=== PATIENT | male | born 1955 | race Caucasian/White ===

== ENCOUNTER 2020-01-17 11:53 | Outpatient (REF) | payer OTHER, SELFPAY ==
[2020-01-17 14:09] LABS: MANUAL DIFF FLAG NO
[2020-01-17 14:21] LABS: Basophils Percent Auto 0.9 % (0-2); Eosinophils Absolute Auto 0.1 X10*3/uL (0.0-0.4); Eosinophils Percent Auto 3.8 % (0-4); Hemoglobin 8.9 g/dl (14.0-18.0); Imm Gran Abs Auto 0.01 X10*3/uL (0.00-0.03); Imm Gran Pct Auto 0.3 % (0.0-0.4); Lymphocytes Absolute Auto 0.9 X10*3/uL (1.2-4.9); Lymphocytes Percent Auto 26.8 % (20-40); Mean Corpuscular HGB Conc 31.8 g/dl (31.0-36.0); Mean Corpuscular Volume 94.3 fL (80-98); Mean Platelet Volume 9.4 fL (9.4-12.4); Monocytes Absolute Auto 0.4 X10*3/uL (0.1-1.2); Monocytes Percent Auto 11.1 % (2-11); Neutrophils Percent Auto 57.1 % (45-73); Platelet Count 231 X10*3/uL (160-400); Red Blood Count 2.97 X10*6/uL (4.60-5.80); Red Cell Distribution Width 16.4 % (11.0-16.0); White Blood Count 3.4 X10*3/uL (4.8-10.8)
[2020-01-17 14:42] LABS: Anion Gap 14 (12-20); Blood Urea Nitrogen 33 mg/dL (9-16); Carbon Dioxide 25 mmol/L (22-29); Chloride 105 mmol/L (96-108); Estimated Glomerular Filt Rate 18; Potassium 4.9 mmol/l (3.3-5.1); Sodium 139 mmol/L (135-145)
== END 2020-01-17 11:54 | disposition home or self-care (01) ==
LOC: HO.10HDL 11:53
PROVIDERS: Visit Provider Internal Medicine Hypertension Specialist
DX: N18.9 Chronic kidney disease, unspecified (principal); D63.1 Anemia in chronic kidney disease
CPT/HCPCS: 36415; 80051; 82310; 82565; 84520; 85025

== ENCOUNTER 2020-01-18 15:10 | Outpatient (REF) | payer OTHER, SELFPAY ==
[2020-01-18 16:31] LABS: Iron 114 mcg/dL (45-160); Percent Iron Saturation 37 % (15-50); Total Iron Binding Capacity 312 mcg/dL (228-428); Unsaturated Iron Binding 198 ug/dL
[2020-01-18 16:51] LABS: Ferritin 13 ng/mL (20-250)
== END 2020-01-18 15:11 | disposition home or self-care (01) ==
LOC: HO.LAB 15:10
PROVIDERS: PCP Internal Medicine; Visit Provider Internal Medicine Nephrology
DX: I13.10 Hypertensive heart and chronic kidney disease without heart failure, with stage 1 through stage 4 chronic kidney disease, or unspecified chronic kidney disease (principal); I12.9 Hypertensive chronic kidney disease with stage 1 through stage 4 chronic kidney disease, or unspecified chronic kidney disease; N18.4 Chronic kidney disease, stage 4 (severe); D63.1 Anemia in chronic kidney disease; E66.01 Morbid (severe) obesity due to excess calories
CPT/HCPCS: 82728; 83540

== ENCOUNTER 2020-03-09 14:27 | Outpatient (REF) | payer OTHER, SELFPAY ==
[2020-03-09 15:00] LABS: MANUAL DIFF FLAG NO
[2020-03-09 15:10] LABS: Basophils Percent Auto 0.7 % (0-2); Eosinophils Absolute Auto 0.1 X10*3/uL (0.0-0.4); Eosinophils Percent Auto 1.2 % (0-4); Hematocrit 28.4 % (42-52); Hemoglobin 9.2 g/dl (14.0-18.0); Imm Gran Abs Auto 0.01 X10*3/uL (0.00-0.03); Imm Gran Pct Auto 0.2 % (0.0-0.4); Lymphocytes Absolute Auto 0.8 X10*3/uL (1.2-4.9); Lymphocytes Percent Auto 20.6 % (20-40); Mean Corpuscular HGB Conc 32.4 g/dl (31.0-36.0); Mean Corpuscular Hemoglobin 29.6 pg (27.0-33.0); Mean Corpuscular Volume 91.3 fL (80-98); Mean Platelet Volume 9.2 fL (9.4-12.4); Monocytes Absolute Auto 0.4 X10*3/uL (0.1-1.2); Monocytes Percent Auto 9.2 % (2-11); Neutrophils Absolute Auto 2.7 X10*3/uL (2.0-8.3); Neutrophils Percent Auto 68.1 % (45-73); Platelet Count 220 X10*3/uL (160-400); Red Blood Count 3.11 X10*6/uL (4.60-5.80); Red Cell Distribution Width 16.1 % (11.0-16.0)
[2020-03-09 15:26] LABS: Anion Gap 13 (12-20); Blood Urea Nitrogen 35 mg/dL (9-16); Calcium 7.9 mg/dL (8.4-10.2); Carbon Dioxide 25 mmol/L (22-29); Chloride 104 mmol/L (96-108); Estimated Glomerular Filt Rate 16; Iron 107 mcg/dL (45-160); Percent Iron Saturation 35 % (15-50); Potassium 4.6 mmol/l (3.3-5.1); Sodium 137 mmol/L (135-145); Total Iron Binding Capacity 309 mcg/dL (228-428); Unsaturated Iron Binding 202 ug/dL
[2020-03-09 15:48] LABS: Ferritin 12 ng/mL (20-250)
== END 2020-03-09 14:28 | disposition home or self-care (01) ==
LOC: HO.LAB 14:27
PROVIDERS: Absent Provider Internal Medicine Nephrology; PCP Internal Medicine; Visit Provider Internal Medicine Hypertension Specialist
DX: I13.10 Hypertensive heart and chronic kidney disease without heart failure, with stage 1 through stage 4 chronic kidney disease, or unspecified chronic kidney disease (principal); N18.4 Chronic kidney disease, stage 4 (severe); D63.1 Anemia in chronic kidney disease; E66.01 Morbid (severe) obesity due to excess calories
CPT/HCPCS: 36415; 80051; 82310; 82565; 82728; 83540; 84520; 85025

== ENCOUNTER 2020-04-11 12:41 | Outpatient (REF) | payer OTHER, SELFPAY ==
[2020-04-11 13:23] LABS: MANUAL DIFF FLAG NO
[2020-04-11 13:29] LABS: Basophils Percent Auto 1.1 % (0-2); Eosinophils Absolute Auto 0.1 X10*3/uL (0.0-0.4); Eosinophils Percent Auto 2.3 % (0-4); Hematocrit 26.1 % (42-52); Hemoglobin 8.7 g/dl (14.0-18.0); Imm Gran Abs Auto 0.01 X10*3/uL (0.00-0.03); Imm Gran Pct Auto 0.3 % (0.0-0.4); Lymphocytes Percent Auto 27.5 % (20-40); Mean Corpuscular HGB Conc 33.3 g/dl (31.0-36.0); Mean Corpuscular Hemoglobin 30.1 pg (27.0-33.0); Mean Corpuscular Volume 90.3 fL (80-98); Mean Platelet Volume 9.2 fL (9.4-12.4); Monocytes Absolute Auto 0.4 X10*3/uL (0.1-1.2); Monocytes Percent Auto 10.3 % (2-11); Neutrophils Percent Auto 58.5 % (45-73); Platelet Count 208 X10*3/uL (160-400); Red Blood Count 2.89 X10*6/uL (4.60-5.80); Red Cell Distribution Width 15.9 % (11.0-16.0); White Blood Count 3.5 X10*3/uL (4.8-10.8)
[2020-04-11 13:52] LABS: Anion Gap 11 (12-20); Blood Urea Nitrogen 30 mg/dL (9-16); Calcium 7.8 mg/dL (8.4-10.2); Carbon Dioxide 21 mmol/L (22-29); Chloride 102 mmol/L (96-108); Estimated Glomerular Filt Rate 19; Potassium 4.4 mmol/L (3.3-5.1); Sodium 130 mmol/L (135-145)
== END 2020-04-11 12:42 | disposition home or self-care (01) ==
LOC: HO.LAB 12:41
PROVIDERS: PCP Internal Medicine; Visit Provider Internal Medicine Hypertension Specialist
DX: N18.4 Chronic kidney disease, stage 4 (severe) (principal); D63.1 Anemia in chronic kidney disease
CPT/HCPCS: 36415; 80051; 82310; 82565; 84520; 85025

== ENCOUNTER 2020-05-14 14:11 | Outpatient (REF) | payer OTHER, SELFPAY ==
[2020-05-14 15:15] LABS: MANUAL DIFF FLAG NO
[2020-05-14 15:20] LABS: Basophils Absolute Auto 0.1 X10*3/uL (0.0-0.2); Basophils Percent Auto 0.9 % (0-2); Eosinophils Absolute Auto 0.1 X10*3/uL (0.0-0.4); Eosinophils Percent Auto 1.7 % (0-4); Hematocrit 32.3 % (42-52); Hemoglobin 10.2 g/dl (14.0-18.0); Imm Gran Abs Auto 0.02 X10*3/uL (0.00-0.03); Imm Gran Pct Auto 0.3 % (0.0-0.4); Lymphocytes Absolute Auto 1.1 X10*3/uL (1.2-4.9); Lymphocytes Percent Auto 18.5 % (20-40); Mean Corpuscular HGB Conc 31.6 g/dl (31.0-36.0); Mean Corpuscular Hemoglobin 29.6 pg (27.0-33.0); Mean Corpuscular Volume 93.6 fL (80-98); Mean Platelet Volume 9.1 fL (9.4-12.4); Monocytes Absolute Auto 0.7 X10*3/uL (0.1-1.2); Monocytes Percent Auto 11.7 % (2-11); Neutrophils Absolute Auto 3.9 X10*3/uL (2.0-8.3); Neutrophils Percent Auto 66.9 % (45-73); Platelet Count 320 X10*3/uL (160-400); Red Blood Count 3.45 X10*6/uL (4.60-5.80); Red Cell Distribution Width 16.5 % (11.0-16.0); White Blood Count 5.9 X10*3/uL (4.8-10.8)
[2020-05-14 15:37] LABS: Glucose Urine UA NEG (NEG); Leukocyte Esterase Urine NEG (NEG); Nitrite Urine NEG (NEG); Urine Blood NEG (NEG); Urine Ketones NEG (NEG); Urine Protein TRACE MG/DL (NEG-TRACE)
[2020-05-14 15:40] LABS: Appearance Urine CLEAR; Color Urine YELLOW
[2020-05-14 15:48] LABS: Alanine Aminotransferase 24 U/L (0-40); Alkaline Phosphatase 63 U/L (39-117); Anion Gap 18 (12-20); Aspartate Amino Transferase 31 U/L (5-37); Bilirubin Total 0.5 mg/dL (0.0-1.0); Blood Urea Nitrogen 43 mg/dL (9-16); C Reactive Protein 0.49 mg/dL (< or = 0.50); Calcium 8.7 mg/dL (8.4-10.2); Carbon Dioxide 23 mmol/L (22-29); Chloride 103 mmol/L (96-108); Estimated Glomerular Filt Rate 19; Glucose Random 95 mg/dL (60-115); Potassium 5.3 mmol/L (3.3-5.1); Sodium 139 mmol/L (135-145); Total Protein 6.5 g/dL (6.5-8.0); Uric Acid 6.9 mg/dL (3.4-7.0)
== END 2020-05-14 14:12 | disposition home or self-care (01) ==
LOC: HO.LAB 14:11
PROVIDERS: PCP Internal Medicine; Visit Provider Internal Medicine
DX: I12.9 Hypertensive chronic kidney disease with stage 1 through stage 4 chronic kidney disease, or unspecified chronic kidney disease (principal); N18.9 Chronic kidney disease, unspecified; R10.9 Unspecified abdominal pain; Z87.39 Personal history of other diseases of the musculoskeletal system and connective tissue
CPT/HCPCS: 36415; 80053; 81003; 84550; 85025; 86140; 87086

== ENCOUNTER 2020-05-31 10:20 | Outpatient (REF) | payer OTHER, SELFPAY ==
[2020-05-31 11:51] LABS: Hematocrit 25.8 % (42-52); Hemoglobin 8.2 g/dl (14.0-18.0); Mean Corpuscular HGB Conc 31.8 g/dl (31.0-36.0); Mean Corpuscular Hemoglobin 30.7 pg (27.0-33.0); Mean Corpuscular Volume 96.6 fL (80-98); Mean Platelet Volume 9.4 fL (9.4-12.4); Platelet Count 220 X10*3/uL (160-400); Red Blood Count 2.67 X10*6/uL (4.60-5.80); Red Cell Distribution Width 16.5 % (11.0-16.0); White Blood Count 3.4 X10*3/uL (4.8-10.8)
[2020-05-31 11:53] LABS: Anion Gap 12 (12-20); Blood Urea Nitrogen 47 mg/dL (9-16); Calcium 7.9 mg/dL (8.4-10.2); Carbon Dioxide 22 mmol/L (22-29); Chloride 111 mmol/L (96-108); Estimated Glomerular Filt Rate 15; Iron 137 mcg/dL (45-160); Percent Iron Saturation 46 % (15-50); Potassium 4.4 mmol/L (3.3-5.1); Sodium 141 mmol/L (135-145); Total Iron Binding Capacity 295 mcg/dL (228-428); Unsaturated Iron Binding 158 ug/dL
[2020-05-31 12:16] LABS: Ferritin 13 ng/mL (20-250)
== END 2020-05-31 10:21 | disposition home or self-care (01) ==
LOC: HO.LAB 10:20
PROVIDERS: PCP Internal Medicine; Visit Provider Internal Medicine Hypertension Specialist
DX: N18.9 Chronic kidney disease, unspecified (principal); D63.1 Anemia in chronic kidney disease
CPT/HCPCS: 36415; 80051; 82310; 82565; 82728; 83540; 84520; 85027

== ENCOUNTER 2020-06-28 15:24 | Outpatient (REF) | payer OTHER, SELFPAY ==
[2020-06-28 15:55] LABS: Basophils Percent Auto 0.9 % (0-2); Eosinophils Percent Auto 0.6 % (0-4); Hematocrit 28.9 % (42-52); Hemoglobin 9.1 g/dl (14.0-18.0); Imm Gran Abs Auto 0.01 X10*3/uL (0.00-0.03); Imm Gran Pct Auto 0.3 % (0.0-0.4); Lymphocytes Absolute Auto 0.6 X10*3/uL (1.2-4.9); Lymphocytes Percent Auto 16.6 % (20-40); MANUAL DIFF FLAG SCAN; Mean Corpuscular HGB Conc 31.5 g/dl (31.0-36.0); Mean Corpuscular Hemoglobin 29.4 pg (27.0-33.0); Mean Corpuscular Volume 93.5 fL (80-98); Mean Platelet Volume 8.7 fL (9.4-12.4); Monocytes Absolute Auto 0.3 X10*3/uL (0.1-1.2); Monocytes Percent Auto 9.8 % (2-11); Neutrophils Absolute Auto 2.4 X10*3/uL (2.0-8.3); Neutrophils Percent Auto 71.8 % (45-73); Platelet Count 206 X10*3/uL (160-400); Red Blood Count 3.09 X10*6/uL (4.60-5.80); Red Cell Distribution Width 15.6 % (11.0-16.0); SCAN SMEAR FLAG 1; White Blood Count 3.4 X10*3/uL (4.8-10.8)
[2020-06-28 16:35] LABS: SLIDE REVIEW VERIFIED
== END 2020-06-28 15:25 | disposition home or self-care (01) ==
LOC: HO.LAB 15:24
PROVIDERS: PCP Internal Medicine; Visit Provider Internal Medicine Hypertension Specialist
DX: N18.4 Chronic kidney disease, stage 4 (severe) (principal)
CPT/HCPCS: 36415; 85025

== ENCOUNTER 2020-07-13 13:58 | Outpatient (REF) | payer OTHER, SELFPAY ==
[2020-07-13 14:36] LABS: Basophils Percent Auto 0.7 % (0-2); Eosinophils Absolute Auto 0.1 X10*3/uL (0.0-0.4); Eosinophils Percent Auto 2.1 % (0-4); Hematocrit 27.4 % (42-52); Hemoglobin 8.8 g/dl (14.0-18.0); Imm Gran Abs Auto 0.02 X10*3/uL (0.00-0.03); Imm Gran Pct Auto 0.5 % (0.0-0.4); Lymphocytes Absolute Auto 0.7 X10*3/uL (1.2-4.9); Lymphocytes Percent Auto 15.6 % (20-40); MANUAL DIFF FLAG SCAN; Mean Corpuscular HGB Conc 32.1 g/dl (31.0-36.0); Mean Corpuscular Hemoglobin 29.5 pg (27.0-33.0); Mean Corpuscular Volume 91.9 fL (80-98); Mean Platelet Volume 8.9 fL (9.4-12.4); Monocytes Absolute Auto 0.6 X10*3/uL (0.1-1.2); Monocytes Percent Auto 13.2 % (2-11); Neutrophils Absolute Auto 2.9 X10*3/uL (2.0-8.3); Neutrophils Percent Auto 67.9 % (45-73); Platelet Count 195 X10*3/uL (160-400); Red Blood Count 2.98 X10*6/uL (4.60-5.80); Red Cell Distribution Width 16.2 % (11.0-16.0); SCAN SMEAR FLAG 1; White Blood Count 4.2 X10*3/uL (4.8-10.8)
[2020-07-13 14:55] LABS: Anion Gap 13 (12-20); Blood Urea Nitrogen 39 mg/dL (9-16); Calcium 7.7 mg/dL (8.4-10.2); Carbon Dioxide 23 mmol/L (22-29); Chloride 103 mmol/L (96-108); Estimated Glomerular Filt Rate 16; Potassium 4.5 mmol/L (3.3-5.1); Sodium 134 mmol/L (135-145)
[2020-07-13 15:02] LABS: SLIDE REVIEW VERIFIED
== END 2020-07-13 13:59 | disposition home or self-care (01) ==
LOC: HO.LAB 13:58
PROVIDERS: PCP Internal Medicine; Visit Provider Internal Medicine Hypertension Specialist
DX: N18.4 Chronic kidney disease, stage 4 (severe) (principal)
CPT/HCPCS: 36415; 80051; 82310; 82565; 84520; 85025

== ENCOUNTER 2020-09-05 15:30 | Outpatient (REF) | payer OTHER, SELFPAY ==
[2020-09-05 16:14] LABS: MANUAL DIFF FLAG NO
[2020-09-05 16:19] LABS: Basophils Percent Auto 0.7 % (0-2); Eosinophils Absolute Auto 0.1 X10*3/uL (0.0-0.4); Eosinophils Percent Auto 3.3 % (0-4); Hematocrit 27.9 % (42-52); Hemoglobin 8.7 g/dl (14.0-18.0); Imm Gran Abs Auto 0.01 X10*3/uL (0.00-0.03); Imm Gran Pct Auto 0.3 % (0.0-0.4); Lymphocytes Absolute Auto 0.8 X10*3/uL (1.2-4.9); Lymphocytes Percent Auto 26.6 % (20-40); Mean Corpuscular HGB Conc 31.2 g/dl (31.0-36.0); Mean Corpuscular Hemoglobin 29.2 pg (27.0-33.0); Mean Corpuscular Volume 93.6 fL (80-98); Mean Platelet Volume 9.3 fL (9.4-12.4); Monocytes Absolute Auto 0.4 X10*3/uL (0.1-1.2); Monocytes Percent Auto 11.6 % (2-11); Neutrophils Absolute Auto 1.7 X10*3/uL (2.0-8.3); Neutrophils Percent Auto 57.5 % (45-73); Platelet Count 199 X10*3/uL (160-400); Red Blood Count 2.98 X10*6/uL (4.60-5.80); Red Cell Distribution Width 17.5 % (11.0-16.0)
[2020-09-05 16:39] LABS: Anion Gap 15 (12-20); Blood Urea Nitrogen 52 mg/dL (9-16); Calcium 8.5 mg/dL (8.4-10.2); Carbon Dioxide 22 mmol/L (22-29); Chloride 111 mmol/L (96-108); Estimated Glomerular Filt Rate 12; Glucose Random 100 mg/dL (60-115); Potassium 5.2 mmol/L (3.3-5.1); Sodium 143 mmol/L (135-145)
[2020-09-06 14:56] LABS: Calcium (PTHI) 8.6 mg/dL (8.6-10.3); PTHI 50 pg/mL (14-64)
== END 2020-09-05 15:31 | disposition home or self-care (01) ==
LOC: HO.LAB 15:30
PROVIDERS: PCP Internal Medicine; Visit Provider Internal Medicine Hypertension Specialist
DX: N18.4 Chronic kidney disease, stage 4 (severe) (principal)
CPT/HCPCS: 36415; 80048; 83970; 85025

== ENCOUNTER 2020-12-13 10:32 | Outpatient (REF) | payer OTHER, SELFPAY ==
[2020-12-13 14:18] LABS: Alanine Aminotransferase 15 U/L (0-40); Albumin Level 3.6 g/dL (3.5-5.0); Alkaline Phosphatase 54 U/L (39-117); Anion Gap 16 (12-20); Aspartate Amino Transferase 21 U/L (5-37); Bilirubin Total 0.4 mg/dL (0.0-1.0); Blood Urea Nitrogen 52 mg/dL (9-16); Calcium 8.4 mg/dL (8.4-10.2); Carbon Dioxide 20 mmol/L (22-29); Chloride 110 mmol/L (96-108); Estimated Glomerular Filt Rate 15; Glucose Fasting 103 mg/dL (60-99); Phosphorus 5.1 mg/dL (2.7-4.5); Potassium 4.6 mmol/L (3.3-5.1); Sodium 141 mmol/L (135-145); Total Protein 5.9 g/dL (6.5-8.0)
[2020-12-15 06:17] LABS: Calcium (PTHI) 8.3 mg/dL (8.6-10.3); PTHI 68 pg/mL (14-64)
== END 2020-12-13 10:33 | disposition home or self-care (01) ==
LOC: HO.10HDL 10:32
PROVIDERS: Visit Provider Internal Medicine Hypertension Specialist
DX: N18.5 Chronic kidney disease, stage 5 (principal); I12.0 Hypertensive chronic kidney disease with stage 5 chronic kidney disease or end stage renal disease
CPT/HCPCS: 36415; 80053; 83970; 84100

== ENCOUNTER 2021-01-15 15:09 | Outpatient (REF) | payer OTHER, SELFPAY ==
[2021-01-15 15:23] LABS: MANUAL DIFF FLAG NO
[2021-01-15 15:37] LABS: Basophils Percent Auto 0.4 % (0-2); Eosinophils Absolute Auto 0.1 X10*3/uL (0.0-0.4); Eosinophils Percent Auto 1.5 % (0-4); Hematocrit 32.8 % (42.0-52.0); Hemoglobin 10.2 g/dl (14.0-18.0); Imm Gran Abs Auto 0.02 X10*3/uL (0.00-0.03); Imm Gran Pct Auto 0.3 % (0.0-0.4); Lymphocytes Absolute Auto 1.1 X10*3/uL (1.2-4.9); Lymphocytes Percent Auto 14.4 % (20-40); Mean Corpuscular HGB Conc 31.1 g/dl (31.0-36.0); Mean Corpuscular Hemoglobin 27.4 pg (27.0-33.0); Mean Corpuscular Volume 88.2 fL (80.0-98.0); Mean Platelet Volume 9.1 fL (9.4-12.4); Monocytes Absolute Auto 0.8 X10*3/uL (0.1-1.2); Monocytes Percent Auto 10.4 % (2-11); Neutrophils Absolute Auto 5.4 x10*3/uL (2.0-8.3); Platelet Count 233 X10*3/uL (160-400); Red Blood Count 3.72 X10*6/uL (4.60-5.80); Red Cell Distribution Width 18.6 % (11.0-16.0); White Blood Count 7.4 X10*3/uL (4.8-10.8)
[2021-01-15 16:01] LABS: Alanine Aminotransferase 15 U/L (0-40); Albumin Level 3.9 g/dL (3.5-5.0); Alkaline Phosphatase 59 U/L (39-117); Anion Gap 13 (12-20); Aspartate Amino Transferase 19 U/L (5-37); Bilirubin Total 0.2 mg/dL (0.0-1.0); Blood Urea Nitrogen 58 mg/dL (9-16); Calcium 8.7 mg/dL (8.4-10.2); Carbon Dioxide 24 mmol/L (22-29); Chloride 107 mmol/L (96-108); Cholesterol 140 mg/dL; Estimated Glomerular Filt Rate 13; Glucose Random 114 mg/dL (60-115); HDL Cholesterol 50 mg/dL; Iron 22 mcg/dL (45-160); LDL Cholesterol Calculated 82 mg/dl; Percent Iron Saturation 6 % (15-50); Potassium 5.4 mmol/L (3.3-5.1); Sodium 139 mmol/L (135-145); Total Iron Binding Capacity 344 mcg/dL (228-428); Total Protein 6.4 g/dL (6.5-8.0); Triglycerides 40 mg/dL; Unsaturated Iron Binding 322 ug/dL
[2021-01-15 16:17] LABS: Prostate Specific Antigen 0.27 ng/mL (<0.05-4.0); Thyroid Stimulating Hormone 2.06 uIU/mL (0.32-4.0); Vitamin D 25-OH Total 40.9 ng/mL (>30)
[2021-01-15 16:25] LABS: Vitamin B12 529 pg/mL (200-900)
== END 2021-01-15 15:10 | disposition home or self-care (01) ==
LOC: HO.LAB 15:09
PROVIDERS: PCP Internal Medicine; Visit Provider Internal Medicine
DX: I12.9 Hypertensive chronic kidney disease with stage 1 through stage 4 chronic kidney disease, or unspecified chronic kidney disease (principal); N18.9 Chronic kidney disease, unspecified; E78.00 Pure hypercholesterolemia, unspecified; R53.83 Other fatigue; Z12.5 Encounter for screening for malignant neoplasm of prostate
CPT/HCPCS: 36415; 80053; 80061; 82306; 82607; 83540; 84153; 84443; 85025

== ENCOUNTER 2021-02-15 13:39 | Outpatient (REF) | payer OTHER, SELFPAY ==
[2021-02-15 14:00] LABS: MANUAL DIFF FLAG NO
[2021-02-15 14:09] LABS: Basophils Percent Auto 0.8 % (0-2); Eosinophils Absolute Auto 0.1 X10*3/uL (0.0-0.4); Eosinophils Percent Auto 3.1 % (0-4); Hemoglobin 9.4 g/dl (14.0-18.0); Imm Gran Abs Auto 0.01 X10*3/uL (0.00-0.03); Imm Gran Pct Auto 0.3 % (0.0-0.4); Lymphocytes Absolute Auto 0.8 X10*3/uL (1.2-4.9); Lymphocytes Percent Auto 21.7 % (20-40); Mean Corpuscular HGB Conc 31.3 g/dl (31.0-36.0); Mean Corpuscular Hemoglobin 27.9 pg (27.0-33.0); Mean Platelet Volume 8.9 fL (9.4-12.4); Monocytes Absolute Auto 0.4 X10*3/uL (0.1-1.2); Monocytes Percent Auto 11.4 % (2-11); Neutrophils Absolute Auto 2.4 x10*3/uL (2.0-8.3); Neutrophils Percent Auto 62.7 % (45-73); Platelet Count 206 X10*3/uL (160-400); Red Blood Count 3.37 X10*6/uL (4.60-5.80); Red Cell Distribution Width 18.6 % (11.0-16.0); White Blood Count 3.9 X10*3/uL (4.8-10.8)
[2021-02-15 14:45] LABS: Anion Gap 13 (12-20); Blood Urea Nitrogen 51 mg/dL (9-16); Calcium 8.4 mg/dL (8.4-10.2); Carbon Dioxide 23 mmol/L (22-29); Chloride 110 mmol/L (96-108); Estimated Glomerular Filt Rate 15; Glucose Random 120 mg/dL (60-115); Iron 143 mcg/dL (45-160); Percent Iron Saturation 45 % (15-50); Potassium 5.1 mmol/L (3.3-5.1); Sodium 141 mmol/L (135-145); Total Iron Binding Capacity 319 mcg/dL (228-428); Unsaturated Iron Binding 176 ug/dL
[2021-02-15 15:03] LABS: Ferritin 20 ng/mL (20-250)
== END 2021-02-15 13:40 | disposition home or self-care (01) ==
LOC: HO.LAB 13:39
PROVIDERS: PCP Internal Medicine; Visit Provider Internal Medicine Hypertension Specialist
DX: I12.9 Hypertensive chronic kidney disease with stage 1 through stage 4 chronic kidney disease, or unspecified chronic kidney disease (principal); N18.4 Chronic kidney disease, stage 4 (severe); D63.1 Anemia in chronic kidney disease
CPT/HCPCS: 36415; 80048; 82728; 83540; 85025

== ENCOUNTER 2021-04-04 13:20 | Outpatient (REF) | payer OTHER, SELFPAY ==
[2021-04-04 13:55] LABS: Hematocrit 30.7 % (42.0-52.0); Hemoglobin 9.4 g/dl (14.0-18.0); Mean Corpuscular HGB Conc 30.6 g/dl (31.0-36.0); Mean Corpuscular Hemoglobin 28.2 pg (27.0-33.0); Mean Corpuscular Volume 92.2 fL (80.0-98.0); Mean Platelet Volume 9.2 fL (9.4-12.4); Platelet Count 175 X10*3/uL (160-400); Red Blood Count 3.33 X10*6/uL (4.60-5.80); Red Cell Distribution Width 17.9 % (11.0-16.0); White Blood Count 3.2 X10*3/uL (4.8-10.8)
[2021-04-04 14:11] LABS: Alanine Aminotransferase 10 U/L (0-40); Albumin Level 3.8 g/dL (3.5-5.0); Alkaline Phosphatase 59 U/L (39-117); Aspartate Amino Transferase 22 U/L (5-37); Bilirubin Direct < 0.2 mg/dL (0.0-0.5); Bilirubin Total 0.2 mg/dL (0.0-1.0); Total Protein 6.4 g/dL (6.5-8.0)
== END 2021-04-04 13:21 | disposition home or self-care (01) ==
LOC: HO.LAB 13:20
PROVIDERS: PCP Internal Medicine; Visit Provider Internal Medicine Hypertension Specialist
DX: N18.4 Chronic kidney disease, stage 4 (severe) (principal); E11.22 Type 2 diabetes mellitus with diabetic chronic kidney disease
CPT/HCPCS: 36415; 80076; 85027

== ENCOUNTER 2021-05-29 10:37 | Outpatient (REF) | payer OTHER, SELFPAY ==
[2021-05-29 13:26] LABS: Hemoglobin 9.1 g/dl (14.0-18.0); Mean Corpuscular HGB Conc 31.4 g/dl (31.0-36.0); Mean Corpuscular Hemoglobin 30.7 pg (27.0-33.0); Mean Platelet Volume 9.7 fL (9.4-12.4); Platelet Count 204 X10*3/uL (160-400); Red Blood Count 2.96 X10*6/uL (4.60-5.80); Red Cell Distribution Width 15.8 % (11.0-16.0); White Blood Count 4.8 X10*3/uL (4.8-10.8)
[2021-05-29 13:39] LABS: Anion Gap 15 (12-20); Blood Urea Nitrogen 59 mg/dL (9-16); Calcium 8.7 mg/dL (8.4-10.2); Carbon Dioxide 22 mmol/L (22-29); Chloride 110 mmol/L (96-108); Estimated Glomerular Filt Rate 14; Glucose Random 133 mg/dL (60-115); Iron 119 mcg/dL (45-160); Percent Iron Saturation 42 % (15-50); Potassium 4.7 mmol/L (3.3-5.1); Sodium 142 mmol/L (135-145); Total Iron Binding Capacity 285 mcg/dL (228-428); Unsaturated Iron Binding 166 ug/dL
[2021-05-29 13:55] LABS: Ferritin 31 ng/mL (20-250)
[2021-05-30 12:06] LABS: Calcium (PTHI) 8.6 mg/dL (8.6-10.3); PTHI 70 pg/mL (16-77)
== END 2021-05-29 10:38 | disposition home or self-care (01) ==
LOC: HO.10HDL 10:37
PROVIDERS: Visit Provider Internal Medicine Hypertension Specialist
DX: I12.9 Hypertensive chronic kidney disease with stage 1 through stage 4 chronic kidney disease, or unspecified chronic kidney disease (principal); N18.4 Chronic kidney disease, stage 4 (severe); D63.1 Anemia in chronic kidney disease
CPT/HCPCS: 36415; 80048; 82728; 83540; 83970; 85027

== ENCOUNTER 2021-11-22 14:41 | Outpatient (REF) | payer OTHER, MEDICARE, SELFPAY ==
[2021-11-22 15:45] LABS: Influenza A PCR NEGATIVE (Negative); Influenza B PCR NEGATIVE (Negative); Resp Syncy Virus RNA Qual PCR NEGATIVE (Negative); SARS COV2 PCR INHOUSE NEGATIVE (Negative)
== END 2021-11-22 14:42 | disposition home or self-care (01) ==
LOC: HO.LNP 14:41
PROVIDERS: Visit Provider Internal Medicine
DX: Z20.822 Contact with and (suspected) exposure to COVID-19 (principal)
CPT/HCPCS: 0241U

== ENCOUNTER 2021-12-14 07:59 | Emergency (ER) | payer OTHER, MEDICARE, SELFPAY ==
--- NOTE | ~2021-12-14 | XR_ITS ---
EXAMINATION: XR CHEST CLINICAL INFORMATION: Cough COMPARISON: Prior chest June 2018 TECHNIQUE: Frontal view of the chest was obtained. FINDINGS: Minimal linear opacities at the left base compatible discoid atelectasis or scarring compared to prior. Lungs otherwise clear. Cardiomediastinal silhouette normal. Bones and soft tissues unremarkable. XR/XR chest 1V IMPRESSION: Minimal scarring and/or discoid atelectasis at left base.
--- NOTE | ~2021-12-14 | CT_ITS ---
CT SOFT TISSUE NECK WITHOUT CONTRAST CLINICAL INFORMATION: Rule out soft tissue mass. COMPARISON: None available. TECHNIQUE: Helical imaging was performed in the axial plane with generation of coronal and sagittal reformatted images. This CT examination was performed using dose optimization techniques as appropriate, variously including the following: *Automated exposure control *Adjustment of mA and/or kV according to patient size (this includes techniques or standardized protocols for targeted exams where dose is matched to indication/reason for exam; i.e. extremities or head) *Use of iterative reconstruction technique FINDINGS: This is a limited noncontrast CT of the neck. No definite soft tissue mass lesions are identified though assessment is limited given the lack of intravenous contrast and lack of a palpable marker. There is no cervical lymphadenopathy. Nondiagnostic assessment for superficial mucosal space lesions due to the lack of intravenous contrast. Unenhanced orbital soft tissues, parotid glands, submandibular glands, and thyroid gland are unremarkable. No retropharyngeal fluid collections. Atherosclerotic calcification involving the carotid bifurcations bilaterally. A partially calcified excrescence associated with the left MCA bifurcation is compatible with a known aneurysm in this location, not diagnostically assessed due to the lack of contrast. There is multilevel cervical spondylosis. At C5-C6, a central disc protrusion results in possible moderate to severe central canal stenosis and mass effect on the cervical spinal cord that can be correlated for clinical signs of cervical myelopathy. Rightward convex scoliotic curvature of the thoracic spine. Mild mucosal thickening within the maxillary sinuses and ethmoid air cells bilaterally. The mastoid air cells are clear. The airway is widely patent. CT/CT soft tissue neck wo IV con IMPRESSION: - This is a limited noncontrast CT of the neck. No definite soft tissue mass lesions are identified though assessment is limited given the lack of intravenous contrast and lack of a palpable marker. There is no cervical lymphadenopathy. - A partially calcified excrescence associated with the left MCA bifurcation is compatible with a known aneurysm in this location, not diagnostically assessed due to the lack of contrast. - There is multilevel cervical spondylosis. At C5-C6, a central disc protrusion results in possible moderate to severe central canal stenosis and mass effect on the cervical spinal cord that can be correlated for clinical signs of cervical myelopathy.
[2021-12-14 08:01] VITALS: BP 137/87; PULSE 102; RESP 16; TEMP 36.2; O2SAT 98; BMI 26.9
[2021-12-14 08:29] LABS: COVID-19 Test Negative (Negative); IDNOW Serial# 16C4AD1C
[2021-12-14 08:37] LABS: Strep A Nucleic Acid Negative (Negative)
--- OUTSIDE RECORDS SUMMARY | 2021-12-14 08:54 | XMS_ITS | Continuity of Care Document ---
:1955 Author Organization [facility] Address [address] [place] [id number]- Care Team Providers Name Role Phone Jose Alfredo Ross MD Primary [id number] Date(s): 07/18/21 - 07/22/[address] [address] Discharge Disposition: A-D/C Home Attending Physician: Philipp Munoz MD Admitting Physician: Philipp Munoz MD Referring Physician: Not on Staff, Referring MD Allergies, Adverse Reactions, Alerts No Known Allergies Immunizations Given and Recorded Vaccine Date Status Refusal Reason SARS-CoV-2 (COVID-19) mRNA BNT-162b2 vac 08/10/20 Given SARS-CoV-2 (COVID-19) mRNA BNT-162b2 vac 07/20/20 Given Medications acetaminophen 325 mg oral tablet 975 mg, By Mouth, Every 6 hours, PRN, for 7 days, # 100 tablet, Refills 0, Tot. Refills 0, Acute 07/29/21 12:48:00 EDT, Pain , Mild, 07/22/21 12:48:00 EDT, Route to Pharmacy Electronically, [facility], Partial fill upon patient request i... Start Date: 07/22/21 Stop Date: 07/29/21 Status: OrderedALPRAZolam 0.5 mg oral tablet 0.5 mg, 1, tablet, By Mouth, 2 times a day, PRN, for 3 days, # 12 tablet, Refills 0, Tot. Refills 0,Acute 07/25/21 12:48:00 EDT, Anxiety, 07/22/21 12:48:00 EDT, Route to Pharmacy Electronically, [facility], Partial fill upon patient req... Start Date: 07/22/21 Stop Date: 07/25/21 Status: OrderedamLODIPine 5 mg oral tablet 5 mg, Tablet, By Mouth, 07/22/21 9:00:00 EDT Start Date: 07/22/21 Stop Date: 07/22/21 Status: CompletedamLODIPine 5 mg oral tablet 5 mg, 1, tablet, By Mouth, Daily, # 30 tablet, Refills 0, Maintenance, 11/03/19 10:39:00 EDT Start Date: 11/03/19 Status: Orderedatorvastatin 20 mg oral tablet 1 tablet = 20 mg, By Mouth, Daily, # 30 tablet, 0 Refills, Maintenance, 11/03/19 10:42:00 EDT, Tablet Start Date: 11/03/19 Status: OrderedBactrim 400 mg-80 mg oral tablet 1 tablet, By Mouth, Daily, # 30 tablet, 5 Refills, Acute 07/22/22 10:28:00 EDT, 07/22/21 10:27:00 EDT, Tablet, [facility], Partial fill upon patient request if the prescription is for a schedule II opioid drug., 1 tablet By Mouth Elsa... Start Date: 07/22/21 Stop Date: 07/22/22 Status: OrderedcloNIDine 0.1 mg oral tablet 0.1 mg, 1, tablet, By Mouth, Daily at bedtime, # 30 tablet, Refills 0, Maintenance, 11/03/19 10:43:00 EDT Start Date: 11/03/19 Status: Orderedclotrimazole 10 mg oral lozenge 10 mg, 1, lozenge, By Mouth, 3 times a day, # 90 lozenge, Refills 2, Tot. Refills 2, Acute 07/22/22 10:29:00 EDT, 07/22/21 10:27:00 EDT, Route to Pharmacy Electronically, [facility], Partial fill upon patient request if the prescripti... Start Date: 07/22/21 Stop Date: 07/22/22 Status: OrderedCPAP Machine See Instructions, # 1 each, Maintenance, AutoCPAP 7-12 cm H20, use Daily when sleeping, 07/01/21 11:14:00 EDT, Supply Start Date: 07/01/21 Status: Ordereddocusate sodium 100 mg oral capsule 100 mg, 1, capsule, By Mouth, 3 times a day, PRN, # 90 capsule, Refills 0, Tot. Refills 0, Maintenance, as needed for constipation, 07/22/21 10:27:00 EDT, Route to Pharmacy Electronically, [facility], Partial fill upon patient request... Start Date: 07/22/21 Status: Orderedentecavir 0.5 mg oral tablet 1 tablet = 0.5 mg, By Mouth, Daily, # 30 tablet, 11 Refills, Maintenance, 07/22/21 10:29:00 EDT, Tablet, [facility], Partial fill upon patient request if the prescription is for a schedule II opioid drug., 152, cm, 07/19/21 21:24:00 E... Start Date: 07/22/21 Status: OrderedEnvarsus XR 1 mg oral tablet, extended release 8 tablet = 8 mg, By Mouth, Daily in AM, # 240 tablet, 11 Refills, Maintenance, 07/22/21 10:27:00 EDT, [facility], Partial fill upon patient request if the prescription is for a schedule II opioid drug., 152, cm, 07/19/21 21:24:00 EDT,... Start Date: 07/22/21 Status: Orderedfinasteride 5 mg oral tablet 1 tablet = 5 mg, By Mouth, Daily, # 30 tablet, 0 Refills, Maintenance, 11/03/19 10:39:00 EDT, Tablet Start Date: 11/03/19 Status: OrderedKeppra 500 mg oral tablet 3 tablet = 1,500 mg, By Mouth, Daily at bedtime, 0 Refills, Maintenance, 11/03/19 10:40:00 EDT Start Date: 11/03/19 Status: Orderedmelatonin 3 mg oral tablet 1 tablet = 3 mg, By Mouth, Daily at bedtime, # 60 tablet, 0 Refills, Maintenance, 12/17/20 10:42:00 EDT, Tablet Start Date: 12/17/20 Status: Orderedmycophenolic acid 180 mg oral delayed release tablet 3 tablet = 540 mg, By Mouth, 2 times a day, # 180 tablet, 11 Refills, Maintenance, 07/22/21 10:27:00EDT, [facility], Partial fill upon patient request if the prescription is for a schedule II opioid drug., 152, cm, 07/19/21 21:24:00... Start Date: 07/22/21 Status: OrderedOXcarbazepine 600 mg oral tablet 1 tablet = 600 mg, By Mouth, Daily at bedtime, # 60 tablet, 0 Refills, Maintenance, 12/17/20 10:43:00 EDT, Tablet, Partial fill upon patient request if the prescription is for a schedule II opioid drug. Start Date: 12/17/20 Status: OrderedoxyCODONE 5 mg oral tablet 5 mg, 1, tablet, By Mouth, Every 4 hours, PRN, for 3 days, # 12 tablet, Refills 0, Tot. Refills 0, Acute 07/25/21 12:48:00 EDT, Pain , Moderate, 07/22/21 12:48:00 EDT, Route to Pharmacy Electronically,[facility], Partial fill upon patie... Start Date: 07/22/21 Stop Date: 07/25/21 Status: OrderedSenna 8.6 mg oral tablet 8.6 mg, 1, tablet, By Mouth, Daily, PRN, # 30 tablet, Refills 0, Tot. Refills 0, Acute, as needed for constipation, 07/22/22 10:29:00 EDT, 07/22/21 10:27:00 EDT, Route to Pharmacy Electronically, [facility], Partial fill upon patient... Start Date: 07/22/21 Stop Date: 07/22/22 Status: OrderedtraZODone 300 mg oral tablet 2 tablet = 600 mg, By Mouth, Daily at bedtime, 0 Refills, Maintenance, 12/17/20 10:40:00 EDT, Tablet, Partial fill upon patient request if the prescription is for a schedule II opioid drug. Start Date: 12/17/20 Status: OrderedValcyte 450 mg oral tablet 450 mg, 1, tablet, By Mouth, Daily, # 30 tablet, Refills 11, Tot. Refills 11, Acute 07/22/22 10:28:00 EDT, 07/22/21 10:27:00 EDT, Route to Pharmacy Electronically, [facility], Partial fill upon patient request if the prescription is f... Start Date: 07/22/21 Stop Date: 07/22/22 Status: Ordered Problem List Condition Effective Dates Status Health Status Informant Obese class I(Confirmed) Active Obstructive sleep apnea(Confirmed) Active Results Orders for Microbiology Reports Name Date Sterile Body Fluid Culture W/ Gram Smear (STERILE FLUI D CULT.) 07/18/21 Urine Culture (URINE CULTURE) 07/18/21 Microbiology Reports TEST:Sterile Fluid Culture STATUS:Auth (Verified) BODY SITE: SOURCE:FLUID COLLECTED DATE/TIME:07/18/21 9:50 PMSterile Fluid Culture SPECIMEN DESCRIPTION : FLUID KIDNEY PRESERVATION FLUID SPECIAL REQUESTS : NONE GRAM STAIN : 2+ TISSUE CELLS NO ORGANISMS SEEN CULTURE : NO GROWTH 2 DAYS REPORT STATUS : FINAL 07/21/2021TEST:Urine Culture STATUS:Auth (Verified) BODY SITE: SOURCE:URINE COLLECTED DATE/TIME:07/18/21 8:49 PMUrine Culture SPECIMEN DESCRIPTION : URINE SPECIAL REQUESTS : NONE CULTURE : NO GROWTH REPORT STATUS : FINAL 07/20/2021adiology Reports Exam Date Time Procedure Performing Provider Status 07/18/21 6:18 PM Chest Portable Cecilia Gordon; Auth (Verifie d) Notes:(Chest Portable) Reason For Exam: Other:RESULT: Chest Portable Examination: Portable chest performed on 07/18/2021. History: Preop. Findings: A frontal view of the chest is compared to a prior study dated 11/25/2018. The cardiac and mediastinal silhouettes are within normal limits. The lungs are clear. The osseous and soft tissue structures are unremarkable. IMPRESSION: There is no acute cardiopulmonary disease. WSN: [id number] Ordering Physician: Jonathan Pool Dictated By: Richa Hair MD Dictated Date/Time: 07/18/21 6:33 pm Reviewed By: Richa Hair MD Signed By: Richa Hair MD Signed Date/Time: 07/18/21 6:33 pm Transcribed By: SHAZIA Transcribed Date/Time: 07/18/21 6:32 pm Vital Signs Most recent to oldest 1 2 3 [Reference Range]: Height 152 cm 152 cm 152 cm (07/19/21 9:10 PM) (07/18/21 8:04 PM) (07/18/21 7:4 0 PM) Weight 73.2 kg 73.5 kg 75.6 kg (07/22/21 6:00 AM) (07/21/21 5:50 AM) (07/20/21 6:0 2 PM) Oxygen Saturation [94-100 %] 97 % 95 % 96 % (07/22/21 3:00 PM) (07/22/21 11:00 AM) (07/22/21 6: 00 AM) Pulse Rate [55-90 bpm] 68 bpm 71 bpm 73 bpm (07/22/21 3:00 PM) (07/22/21 11:00 AM) (07/22/21 6: 00 AM) Body Mass Index [18.5-24.99] 31.68 31.68 *>HHI* *>HHI* (07/18/21 8:04 PM) (07/18/21 7:40 PM) Blood Pressure [90-138/55-84 166/92 mm Hg 170/91 mm Hg 168 /84 mm Hg mm Hg] *H* *H* *H* (07/22/21 3:00 PM) (07/22/21 11:00 AM) (07/22/21 8: 06 AM) Respiratory Rate [16-30 16 br/min 14 br/min 14 br/mi n br/min] (07/22/21 3:00 PM) *L* *L* (07/22/21 11:00 AM) (07/21/21 10:0 0 PM) Temperature [96.8-100.4 DegF] 98.1 DegF 97.9 DegF 98 .2 DegF (07/22/21 3:00 PM) (07/22/21 11:00 AM) (07/22/21 6: 00 AM) Liters per Minute 2 L/min 2 L/min 2 L/min (07/20/21 4:00 AM) (07/20/21 3:30 AM) (07/20/21 3:0 0 AM) Mode of Delivery (Oxygen) Room air Room air Room a ir (07/22/21 3:00 PM) (07/22/21 11:00 AM) (07/22/21 6: 00 AM) Blood pressure sites Arm, right Arm, left Arm, left (5/23/22 3:00 PM) (07/22/21 11:00 AM) (07/22/21 6: 00 AM) Temperature Route Oral Oral Oral (07/22/21 3:00 PM) (07/22/21 11:00 AM) (07/22/21 6: 00 AM) Dry Weight 73.2 kg (07/18/21 7:40 PM) Weight Obtained Via Standing scale Standing scale Standing sca le (07/22/21 6:00 AM) (07/21/21 5:50 AM) (07/19/21 10: 54 AM) Social History Social History Type Response Sex Male
--- OUTSIDE RECORDS SUMMARY | 2021-12-14 08:54 | XMS_ITS | Continuity of Care Document ---
:1955 Author Organization [facility] Address [address] [facility] [address] [place] [address]- Care Team Providers Name Role Phone Jose Alfredo Ross MD Primary Care Physician [place] [facility] [place] - 06/16/20 [facility] [address] [facility] [address] [place], [place] [address] Attending Physician: Martín Arias Admitting Physician: Martín Arias Referring Physician: Martín Arias Medications ALPRAZolam 0.25 mg oral tablet 0.25 mg, 1, tablet, By Mouth, 5 times a day, PRN, Refills 0, Maintenance, as needed for anxiety, 11/03/19 10:40:00 EDT Start Date: 11/03/19 Status: OrderedamLODIPine 5 mg oral tablet 5 mg, 1, tablet, By Mouth, Daily, # 30 tablet, Refills 0, Maintenance, 11/03/19 10:39:00 EDT Start Date: 11/03/19 Status: Orderedatorvastatin 20 mg oral tablet 1 tablet = 20 mg, By Mouth, Daily, # 30 tablet, 0 Refills, Maintenance, 11/03/19 10:42:00 EDT, Tablet Start Date: 11/03/19 Status: Orderedbumetanide 0.5 mg oral tablet 0.5 mg, 1, tablet, By Mouth, Daily, # 30 tablet, Refills 0, Maintenance, 11/03/19 10:39:00 EDT Start Date: 11/03/19 Status: Orderedcalcitriol 0.25 mcg oral capsule 1 capsule = 0.25 mcg, By Mouth, Every other day, 0 Refills, Maintenance, 11/03/19 10:41:00 EDT Start Date: 11/03/19 Status: OrderedcloNIDine 0.1 mg oral tablet 0.1 mg, 1, tablet, By Mouth, Daily at bedtime, # 30 tablet, Refills 0, Maintenance, 11/03/19 10:43:00 EDT Start Date: 11/03/19 Status: Orderedenalapril 20 mg oral tablet 1 tablet = 20 mg, By Mouth, Daily, # 30 tablet, 0 Refills, Maintenance, 11/03/19 10:41:00 EDT, Tablet Start Date: 11/03/19 Status: Orderedfinasteride 5 mg oral tablet 1 tablet = 5 mg, By Mouth, Daily, # 30 tablet, 0 Refills, Maintenance, 11/03/19 10:39:00 EDT, Tablet Start Date: 11/03/19 Status: OrderedhydrALAZINE 100 mg oral tablet 1 tablet = 100 mg, By Mouth, 3 times a day, 0 Refills, Maintenance, 11/03/19 10:44:00 EDT Start Date: 11/03/19 Status: OrderedKeppra 500 mg oral tablet 3 tablet = 1,500 mg, By Mouth, 2 times a day, 0 Refills, Maintenance, 11/03/19 10:40:00 EDT Start Date: 11/03/19 Status: OrderedtraZODone 100 mg oral tablet 450 mg, 4.5, tablet, By Mouth, Daily at bedtime, PRN, Refills 0, Maintenance, Sleep, 11/03/19 10:42:00 EDT Start Date: 11/03/19 Status: Ordered Social History Social History Type Response Sex Male
--- OUTSIDE RECORDS SUMMARY | 2021-12-14 08:54 | XMS_ITS | Continuity of Care Document ---
:1955 Author Organization [facility] Address [address] [place] [id number]- Care Team Providers Name Role Phone Jose Alfredo Ross MD Primary Care Physician [place] [facility] [place](s): 11/11/21 - 12/11/[address] [address]- Attending Physician: Martín Arias Admitting Physician: Martín Arias Referring Physician: AdmtrMartín Allergies, Adverse Reactions, Alerts No Known Allergies Immunizations Given and Recorded Vaccine Date Status Refusal Reason SARS-CoV-2 (COVID-19) mRNA BNT-162b2 vac 08/10/20 Given SARS-CoV-2 (COVID-19) mRNA BNT-162b2 vac 07/20/20 Given Medications amLODIPine 10 mg oral tablet 10 mg, 1, tablet, By Mouth, Daily, # 90 tablet, Refills 0, Maintenance, 10/16/21 11:01:00 EDT, Partial fill upon patient request if the prescription is for a schedule II opioid drug. Start Date: 10/16/21 Status: Orderedatorvastatin 20 mg oral tablet 1 tablet = 20 mg, By Mouth, Daily, # 30 tablet, 0 Refills, Maintenance, 11/03/19 10:42:00 EDT, Tablet Start Date: 11/03/19 Status: OrderedBactrim 400 mg-80 mg oral tablet 1 tablet, By Mouth, Daily, # 30 tablet, 5 Refills, Acute 07/22/22 10:28:00 EDT, 07/22/21 10:27:00 EDT, Tablet, [facility], Partial fill upon patient request if the prescription is for a schedule II opioid drug., 1 tablet By Mouth Elsa... Start Date: 07/22/21 Stop Date: 07/22/22 Status: OrderedCPAP Machine See Instructions, # 1 each, Maintenance, AutoCPAP 7-12 cm H20, use Daily when sleeping, 11/11/21 16:19:00 EDT, Supply Start Date: 11/11/21 Status: Ordereddocusate sodium 100 mg oral capsule 100 mg, 1, capsule, By Mouth, 3 times a day, PRN, # 90 capsule, Refills 0, Tot. Refills 0, Maintenance, as needed for constipation, 07/22/21 10:27:00 EDT, Route to Pharmacy Electronically, [facility], Partial fill upon patient request... Start Date: 07/22/21 Status: Orderedentecavir 0.5 mg oral tablet 1 tablet = 0.5 mg, By Mouth, Daily, # 30 tablet, 1 Refills, Maintenance, 08/19/21 15:58:00 EDT, Tablet, [facility], Partial fill upon patient request if the prescription is for a schedule II opioid drug., 152, cm, 08/19/21 8:26:00 EDT... Start Date: 08/19/21 Status: OrderedEnvarsus XR 0.75 mg oral tablet, extended release 1 tablet = 0.75 mg, By Mouth, Daily in AM, 10/07/21-total daily dose 2.5mg, # 30 tablet, 2 Refills, Maintenance, 08/12/21 16:53:00 EDT, [facility], Deliver to pt in clinic 08/16/21, 152,cm, 08/12/21 15:05:00 EDT, Height, 73.2, kg, 06/30... Start Date: 08/12/21 Stop Date: 11/10/21 Status: OrderedEnvarsus XR 1 mg oral tablet, extended release 2 tablet = 2 mg, By Mouth, Daily in AM, 10/07/21-total daily dose 2.5mg, # 240 tablet, 11 Refills, Maintenance, 07/22/21 10:27:00 EDT, [facility], Partial fill upon patient request if the prescription is for a schedule II opioid drug.,... Start Date: 07/22/21 Status: Orderedfinasteride 5 mg oral tablet 1 tablet = 5 mg, By Mouth, Daily, # 30 tablet, 0 Refills, Maintenance, 11/03/19 10:39:00 EDT, Tablet Start Date: 11/03/19 Status: OrderedKeppra 500 mg oral tablet 3 tablet = 1,500 mg, By Mouth, Daily at bedtime, 0 Refills, Maintenance, 11/03/19 10:40:00 EDT Start Date: 11/03/19 Status: OrderedMagic Mouthwash- Maalox 120 ml, benedryl 60 ml, lidocaine viscous 2% 60 ml Magic Mouthwash- Maalox 120 ml, benedryl 60 ml, lidocaine viscous 2% 60 ml, See Instructions, # 240 mL, Refills 3, Tot. Refills 3, Maintenance, 5-10 ml Swish and Spit TID and PRN, 10/17/21 16:29:00 EDT, Deliver EMILY, Supply, 150, cm, 10/17/21 10:34:00... Start Date: 10/17/21 Status: Orderedmelatonin 3 mg oral tablet 1 tablet = 3 mg, By Mouth, Daily at bedtime, # 60 tablet, 0 Refills, Maintenance, 12/17/20 10:42:00 EDT, Tablet Start Date: 12/17/20 Status: Orderedmycophenolic acid 180 mg oral delayed release tablet 3 tablet = 540 mg, By Mouth, 2 times a day, # 180 tablet, 11 Refills, Maintenance, 07/22/21 10:27:00EDT, [facility], Partial fill upon patient request [...] II opioid drug. Start Date: 12/17/20 Status: OrderedSenna 8.6 mg oral tablet 8.6 mg, 1, tablet, By Mouth, Daily, PRN, # 30 tablet, Refills 0, Tot. Refills 0, Acute, as needed for constipation, 07/22/22 10:29:00 EDT, 07/22/21 10:27:00 EDT, Route to Pharmacy Electronically, [facility], Partial fill upon patient... Start [...] 07/22/21 10:27:00 EDT, Route to Pharmacy Electronically, [facility], Partial fill upon patient request if the prescription is f... Start Date: 07/22/21 Stop Date: 07/22/22 Status: Ordered Problem List Condition Confirmation Course Effective Dates Status Health I nformant Status Diverticulitis Confirmed Active -donor kidney Confirmed 07/18/21 Active transplant recipient1 Hypertension Confirmed Active Obstructive sleep Confirmed Active apnea Seizures Confirmed Active 1Thymo induction Patient Care team information PersonnelName: Jose Alfredo Ross MD Address: Address: [address] [place] [address] Jose Alfredo Cody Collado, [place] [address]
--- OUTSIDE RECORDS SUMMARY | 2021-12-14 08:54 | XMS_ITS | Continuity of Care Document ---
:1955 Author Organization [facility] Address [address] [facility] [address] [place] [address]- Care Team Providers Name Role Phone Jose Alfredo Ross MD [id number] Date(s): 10/09/21 - 11/13/21 [facility] [address] [place] [address]- Attending Physician: Pasha Villalobos MD Admitting Physician: Pasha Villalobos MD Allergies, Adverse Reactions, Alerts No Known [...] 07/22/22 10:28:00 EDT, 07/22/21 10:27:00 EDT, Tablet, [facility], Partial fill upon patient request [...] 10:27:00 EDT, Route to Pharmacy Electronically, [facility], Partial fill upon patient request... Start Date: 07/22/21 Status: Orderedentecavir 0.5 mg oral tablet 1 tablet = 0.5 mg, By Mouth, Daily, # 30 tablet, 1 Refills, Maintenance, 08/19/21 15:58:00 EDT, Tablet, [facility], Partial fill upon patient request if the prescription is for a schedule II opioid drug., 152, cm, 08/19/21 8:26:00 EDT... Start Date: 08/19/21 Status: OrderedEnvarsus XR 0.75 mg oral tablet, extended release 1 tablet = 0.75 mg, By Mouth, Daily in AM, 10/07/21-total daily dose 2.5mg, # 30 tablet, 2 Refills, Maintenance, 08/12/21 16:53:00 EDT, [facility], Deliver to pt in clinic 08/16/21, 152,cm, 08/12/21 15:05:00 EDT, Height, 73.2, kg, 06/30... Start Date: 08/12/21 Stop Date: 11/10/21 Status: OrderedEnvarsus XR 1 mg oral tablet, extended release 2 tablet = 2 mg, By Mouth, Daily in AM, 10/07/21-total daily dose 2.5mg, # 240 tablet, 11 Refills, Maintenance, 07/22/21 10:27:00 EDT, [facility], Partial fill upon patient request if [...] 180 tablet, 11 Refills, Maintenance, 07/22/21 10:27:00EDT, [facility], Partial fill upon patient request [...] 07/22/21 10:27:00 EDT, Route to Pharmacy Electronically, [facility], Partial fill upon patient... Start [...] 07/22/21 10:27:00 EDT, Route to Pharmacy Electronically, [facility], Partial fill upon patient request if the prescription is f... Start Date: 07/22/21 Stop Date: 07/22/22 Status: Ordered Problem List Condition Effective Dates Status Health Status Informant Diverticulitis(Confirmed) Active -donor kidney transplant 07/18/21 Active recipient(Confirmed)1 Hypertension(Confirmed) Active Obstructive sleep apnea(Confirmed) Active Seizures(Confirmed) Active 1Thymo induction Care Team PersonnelName: Jose Alfredo Ross MD Address: [address] [place] [address] Jose Alfredo Collado, [place] [address]-
--- OUTSIDE RECORDS SUMMARY | 2021-12-14 08:54 | XMS_ITS | Continuity of Care Document ---
:1955 Author Organization [facility] Address [address] [place] [id number]- Care Team Providers Name Role Phone Jose Alfredo Ross MD Primary Care Physician [place] [facility] [place] - 04/14/[address] [address] Attending Physician: Martín Arias Admitting Physician: AdmMartín mari Referring Physician: Admtr ArKali Immunizations Given and Recorded Vaccine Date Status Refusal Reason SARS-CoV-2 (COVID-19) mRNA BNT-162b2 vac 08/10/20 Given SARS-CoV-2 (COVID-19) mRNA BNT-162b2 vac 07/20/20 Given Medications ALPRAZolam 0.25 mg oral tablet 0.25 [...] capsule = 0.25 mcg, By Mouth, Every Thursday, Thursday and Thursday, 0 Refills, Maintenance, 11/02/2009:41:00 EDT Start Date: 11/03/19 Status: OrderedcloNIDine 0.1 mg oral tablet 0.1 mg, 1, tablet, By Mouth, Daily at bedtime, # 30 tablet, Refills 0, Maintenance, 11/03/19 10:43:00 EDT Start Date: 11/03/19 Status: Orderedenalapril 10 mg oral tablet 10 mg, 1, tablet, By Mouth, Daily, # 30 tablet, Refills 0, Maintenance, 12/17/20 10:39:00 EDT, Partial fill upon patient request if the prescription is for a schedule II opioid drug. Start Date: 12/17/20 Status: Orderedfinasteride 5 mg oral tablet 1 tablet = 5 mg, By Mouth, Daily, # 30 tablet, 0 Refills, Maintenance, 11/03/19 10:39:00 EDT, Tablet Start Date: 11/03/19 Status: OrderedhydrALAZINE 50 mg oral tablet 1 tablet = 50 mg, By Mouth, 3 times a day, # 90 tablet, 0 Refills, Maintenance, 12/17/20 10:40:00 EDT, Tablet, Partial fill upon patient request if the prescription is for a schedule II opioid drug. Start Date: 12/17/20 Status: OrderedKeppra 500 mg oral tablet 3 tablet = 1,500 mg, By Mouth, Daily at bedtime, 0 Refills, Maintenance, 11/03/19 10:40:00 EDT Start Date: 11/03/19 Status: Orderedmelatonin 3 mg oral tablet 1 tablet = 3 mg, By Mouth, Daily at bedtime, # 60 tablet, 0 Refills, Maintenance, 12/17/20 10:42:00 EDT, Tablet Start Date: 12/17/20 Status: OrderedOXcarbazepine 600 mg oral tablet 1 tablet = 600 mg, By Mouth, Daily at bedtime, # 60 tablet, 0 Refills, Maintenance, 12/17/20 10:43:00 EDT, Tablet, Partial fill upon patient request if the prescription is for a schedule II opioid drug. Start Date: 12/17/20 Status: OrderedtraZODone 300 mg oral tablet 2 tablet = 600 mg, By Mouth, Daily at bedtime, 0 Refills, Maintenance, 12/17/20 10:40:00 EDT, Tablet, Partial fill upon patient request if the prescription is for a schedule II opioid drug. Start Date: 12/17/20 Status: Ordered Problem List Condition Effective Dates Status Health Status Informant Obstructive sleep apnea(Confirmed) Active Social History Social History Type Response Sex Male
--- OUTSIDE RECORDS SUMMARY | 2021-12-14 08:54 | XMS_ITS | Continuity of Care Document ---
:1955 Author Organization [facility] Address [address] [place] [id number]- Care Team Providers Name Role Phone Jose Alfredo Ross MD Primary Care Physician [place] [facility] [place] Date(s): 07/01/21 - 07/08/[address] [address]- Attending Physician: Nazario Cardoza MD Admitting Physician: Nazario Cardoza MD Referring Physician: Jose Alfredo Ross MD Immunizations Given and Recorded Vaccine Date Status [...] 11/03/19 10:43:00 EDT Start Date: 11/03/19 Status: OrderedCPAP Machine See Instructions, # 1 each, Maintenance, AutoCPAP 7-12 cm H20, use Daily when sleeping, 07/01/21 11:14:00 EDT, Supply Start Date: 07/01/21 Status: Orderedenalapril 10 mg oral tablet 10 [...]
--- OUTSIDE RECORDS SUMMARY | 2021-12-14 08:54 | XMS_ITS | Continuity of Care Document ---
:1955 Author Organization [facility] Address [address] [facility] [address] [place] [address]- Care Team Providers Name Role Phone Jose Alfredo Ross MD Primary Care Physician Encounter [facility] [id number] Date(s): 10/21/21 - 11/20/21 [facility] [address] [facility] [address] [place] [address]- Attending Physician: Martín Arias Admitting Physician: Martín Arias Referring Physician: Martín Arias Allergies, Adverse Reactions, Alerts No Known Allergies [...] 07/22/22 10:28:00 EDT, 07/22/21 10:27:00 EDT, Tablet, [facility], Partial fill upon patient [...] 07/22/21 10:27:00 EDT, Route to Pharmacy Electronically, [facility], Partial fill upon patient request... Start Date: 07/22/21 Status: Orderedentecavir 0.5 mg oral tablet 1 tablet = 0.5 mg, By Mouth, Daily, # 30 tablet, 1 Refills, Maintenance, 08/19/21 15:58:00 EDT, Tablet, [facility], Partial fill upon patient request if the prescription is for a schedule II opioid drug., 152, cm, 08/19/21 8:26:00 EDT... Start Date: 08/19/21 Status: OrderedEnvarsus XR 0.75 mg oral tablet, extended release 1 tablet = 0.75 mg, By Mouth, Daily in AM, 10/07/21-total daily dose 2.5mg, # 30 tablet, 2 Refills, Maintenance, 08/12/21 16:53:00 EDT, [facility], Deliver to pt in clinic 08/16/21, 152,cm, 08/12/21 15:05:00 EDT, Height, 73.2, kg, 06/30... Start Date: 08/12/21 Stop Date: 11/10/21 Status: OrderedEnvarsus XR 1 mg oral tablet, extended release 2 tablet = 2 mg, By Mouth, Daily in AM, 10/07/21-total daily dose 2.5mg, # 240 tablet, 11 Refills, Maintenance, 07/22/21 10:27:00 EDT, [facility], Partial fill upon patient request if [...] 180 tablet, 11 Refills, Maintenance, 07/22/21 10:27:00EDT, [facility], Partial fill upon patient [...] 07/22/21 10:27:00 EDT, Route to Pharmacy Electronically, [facility], Partial fill upon patient... [...] 07/22/21 10:27:00 EDT, Route to Pharmacy Electronically, [facility], Partial fill upon patient request if the prescription is f... 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
--- OUTSIDE RECORDS SUMMARY | 2021-12-14 08:54 | XMS_ITS | Continuity of Care Document ---
:1955 Author Organization [facility] Address [address] [place] [address]- Care Team Providers Name Role Phone Jose Alfredo Ross MD Primary Care Phys[id number] Date(s): 10/16/21 - 11/20/21 [facility] [address] [place] [address]- Attending Physician: Pasha Villalobos MD Admitting Physician: [...] 07/22/22 10:28:00 EDT, 07/22/21 10:27:00 EDT, Tablet, [facility], Partial fill upon patient request [...] 07/22/21 10:27:00 EDT, Route to Pharmacy Electronically, [facility], Partial fill upon patient request... Start Date: 07/22/21 Status: Orderedentecavir 0.5 mg oral tablet 1 tablet = 0.5 mg, By Mouth, Daily, # 30 tablet, 1 Refills, Maintenance, 08/19/21 15:58:00 EDT, Tablet, [facility], Partial fill upon patient request if the prescription is for a schedule II opioid drug., 152, cm, 08/19/21 8:26:00 EDT... Start Date: 08/19/21 Status: OrderedEnvarsus XR 0.75 mg oral tablet, extended release 1 tablet = 0.75 mg, By Mouth, Daily in AM, 10/07/21-total daily dose 2.5mg, # 30 tablet, 2 Refills, Maintenance, 08/12/21 16:53:00 EDT, [facility], Deliver to pt in clinic 08/16/21, 152,cm, 08/12/21 15:05:00 EDT, Height, 73.2, kg, 06/30... Start Date: 08/12/21 Stop Date: 11/10/21 Status: OrderedEnvarsus XR 1 mg oral tablet, extended release 2 tablet = 2 mg, By Mouth, Daily in AM, 10/07/21-total daily dose 2.5mg, # 240 tablet, 11 Refills, Maintenance, 07/22/21 10:27:00 EDT, [facility], Partial fill upon patient request if [...] 180 tablet, 11 Refills, Maintenance, 07/22/21 10:27:00EDT, [facility], Partial fill upon patient request [...] 07/22/21 10:27:00 EDT, Route to Pharmacy Electronically, [facility], Partial fill upon patient... Start [...] 07/22/21 10:27:00 EDT, Route to Pharmacy Electronically, [facility], Partial fill upon patient request if the prescription is f... Start Date: 07/22/21 Stop Date: 07/22/22 Status: Ordered Problem List Condition Effective Dates Status Health Status Informant Diverticulitis(Confirmed) Active -donor kidney transplant 07/18/21 Active recipient(Confirmed)1 Hypertension(Confirmed) Active Obstructive sleep apnea(Confirmed) Active Seizures(Confirmed) Active 1Thymo induction Care Team PersonnelName: Jose Alfredo Ross MD Address: [address] [place] [address] Jose Alfredo [place], [place] [address]-
--- OUTSIDE RECORDS SUMMARY | 2021-12-14 08:54 | XMS_ITS | Continuity of Care Document ---
:1955 Author Organization [facility] Address [address] [place] [address]- Care Team Providers Name Role Phone Jose Alfredo Ross MD Primary Care Physician Encounter [facility] Date(s): 10/13/21 - 10/16/[address] [address] Encounter Diagnosis Dizziness (Discharge Diagnosis) - 10/14/21 Sinus bradycardia, chronic (Discharge Diagnosis) - 10/14/21 Discharge Disposition: A-D/C Home Attending Physician: Nahum Mcclelland MD Admitting Physician: Atif Toscano MD Referring Physician: Not on Staff, Referring [...] II opioid drug. Start Date: 10/16/21 Status: OrderedamLODIPine 5 mg oral tablet 5 mg, Tablet, By Mouth, 10/16/21 9:00:00 EDT Start Date: 10/16/21 Stop Date: 10/16/21 Status: Completedatorvastatin 20 mg oral tablet 1 tablet = 20 mg, By Mouth, Daily, # 30 tablet, 0 Refills, Maintenance, 11/03/19 10:42:00 EDT, Tablet Start Date: 11/03/19 Status: OrderedBactrim 400 mg-80 mg oral tablet 1 tablet, By Mouth, Daily, # 30 tablet, 5 Refills, Acute 07/22/22 10:28:00 EDT, 07/22/21 10:27:00 EDT, Tablet, [facility], Partial fill upon patient request if the prescription is for a schedule II opioid drug., 1 tablet By Mouth Elsa... Start Date: 07/22/21 Stop Date: 07/22/22 Status: Orderedclotrimazole 10 mg oral lozenge 10 mg, 1, lozenge, By Mouth, 3 times a day, # 90 lozenge, Refills 2, Tot. Refills 2, Acute 07/22/22 10:29:00 EDT, 07/22/21 10:27:00 EDT, Route to Pharmacy Electronically, [facility], Partial fill upon patient request [...] 10:27:00 EDT, Route to Pharmacy Electronically, [facility], Partial fill upon patient request... Start Date: 07/22/21 Status: Orderedentecavir 0.5 mg oral tablet 1 tablet = 0.5 mg, By Mouth, Daily, # 30 tablet, 1 Refills, Maintenance, 08/19/21 15:58:00 EDT, Tablet, [facility], Partial fill upon patient request if the prescription is for a schedule II opioid drug., 152, cm, 08/19/21 8:26:00 EDT... Start Date: 08/19/21 Status: OrderedEnvarsus XR 0.75 mg oral tablet, extended release 1 tablet = 0.75 mg, By Mouth, Daily in AM, 10/07/21-total daily dose 2.5mg, # 30 tablet, 2 Refills, Maintenance, 08/12/21 16:53:00 EDT, [facility], Deliver to pt in clinic 08/16/21, 152,cm, 08/12/21 15:05:00 EDT, Height, 73.2, kg, 06/30... Start Date: 08/12/21 Stop Date: 11/10/21 Status: OrderedEnvarsus XR 1 mg oral tablet, extended release 2 tablet = 2 mg, By Mouth, Daily in AM, 10/07/21-total daily dose 2.5mg, # 240 tablet, 11 Refills, Maintenance, 07/22/21 10:27:00 EDT, [facility], Partial fill upon patient request [...] 11/03/19 10:40:00 EDT Start Date: 11/03/19 Status: Orderedmagnesium oxide 400 mg oral tablet 1 tablet = 400 mg, By Mouth, Daily, # 30 tablet, 1 Refills, Acute 10/25/21 13:17:00 EDT, 09/12/21 13:14:00 EDT, Tablet, [facility], Partial fill upon patient request if the prescription is for a schedule II opioid drug., 152, cm, 08/30... Start Date: 09/12/21 Stop Date: 10/25/21 Status: Orderedmelatonin 3 mg oral tablet 1 tablet = 3 mg, By Mouth, Daily at bedtime, # 60 tablet, 0 Refills, Maintenance, 12/17/20 10:42:00 EDT, Tablet Start Date: 12/17/20 Status: Orderedmycophenolic acid 180 mg oral delayed release tablet 3 tablet = 540 mg, By Mouth, 2 times a day, # 180 tablet, 11 Refills, Maintenance, 07/22/21 10:27:00EDT, [facility], Partial fill upon patient [...] 07/22/21 10:27:00 EDT, Route to Pharmacy Electronically, [facility], Partial fill upon patient... [...] 07/22/21 10:27:00 EDT, Route to Pharmacy Electronically, [facility], Partial fill upon patient request if the prescription is f... Start Date: 07/22/21 Stop Date: 07/22/22 Status: Ordered Problem List Condition Effective Dates Status Health Status Informant Diverticulitis(Confirmed) Active -donor kidney transplant 07/18/21 Active recipient(Confirmed)1 Hypertension(Confirmed) Active Obstructive sleep apnea(Confirmed) Active Seizures(Confirmed) Active 1Thymo induction Diagnosis Diagnosis Type Effective Dates Health Status Clinical In formant Service Dizziness Discharge 10/14/21 Diagnosis Sinus Discharge 10/14/21 bradycardia, Diagnosis chronic Results Orders for Microbiology Reports Name Date Blood Culture #2 10/14/21 Microbiology Reports TEST:Blood Culture, Second Order STATUS:Unauthenticated BODY SITE: SOURCE:Blood COLLECTED DATE/TIME:10/14/21 12:42 AMBlood Culture, Second Order SPECIMEN DESCRIPTION : BLOOD NO SITE SPECIAL REQUESTS : NONE CULTURE : NO GROWTH AFTER 48 HOURS REPORT STATUS : PRELIMINARY REPORT Radiology Reports Exam Date Time Procedure Performing Provider Status 10/14/21 1:19 AM Chest 2 Views Frontal and Lat Domonique Bah; Au th (Verified) Notes:(Chest 2 Views Frontal and Lat) Reason For Exam: Shortness of Breath, Fever;Other:RESULT: Chest 2 Views Frontal and Lat Chest 2 Views Frontal and Lat Hx of Present Illness: patient arrives after acute onset dizziness and disorganized movements. Patient's symptoms resolved at the time of ems arrival. Patient fell but did not lose consciousness or head strike.; Reason: Other:; Shortness of Breath, Fever; Clinical Question(s): Pneumonia COMPARISON: 07/18/2021 FINDINGS: LINES AND TUBES: None. LUNGS AND PLEURA: Clear lungs. Normal pulmonary vascularity. No pleural effusion. No pneumothorax. HEART, MEDIASTINUM AND RAMAN: Heart is normal in size. Normal upper mediastinal and hilar contour. BONES AND SOFT TISSUES: No acute abnormality. IMPRESSION: No acute abnormality. WSN: [id number] Ordering Physician: Dagoberto Jiménez Dictated By: Lurdes Painter MD Dictated Date/Time: 10/14/21 8:02 am Reviewed By: Lurdes Painter MD Signed By: Lurdes Painter MD Signed Date/Time: 10/14/21 8:02 am Transcribed By: SHAZIA Transcribed Date/Time: 10/14/21 8:02 am Vital Signs Most recent to oldest 1 2 3 [Reference Range]: Height 150 cm (10/14/21 8:11 AM) Weight 65.2 kg 65 kg (10/14/21 8:11 AM) (10/14/21 12:36 AM) Oxygen Saturation [94-100 %] 100 % 95 % 97 % (10/16/21 3:00 PM) (10/16/21 10:00 AM) (10/16/21 6: 00 AM) Pulse Rate [55-90 bpm] 69 bpm 88 bpm 52 bpm (10/16/21 3:00 PM) (10/16/21 10:00 AM) *L* (10/16/21 6:00 AM ) Body Mass Index [18.5-24.99] 28.98 *H* (10/14/21 8:11 AM) Blood Pressure [90-138/55-84 140/85 mm Hg 133/88 mm Hg 154 /96 mm Hg mm Hg] *H* (10/16/21 10:00 AM) *H* (10/16/21 3:00 PM) (10/16/21 8:24 AM) Respiratory Rate [16-30 12 br/min 22 br/min 14 br/mi n br/min] *L* (10/16/21 10:00 AM) *L* (10/16/21 3:00 PM) (10/16/21 6:00 AM) Temperature [96.8-100.4 DegF] 97.7 DegF 97.9 DegF 97 .8 DegF (10/16/21 3:00 PM) (10/16/21 10:00 AM) (10/16/21 6: 00 AM) Mode of Delivery (Oxygen) Room air Room air Room a ir (10/16/21 3:00 PM) (10/16/21 10:00 AM) (10/16/21 6: 00 AM) Blood pressure sites Arm, left Arm, right Arm, left (10/16/21 3:00 PM) (10/16/21 10:00 AM) (10/16/21 6: 00 AM) Temperature Route Oral Oral Oral (10/16/21 3:00 PM) (10/16/21 10:00 AM) (10/16/21 6: 00 AM) Dry Weight 65.2 kg (10/14/21 8:11 AM) Weight Obtained Via Bed scale (10/14/21 8:11 AM) Dry Weight Obtained Via Bed scale (10/14/21 8:11 AM)
--- OUTSIDE RECORDS SUMMARY | 2021-12-14 08:54 | XMS_ITS | Continuity of Care Document ---
:1955 Author Organization [facility] Address [address] [place] [address]- Care Team Providers Name Role Phone Jose Alfredo Ross MD Primary Care Physician Encounter [facility] Date(s): 11/03/19 - 12/03/19 [facility] [address] [place] [address]- [facility] Attending Physician: Martín Arias Admitting Physician: Martín [...]
--- OUTSIDE RECORDS SUMMARY | 2021-12-14 08:54 | XMS_ITS | Continuity of Care Document ---
:1955 Author Organization [facility] Address Unavailable , Care Team Providers Name Role Phone Jose Alfredo Ross MD Primary Care Phys[id number] Date(s): 07/22/21 - 08/22/21 [facility] Attending Physician: Joo Alford MD Admitting Physician: Joo Alford MD Allergies, Adverse Reactions, Alerts No Known Allergies Immunizations Given and Recorded Vaccine Date Status Refusal Reason SARS-CoV-2 (COVID-19) mRNA BNT-162b2 vac 08/10/20 Given SARS-CoV-2 (COVID-19) mRNA BNT-162b2 vac 07/20/20 Given Medications atorvastatin 20 mg oral tablet 1 tablet = 20 mg, By Mouth, Daily, # 30 tablet, 0 Refills, Maintenance, 11/03/19 10:42:00 EDT, Tablet Start Date: 11/03/19 Status: OrderedBactrim 400 mg-80 mg oral tablet 1 tablet, By Mouth, Daily, for 30 days, # 30 tablet, 1 Refills, Acute 09/20/22 10:28:00 EDT, 07/22/22 10:28:00 EDT, Tablet, [facility], Partial fill upon patient request if the prescription is for a schedule II opioid drug., 1 tablet... Start Date: 07/22/22 Stop Date: 09/20/22 Status: OrderedBactrim 400 mg-80 mg oral tablet 1 tablet, By Mouth, Daily, # 30 tablet, 5 Refills, Acute 07/22/22 10:28:00 EDT, 07/22/21 10:27:00 EDT, Tablet, [facility], Partial fill upon patient request if the prescription is for a schedule II opioid drug., 1 tablet By Mouth Elsa... Start Date: 07/22/21 Stop Date: 07/22/22 Status: OrderedcloNIDine 0.1 mg oral tablet 0.1 mg, 1, tablet, By Mouth, 2 times a day, # 60 tablet, Refills 0, Tot. Refills 0, Maintenance, 07/25/21 12:03:00 EDT, [id number] Partial fill upon patient request if the prescription is for a schedule II op... Start Date: 07/25/21 Stop Date: 08/24/21 Status: Orderedclotrimazole 10 mg oral lozenge 10 mg, 1, lozenge, By Mouth, 3 times a day, # 90 lozenge, Refills 2, Tot. Refills 2, Acute 07/22/22 10:29:00 EDT, 07/22/21 10:27:00 EDT, Route to Pharmacy Electronically, [facility], Partial fill upon patient request [...] 07/22/21 10:27:00 EDT, Route to Pharmacy Electronically, [facility], Partial fill upon patient request... Start Date: 07/22/21 Status: Orderedentecavir 0.5 mg oral tablet 1 tablet = 0.5 mg, By Mouth, Daily, # 30 tablet, 1 Refills, Maintenance, 08/19/21 15:58:00 EDT, Tablet, [facility], Partial fill upon patient request if the prescription is for a schedule II opioid drug., 152, cm, 08/19/21 8:26:00 EDT... Start Date: 08/19/21 Status: OrderedEnvarsus XR 0.75 mg oral tablet, extended release 1 tablet = 0.75 mg, By Mouth, Daily in AM, to use with envarsus 1mg tabletes 08/19/21-total daily dose 1.75mg, # 30 tablet, 2 Refills, Maintenance, 08/12/21 16:53:00 EDT, [facility], Deliver to pt in clinic 08/16/21, 152konstantin, 08/12/21... Start Date: 08/12/21 Stop Date: 11/10/21 Status: OrderedEnvarsus XR 1 mg oral tablet, extended release 1 tablet = 1 mg, By Mouth, Daily in AM, 08/19/21-total daily dose 1.75mg, # 240 tablet, 11 Refills, Maintenance, 07/22/21 10:27:00 EDT, [facility], Partial fill upon patient request if the prescription is for a schedule II opioid drug.... Start Date: 07/22/21 Status: Orderedfinasteride 5 mg [...] tablet = 400 mg, By Mouth, Daily, for 30 days, # 30 tablet, 0 Refills, Acute 09/18/21 15:43:00 EDT, 08/19/21 15:43:00 EDT, Tablet, [facility], Partial fill upon patient request if the prescription is for a schedule II opioid drug.,... Start Date: 08/19/21 Stop Date: 09/18/21 Status: Orderedmelatonin 3 mg oral tablet 1 tablet = 3 mg, By Mouth, Daily at bedtime, # 60 tablet, 0 Refills, Maintenance, 12/17/20 10:42:00 EDT, Tablet Start Date: 12/17/20 Status: Orderedmycophenolic acid 180 mg oral delayed release tablet 3 tablet = 540 mg, By Mouth, 2 times a day, # 180 tablet, 11 Refills, Maintenance, 07/22/21 10:27:00EDT, [facility], Partial fill upon [...] 07/22/21 10:27:00 EDT, Route to Pharmacy Electronically, [facility], Partial fill upon [...] 07/22/21 10:27:00 EDT, Route to Pharmacy Electronically, [facility], Partial fill upon patient request if the prescription is f... 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
--- OUTSIDE RECORDS SUMMARY | 2021-12-14 08:54 | XMS_ITS | Continuity of Care Document ---
:1955 Author Organization [facility] Address [address] [place] [address]- Care Team Providers Name Role Phone Jose Alfredo Ross MD Primary Care Physician Encounter [facility] Date(s): 11/11/21 - 11/18/[address] [address] Attending Physician: Nazario Cardoza MD Admitting Physician: Nazario Cardoza MD Referring Physician: Jose Alfredo Ross MD Allergies, Adverse Reactions, Alerts No Known [...] 07/22/22 10:28:00 EDT, 07/22/21 10:27:00 EDT, Tablet, [facility], Partial fill upon patient [...] 07/22/21 10:27:00 EDT, Route to Pharmacy Electronically, [facility], Partial fill upon patient request... Start Date: 07/22/21 Status: Orderedentecavir 0.5 mg oral tablet 1 tablet = 0.5 mg, By Mouth, Daily, # 30 tablet, 1 Refills, Maintenance, 08/19/21 15:58:00 EDT, Tablet, [facility], Partial fill upon patient request if the prescription is for a schedule II opioid drug., 152, cm, 08/19/21 8:26:00 EDT... Start Date: 08/19/21 Status: OrderedEnvarsus XR 0.75 mg oral tablet, extended release 1 tablet = 0.75 mg, By Mouth, Daily in AM, 10/07/21-total daily dose 2.5mg, # 30 tablet, 2 Refills, Maintenance, 08/12/21 16:53:00 EDT, [facility], Deliver to pt in clinic 08/16/21, 152,cm, 08/12/21 15:05:00 EDT, Height, 73.2, kg, 06/30... Start Date: 08/12/21 Stop Date: 11/10/21 Status: OrderedEnvarsus XR 1 mg oral tablet, extended release 2 tablet = 2 mg, By Mouth, Daily in AM, 10/07/21-total daily dose 2.5mg, # 240 tablet, 11 Refills, Maintenance, 07/22/21 10:27:00 EDT, [facility], Partial fill upon patient request [...] 180 tablet, 11 Refills, Maintenance, 07/22/21 10:27:00EDT, [facility], Partial fill upon patient [...] 07/22/21 10:27:00 EDT, Route to Pharmacy Electronically, [facility], Partial fill upon patient... [...] 07/22/21 10:27:00 EDT, Route to Pharmacy Electronically, [facility], Partial fill upon patient request if the prescription is f... Start Date: 07/22/21 Stop Date: 07/22/22 Status: Ordered Problem List Condition Effective Dates Status Health Status Informant Diverticulitis(Confirmed) Active -donor kidney transplant 07/18/21 Active recipient(Confirmed)1 Hypertension(Confirmed) Active Obstructive sleep apnea(Confirmed) Active Seizures(Confirmed) Active 1Thymo induction Care Team PersonnelName: Jose Alfredo Ross MD Address: [address] [place] [address] Jose Alfredo Ross MD [place], [place] [address]
--- OUTSIDE RECORDS SUMMARY | 2021-12-14 08:54 | XMS_ITS | Continuity of Care Document ---
:1955 Author Organization [facility] Address Unavailable , Care Team Providers Name Role Phone Jose Alfredo Ross MD Primary Care Physician [id number] Date(s): 07/31/21 - 09/04/21 [facility] Attending Physician: Pasha Villalobos MD Admitting Physician: [...] 09/20/22 10:28:00 EDT, 07/22/22 10:28:00 EDT, Tablet, [facility], Partial fill upon patient request if the prescription is for a schedule II opioid drug., 1 tablet... Start Date: 07/22/22 Stop Date: 09/20/22 Status: OrderedBactrim 400 mg-80 mg oral tablet 1 tablet, By Mouth, Daily, # 30 tablet, 5 Refills, Acute 07/22/22 10:28:00 EDT, 07/22/21 10:27:00 EDT, Tablet, [facility], Partial fill upon patient [...] 10:27:00 EDT, Route to Pharmacy Electronically, [facility], Partial fill upon patient request [...] 10:27:00 EDT, Route to Pharmacy Electronically, [facility], Partial fill upon patient request... Start Date: 07/22/21 Status: Orderedentecavir 0.5 mg oral tablet 1 tablet = 0.5 mg, By Mouth, Daily, # 30 tablet, 1 Refills, Maintenance, 08/19/21 15:58:00 EDT, Tablet, [facility], Partial fill upon patient request if the prescription is for a schedule II opioid drug., 152, cm, 08/19/21 8:26:00 EDT... Start Date: 08/19/21 Status: OrderedEnvarsus XR 0.75 mg oral tablet, extended release 1 tablet = 0.75 mg, By Mouth, Daily in AM, 08/26/21-total daily dose 2mg, # 30 tablet, 2 Refills, Maintenance, 08/12/21 16:53:00 EDT, [facility], Deliver to pt in clinic 08/16/21, 152, cm, 08/12/21 15:05:00 EDT, Height, 73.2, kg, ... Start Date: 08/12/21 Stop Date: 11/10/21 Status: OrderedEnvarsus XR 1 mg oral tablet, extended release 2 tablet = 2 mg, By Mouth, Daily in AM, 08/26/21-total daily dose 2mg, # 240 tablet, 11 Refills, Maintenance, 07/22/21 10:27:00 EDT, [facility], Partial fill upon patient request if theprescription is for a schedule II opioid drug., 1... Start Date: 07/22/21 Status: Orderedfinasteride 5 mg [...] 09/18/21 15:43:00 EDT, 08/19/21 15:43:00 EDT, Tablet, [facility], Partial fill upon patient [...] 180 tablet, 11 Refills, Maintenance, 07/22/21 10:27:00EDT, [facility], Partial fill upon patient [...] 10:27:00 EDT, Route to Pharmacy Electronically, [facility], Partial fill upon patient... [...] 10:27:00 EDT, Route to Pharmacy Electronically, [facility], Partial fill upon patient request if the prescription is f... 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
--- OUTSIDE RECORDS SUMMARY | 2021-12-14 08:54 | XMS_ITS | Continuity of Care Document ---
:1955 Author Organization [facility] Address [address] [place] [address]- Care Team Providers Name Role Phone Jose Alfredo Ross MD Primary Care Physician Encounter [facility] Date(s): 03/10/19 - 03/20/19 [facility] [address] [place] [address]- [facility] Attending Physician: Martín Arias Admitting Physician: Martín Arias Referring Physician: Martín Arias Social History Social History Type Response Sex Male
--- OUTSIDE RECORDS SUMMARY | 2021-12-14 08:55 | XMS_ITS | Continuity of Care Document ---
:1955 Author Organization [facility] Address [address] [place] [address]- Care Team Providers Name Role Phone Jose Alfredo Ross MD Primary Care Physician Encounter [facility] Date(s): 07/26/21 - 08/25/[address] [address]- Attending Physician: Martín Arias Admitting Physician: AdmMartín mari Referring Physician: AdmtrMartín Allergies, Adverse Reactions, Alerts [...] 09/20/22 10:28:00 EDT, 07/22/22 10:28:00 EDT, Tablet, [facility], Partial fill upon patient request if the prescription is for a schedule II opioid drug., 1 tablet... Start Date: 07/22/22 Stop Date: 09/20/22 Status: OrderedBactrim 400 mg-80 mg oral tablet 1 tablet, By Mouth, Daily, # 30 tablet, 5 Refills, Acute 07/22/22 10:28:00 EDT, 07/22/21 10:27:00 EDT, Tablet, [facility], Partial fill upon patient request if the prescription is for a schedule II opioid drug., 1 tablet By Mouth Elsa... Start Date: 07/22/21 Stop Date: 07/22/22 Status: OrderedcloNIDine 0.1 mg oral tablet 0.1 mg, 1, tablet, By Mouth, 2 times a day, # 60 tablet, Refills 0, Tot. Refills 0, Maintenance, 07/25/21 12:03:00 EDT, [id number] Partial fill upon patient request if the prescription is for a schedule II op... Start Date: 07/25/21 Stop Date: 08/24/21 Status: Orderedclotrimazole 10 mg oral lozenge 10 mg, 1, lozenge, By Mouth, 3 times a day, # 90 lozenge, Refills 2, Tot. Refills 2, Acute 07/22/22 10:29:00 EDT, 07/22/21 10:27:00 EDT, Route to Pharmacy Electronically, [facility], Partial fill upon patient [...] 10:27:00 EDT, Route to Pharmacy Electronically, [facility], Partial fill upon patient request... Start Date: 07/22/21 Status: Orderedentecavir 0.5 mg oral tablet 1 tablet = 0.5 mg, By Mouth, Daily, # 30 tablet, 1 Refills, Maintenance, 08/19/21 15:58:00 EDT, Tablet, [facility], Partial fill upon patient [...] tablet, 2 Refills, Maintenance, 08/12/21 16:53:00 EDT, [facility], Deliver to pt in clinic 08/16/21, 152, cm, 08/12/21... Start Date: 08/12/21 Stop Date: 11/10/21 Status: OrderedEnvarsus XR 1 mg oral tablet, extended release 1 tablet = 1 mg, By Mouth, Daily in AM, 08/19/21-total daily dose 1.75mg, # 240 tablet, 11 Refills, Maintenance, 07/22/21 10:27:00 EDT, [facility], Partial fill upon patient [...] 09/18/21 15:43:00 EDT, 08/19/21 15:43:00 EDT, Tablet, [facility], Partial fill upon patient [...] 180 tablet, 11 Refills, Maintenance, 07/22/21 10:27:00EDT, [facility], Partial fill upon patient [...] 07/22/21 10:27:00 EDT, Route to Pharmacy Electronically, [facility], Partial fill upon patient... [...] 07/22/21 10:27:00 EDT, Route to Pharmacy Electronically, [facility], Partial fill upon patient request if the prescription is f... 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
--- OUTSIDE RECORDS SUMMARY | 2021-12-14 08:55 | XMS_ITS ---
:1955 Author Organization [facility] Address [address] [place] [address] Care Team Providers Name Role Phone Gt Mccullough Unavailable Unavailable PROBLEMS Type Condition ICD9-CM Code UEA78-NC Code Onset Condition SNO MED Code Dates Status Problem Encounter for Z01.811 Active 182874 009 preprocedural respiratory examination Problem Encounter for Z12.11 Active 821325 004 screening for malignant neoplasm of colon ALLERGIES No Known Allergies ENCOUNTERS Encounter Location Date Diagnosis [address] Aug, Encounte r for screening for [facility] [address] [place], [place] malignant neoplasm of colon [address] Z12.11 and Encou nter for preprocedural re spiratory examination Z01. [address] Sep, [facility] [address] [place] [address] [facility] Outpatient [address] May, [place], [place] [id number] [address] Apr, Blood in stool 578.1 and [facility] [address] [place] Divert[place]sis [place] [address] (without mention of hemorrhage) 562. [address] Apr, [facility] [address] [place] [address] [facility] ER [address] Oct, [place] [id number] IMMUNIZATIONS Vaccine Route Administration Date Status Influenza Unknown Nov 30, 2020 Administered SOCIAL HISTORY Never Assessed REASON FOR REFERRAL FUNCTIONAL STATUS PLAN OF CARE Activity Details Follow Up prn Reason: Future Appointment Provider Name:Gt Mccullough , 2022-01-06 08:30:00 AM, [address] [place] [address], [place], [place], [id number], Future/Pending Procedure COLONOSCOPY [id number] Future/Pending Procedure COLONOSCOPY [id number] VITAL SIGNS Weight 145 lbs 2021-09-04 Weight 177 lbs 2011-04-15 Height 60.50 in 2021-09-04 Height 60.50 in 2011-04-15 BMI 27.85 kg/m2 2021-09-04 BMI 34.00 kg/m2 2011-04-15 Temperature 96.9 degrees Fahrenheit 2021-09-04 Blood pressure systolic 000 mm Hg 2021-09-04 Blood pressure diastolic 00 mm Hg 2021-09-04 MEDICATIONS Medication Instructions Dosage Frequency Start End Duration Statu s Date Date valGANciclovir HCl 30 Activ e 450 MG traZODone HCl 300 90 Active MG Envarsus XR 1 MG 30 Active Docusate Sodium 30 Active 100 MG Sulfamethoxazole-T 30 Activ e rimethoprim 400-80 MG Magnesium 300 MG Orally Once a 1 capsule 24h 30 day( s) Active day with a meal Enalapril Maleate 90 Active 10 MG Atorvastatin 90 Active Calcium 20 MG Clotrimazole 10 MG 30 Activ e levETIRAcetam 500 90 Active MG PROCEDURES Procedure Date Ordered Result Body Site BP SCR NOT PRFRM REC REASON NOS September 04, 2021 TOBACCO NON-USER September 04, 2021 DOC MEDS VERIFIED W/PT OR RE September 04, 2021 COLORECTAL CA SCREEN DOC REV September 04, 2021 RESULTS No Results REASON FOR VISIT screening, Patient presents today for a colon screening, colonoscopy report, rectal bleed Insurance Providers [facility] Health Member Patient Patient Patient Patient Patient Subscriber Subscriber Subscriber Group Insurance Plan Plan Plan Plan ID Relationship Address Phone Name Date of ID Name Date of No Type Insurance Insurance Insurance Coverage to Subscriber Address Phone Name Dates [facility] [phone] [facility] PEGGY [id number] [place] [id number] [facility] [place] [address] MEDICARE [phone] MEDICARE self PEGGY [id number] [place] [address] [place] [address] [place] [phone] [place] self PEGGY [id number] [address] [id number] [place] [address] [employer] [phone] [employer] self PE[place] [id number] [place] [address]
--- OUTSIDE RECORDS SUMMARY | 2021-12-14 08:55 | XMS_ITS | Continuity of Care Document ---
:1955 Author Organization [facility] Address [address] [place] [address]- Care Team Providers Name Role Phone Jose Alfredo Ross MD Primary Care Physician Encounter [facility] Date(s): 05/09/21 - 08/25/[address] [id number] Attending Physician: Shelby Mejias MD Admitting Physician: Shelby Mejias MD Referring Physician: Jose Alfredo Ross MD [...] 09/20/22 10:28:00 EDT, 07/22/22 10:28:00 EDT, Tablet, [facility], Partial fill upon patient request [...] 07/25/21 12:03:00 EDT, [id number] Partial fill upon patient request if the [...] tablet, 2 Refills, Maintenance, 08/12/21 16:53:00 EDT, [facility], Deliver to pt in clinic 08/16/21, 152, cm, 08/12/21... Start Date: 08/12/21 Stop Date: 11/10/21 Status: OrderedEnvarsus XR 1 mg oral tablet, extended release 1 tablet = 1 mg, By Mouth, Daily in AM, 08/19/21-total daily dose 1.75mg, # 240 tablet, 11 Refills, Maintenance, 07/22/21 10:27:00 EDT, [facility], Partial fill upon patient request [...] 09/18/21 15:43:00 EDT, 08/19/21 15:43:00 EDT, Tablet, [facility], Partial fill upon patient request [...] 180 tablet, 11 Refills, Maintenance, 07/22/21 10:27:00EDT, [facility], Partial fill upon patient request [...] 07/22/21 10:27:00 EDT, Route to Pharmacy Electronically, [facility], Partial fill upon patient... Start [...] 07/22/21 10:27:00 EDT, Route to Pharmacy Electronically, [facility], Partial fill upon patient request if the prescription is f... 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
--- NOTE | 2021-12-14 08:57 | ED.URI ---
HPI - URI/Sore Throat General Chief Complaint: Upper Respiratory Symptoms Stated Complaint: mouth infection cough throat Time Seen by Provider: 12/14/21 08:32 Source: patient Mode of arrival: ambulatory Limitations: no limitations History of Present Illness HPI Narrative: 66-year-old male came in for evaluation for possible mouth and throat infection. Patient been having symptoms for 2 months been evaluated several times no infection was found but patient's symptoms persist, patient is able to swallow soft and solid food with no swallowing issue, no fever, no chills, no difficulty breathing. No sick contacts, no recent travel. Related Data Allergies Allergy/AdvReac Type Severity Reaction Status Date / Time bee pollen [BEE STINGS] Allergy Intermediate LOCALIZED Unverified 11/17/19 14:40 SWELLING acetaminophen [From TYLENOL] Allergy Unknown KIDNEY Unverified 11/17/19 14:40 DISEASE ibuprofen [From ADVIL] Allergy Unknown KIDNEY Unverified 11/17/19 14:40 DISEASE Review of Systems Review of Systems: All other systems are reviewed and are negative Constitutional: Reports as per HPI and Reports no additional constitutional complaints Eyes: Reports as per HPI and Reports no additional eye complaints Reports system reviewed and no additional complaints, except as documented Cardiovascular: Reports as per HPI and Reports no additional cardiovascular complaints Respiratory: Reports as per HPI and Reports no additional respiratory complaints Gastrointestinal: Reports as per HPI and Reports no additional gastrointestinal complaints Genitourinary: Reports no additional female genitourinary complaints Musculoskeletal: Reports no additional musculoskeletal complaints Skin/Breast: Reports system reviewed and no additional complaints, except as docu Psychiatric: Reports no additional psychiatric complaints Endocrine: Reports no additional endocrine complaints Hematologic/Lymphatic: Reports no additional hematologic/lymphatic complaints Allergic/Immunologic: Reports no additional allergic/immunologic complaints Reports system reviewed and no additional complaints, except as documented and Reports Abnormal speech present [facility] Social History Social History Advance Directives: Yes Advance Directives Information Provided: Yes Advance Directives on File: No Physical Exam Vital Signs: Vital Signs: Last Vital Signs Temp 97.1 F 12/14/21 08:01 Pulse 102 H 12/14/21 08:01 Resp 16 12/14/21 08:01 BP 137/87 12/14/21 08:01 Pulse Ox 98 12/14/21 08:01 O2 Del Method 12/14/21 08:01 BMI result Body Mass Index 26.9 Vital signs have been reviewed as appeared to be correct. Blood pressure normal. Heart rate normal. Respiration rate normal. Temperature normal. Oxygen saturation normal. Appearance: Alert. Oriented X3. No acute distress. Head: Normal external exam. Normocephalic. Atraumatic. No Marcelino signs noted. No raccoon eyes noted Eyes: PERRLA. EOMI. Conjunctiva and sclera normal. Eyelids normal. ENT: TM's Normal. Pharynx normal. Uvula midline. Moist mucous membranes. No trismus noted. No drooling noted. No muffled voice noted. No throat swelling, no stridor. Neck: Normal inspection. Neck supple. FROM. No adenopathy. Thyroid Normal. No meningeal signs. No neck mass noted. CVS: Normal heart rate and rhythm. Heart sound normal. No murmurs noted. Pulses normal throughout. Respiratory: No respiratory distress. Painless inspiration. Breath sounds normal. No wheezes/rales/rhonchi noted. Chest nontender. No accessory muscle usage noted or decreased air movement noted. Abdomen: Soft and nontender. Bowel sounds normal in all 4 quadrants. No distention noted. No organomegaly noted. No visible injury noted. Back: No CVA tenderness. Full range of motion noted. Skin: Skin warm and dry. Normal skin color. Normal skin turgor. No rashes/lesions/lacerations noted. Extremities: No lower extremity edema. Extremities exhibit normal range of motion. Extremities nontender. Neuro: Oriented X 3. Cranial nerve exam: II-XII are grossly intact No motor deficit. No sensory deficit. Reflexes normal. Course Course Course Narrative: 66-year-old male came in for evaluation of sore throat former many months, declined any swallowing or speech patient, no sick contact, no recent travel. Patient tested negative for COVID and strep throat, CT of the neck is nonrevealing chest x-ray is not revealing patient was instructed to follow-up with an ENT as an outpatient for further evaluation. MDM - URI/Sore Throat Lab Data Attestation: I reviewed the patient's lab results. Labs: Lab Results 12/14/21 12/14/21 Range/Units 08:07 08:07 COVID-19 ([place]) Negative (Negative) COVID-19 Clin Com See Note S. pyogenes GrpA ALECIA Negative (Negative) Imaging Data Chest x-ray: Attestation: I personally reviewed and interpreted this imaging study as follows: Radiologist's impression: No acute pathology. CT neck soft tissue: Attestation: I personally reviewed and interpreted this imaging study as follows: Radiologist's impression: ?This is a limited noncontrast CT of the neck. No definite soft tissue mass lesions are identified though assessment is limited given the lack of intravenous contrast and lack of a palpable marker. There is no cervical lymphadenopathy. ? - A partially calcified excrescence associated with the left MCA bifurcation is compatible with a known aneurysm in this location, not diagnostically assessed due to the lack of contrast. ? - There is multilevel cervical spondylosis. At C5-C6, a central disc protrusion results in possible moderate to severe central canal stenosis and mass effect on the cervical spinal cord that can be correlated for clinical signs of cervical myelopathy. Discharge Plan Discharge Clinical Impression: Sore throat Patient Disposition: Home, Self-Care Instructions: Pharyngitis (ED) Referrals: Jose Alfredo Ross MD [Primary Care Provider] - Barron Bauer [Physician] -
== END 2021-12-14 11:03 | disposition home or self-care (01) ==
PROVIDERS: Emergency Provider Emergency Medicine; PCP Internal Medicine
DX: J02.9 Acute pharyngitis, unspecified (principal); Z20.822 Contact with and (suspected) exposure to COVID-19
CPT/HCPCS: 70490; 71045; 87635; 87651; 99282; 99283; 99284

== ENCOUNTER 2021-12-27 09:21 | Outpatient (REF) | payer OTHER, MEDICARE, SELFPAY ==
--- NOTE | ~2021-12-27 | FL_ITS ---
EXAMINATION: FL BARIUM SWALLOW CLINICAL INFORMATION: Dysphagia COMPARISON: Neck CT 12/14/2021 TECHNIQUE: Barium swallow examination is performed using fluoroscopic evaluation in addition to multiple fluoroscopic spot views. The patient is imaged both upright and prone and using both thick and thin sulfate along with effervescent granules. Fluoroscopy time: 2.3 minutes minutes DAP: 4.306 Gycm2 Images: 25 FINDINGS: The patient initiated swallowing normally. There is significant residue in the vallecula after each swallow. There is ineffective primary peristalsis with to-and-fro tertiary contractions. No fixed esophageal mucosal abnormalities to suggest stricture or mass. No hiatal hernia. No gastroesophageal reflux seen spontaneously or elicited with Valsalva maneuver. Visualized stomach is normal. FL/FL barium swallow IMPRESSION: There is significant residue in the vallecula after each swallow. Consider a formal swallowing evaluation by speech and language pathology. Esophageal dysmotility manifested by ineffective primary peristalsis with to-and-fro tertiary contractions.
== END 2021-12-27 09:22 | disposition home or self-care (01) ==
LOC: HO.XRAY 09:21
PROVIDERS: PCP Internal Medicine; Visit Provider Otolaryngology
DX: R13.10 Dysphagia, unspecified (principal)
CPT/HCPCS: 74220

== ENCOUNTER 2022-02-26 09:18 | Day surgery (SDC) | payer OTHER, MEDICARE, SELFPAY ==
--- NOTE | 2022-01-03 12:46 | P.CONAN_ITS ---
HPI - Anesthesia Eval Consult details Narrative: 66yo M for Colonoscopy s/p renal transplant 06/2021 FOR[facility]LY [facility] Past Medical History Medical History (Updated 01/03/22 @ 12:15 by Amisha Arriaga RN) Concussion Diverticulitis Gout HTN (hypertension) Normal colonoscopy Sleep apnea with use of continuous positive airway pressure (CPAP) Surgical History Surgical History (Updated 01/03/22 @ 12:15 by Amisha Arriaga RN) H/O knee surgery Hx of resection of large bowel Kidney transplant status Meds Allergies Allergy/AdvReac Type Severity Reaction Status Date / Time bee pollen [BEE STINGS] Allergy Intermediate LOCALIZED Unverified 11/17/19 14:40 SWELLING acetaminophen [From TYLENOL] Allergy Unknown KIDNEY Unverified 11/17/19 14:40 DISEASE ibuprofen [From ADVIL] Allergy Unknown KIDNEY Unverified 11/17/19 14:40 DISEASE Home Medications Medication Instructions Recorded Confirmed Last Taken Type amlodipine 5 mg tablet 2 tab PO DAILY 01/03/22 01/03/22 Unknown History atorvastatin 20 mg tablet 1 tab PO DAILY 01/03/22 01/03/22 Unknown History clotrimazole 10 mg tiffanie 1 mable PO QID PRN THRUSH 01/03/22 01/03/22 Unknown History docusate sodium 100 mg capsule mg PO 01/03/22 Unknown History enalapril maleate 10 mg tablet 1 tab PO BID 01/03/22 01/03/22 Unknown History finasteride 5 mg tablet 1 tab PO DAILY 01/03/22 01/03/22 Unknown History levetiracetam 500 mg tablet 3 tab PO BEDTIME 01/03/22 01/03/22 Unknown History lisinopril 5 mg tablet 1 tab PO DAILY 01/03/22 01/03/22 Unknown History magnesium oxide 400 mg (241.3 mg 400 mg PO BID 01/03/22 01/03/22 Unknown History magnesium) tablet mycophenolate sodium 180 mg 3 tab PO BID 01/03/22 01/03/22 Unknown History tablet,delayed release nystatin 100,000 unit/mL oral 10 ml PO QID 01/03/22 01/03/22 Unknown History suspension oxcarbazepine 600 mg tablet 1 tab PO BEDTIME 01/03/22 01/03/22 Unknown History sulfamethoxazole 400 1 tab PO DAILY 01/03/22 01/03/22 Unknown History mg-trimethoprim 80 mg tablet tacrolimus 1 mg tablet,extended 8 tab PO QAM 01/03/22 01/03/22 Unknown History release 24 hr ([facility] XR) trazodone 300 mg tablet tab PO 01/03/22 Unknown History valganciclovir 450 mg tablet 1 tab PO DAILY 01/03/22 01/03/22 Unknown History Exam Exam Date and Time: January 03, 2022 1246 Assessment and Plan Assessment Anesthesia Assessment: Chart Reviewed
[2022-02-26 09:26] VITALS: BMI 27.5
[2022-02-26 09:39] VITALS: BP 112/78; PULSE 94; RESP 16; TEMP 36.7; O2SAT 98
[2022-02-26 09:42] LABS: Hematocrit 39.7 % (42.0-52.0); Hemoglobin 13.4 g/dl (14.0-18.0); Mean Corpuscular HGB Conc 33.8 g/dl (31.0-36.0); Mean Corpuscular Hemoglobin 31.8 pg (27.0-33.0); Mean Corpuscular Volume 94.3 fL (80.0-98.0); Mean Platelet Volume 8.7 fL (9.4-12.4); Platelet Count 181 X10*3/uL (160-400); Red Blood Count 4.21 X10*6/uL (4.60-5.80); Red Cell Distribution Width 13.6 % (11.0-16.0)
[2022-02-26] MEDS: 0.9 % Sodium Chloride 1,000 ML 50 ML IVCONT (09:57)
--- NOTE | 2022-02-26 11:02 | PC.NURSE ---
hoarse voice upon arrival.
--- NOTE | 2022-02-26 11:02 | HO.ANESPROP2 ---
HPI - Anesthesia Eval Consult details Narrative: lloss of voice pain with swollowing f/u colonoscopy PMFSH Past Medical History Medical History (Updated 01/03/22 @ 12:15 by Amisha Arriaga RN) Concussion Diverticulitis Gout HTN (hypertension) Normal colonoscopy Sleep apnea with use of continuous positive airway pressure (CPAP) Family History Family history of problems with anesthesia: No Surgical History Surgical History (Updated 01/03/22 @ 12:15 by Amisha Arriaga RN) H/O knee surgery Hx of resection of large bowel Kidney transplant status History of Problems with Anesthesia: No Social History Social History Patient Tobacco Use Status: Never used Tobacco Use of substances other than those prescribed or required for medical reasons: No Are you DNR?: No Advance Directives: No Advance Directives Information Provided: Yes Recently lost weight without trying: Yes How much weight loss: 2-13 pounds Nutrition Risks: No Nutritional Risk Meds Allergies Allergy/AdvReac Type Severity Reaction Status Date / Time bee pollen [BEE STINGS] Allergy Intermediate LOCALIZED Verified 02/26/22 11:03 SWELLING ibuprofen [From ADVIL] Allergy Unknown KIDNEY Verified 02/26/22 11:03 DISEASE Active Medications: Current Medications Lactated Ringer's (Lr) 1,000 mls @ 100 mls/hr IVCONT .Q10H ANNY Last Admin: 02/26/22 10:01 Dose: Not Given Sodium Biphosphate/Sodium Phosphate (Sodium Phosphate,[place]-Dibasic 133 Ml Enema) 133 ml MI ONCE PRN PRN Reason: Poor Colonoscopy Prep Results Home Medications Medication Instructions Recorded Confirmed Last Taken Type amlodipine 5 mg tablet 2 tab PO DAILY 01/03/22 01/03/22 Unknown History atorvastatin 20 mg tablet 1 tab PO DAILY 01/03/22 01/03/22 Unknown History clotrimazole 10 mg tiffanie 1 mable PO QID PRN THRUSH 01/03/22 01/03/22 Unknown History docusate sodium 100 mg capsule mg PO 01/03/22 Unknown History enalapril maleate 10 mg tablet 1 tab PO BID 01/03/22 01/03/22 Unknown History finasteride 5 mg tablet 1 tab PO DAILY 01/03/22 01/03/22 Unknown History levetiracetam 500 mg tablet 3 tab PO BEDTIME 01/03/22 01/03/22 Unknown History lisinopril 5 mg tablet 1 tab PO DAILY 01/03/22 01/03/22 Unknown History magnesium oxide 400 mg (241.3 mg 400 mg PO BID 01/03/22 01/03/22 Unknown History magnesium) tablet mycophenolate sodium 180 mg 3 tab PO BID 01/03/22 01/03/22 Unknown History tablet,delayed release nystatin 100,000 unit/mL oral 10 ml PO QID 01/03/22 01/03/22 Unknown History suspension oxcarbazepine 600 mg tablet 1 tab PO BEDTIME 01/03/22 01/03/22 Unknown History sulfamethoxazole 400 1 tab PO DAILY 01/03/22 01/03/22 Unknown History mg-trimethoprim 80 mg tablet tacrolimus 1 mg tablet,extended 8 tab PO QAM 01/03/22 01/03/22 Unknown History release 24 hr (Envarsus XR) trazodone 300 mg tablet tab PO 01/03/22 Unknown History valganciclovir 450 mg tablet 1 tab PO DAILY 01/03/22 01/03/22 Unknown History Exam Exam Date and Time: February 26, 2022 1102 Height,Weight and Vital Signs: Height 4 ft 11 in Weight 61.859 kg Last Vital Signs Temp 98.0 F 02/26/22 09:39 Pulse 94 02/26/22 09:39 Resp 16 02/26/22 09:39 BP 112/78 02/26/22 09:39 Pulse Ox 98 02/26/22 09:39 O2 Del Method 02/26/22 09:39 Pertinent Lab Results Pertinent Lab Results: Laboratory Tests 02/26/22 02/26/22 09:33 09:33 WBC 7.0 RBC 4.21 L D Hgb 13.4 L D Hct 39.7 L D MCV 94.3 MCH 31.8 MCHC 33.8 RDW 13.6 Plt Count 181 MPV 8.7 L Absolute Nucleated RBC 0.000 Nucleated RBC % (auto) 0.0 PT 12.0 INR 1.0 Airway Mallampati Class: II TM Dist: >3cm Neck ROM: Full Heart: RR Lungs: CTA Assessment and Plan Assessment Anesthesia Assessment: Anesthesia Plan Discussed and Chart Reviewed Final Anesthetic Review Family History of Problems with Anesthesia: No History of Problems with Anesthesia: No NPO: Yes ASA Class: III Final Preanesthetic Review: No Changes in Pt Med Stat, Meds/Allgs Chart Reviewed and Consent Obtained/Reviewed Patient Risk: Intermediate Procedure Risk: Low Anesthetic Plan Anesthetic Plan: MAC: Disposition: Standard PACU
[2022-02-26 12:00] VITALS: BP 107/72; PULSE 73; RESP 14; TEMP 36.1; O2SAT 96
--- NOTE | 2022-02-26 12:11 | P.BOP_ITS ---
Brief Operative Note Date of Service: 02/26/22 Pre-op diagnosis: Hoarseness,Odynophagia, Screening Post-op diagnosis: other (Hiatal hernia, Polyps) Procedure: EGD with biopsies, Colonoscopy to the cecum with bx/removal of polyps Surgeon: Gt Mccullough Anesthesia: MAC Was an Systems Lead used for this Procedure?: No Estimated blood loss (mL): 2.0 Pathology: other (A. EG Junction at 35cm B. Esophagus at 20cm C. Cecal polyp D. Ascending colon polyp) Condition: stable Disposition: PACU
[2022-02-26 12:15] VITALS: BP 129/84; PULSE 73; RESP 14; TEMP 36.2; O2SAT 97
[2022-02-26 12:30] VITALS: BP 116/74; PULSE 79; RESP 16; TEMP 36.2; O2SAT 97
--- NOTE | 2022-02-26 13:20 | OP_ITS ---
SURGEON: Gt Mccullough MD INDICATIONS: The patient presents for evaluation of hoarseness, mild odynophagia, and colorectal cancer screening. Full consent has been obtained from him for this, including risks of bleeding and perforation. PREOPERATIVE DIAGNOSIS: POSTOPERATIVE DIAGNOSIS: PROCEDURE PERFORMED: Esophagogastroduodenoscopy with biopsies, and colonoscopy to the cecum with biopsy and removal of polyps. ESTIMATED BLOOD LOSS: COMPLICATIONS: ANESTHESIA: Monitored anesthesia care. ASSISTANTS: SPECIMENS: PREOPERATIVE DIAGNOSES: Hoarseness, odynophagia, and colorectal cancer screening. POSTOPERATIVE DIAGNOSES: Hoarseness, odynophagia, and colorectal cancer screening, hiatal hernia, colon polyps, diverticulosis, and internal hemorrhoids. Question of vocal cord polyp. DESCRIPTION OF PROCEDURE: The patient was placed in the left lateral decubitus position. The Olympus video gastroscope was passed in the posterior oropharynx and upper esophagus under direct vision. The scope was passed slowly to the distal esophagus. The gastroesophageal junction appeared at 35 cm. There was some slight edema consistent with perhaps some minimal reflux, but no evidence of any esophagitis, Velarde esophagus, nor other mucosal abnormalities. The scope entered into the stomach. There was a small hiatal hernia. The scope was advanced to the pylorus, and the duodenum was cannulated to the descending portion. The duodenum including the bulb appeared normal without mass or ulceration. The scope was withdrawn back in the stomach. The gastric antrum and body appeared normal with good peristalsis. The scope was retroflexed visualizing the proximal stomach carefully, which appeared normal, without any sign of mass or ulceration. Scope was straightened and withdrawn back to the esophagus. Biopsies were obtained at the EG junction at 35 cm. Proximal to this the esophageal mucosa was carefully inspected and there did not appear to be any mucosal abnormalities such as erosions, ulceration, nor any other suspicious lesions that would account for his symptoms of the hoarseness and odynophagia. I did obtain some biopsies between 20 and 25 cm. I did attempt to obtain an inspection of the vocal cords as the scope was withdrawn, and these appeared normal although I did question if there might be a vocal cord polyp. However, I could not be certain of this. The scope was then withdrawn from the patient. He was turned around for the colonoscopy. The digital rectal exam revealed no abnormalities. The Olympus video pediatric colonoscope was entered into the rectum and advanced easily to the cecum. Once in the cecum, I did identify normal-appearing cecal pouch with appendiceal orifice, other than an approximately 4 mm polyp in the cecum, which was biopsied and removed completely with cold biopsy forceps. The remainder of the cecum appeared normal. The ileocecal valve appeared normal. There was transillumination of light deep in the right lower quadrant. The scope was then slowly withdrawn assessing all mucosal surfaces carefully. Preparation was excellent. There was a 3 or 4 mm polyp in the ascending colon that was biopsied and completely removed with the cold biopsy forceps. I did not visualize any other polyps, colitis, nor angiodysplasia. There were occasional diverticula noted in the ascending and descending colon. There was no evidence of any colitis nor angiodysplasia. His anastomosis was seen at approximately 15 to 20 cm and appeared normal. In the rectum, scope was retroflexed visualizing internal hemorrhoids, but no other pathology. The rectal mucosa appeared normal. The scope was straightened and withdrawn from the patient. He tolerated the procedure well and was returned to the recovery area in stable condition. IMPRESSION: 1. Colon polyps. 2. Diverticulosis. 3. Internal hemorrhoids. 4. Hiatal hernia. 5. Question of vocal cord polyp. PLAN: The results of the biopsies will be checked. If the colon polyps are tubular adenomas, I would recommend a followup colonoscopy in 5 years. If they are only hyperplastic, I would recommend a followup coloscopy in 10 years. In regard to the upper GI complaints of the hoarseness and the odynophagia, I did advise him to follow up with his Ear, Nose, and Throat physician, Dr. Bauer, in regard to whether or not he needs reinspection of the vocal cords. This has all been discussed with his . MD ROSS Kerns/MARCY / [id number] LETTY
== END 2022-02-26 13:13 | disposition home or self-care (01) ==
PROVIDERS: Anesthesiology; PCP Internal Medicine; Visit Provider Internal Medicine
PROC: (CPT 45380; principal; 2022-02-26 10:40)
DX: Z12.11 Encounter for screening for malignant neoplasm of colon (principal); D12.0 Benign neoplasm of cecum; D12.2 Benign neoplasm of ascending colon; R49.0 Dysphonia; K57.30 Diverticulosis of large intestine without perforation or abscess without bleeding; K64.8 Other hemorrhoids; K21.9 Gastro-esophageal reflux disease without esophagitis; R13.10 Dysphagia, unspecified; K44.9 Diaphragmatic hernia without obstruction or gangrene; I10 Essential (primary) hypertension; Z94.0 Kidney transplant status; M10.9 Gout, unspecified; G47.33 Obstructive sleep apnea (adult) (pediatric); Z99.89 Dependence on other enabling machines and devices; Z79.899 Other long term (current) drug therapy; Z90.49 Acquired absence of other specified parts of digestive tract
CPT/HCPCS: 45380; 43239; 36415; 85027; 85610; 88305; J2250

== ENCOUNTER 2022-04-25 11:06 | Outpatient (REF) | payer OTHER, MEDICARE, SELFPAY ==
[2022-04-25 13:45] LABS: Hematocrit 38.3 % (42.0-52.0); Hemoglobin 12.7 g/dl (14.0-18.0); Mean Corpuscular HGB Conc 33.2 g/dl (31.0-36.0); Mean Corpuscular Hemoglobin 31.9 pg (27.0-33.0); Mean Corpuscular Volume 96.2 fL (80.0-98.0); Mean Platelet Volume 9.9 fL (9.4-12.4); Platelet Count 178 X10*3/uL (160-400); Red Blood Count 3.98 X10*6/uL (4.60-5.80); Red Cell Distribution Width 12.1 % (11.0-16.0); White Blood Count 3.4 X10*3/uL (4.8-10.8)
[2022-04-25 13:53] LABS: Prothrombin Time 11.2 SEC (10.0-13.1)
[2022-04-25 13:59] LABS: Anion Gap 12 (12-20); Blood Urea Nitrogen 14 mg/dL (9-16); Carbon Dioxide 28 mmol/L (22-29); Chloride 104 mmol/L (96-108); Estimated Glomerular Filt Rate > 60; Potassium 3.9 mmol/L (3.3-5.1); Sodium 140 mmol/L (135-145)
[2022-04-25 14:40] LABS: Band Neutrophils Percent 6 % (3-5); Eosinophils Percent Manual 1 % (0-4); Lymphocytes Absolute Manual 0.2 X10*3/uL (1.2-4.9); Lymphocytes Percent Manual 7 % (20-40); Monocytes Absolute Manual 0.3 X10*3/uL (0.1-1.2); Monocytes Percent Manual 9 % (2-11); Myelocytes Percent 1 %; Neutrophils Absolute Manual 2.8 X10*3/uL (2.0-8.3); Neutrophils Percent Manual 76 % (45-73)
[2022-04-25 14:41] LABS: RBC Morphology NOTED
[2022-04-25 14:44] LABS: Acanthocytes 1+ (0-2) /OIF; Ovalocytes 1+ (5-14) /OIF
[2022-04-25 14:45] LABS: Burr Cells 3+ (>5) /OIF; Schistocytes 1+ (0-2) /OIF
[2022-04-25 14:46] LABS: Platelet Estimate NORMAL (NORMAL); Platelet Morphology Comment NORMAL; Tear Drop Cells 1+ (0-2) /OIF
== END 2022-04-25 11:07 | disposition home or self-care (01) ==
LOC: HO.10HDL 11:06
PROVIDERS: Visit Provider Internal Medicine
DX: K92.1 Melena (principal)
CPT/HCPCS: 36415; 80051; 82565; 84520; 85007; 85027; 85610

== ENCOUNTER 2023-02-11 12:52 | Outpatient (RCR) | payer MEDICARE, SELFPAY ==
--- NOTE | 2023-02-18 14:34 | MHC.SP.ADU ---
Referring provider: Kristine Moyer MD Reason for Referral: Hoarseness Type of Treatment: 63402 Behavioral and Qualitative Analysis of Voice and Resonance Date of Plan of Treatment: 02/11/23 Onset of Symptoms/Illness: 06/09/22 Date Treatment Started: 02/11/23 Medical Diagnosis: Chronic Dysphonia/Hoarseness, s/p Kidney transplant (07/21) followed by odynophagia, mouth and pharyngeal sores. Primary Speech Language Diagnosis: R49.0 Dysphonia Secondary Speech Language Diagnosis: History Pankaj Flores is a [age] year old man who was referred for speech/voice therapy due to chronic hoarseness/dysphonia. Pankaj reports that he had a kidney transplant in June of 2021, after which he developed sores in his mouth and throat, difficulty swallowing, and loss of voice. While the sores eventually subsided, he has continued to have hoarseness, and clears and coughs often due to a feeling that there is something in his throat. He stated that he sometimes vigorously coughs when he feels this discomfort, eventually bringing up some mucous secretions from his throat. Pankaj seen Dr. Ashton at [facility] in April of this year, then was referred to a Speech Therapist associated with that practice, Rosa Linares, who performed Video Stroboscopy, with results concluding a moderate to severe dysphonia marked by raspy hoarseness and decreased expiratory muscles, with extrinsic laryngeal muscle tension. Ms. Linares in her report did appear to refer Pankaj at that time for Speech Therapy, but Pankaj reported that she gave him some educational materials and recommended he obtain a spirometer for respiratory exercises, but he otherwise did not receive therapy. Pankaj recently returned for a follow up appointment with the ENT practice, noted that his throat issues were unchanged, and was referred again for speech therapy (by Kristine Moyer MD). 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 He is very grateful for receiving a Kidney Transplant and to the Doctors who provided him with care his health has greatly improved as a result. Pankaj is , has two adult children and lives in [place]. He reports no particular unusual demands or use of his voice, other than talking, and reports no significant vocal health issues (e.g. no acid reflux, smoking, exposure to second hand smoke, allergies, normal hydration, etc.). Medical History: Other: ADHD, Anxiety/Depression, Bipolar Disorder, history of concussion, Diabetes, Hearing Loss, Hypertension, Migraines Medication List: Please see medical chart Recent Hospitalizations: No Respiratory Needs: Room Air Patient Orientation: Alert & Oriented x 4 Social History: Employment Status: Retired Highest level of education obtained: Completed Associate Deg. Current Living Situation: Lives in a private home in [place] with spouse. Past Speech Language Therapy: Video Stroboscopy, Rosa Linares MA/[facility] BLASTING CONTRACT MAN 06/09/22. Other Therapies Seen in Current Calendar Year: None Other: Reported Speech, Language, Cognition difficulties: Voice Comments: Pankaj presents with a mild dysphonia characterized by vocal hoarseness and irritable larynx syndrome/vocal fold hyperfunction (chronic throat clearing and coughing). Quality of Life: Excellent Patient Stated Goal of Speech-Language Therapy: Therapeutic intervention to improve vocal quality and cessation of chronic cough. Assessment Informal Voice Assessment: Voice Loudness: Normal Voice Nasal Resonance: Normal Voice Oral Resonance: Normal Voice Phonatory-based Quality: Hoarse Voice Pitch: Normal Voice Other Observations: Throat Clearing Clinical Impression: Impaired Clinicial Observations: Pankaj was administered the Consensus Auditory Perceptual Evaluation of Voice (CAPE-V). On this evaluation, Pankaj demonstrated adequate respiratory support for speech, normal pitch and loudness variation, and normal ability to sequence speech sounds (diodochokinetic rate). When producing normal speech, mild vocal hoarseness was noted. When producing sustained phonation, moderately harsh/breathy vocal quality was noted. Pankaj was noted to occasionally clear his throat after producing sustained phonation or vocal tasks, citing discomfort in his throat. He was encouraged to sip water periodically throughout this evaluation to help alleviate discomfort. Impressions and Recommendations Summary: Pankaj Flores presented today with a history of chronic hoarseness and chronic cough from vocal irritation. On evaluation, he presents with a mild dysphonia characterized by a hoarse vocal quality, and behaviors consistent with irritable larynx syndrome. Pankaj perceives throat irritation prompting a cough, which, in lieu of providing relief, causes more irritation and increased vocal fold tension, perpetuating a habitual coughing or throat clearing behavior. As a part of this assessment, Pankaj was provided with educational materials for vocal health that included: instruction with written reinforcement of relaxation techniques of circular breathing, and the recommendation of using a substitute behavior of sipping water or swallowing hard instead of coughing to relieve irritation. It is recommended that Pankaj return for a brief period of voice therapy to improve vocal quality, vocal hygiene and cessation of coughing behaviors. Impact on Daily Function/Activity Limitations: Daily Activities: Mild Interpersonal Interactions: Mild Education: Employment: Community: Mild Prognosis for Improvement: Good Comment: Recommendation for Speech Therapy: Outpatient Speech Therapy Frequency/Duration: One forty five minute session weekly for a period of 2-4 weeks Date Range for Service Requested: One month Time to Reassess: PRN Adjunct Professor Of Voice Goals: Pankaj will improve vocal quality and decrease chronic behaviors given instruction in strategies to promote these outcomes. Short Term Goals: Goal # : Pankaj will use relaxation strategies, including circular breathing, constructive rest, visualization techniques to reduce muscle tension demonstrating 80% independence on instructed techniques. Goal Status: Goal# : Pankaj will produce sustained vocalization using vocal flow/breath support with minimal perturbation of phonation demonstrating 80% accuracy. Goal Status: Goal # : Pankaj will produce connected speech using relaxed phonation and efficient breath support with 80% accuracy Goal Status: Goal # : Pankaj will use a substitute behavior to relieve vocal/throat irritation or discomfort as observed in context of therapy and through self monitoring with 80% accuracy. 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
== END 2023-02-24 14:43 | disposition still patient (30) ==
LOC: HO.SH 12:52
PROVIDERS: Visit Provider Otolaryngology
DX: R49.0 Dysphonia (principal)
CPT/HCPCS: 92524

== ENCOUNTER 2023-04-07 13:00 | Outpatient (RCR) | payer MEDICARE, SELFPAY | END 2023-04-08 14:03 | disposition home or self-care (01) | LOC: HO.SH 13:00 | PROVIDERS: Visit Provider Otolaryngology | DX: R49.8 Other voice and resonance disorders (principal) | CPT/HCPCS: 92507 ==

== ENCOUNTER 2023-05-13 15:43 | Outpatient (REF) | payer MEDICARE, SELFPAY ==
--- NOTE | ~2023-05-13 | XR_ITS ---
EXAMINATION: XR CHEST CLINICAL INFORMATION: Cough and congestion COMPARISON: 12/14/2021 TECHNIQUE: 2 views of the chest were obtained. FINDINGS: Heart, mediastinum and vascularity within normal limits. Minor left base atelectasis. Calcification left apex may be vascular. XR/XR chest 2V IMPRESSION: Minor left base atelectasis.
--- NOTE | ~2023-05-13 | XR_ITS ---
EXAMINATION: XR SINUSES CLINICAL INFORMATION: Cough and congestion COMPARISON: None available. TECHNIQUE: 3 views of the sinuses were obtained. FINDINGS: Bilateral maxillary air-fluid levels. Remaining sinuses and mastoids are clear. Bony structures are intact. XR/XR sinus min 3V IMPRESSION: Bilateral maxillary sinusitis.
== END 2023-05-13 15:44 | disposition home or self-care (01) ==
LOC: HO.XRAY 15:43
PROVIDERS: PCP Internal Medicine; Visit Provider Internal Medicine
DX: R05.9 Cough, unspecified (principal); J32.9 Chronic sinusitis, unspecified
CPT/HCPCS: 70220; 71046

== ENCOUNTER 2023-06-29 14:53 | Outpatient (REF) | payer MEDICARE, SELFPAY ==
[2023-06-29 16:03] LABS: Estimated Average Glucose 151 mg/dL; Hemoglobin A1c % 6.9 % (<6.0)
[2023-06-29 17:03] LABS: Anion Gap 17 (12-20); Blood Urea Nitrogen 21 mg/dL (9-16); Calcium 9.7 mg/dL (8.4-10.2); Carbon Dioxide 24 mmol/L (22-29); Chloride 103 mmol/L (96-108); Estimated Glomerular Filt Rate > 60; Glucose Random 201 mg/dL (60-115); Potassium 4.3 mmol/L (3.3-5.1); Sodium 140 mmol/L (135-145)
[2023-06-29 18:50] LABS: Creatinine Urine 135.83 mg/dL
== END 2023-06-29 14:54 | disposition home or self-care (01) ==
LOC: HO.LAB 14:53
PROVIDERS: PCP Internal Medicine; Visit Provider Internal Medicine
DX: E11.9 Type 2 diabetes mellitus without complications (principal)
CPT/HCPCS: 36415; 80048; 82043; 82570; 83036

== ENCOUNTER 2024-02-12 14:57 | Outpatient (AMB) | payer MEDICARE, SELFPAY ==
--- OUTSIDE RECORDS SUMMARY | 2024-02-12 15:00 | XMS_ITS ---
Author Name [facility] Organization Unknown Problems Problem Status Onset Date Problem Type Date of Resoluti on Source Complication of transplanted kidney, unspecified complication [facility]
--- OUTSIDE RECORDS SUMMARY | 2024-02-12 15:00 | XMS_ITS | Patient Health Record ---
Author Organization [facility] Address [address] [place] [id number] Care Team Providers Care Nonprofit Manager Name Role Phone Jose Alfredo Ross MD Primary Care Provider Gt Chavez Unavailable [phone] ALLERGIES No Known Allergies REASON FOR REFERRAL No Information MEDICATIONS Medication SIG (Take, Route, Frequency, Duration) Notes Start Date End Date Status Sulfamethoxazole-Trimet hoprim 400-80 MG Oral for 30 Active Clotrimazole 10 MG Mouth/Throat for 30 Active valGANciclovir HCl 450 MG Oral for 30 For CMV Active traZODone HCl 300 MG Oral for 90 Active levETIRAcetam 500 MG Oral for 90 Keppra-for sleep Active Magnesium 300 MG 1 capsule with a meal Orally Once a day for 30 day(s) Active Enalapril Maleate 10 MG Oral for 90 Active Docusate Sodium 100 MG Oral for 30 Active Envarsus XR 1 MG Oral for 30 Tacrolimus Active Atorvastatin Calcium 20 MG Oral for 90 Active IMMUNIZATIONS Vaccine Route Administration Date Status Comme nts Influenza Unknown 11/30/2020 Administered SOCIAL HISTORY Sex Assigned At : Social History Observation Description Sex Assigned At Unknown Alcohol Screen Question Answer Notes Did you have a drink containing alcohol in the p ast year? No Points 0 Interpretation Negative PROBLEMS Problem Type ICD Code Onset Dates Problem Status W/U Status Risk SNOMED Code Notes Problem Encounter for screening for malignant neoplasm of colon (Z12.11) Active confirmed Screening for malignant neoplasm of colon (477063486) Problem Encounter for preprocedural respiratory examination (Z01.811) Active confirmed Identification of preoperative respiratory status (232891891) Problem Dysphagia (R13.10) Active confirmed Dysphagia (86840354) Problem Diverticulosis of colon (K57.30) Active confirmed Diverticulosi s of colon (926993084) Problem Black stool (K92.1) Active confirmed [id number] PLAN OF TREATMENT Pending Test Test Name Order Date ELECTROLYTES 04/23/2022 BUN 04/23/2022 CBC w DIFF 04/23/2022 Future Test Test Name Order Date COLONOSCOPY 04/15/2011 COLONOSCOPY 09/04/2021 Insurance Providers Payer Name Payer Address Payer Phone Subscriber Number Group Number Insured Name Patient Relationship to Insured Coverage Start Date Coverage End Date [facility] [address] [place] [phone] [id number] RODOLFOPEGGY Del Real Self - patient is the insured MEDICARE OF [place] [address] [facility] [place] [address] [id number] RODOLFOPEGGY Del Real Self - patient is the insured MEDICAL (GENERAL) HISTORY Medical History History ICD Code HTN Gout Sleep apnea-uses a CPAP machine Denies MA,DM,CVA,Lung disease 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
--- NOTE | 2024-02-12 15:06 | HO.NEPHOV_ITS ---
Vital Signs 02/12/24 15:11 Height 4 ft 11 in Weight 161 lb BMI 32.5 BP 142/82 H Blood Pressure Location Lt brachial Position Sitting Pulse 76 Pulse Source Pulse Oximeter Pulse Oximetry (%) 97 Oxygen Delivery Method Room Air Intake Visit Reasons: [facility] Barrel Repairer Required: No Accompanied by: Self / Same As Patient Allergies bee pollen [BEE STINGS] Allergy (Intermediate, Verified 02/12/24 15:11) LOCALIZED SWELLING ibuprofen [From ADVIL] Allergy (Unknown, Verified 02/12/24 15:11) KIDNEY DISEASE HPI Comments Details: I had the privilege of seeing Pankaj for transfer of his transplant renal care to me from a different renal provider group. 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 Induction was done using Methylprednisone and Thymoglobulin. He never had any rejection. His allograft biopsy 11/07/21 was negative for AMR and ACR. His Cf-DNA was 0.05 on 01/27/2023. His DSA has been negative on 01/27/23. His baseline serum creatinine has been around 0.9 to 1.1. He developed DM post transplant and has been on metformin. There was a concern for complex cystic lesion on the allograft but had MRI in August 2023 which did not show any concern. Radiologist had recommended GI consult as well as MRCP in summer ( pancreas). He is not on any ACEI. He is maintained on tacrolimus as well myfortic. He maintains good hydration and avoids NSAID's. His last HbA1c was 7. His urine output is good. He never had any CMV or BK virus infection. H feels well. He is compliant with medications. [facility] Medical History (Updated 01/03/22 @ 12:15 by Amisha Arriaga RN) Diverticulitis Normal colonoscopy Concussion Sleep apnea with use of continuous positive airway pressure (CPAP) Gout HTN (hypertension) Surgical History Kidney transplant status H/O knee surgery Hx of resection of large bowel Social History Patient Tobacco Use Status: Never used Tobacco Review of Systems Const All systems reviewed & are unremarkable except as noted in HPI and below Physical Exam Vital Signs: Last Vital Signs Pulse 76 02/12/24 15:11 BP 142/82 H 02/12/24 15:11 Pulse Ox 97 02/12/24 15:11 Oxygen Delivery Method Room Air 02/12/24 15:11 BMI result Body Mass Index 32.5 Const General: comfortable and no acute distress Orientation/consciousness: patient oriented x3 HEENT Head: Yes normocephalic Mouth: Normal oral and palatal mucosa present Eyes EOM: EOMs intact bilaterally Neck Neck: Yes supple Resp Auscultation: clear to auscultation bilaterally Cardio Jugular venous distension: no JVD Rate: regular rate GI Palpation (GI): Soft to palpation Auscultation: normal bowel sounds General: Yes no CVA tenderness Back/Spine/Pelvis Back: no CVA tenderness Skin General skin exam: no rashes or lesions noted Neuro General: patient oriented x3 and moves all extremities Extrem General: Yes no pedal edema Results Reviewed Nephrology Results: Hgb 15.4 g/dl (14.0-18.0) 02/13/24 WBC 4.1 X10*3/uL (4.8-10.8) L 02/13/24 Plt Count 210 X10*3/uL (160-400) 02/13/24 Sodium 144 mmol/L (135-145) 02/13/24 Potassium 4.4 mmol/L (3.3-5.1) 02/13/24 Chloride 106 mmol/L (96-108) 02/13/24 Carbon Dioxide 26 mmol/L (22-29) 02/13/24 BUN 17 mg/dL (9-16) H 02/13/24 Creatinine 1.34 mg/dL (0.5-1.4) 02/13/24 Calcium 9.6 mg/dL (8.4-10.2) 02/13/24 Phosphorus 2.4 mg/dL (2.7-4.5) L 02/13/24 PTH Intact 127.1 pg/mL (8.7-77.1) H 02/13/24 Urine Creatinine 286.02 mg/dL 02/13/24 Protein/Creatinin Ratio 0.06 (<0.2) 02/13/24 Assessment & Plan Assessment & Plan (1) Renal transplant recipient: Code(s): Z94.0 - Kidney transplant status Category: Surgical Plan He had donor renal transplant on 07/18/2021. Induction was done using Methylprednisone and Thymoglobulin. He never had any rejection. His allograft biopsy 11/07/21 was negative for AMR and ACR. His Cf-DNA was 0.05 on 01/27/2023. His DSA has been negative on 01/27/23. His baseline serum creatinine has been around 0.9 to 1.1. He developed DM post transplant and has been on metformin. There was a concern for complex cystic lesion on the allograft but had MRI in August 2023 which did not show any concern. He is maintained on tacrolimus as well myfortic. He maintains good hydration and avoids NSAID's. His last HbA1c was 7. His urine output is good. He never had any CMV or BK virus infection. He needs to maintain good blood sugar control. I did not make any medication changes today. All these have been discussed in detail. F/U given Orders: Orders Electrolytes 02/13/24 Z94.0 - Kidney transplant status Phosphorus 02/13/24 Z94.0 - Kidney transplant status Alanine Aminotransferase 02/13/24 Z94.0 - Kidney transplant status Aspartate Amino Transferase 02/13/24 Z94.0 - Kidney transplant status Protein Creatinine Ratio, Ur 02/13/24 Z94.0 - Kidney transplant status Creatinine 2 Months Z94.0 - Kidney transplant status Tacrolimus Prograf 2 Months Z94.0 - Kidney transplant status Complete Blood Count Auto Diff 2 Months Z94.0 - Kidney transplant status Complete Blood Count Auto Diff 02/13/24 Z94.0 - Kidney transplant status Creatinine 02/13/24 Z94.0 - Kidney transplant status Blood Urea Nitrogen 02/13/24 Z94.0 - Kidney transplant status Calcium 02/13/24 Z94.0 - Kidney transplant status Magnesium 02/13/24 Z94.0 - Kidney transplant status Parathyroid Hormone Intact 02/13/24 Z94.0 - Kidney transplant status Vitamin D 25-OH Total 02/13/24 Z94.0 - Kidney transplant status Tacrolimus Prograf 02/13/24 Z94.0 - Kidney transplant status Other Ref Test - Misc 02/13/24 Z94.0 - Kidney transplant status Hemoglobin A1c 02/13/24 Z94.0 - Kidney transplant status Blood Urea Nitrogen 2 Months Z94.0 - Kidney transplant status Electrolytes 2 Months Z94.0 - Kidney transplant status Calcium 2 Months Z94.0 - Kidney transplant status Phosphorus 2 Months Z94.0 - Kidney transplant status Magnesium 2 Months Z94.0 - Kidney transplant status Coding Level of Care Code New Pt Level 4 (82180) Diagnoses Renal transplant recipient Z94.0
[2024-02-12 15:11] VITALS: BP 142/82; PULSE 76; O2SAT 97; BMI 32.5
== END 2024-02-12 15:43 | disposition home or self-care (01) ==
PROVIDERS: PCP Internal Medicine; Visit Provider Internal Medicine Nephrology
DX: Z94.0 Kidney transplant status (principal)
CPT/HCPCS: 99204

== ENCOUNTER → 2024-02-12 14:57 | Outpatient (BNVA) | payer MEDICARE, SELFPAY | PROVIDERS: PCP Internal Medicine; Visit Provider Internal Medicine Nephrology | DX: I10 Essential (primary) hypertension (principal); E11.9 Type 2 diabetes mellitus without complications; Z79.84 Long term (current) use of oral hypoglycemic drugs; Z94.0 Kidney transplant status | CPT/HCPCS: 99202 ==

== ENCOUNTER 2024-02-13 10:14 | Outpatient (REF) | payer MEDICARE, SELFPAY ==
--- OUTSIDE RECORDS SUMMARY | 2024-02-13 10:17 | XMS_ITS | Patient Health Record ---
Author Organization [facility] Address [address] [place] [address] Care Team Providers Care Salesforce Business Analyst Name Role Phone Jose Alfredo Ross MD Primary Care Provider Gt Chavez Unavailable [phone] ALLERGIES No Known Allergies REASON FOR REFERRAL [...] confirmed Screening for malignant neoplasm of colon (954411750) Problem Encounter for preprocedural respiratory examination (Z01.811) Active confirmed Identification of preoperative respiratory status (125017988) Problem Dysphagia (R13.10) Active confirmed Dysphagia (19252918) Problem Diverticulosis of colon (K57.30) Active confirmed Diverticulosi s of colon (016758204) Problem Black stool (K92.1) Active confirmed [id number] PLAN OF TREATMENT Pending Test Test Name Order Date ELECTROLYTES 04/23/2022 BUN 04/23/2022 CBC w DIFF 04/23/2022 Future Test Test Name Order Date COLONOSCOPY 04/15/2011 COLONOSCOPY 09/04/2021 Insurance Providers Payer Name Payer Address Payer Phone Subscriber Number Group Number Insured Name Patient Relationship to Insured Coverage Start Date Coverage End Date [facility] [address] [place] [phone] [id number] RODOLFOPEGGY Del Real Self - patient is the insured MEDICARE OF [place] [address] [facility] [address] [id number] RODOLFOPEGGY Del Real Self - patient is the insured MEDICAL (GENERAL) HISTORY Medical History History ICD Code HTN Gout Sleep apnea-uses a CPAP machine Denies DE,DM,CVA,Lung disease 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
[2024-02-13 10:42] LABS: MANUAL DIFF FLAG NO
[2024-02-13 11:40] LABS: Basophils Percent Auto 0.5 % (0-2); Eosinophils Absolute Auto 0.1 X10*3/uL (0.0-0.4); Eosinophils Percent Auto 2.2 % (0-4); Hematocrit 44.2 % (42.0-52.0); Hemoglobin 15.4 g/dl (14.0-18.0); Imm Gran Abs Auto 0.01 X10*3/uL (0.00-0.03); Imm Gran Pct Auto 0.2 % (0.0-0.4); Lymphocytes Absolute Auto 0.7 X10*3/uL (1.2-4.9); Lymphocytes Percent Auto 17.1 % (20-40); Mean Corpuscular HGB Conc 34.8 g/dl (31.0-36.0); Mean Corpuscular Hemoglobin 31.8 pg (27.0-33.0); Mean Corpuscular Volume 91.3 fL (80.0-98.0); Mean Platelet Volume 9.2 fL (9.4-12.4); Monocytes Absolute Auto 0.5 X10*3/uL (0.1-1.2); Monocytes Percent Auto 11.5 % (2-11); Neutrophils Absolute Auto 2.8 x10*3/uL (2.0-8.3); Neutrophils Percent Auto 68.5 % (45-73); Platelet Count 210 X10*3/uL (160-400); Red Blood Count 4.84 X10*6/uL (4.60-5.80); Red Cell Distribution Width 13.2 % (11.0-16.0); White Blood Count 4.1 X10*3/uL (4.8-10.8)
[2024-02-13 11:47] LABS: Estimated Average Glucose 154 mg/dL; Hemoglobin A1C 207.5727 umol/L; Total Hemoglobin (HGBA1C) 3919.8012 umol/L
[2024-02-13 12:24] LABS: Anion Gap 16 (12-20); Aspartate Amino Transferase 34 U/L (5-37); Blood Urea Nitrogen 17 mg/dL (9-16); Calcium 9.6 mg/dL (8.4-10.2); Carbon Dioxide 26 mmol/L (22-29); Chloride 106 mmol/L (96-108); Estimated Glomerular Filt Rate 53; Magnesium 1.7 mg/dL (1.6-2.6); Phosphorus 2.4 mg/dL (2.7-4.5); Potassium 4.4 mmol/L (3.3-5.1); Sodium 144 mmol/L (135-145)
[2024-02-13 12:32] LABS: Parathyroid Hormone Intact 127.1 pg/mL (8.7-77.1)
[2024-02-13 12:52] LABS: Alanine Aminotransferase 36 U/L (0-40); Vitamin D 25-OH Total 76.2 ng/mL (>30)
[2024-02-13 14:38] LABS: Creatinine Urine 286.02 mg/dL; Protein/Creatinine Ratio, Ur 0.06 (<0.2); Total Protein Urine Random 17 mg/dL (<12)
[2024-02-14 11:08] LABS: Tacrolimus Prograf 8.7 mcg/L
[2024-02-18 08:58] LABS: BK Virus DNA QL Urine Not Detected
== END 2024-02-13 10:15 | disposition home or self-care (01) ==
LOC: HO.LAB 10:14
PROVIDERS: PCP Internal Medicine; Visit Provider Internal Medicine Nephrology
DX: Z94.0 Kidney transplant status (principal); Z13.1 Encounter for screening for diabetes mellitus
CPT/HCPCS: 36415; 80051; 80197; 82306; 82310; 82565; 82570; 83036; 83735; 83970; 84100; 84156; 84450; 84460; 84520; 85025; 87798

== ENCOUNTER 2024-04-02 10:57 | Outpatient (REF) | payer MEDICARE, SELFPAY ==
[2024-04-02 11:06] LABS: MANUAL DIFF FLAG NO
[2024-04-02 11:32] LABS: Basophils Percent Auto 0.5 % (0-2); Eosinophils Percent Auto 0.6 % (0-4); Hematocrit 44.6 % (42.0-52.0); Hemoglobin 15.7 g/dl (14.0-18.0); Imm Gran Abs Auto 0.02 X10*3/uL (0.00-0.03); Imm Gran Pct Auto 0.3 % (0.0-0.4); Lymphocytes Absolute Auto 0.8 X10*3/uL (1.2-4.9); Mean Corpuscular HGB Conc 35.2 g/dl (31.0-36.0); Mean Corpuscular Hemoglobin 31.4 pg (27.0-33.0); Mean Corpuscular Volume 89.2 fL (80.0-98.0); Mean Platelet Volume 8.6 fL (9.4-12.4); Monocytes Absolute Auto 0.7 X10*3/uL (0.1-1.2); Monocytes Percent Auto 10.9 % (2-11); Neutrophils Absolute Auto 4.7 x10*3/uL (2.0-8.3); Neutrophils Percent Auto 74.7 % (45-73); Platelet Count 261 X10*3/uL (160-400); White Blood Count 6.3 X10*3/uL (4.8-10.8)
[2024-04-02 12:32] LABS: Anion Gap 18 (12-20); Blood Urea Nitrogen 18 mg/dL (9-16); Calcium 9.5 mg/dL (8.4-10.2); Carbon Dioxide 24 mmol/L (22-29); Chloride 104 mmol/L (96-108); Estimated Glomerular Filt Rate 57; Magnesium 1.5 mg/dL (1.6-2.6); Phosphorus 2.5 mg/dL (2.7-4.5); Potassium 3.6 mmol/L (3.3-5.1); Sodium 142 mmol/L (135-145)
[2024-04-03 08:24] LABS: Tacrolimus Prograf 13.3 mcg/L
== END 2024-04-02 10:58 | disposition home or self-care (01) ==
LOC: HO.LAB 10:57
PROVIDERS: PCP Internal Medicine; Visit Provider Internal Medicine Nephrology
DX: Z94.0 Kidney transplant status (principal)
CPT/HCPCS: 36415; 80051; 80197; 82310; 82565; 83735; 84100; 84520; 85025

== ENCOUNTER 2024-04-08 12:00 | Outpatient (AMB) | payer MEDICARE, SELFPAY ==
--- NOTE | 2024-04-08 12:16 | HO.NEPHOV ---
Vital Signs 04/08/24 12:17 Height 4 ft 11 in Weight 152 lb 2 oz BMI 30.7 BP 80/60 L Blood Pressure Location Rt brachial Position Sitting Pulse 89 Pulse Source Pulse Oximeter Pulse Oximetry (%) 98 Oxygen Delivery Method Room Air Intake Visit Reasons: Renal transplant recipient Damaged Freight Inspector Required: No Accompanied by: Self / Same As Patient Allergies bee pollen [BEE STINGS] Allergy (Intermediate, Verified 04/08/24 12:17) LOCALIZED SWELLING ibuprofen [From ADVIL] Allergy (Unknown, Verified 04/08/24 12:17) KIDNEY DISEASE HPI Comments Details: Pankaj was seen for F/U of his transplant renal care. He had ESRD from hypertension and was never on HD. He was on Amlodipine which he stopped 4 days ago. 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 Induction was done using Methylprednisone and Thymoglobulin. He never had any rejection. His allograft biopsy 11/07/21 was negative for AMR and ACR. His Cf-DNA was 0.05 on 01/27/2023. His DSA has been negative on 01/27/23. His baseline serum creatinine has been around 0.9 to 1.1. He developed DM post transplant and has been on metformin. There was a concern for complex cystic lesion on the allograft but had MRI in August 2023 which did not show any concern. Radiologist had recommended GI consult as well as MRCP in summer ( pancreas). He is not on any ACEI. He is maintained on tacrolimus as well myfortic. He maintains good hydration and avoids NSAID's. His last HbA1c was 7. His urine output is good. He never had any CMV or BK virus infection. He has been having intermittent dizziness and URI. He is compliant with medications. [facility] Medical History (Updated 04/08/24 @ 12:36 by Gus Jimenez MD) Diverticulitis Normal colonoscopy Concussion Sleep apnea with use of continuous positive airway pressure (CPAP) Gout HTN (hypertension) Surgical History Kidney transplant status H/O knee surgery Hx of resection of large bowel Social History Patient Tobacco Use Status: Never used Tobacco Physical Exam Vital Signs: Last Vital Signs Pulse 89 04/08/24 12:17 BP 80/60 L 04/08/24 12:17 Pulse Ox 98 04/08/24 12:17 Oxygen Delivery Method Room Air 04/08/24 12:17 BMI result Body Mass Index 30.7 Const General: comfortable and no acute distress Orientation/consciousness: patient oriented x3 HEENT Head: Yes normocephalic Mouth: Normal oral and palatal mucosa present Eyes EOM: EOMs intact bilaterally Neck Neck: Yes supple Resp Auscultation: clear to auscultation bilaterally Cardio Jugular venous distension: no JVD Rate: regular rate GI Palpation (GI): Soft to palpation Auscultation: normal bowel sounds General: Yes no CVA tenderness Back/Spine/Pelvis Back: no CVA tenderness Skin General skin exam: no rashes or lesions noted Neuro General: patient oriented x3 and moves all extremities Extrem General: Yes no pedal edema Results Reviewed Nephrology Results: Hgb 15.7 g/dl (14.0-18.0) 04/02/24 WBC 6.3 X10*3/uL (4.8-10.8) 04/02/24 Plt Count 261 X10*3/uL (160-400) 04/02/24 Sodium 142 mmol/L (135-145) 04/02/24 Potassium 3.6 mmol/L (3.3-5.1) 04/02/24 Chloride 104 mmol/L (96-108) 04/02/24 Carbon Dioxide 24 mmol/L (22-29) 04/02/24 BUN 18 mg/dL (9-16) H 04/02/24 Creatinine 1.26 mg/dL (0.5-1.4) 04/02/24 Calcium 9.5 mg/dL (8.4-10.2) 04/02/24 Phosphorus 2.5 mg/dL (2.7-4.5) L 04/02/24 PTH Intact 127.1 pg/mL (8.7-77.1) H 02/13/24 Urine Creatinine 286.02 mg/dL 02/13/24 Protein/Creatinin Ratio 0.06 (<0.2) 02/13/24 Assessment & Plan Assessment & Plan (1) Renal transplant recipient: Code(s): Z94.0 - Kidney transplant status Category: Surgical (2) Sinusitis: Code(s): J32.9 - Chronic sinusitis, unspecified Category: Medical Qualifiers: Sinusitis location: frontal Chronicity: acute Recurrence: non-recurrent Qualified Code(s): J01.10 - Acute frontal sinusitis, unspecified Plan He had donor renal transplant on 07/18/2021. Induction was done using Methylprednisone and Thymoglobulin. He never had any rejection. His allograft biopsy 11/07/21 was negative for AMR and ACR. His Cf-DNA was 0.05 on 01/27/2023. His DSA has been negative on 01/27/23. His baseline serum creatinine has been around 0.9 to 1.1. He developed DM post transplant and has been on metformin. There was a concern for complex cystic lesion on the allograft but had MRI in August 2023 which did not show any concern. He is maintained on tacrolimus as well myfortic. He maintains good hydration and avoids NSAID's. His last HbA1c was 7. His urine output is good. He never had any CMV or BK virus infection. He needs to maintain good blood sugar control. I started him on Augmentin but did not make any other medication changes today. All these have been discussed in detail. F/U given Orders: Orders Complete Blood Count Auto Diff 2 Months Z94.0 - Kidney transplant status Creatinine 2 Months Z94.0 - Kidney transplant status Blood Urea Nitrogen 2 Months Z94.0 - Kidney transplant status Electrolytes 2 Months Z94.0 - Kidney transplant status Calcium 2 Months Z94.0 - Kidney transplant status Phosphorus 2 Months Z94.0 - Kidney transplant status Magnesium 2 Months Z94.0 - Kidney transplant status Tacrolimus Prograf 2 Months Z94.0 - Kidney transplant status Medications: New amoxicillin-pot clavulanate 500-125 mg (Augmentin) 1 tab PO BID 14 tabs 0RF Coding Level of Care Code Est Pt Level 4 (05109) Diagnoses Renal transplant recipient Z94.0 Acute non-recurrent frontal sinusitis J01.10 Sinusitis location: frontal Chronicity: acute Recurrence: non-recurrent
[2024-04-08 12:17] VITALS: BP 80/60; PULSE 89; O2SAT 98; BMI 30.7
--- OUTSIDE RECORDS SUMMARY | 2024-04-08 13:04 | XMS_ITS | Clinical Summary ---
Author Organization [facility] Address [address] [place] [address] Phone Care Team Providers Care Guitar Technician Name Role Phone Jose Alfredo Ross MD Primary Care Provider [phone] Allergies No known active allergies Medications atorvastatin (LIPITOR) 20 MG tablet Active aspirin 81 MG chewable tablet Chew 81 mg 1 (one) time each day Active OXcarbazepine (TRILEPTAL) 600 MG tablet Take 1 tablet (600 mg total) by mouth 1 (one) time each day in the evening 90 tablet 3 3 Active magnesium oxide (MAG-OX) 400 MG tabletIndications: Other lobsterman current drug therapy TAKE 1 TABLET BY MOUTH EVERY DAY IN THE MORNING AND EVENING 180 tablet 3 3 Active glucose blood test stripIndications:T ype 2 diabetes mellitus with hyperglycemia (HCC) 1 each by Other route in the morning and 1 each in the evening. Please test 2 times a day. 180 each 3 4 07/22/19 25 Active metFORMIN XR (GLUCOPHAGE-XR) 500 MG 24 hr tablet Take 2 tablets (1,000 mg total) by mouth in the morning and 2 tablets (1,000 mg total) in the evening. 360 tablet 3 4 08/26/19 25 Active LORazepam (Ativan) 0.5 MG tabletIndications: Mood disorder, not otherwise specified (HCC) Take 1 tablet (0.5 mg total) by mouth in the morning and 1 tablet (0.5 mg total) in the evening. 60 tablet 5 4 Active traZODone (DESYREL) 300 MG tablet Take 1 tablet (300 mg total) by mouth every night 30 tablet 11 4 09/10/20 25 Active mycophenolate (Myfortic) 180 MG EC tablet Take 2 tablets (360 mg total) by mouth in the morning and 2 tablets (360 mg total) in the evening. 360 tablet 3 4 11/17/19 25 Active Tacrolimus ER 1 MG tablet sustained-release 24 hourIndications:Murphy dney replaced by transplant Take 2 mg by mouth 1 (one) time each day 150 tablet 3 4 03/25/19 25 Active Problems Problem Noted Date Diagnosed Date Type 2 diabetes mellitus wit h diabetic chronic kidney disease 08/19/2023 Bipolar affective disorder, most recent episode mixed <Unspecified mood severity> 09/17/2022 History of renal transplant 07/16/2022 Hoarseness 04/02/2022 Encounter for preprocedural respiratory examinat ion 01/30/2022 Hypertensive disorder 01/30/2022 Obese class I 01/30/2022 Screening for malignant neoplasm of colon 2021 Long-term drug therapy 12/04/2021 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 Kidney replaced by transplant 10/21/2021 Dizziness 10/14/2021 Persistent sinus bradycardia 10/14/2021 Obstructive sleep apnea syndrome 06/06/2021 Hypertensive heart disease without congestive he art failure 04/11/2020 Hypertensive renal disease 04/11/2020 Resolved Problems Problem Noted Date Diagnosed Date Resolved Date Diverticulitis 01/30/2022 06/10/2022 Seizure 01/30/2022 02/06/2022 Stage 5 chronic kidney disease 04/12/2020 04/12/2020 Chronic kidney disease, stage 4 (severe) 04/12/2020 10/21/2021 Anemia of chronic renal failure 04/11/2020 10/21/2021 Chronic kidney disease stage 3 04/11/2020 04/12/2020 Morbid obesity 04/11/2020 10/21/2021 Immunizations Name Administration Dates Next Due Pfizer SARS-COV-2 08/10/2020,07/20/2020 Pneumococcal Conjugate 13-Valent 09/04/2016 Family History Medical History Relation Comments Dementia Father Diabetes Father Heart disease Father Hypertension Father Cancer Mother Heart disease Mother Hypertension Mother Relation Status Comments Father Mother Unknown Social History Tobacco Use Types Packs/Day Years Used Date Smoking Tobacco: Never Smokeless Tobacco: Never Tobacco Cessation:Counseling Given: Not Answered Alcohol Use Standard Drinks/Week Comments Yes 0 (1 standard drink = 0.6 oz pure alcohol) Alcoholic Drinks/day: Occasional social drink Sex and Gender Information Value Date Recorded Sex Assigned at Not on file Legal Sex Male 5:08 PM EST Gender Identity Not on file Sexual Orientation Not on file Last Filed Vital Signs Vital Sign Reading Time Taken Comments Blood Pressure 134/66 11/16/2023 11:16 AM EDT Pulse 77 11/16/2023 11:16 AM EDT Temperature - - Respiratory Rate 16 11/19/2022 11:11 AM EDT Oxygen Saturation 98% 11/16/2023 11:16 AM EDT Inhaled Oxygen Concentration - - Weight 74.2 kg (163 lb 9.6 oz) 11/16/2023 11:16 AM EDT Height 149.9 cm (4' 11 ) 09/17/2022 10:52 AM EDT Body Mass Index 33.04 09/17/2022 10:52 AM EDT Plan of Treatment Health Maintenance Due Date Last Done Comments Pneumococcal Vaccine: 65+ Years (2 of 2 - PPSV23 or PCV20) 10/30/2016 09/04/2016 Colonoscopy (Post-Transplant Patient) 07/31/2021 Diabetes: Ophthalmology Exam 01/28/2023 Diabetes: Pedal Pulse Checked 01/28/2023 Diabetes: Sensory Foot Exam 01/28/2023 Diabetes: Visual Foot Exam 01/28/2023 Diabetes: Hemoglobin A1C 2023 024, 01/27/2023 Influenza Vaccine (#1) 2023 Hepatitis B Vaccine Aged Out No longe r eligible based on patient's age to complete this topic Procedures Procedure Name Priority Date/Time Associated Diagnosis Comments HEMOGLOBIN A1C Routine 03/25/2023 12:02 PM EST Type 2 diabetes mellitus with hyperglycemia (HCC) from Last 3 Months or Most Recently Relevant to Health Maintenance Results * (ABNORMAL) Hemoglobin A1c (03/25/2023 12:02 PM EST) Hemoglobin A1C 7.0(H) (4.0-5.6) % [facility] Comment: MONITORING: In known diabetic patients, hemoglobin A1c targets should be discussed with health care provider. DIAGNOSTIC USE: ??The [place] Diabetes Association (ADA) and the World Health Organization (WHO) recommend the use of HbA1c to diagnose diabetes using a threshold of 6.5%. Patients who have an HbA1c between 5.7% and 6.4% are considered at increased risk for developing diabetes in the future. CAUTION: Falsely low HbA1c results may be observed in patients with hemolytic anemia, homozygous forms of abnormal hemoglobin (e.g. SS, CC, SC), , recent blood loss or hemoglobin F greater than 7%. Fructosamine may be used as an alternate test in these cases. REFERENCE: ADA: Standards of Medical Care in Diabetes 2020, The Journal of Clinical and Applied Research and Education Volume 43, Supplement 1 Testing performed or reported by [facility] [employer], a Service of [facility], [address] [place] [address] Adrien Logan MD, Account Manager [facility]# [id number] Blood (Blood, Venous) 03/25/2023 12:02 PM EST 03/25/2023 12:04 PM EST Emeka Lundberg MD LAB BLOOD ORDERABLES Final Result [facility] from Last 3 Months or Most Recently Relevant to Health Maintenance Insurance MEDICARE [facility] MEDICARE [facility] MEDICARE Care Teams Guitar Technician Relationship Specialty Start Date End Date Jose Alfredo Ross MD [address] [place], [place] PCP - General Internal Medicine 08/19/23
--- OUTSIDE RECORDS SUMMARY | 2024-04-08 13:04 | XMS_ITS | Encounter Summary ---
Author Organization [facility] Address [address] [place] [address] Phone Care Team Providers Care Sheriff Officer Name Role Phone Jose Alfredo Ross MD Primary Care Provider [phone] Reason for Visit * Reason Comments Med Refill Encounter Details Date Type Department Care Team (Late st Contact Info) Description 12/15/2022 Refill [facility] [address] [place] [id number] Gus Jimenez MD Social History Tobacco Use Types Packs/Day Years Used Date Smoking Tobacco: Never Smokeless Tobacco: Never Alcohol Use Standard Drinks/Week Comments Yes 0 (1 standard drink = 0.6 oz pure alcohol) Alcoholic Drinks/day: Occasional social drink Sex and Gender Information Value Date Recorded Sex Assigned at Not on file Legal Sex Male 5:08 PM EST Gender Identity Not on file Sexual Orientation Not on file documented as of this encounter Plan of Treatment Not on file documented as of this encounter Visit Diagnoses Not on filedocumented in this encounter Care Teams Sheriff Officer Relationship Specialty Start Date End Date Jose Alfredo Ross MD [address] [place] [address] [address] [place] PCP - General Internal Medicine 08/19/23 documented as of this encounter
--- OUTSIDE RECORDS SUMMARY | 2024-04-08 13:04 | XMS_ITS | Encounter Summary ---
Author Organization [facility], Address [address] [address] Phone Care Team Providers Care Bearing Machine Operator Name Role Phone Jose Alfredo Ross MD Primary Care Provider [phone] Reason for Visit * Reason Comments Med Refill Encounter Details Date Type Department Care Team (Late st Contact Info) Description 09/12/2021 Refill [facility] [place] [address] [place] [address] Pasha Villalobos MD [address] [place] [address] [place] [address] Social History Tobacco Use Types Packs/Day Years [...] on file Sexual Orientation Not on file COVID-19 Exposure Response Date Recorded In the last 10 days, have yo u been in contact with someone who was confirmed or suspected to have Coronavirus/COVID-19? Unable to assess 09/06/2021 3:29 PM EDT documented as of this encounter Plan of Treatment Not on file documented as of this encounter Visit Diagnoses Not on filedocumented in this encounter Care Teams Bearing Machine Operator Relationship Specialty Start Date End Date Jose Alfredo Ross MD [address] [place] [address] [place] PCP - General Internal Medicine 08/19/23 documented as of this encounter
--- OUTSIDE RECORDS SUMMARY | 2024-04-08 13:04 | XMS_ITS | Encounter Summary ---
Author Organization [facility] Address [address] [place] [address] Phone Care Team Providers Care Customer Service Agent Name Role Phone Jose Alfredo Ross MD Primary Care Provider [phone] Encounter Details Date Type Department Care Team (Late st Contact Info) Description 11/17/2023 Office Communication [facility] [address] [address] Alex Ross MD [address] [address] Social History Tobacco Use Types Packs/Day Years [...] on file documented as of this encounter Miscellaneous Notes * Telephone Encounter - Alex Ross MD - 11/19/2023 10:49 AM EDT Pls call PT and tell him tacro level was excellent as was all his labs --thx * Telephone Encounter - Alex Ross MD - 11/19/2023 10:47 AM EDT Disregard ques of tacrro as I fpound it under results section * Telephone Encounter - Alex Ross MD - 11/19/2023 10:44 AM EDT Need help re Tacro level ordered 11/16/23 and epic says needs to be collected--thx documented in this encounter Plan of Treatment Not on file documented as of this encounter Visit Diagnoses Not on filedocumented in this encounter Care Teams Customer Service Agent Relationship Specialty Start Date End Date Jose Alfredo Ross MD [address] [place] PCP - General Internal Medicine 08/19/23 documented as of this encounter
--- OUTSIDE RECORDS SUMMARY | 2024-04-08 13:04 | XMS_ITS | Clinical Summary ---
Author Organization [facility] Address [address] [place] [address] Care Team Providers Care Upper Caser Name Role Phone Jose Alfredo Ross MD Primary Care Provider [phone] Social History Tobacco Use Types Packs/Day Years Used Date Smoking Tobacco: Never Assessed Sex and Gender Information Value Date Recorded Sex Assigned at Not on file Gender Identity Not on file Sexual Orientation Not on file Plan of Treatment Health Maintenance Due Date Last Done Comments Hepatitis C Virus Screening 1955 DTaP/Tdap/Td Vaccines (1 - Tdap) 06/25/1975 Colonoscopy 2001 Pneumococcal Vaccines 50+ (1 of 1 - PCV) 2006 Zoster (Shingles) Vaccine (1 of 2) 2006 Influenza Vaccine 10/01/2023 COVID-19 Vaccine (3 - 2023-2 5 season) 2023 08/10/2020, 07/20/2020 RSV Vaccine 60 years and older and Patients (1 - 1-dose 75+ series) 06/25/2031 Hepatitis B Vaccines Aged Out No long er eligible based on patient's age to complete this topic Care Teams Upper Caser Relationship Specialty Start Date End Date Jose Alfredo Ross MD [address] [place] [address] [place] [address] PCP - General 02/12/22
--- OUTSIDE RECORDS SUMMARY | 2024-04-08 13:04 | XMS_ITS | Encounter Summary ---
Author Organization [facility] Address [address] [facility] [address] [address] [place] [address] Phone Care Team Providers Care Restoration Ecologist Name Role Phone Jose Alfredo Ross MD Primary Care Provider [phone] Encounter Details Date Type Department Care Team (Late st Contact Info) Description 10/23/2021 Documentation Only [facility] [address] [place] [phone] Danii Samuel MD Social History Tobacco Use Types Packs/Day [...] suspected to have Coronavirus/COVID-19? Unable to assess 10/17/2021 10:34 AM EDT documented as of this encounter Plan of Treatment Not on file documented as of this encounter Visit Diagnoses Not on filedocumented in this encounter Care Teams Restoration Ecologist Relationship Specialty Start Date End Date Jose Alfredo Ross MD [address] [facility] PCP - General Internal Medicine 08/19/23 documented as of this encounter
--- OUTSIDE RECORDS SUMMARY | 2024-04-08 13:04 | XMS_ITS | Patient Health Record ---
Author Organization [facility] Address [address] [place] [address] Care Team Providers Care Sort Line Name Role Phone Jose Alfredo Ross MD Primary Care Provider Gt Chavez Unavailable [phone] ALLERGIES No Known Allergies REASON FOR REFERRAL [...] confirmed Screening for malignant neoplasm of colon (152926885) Problem Encounter for preprocedural respiratory examination (Z01.811) Active confirmed Identification of preoperative respiratory status (722109685) Problem Dysphagia (R13.10) Active confirmed Dysphagia (15608675) Problem Diverticulosis of colon (K57.30) Active confirmed Diverticulosi s of colon (529971926) Problem Black stool (K92.1) Active confirmed 992440174 PLAN OF TREATMENT Pending Test Test Name Order Date ELECTROLYTES 04/23/2022 BUN 04/23/2022 CBC w DIFF 04/23/2022 Future Test Test Name Order Date COLONOSCOPY 04/15/2011 COLONOSCOPY 09/04/2021 Insurance Providers Payer Name Payer Address Payer Phone Subscriber Number Group Number Insured Name Patient Relationship to Insured Coverage Start Date Coverage End Date [facility] [address] [place] [phone] [id number] RODOLFOPEGGY Del Real Self - patient is the insured MEDICARE OF [place] [address] [facility] [address] [id number] RODOLFOPEGGY Del Real Self - patient is the insured MEDICAL (GENERAL) HISTORY Medical History History ICD Code HTN Gout Sleep apnea-uses a CPAP machine Denies [place],DM,CVA,Lung disease 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
--- OUTSIDE RECORDS SUMMARY | 2024-04-08 13:04 | XMS_ITS | Encounter Summary ---
Author Organization [facility] Address [address] [facility] [address] [address] [place] [address] Phone Care Team Providers Care Grocery Clerk Stocking Name Role Phone Jose Alfredo Ross MD Primary Care Provider [phone] Encounter Details Date Type Department Care Team (Late st Contact Info) Description 02/03/2022 Office Communication [facility] [address] [place] [phone] Rosa Augustine Social History Tobacco Use Types Packs/Day Years [...] encounter Miscellaneous Notes * Telephone Encounter - Kristine Romeo - 02/04/2022 8:26 AM EST Ask lan if he can be scheduled with Dr. Samuel on . She may have to be double booked * Telephone Encounter - Rosa Augustine - 02/03/2022 5:[address] Jalloh says for pt to come back in three days- for [place] follow-up. Where should I put him? documented in this encounter Plan of Treatment Not on file documented as of this encounter Visit Diagnoses Not on filedocumented in this encounter Care Teams Grocery Clerk Stocking Relationship Specialty Start Date End Date Jose Alfredo Ross MD [address] [place] PCP - General Internal Medicine 08/19/23 documented as of this encounter
--- OUTSIDE RECORDS SUMMARY | 2024-04-08 13:04 | XMS_ITS | Encounter Summary ---
Author Organization [facility] Address [address] [facility] 200 [place] [address] Phone Care Team Providers Care Fire Systems Inspector Name Role Phone Jose Alfredo Ross MD Primary Care Provider [phone] Encounter Details Date Type Department Care Team (Late st Contact Info) Description 08/19/2023 Office Communication [facility] [address] [facility] 200 [place] [phone] Alex Ross MD [address] [facility] [address] [place] [address] Social History Tobacco Use Types Packs/Day [...] Telephone Encounter - Alex Ross MD - 08/19/2023 11:30 AM EDT Pls schedule MRI of pelvis to evaluate the xplant kidney for an atypical cyst documented in this encounter Plan of Treatment Not on file documented as of this encounter Visit Diagnoses Not on filedocumented in this encounter Care Teams Fire Systems Inspector Relationship Specialty Start Date End Date Jose Alfredo Ross MD [address] [place] PCP - General Internal Medicine 6/19/24 documented as of this encounter
== END 2024-04-08 12:41 | disposition home or self-care (01) ==
PROVIDERS: PCP Internal Medicine; Visit Provider Internal Medicine Nephrology
DX: Z94.0 Kidney transplant status (principal); J01.10 Acute frontal sinusitis, unspecified
CPT/HCPCS: 99214

== ENCOUNTER → 2024-04-08 12:00 | Outpatient (BNVA) | payer MEDICARE, SELFPAY | PROVIDERS: PCP Internal Medicine; Visit Provider Internal Medicine Nephrology | DX: I10 Essential (primary) hypertension (principal); J01.10 Acute frontal sinusitis, unspecified; Z94.0 Kidney transplant status | CPT/HCPCS: 99212 ==

== ENCOUNTER 2024-04-20 15:10 | Outpatient (REF) | payer MEDICARE, SELFPAY ==
--- OUTSIDE RECORDS SUMMARY | 2024-04-20 15:15 | XMS_ITS | Clinical Summary ---
Author Organization [facility] Address [address] [place] [address] Care Team Providers Care Studio Grip Name Role Phone Jose Alfredo Ross MD Primary Care Provider [phone] Social History Tobacco Use Types Packs/Day Years [...] age to complete this topic Care Teams Studio Grip Relationship Specialty Start Date End Date Jose Alfredo Ross MD [address] [place] [address] [place] [address] PCP - General 02/12/22
--- OUTSIDE RECORDS SUMMARY | 2024-04-20 15:15 | XMS_ITS | Encounter Summary ---
Author Organization [facility] Address 100 [facility] 200 [place] [address] Phone Care Team Providers Care Plater Helper Name Role Phone Jose Alfredo Ross MD Primary Care Provider Encounter Details Date Type Department Care Team (Late st Contact Info) Description 08/19/2023 Office Communication [facility] [address] [facility] 200 [place] [phone] Alex Ross MD 3550 [facility] [address] [place] [address] Social History Tobacco Use Types [...] on filedocumented in this encounter Care Teams Plater Helper Relationship Specialty Start Date End Date Jose Alfredo Ross MD [address] [place] PCP - General Internal Medicine 6/19/24 documented as of this encounter
--- OUTSIDE RECORDS SUMMARY | 2024-04-20 15:15 | XMS_ITS | Encounter Summary ---
Author Organization [facility] Address [address] [facility] [address] [place] [address] Phone Care Team Providers Care Sales Outfitter Name Role Phone Jose Alfredo Ross MD Primary Care Provider [phone] Encounter Details Date Type Department Care Team (Late st Contact Info) Description 10/23/2021 Documentation Only [facility] [address] [place] [phone] Danii Samuel MD Social History Tobacco Use [...] on filedocumented in this encounter Care Teams Sales Outfitter Relationship Specialty Start Date End Date Jose Alfredo Ross MD [address] [facility] PCP - General Internal Medicine 08/19/23 documented as of this encounter
--- OUTSIDE RECORDS SUMMARY | 2024-04-20 15:15 | XMS_ITS | Encounter Summary ---
Author Organization [facility] Address [address] [place] [address] Phone Care Team Providers Care Dining Services Manager Name Role Phone Jose Alfredo Ross MD Primary Care Provider [phone] Encounter Details Date Type Department Care Team (Late st Contact Info) Description 11/17/2023 Office Communication [facility] [address] [address] Alex Ross MD [address] [address] Social History Tobacco Use Types [...] on filedocumented in this encounter Care Teams Dining Services Manager Relationship Specialty Start Date End Date Jose Alfredo Ross MD [address] [place] PCP - General Internal Medicine 08/19/23 documented as of this encounter
--- OUTSIDE RECORDS SUMMARY | 2024-04-20 15:15 | XMS_ITS | Clinical Summary ---
Author Organization [facility] Address [address] [address] Phone Care Team Providers Care Cmm Operator Name Role Phone Jose Alfredo Ross MD Primary Care Provider [phone] Allergies No known active allergies Medications atorvastatin (LIPITOR) 20 MG tablet Active aspirin 81 MG chewable tablet Chew 81 mg 1 (one) time each day Active OXcarbazepine (TRILEPTAL) 600 MG tablet Take 1 tablet (600 mg total) by mouth 1 (one) time each day in the evening 90 tablet 3 3 Active magnesium oxide (MAG-OX) 400 MG tabletIndications: Other ferry terminal agent current drug therapy TAKE 1 TABLET BY [...] PM EST) Hemoglobin A1C 7.0(H) (4.0-5.6) % [facility] Comment: MONITORING: In known diabetic patients, hemoglobin A1c targets should be discussed with health care provider. DIAGNOSTIC USE: ??The [place] Diabetes Association (ADA) and the World Health [...] Supplement 1 Testing performed or reported by [facility] [employer], a Service of [facility], [address] [place] [address] Adrien Logan MD, District Court Reporter [facility]# [id number] Blood (Blood, Venous) 03/25/2023 12:02 PM EST 03/25/2023 12:04 PM EST Emeka Lundberg MD LAB BLOOD ORDERABLES Final Result [facility] from Last 3 Months or Most Recently Relevant to Health Maintenance Insurance MEDICARE [facility] MEDICARE [facility] MEDICARE Care Teams Cmm Operator Relationship Specialty Start Date End Date Jose Alfredo Ross MD [address] [place], [place] PCP - General Internal Medicine 08/19/23
--- OUTSIDE RECORDS SUMMARY | 2024-04-20 15:15 | XMS_ITS | Encounter Summary ---
Author Organization [facility] Address [address] [facility] [address] [place] [address] Phone Care Team Providers Care Account Financial Manager Name Role Phone Jose Alfredo Ross MD Primary Care Provider [phone] Reason for Visit * Reason Comments Med Refill Encounter Details Date Type Department Care Team (Late st Contact Info) Description 12/15/2022 Refill [facility] [address] [place] [phone] Gus Jimenez MD Social History Tobacco Use [...] on filedocumented in this encounter Care Teams Account Financial Manager Relationship Specialty Start Date End Date Jose Alfredo Ross MD [address] [place] [address] DR[address] [place] PCP - General Internal Medicine 08/19/23 documented as of this encounter
--- OUTSIDE RECORDS SUMMARY | 2024-04-20 15:15 | XMS_ITS | Encounter Summary ---
Author Organization [facility], Address [address] [address] Phone Care Team Providers Care Fireworks Maker Name Role Phone Jose Alfredo Ross MD Primary Care Provider [phone] Reason for Visit * Reason Comments Med Refill Encounter Details Date Type Department Care Team (Late st Contact Info) Description 09/12/2021 Refill [facility] [address] [place] [address] Pasha Villalobos MD [address] [place] [address] Social History Tobacco Use Types [...] on filedocumented in this encounter Care Teams Fireworks Maker Relationship Specialty Start Date End Date Jose Alfredo Ross MD [address] [place] PCP - General Internal Medicine 08/19/23 documented as of this encounter
--- OUTSIDE RECORDS SUMMARY | 2024-04-20 15:15 | XMS_ITS | Encounter Summary ---
Author Organization [facility] Address [address] [facility] [address] [place] [address] Phone Care Team Providers Care Atmospheric Drier Tender Name Role Phone Jose Alfredo Ross MD Primary Care Provider [phone] Encounter Details Date Type Department Care Team (Late st Contact Info) Description 02/03/2022 Office Communication [facility] [address] [place] [phone] Rosa Augustine Social History Tobacco Use Types [...] on filedocumented in this encounter Care Teams Atmospheric Drier Tender Relationship Specialty Start Date End Date Jose Alfredo Ross MD [address] [place] PCP - General Internal Medicine 08/19/23 documented as of this encounter
--- OUTSIDE RECORDS SUMMARY | 2024-04-20 15:15 | XMS_ITS | Patient Health Record ---
Author Organization [facility] Address [address] [place] [address] Care Team Providers Care Manager Transportation Planning Name Role Phone Jose Alfredo Ross MD Primary Care Provider Gt Chavez Unavailable [phone] ALLERGIES No Known Allergies REASON FOR REFERRAL [...] confirmed Screening for malignant neoplasm of colon (644150358) Problem Encounter for preprocedural respiratory examination (Z01.811) Active confirmed Identification of preoperative respiratory status (218379188) Problem Dysphagia (R13.10) Active confirmed Dysphagia (25575509) Problem Diverticulosis of colon (K57.30) Active confirmed Diverticulosi s of colon (077420635) Problem Black stool (K92.1) Active confirmed 612271522 PLAN OF TREATMENT Pending Test Test Name Order Date ELECTROLYTES 04/23/2022 BUN 04/23/2022 CBC w DIFF 04/23/2022 Future Test Test Name Order Date COLONOSCOPY 04/15/2011 COLONOSCOPY 09/04/2021 Insurance Providers Payer Name Payer Address Payer Phone Subscriber Number Group Number Insured Name Patient Relationship to Insured Coverage Start Date Coverage End Date [facility] [address] [place] [phone] [id number] RODOLFOPEGGY Del Real Self - patient is the insured MEDICARE OF [place] [address] [facility] [place] [address] [id number] RODOLFOPEGGY Del Real Self - patient is the insured MEDICAL (GENERAL) HISTORY Medical History History ICD Code HTN Gout Sleep apnea-uses a CPAP machine Denies [place],DM,CVA,Lung disease 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
[2024-04-20 15:22] LABS: MANUAL DIFF FLAG NO
[2024-04-20 15:38] LABS: Basophils Percent Auto 0.4 % (0-2); Eosinophils Percent Auto 0.9 % (0-4); Hematocrit 44.9 % (42.0-52.0); Hemoglobin 15.8 g/dl (14.0-18.0); Imm Gran Abs Auto 0.01 X10*3/uL (0.00-0.03); Imm Gran Pct Auto 0.2 % (0.0-0.4); Lymphocytes Absolute Auto 0.7 X10*3/uL (1.2-4.9); Lymphocytes Percent Auto 15.9 % (20-40); Mean Corpuscular HGB Conc 35.2 g/dl (31.0-36.0); Mean Corpuscular Hemoglobin 31.9 pg (27.0-33.0); Mean Corpuscular Volume 90.5 fL (80.0-98.0); Monocytes Absolute Auto 0.5 X10*3/uL (0.1-1.2); Monocytes Percent Auto 11.2 % (2-11); Neutrophils Absolute Auto 3.2 x10*3/uL (2.0-8.3); Neutrophils Percent Auto 71.4 % (45-73); Platelet Count 201 X10*3/uL (160-400); Red Blood Count 4.96 X10*6/uL (4.60-5.80); Red Cell Distribution Width 13.1 % (11.0-16.0); White Blood Count 4.5 X10*3/uL (4.8-10.8)
[2024-04-20 16:05] LABS: Alanine Aminotransferase 29 U/L (0-40); Alkaline Phosphatase 79 U/L (39-117); Anion Gap 14 (12-20); Aspartate Amino Transferase 36 U/L (5-37); Bilirubin Total 0.5 mg/dL (0.0-1.0); Blood Urea Nitrogen 20 mg/dL (9-16); Carbon Dioxide 25 mmol/L (22-29); Chloride 110 mmol/L (96-108); Estimated Glomerular Filt Rate 56; Glucose Random 178 mg/dL (60-115); Potassium 4.7 mmol/L (3.3-5.1); Sodium 144 mmol/L (135-145); Total Protein 6.8 g/dL (6.5-8.0)
== END 2024-04-20 15:11 | disposition home or self-care (01) ==
LOC: HO.LAB 15:10
PROVIDERS: PCP Internal Medicine; Visit Provider Internal Medicine
DX: R63.4 Abnormal weight loss (principal); R42 Dizziness and giddiness
CPT/HCPCS: 36415; 80053; 85025

== ENCOUNTER 2024-06-08 15:09 | Outpatient (REF) | payer MEDICARE, SELFPAY ==
--- OUTSIDE RECORDS SUMMARY | 2024-06-08 17:14 | XMS_ITS | Encounter Summary ---
Author Organization [facility] Address [address] [facility] [address] [place] [address] Phone Care Team Providers Care Auto Body Mechanic Apprentice Name Role Phone Jose Alfredo Ross MD Primary Care Provider [phone] Reason for Visit * Reason Comments Med Refill Encounter Details Date Type Department Care Team (Late st Contact Info) Description 12/15/2022 Refill [facility] [address] [place] [phone] Gus Jimenez MD Social History Tobacco Use [...] on filedocumented in this encounter Care Teams Auto Body Mechanic Apprentice Relationship Specialty Start Date End Date Jose Alfredo Ross MD [address] [place] [address] [address] [place] PCP - General Internal Medicine 08/19/23 documented as of this encounter
--- OUTSIDE RECORDS SUMMARY | 2024-06-08 17:14 | XMS_ITS | Encounter Summary ---
Author Organization [facility] Address 100 [facility] 200 [place] [address] Phone Care Team Providers Care Fence Repairman Name Role Phone Jose Alfredo Ross MD Primary Care Provider [phone] Encounter Details Date Type Department Care Team (Late st Contact Info) Description 08/19/2023 Office Communication [facility] [address] [facility] [address] [place] [phone] Alex Ross MD 3550 [facility] [address] [place] [address] Social History Tobacco Use Types [...] on filedocumented in this encounter Care Teams Fence Repairman Relationship Specialty Start Date End Date Jose Alfredo Ross MD [address] [place] PCP - General Internal Medicine 6/19/24 documented as of this encounter
--- OUTSIDE RECORDS SUMMARY | 2024-06-08 17:15 | XMS_ITS | Clinical Summary ---
Author Organization [facility] Address [address] [place] [address] Care Team Providers Care Patient Care Provider Name Role Phone Jose Alfredo Ross MD Primary Care Provider [phone] Social History Tobacco Use Types Packs/Day Years [...] age to complete this topic Care Teams Patient Care Provider Relationship Specialty Start Date End Date Jose Alfredo Ross MD [address] [place] [address] [place] [address] PCP - General 02/12/22
--- OUTSIDE RECORDS SUMMARY | 2024-06-08 17:15 | XMS_ITS | Encounter Summary ---
Author Organization [facility] Address [address] [facility] [address] [address] [place] [address] Phone Care Team Providers Care Process Expert Name Role Phone Jose Alfredo Ross MD Primary Care Provider [phone] Encounter Details Date Type Department Care Team (Late st Contact Info) Description 10/23/2021 Documentation Only [facility] [address] [place] [phone] Danii Samuel MD Social History Tobacco Use [...] on filedocumented in this encounter Care Teams Process Expert Relationship Specialty Start Date End Date Jose Alfredo Ross MD [address] [facility] PCP - General Internal Medicine 08/19/23 documented as of this encounter
--- OUTSIDE RECORDS SUMMARY | 2024-06-08 17:15 | XMS_ITS | Encounter Summary ---
Author Organization [facility], Address [address] [address] Phone Care Team Providers Care Movie Extra Name Role Phone Jose Alfredo Ross MD Primary Care Provider [phone] Reason for Visit * Reason Comments Med Refill Encounter Details Date Type Department Care Team (Late st Contact Info) Description 09/12/2021 Refill [facility] [address] [place] [address] Pasha Villalobos MD [address] [place] [address] Social History Tobacco Use Types [...] on filedocumented in this encounter Care Teams Movie Extra Relationship Specialty Start Date End Date Jose Alfredo Ross MD [address] [place] PCP - General Internal Medicine 08/19/23 documented as of this encounter
--- OUTSIDE RECORDS SUMMARY | 2024-06-08 17:15 | XMS_ITS | Clinical Summary ---
Author Organization [facility] Address [address] [place] [address] Phone Care Team Providers Care Senior Director Marketing Name Role Phone Jose Alfredo Ross MD Primary Care Provider Allergies No known active allergies Medications atorvastatin (LIPITOR) 20 MG tablet Active aspirin 81 MG chewable tablet Chew 81 mg 1 (one) time each day Active OXcarbazepine (TRILEPTAL) 600 MG tablet Take 1 tablet (600 mg total) by mouth 1 (one) time each day in the evening 90 tablet 3 3 Active magnesium oxide (MAG-OX) 400 MG tabletIndications: Other assisted current drug therapy TAKE 1 TABLET BY [...] 360 tablet 3 4 11/17/19 25 Active Active Problems Problem Noted Date Diagnosed Date [...] Hemoglobin A1C 2023 024, 01/27/2023 Influenza Vaccine (Season Ended) 2024 Hepatitis B Vaccine Aged Out No longe [...] PM EST) Hemoglobin A1C 7.0(H) (4.0-5.6) % [facility] Comment: MONITORING: In known diabetic patients, hemoglobin A1c targets should be discussed with health care provider. DIAGNOSTIC USE: ??The [place] Diabetes Association (ADA) and the World Health [...] Supplement 1 Testing performed or reported by [facility], a Service of [facility], [address] [place] [address] Adrien Logan MD, Bill Collector [facility]# [id number] Blood (Blood, Venous) 03/25/2023 12:02 PM EST 03/25/2023 12:04 PM EST Emeka Lundberg MD LAB BLOOD ORDERABLES Final Result [facility] from Last 3 Months or Most Recently Relevant to Health Maintenance Insurance MEDICARE [facility] MEDICARE [facility] MEDICARE Care Teams Senior Director Marketing Relationship Specialty Start Date End Date Jose Alfredo Ross MD [address] [place] [address] DR[address] [place] PCP - General Internal Medicine 08/19/23
--- OUTSIDE RECORDS SUMMARY | 2024-06-08 17:15 | XMS_ITS | Encounter Summary ---
Author Organization [facility] Address [address] [facility] [address] [place] [address] Phone Care Team Providers Care Guest Service Manager Name Role Phone Jose Alfredo Ross MD Primary Care Provider [phone] Encounter Details Date Type Department Care Team (Late st Contact Info) Description 02/03/2022 Office Communication [facility] [address] [place] [phone] Rosa Augustine Social History Tobacco Use Types [...] on filedocumented in this encounter Care Teams Guest Service Manager Relationship Specialty Start Date End Date Jose Alfredo Ross MD [address] [place] PCP - General Internal Medicine 08/19/23 documented as of this encounter
== END 2024-06-08 15:10 | disposition home or self-care (01) ==
LOC: HO.LAB 15:09
PROVIDERS: PCP Internal Medicine; Visit Provider Internal Medicine Nephrology
DX: Z13.89 Encounter for screening for other disorder (principal)

== ENCOUNTER 2024-06-09 09:48 | Outpatient (REF) | payer MEDICARE, SELFPAY ==
[2024-06-09 10:07] LABS: MANUAL DIFF FLAG NO
[2024-06-09 10:16] LABS: Basophils Percent Auto 0.9 % (0-2); Eosinophils Absolute Auto 0.1 X10*3/uL (0.0-0.4); Eosinophils Percent Auto 1.3 % (0-4); Hematocrit 41.6 % (42.0-52.0); Hemoglobin 14.3 g/dl (14.0-18.0); Imm Gran Abs Auto 0.02 X10*3/uL (0.00-0.03); Imm Gran Pct Auto 0.4 % (0.0-0.4); Lymphocytes Absolute Auto 0.7 X10*3/uL (1.2-4.9); Lymphocytes Percent Auto 14.4 % (20-40); Mean Corpuscular HGB Conc 34.4 g/dl (31.0-36.0); Mean Corpuscular Hemoglobin 31.2 pg (27.0-33.0); Mean Corpuscular Volume 90.6 fL (80.0-98.0); Monocytes Absolute Auto 0.5 X10*3/uL (0.1-1.2); Monocytes Percent Auto 9.9 % (2-11); Neutrophils Absolute Auto 3.4 x10*3/uL (2.0-8.3); Neutrophils Percent Auto 73.1 % (45-73); Platelet Count 207 X10*3/uL (160-400); Red Blood Count 4.59 X10*6/uL (4.60-5.80); Red Cell Distribution Width 13.2 % (11.0-16.0); White Blood Count 4.6 X10*3/uL (4.8-10.8)
[2024-06-09 10:35] LABS: Anion Gap 14 (12-20); Blood Urea Nitrogen 22 mg/dL (9-16); Carbon Dioxide 22 mmol/L (22-29); Chloride 108 mmol/L (96-108); Estimated Glomerular Filt Rate > 60; Phosphorus 3.6 mg/dL (2.7-4.5); Potassium 3.5 mmol/L (3.3-5.1); Sodium 140 mmol/L (135-145)
[2024-06-09 10:38] LABS: Magnesium 1.3 mg/dL (1.6-2.6)
--- OUTSIDE RECORDS SUMMARY | 2024-06-09 11:12 | XMS_ITS | Encounter Summary ---
Author Organization [facility] Address [address] [facility] [address] [place] [address] Phone Care Team Providers Care Customs And Border Protection Officer Name Role Phone Jose Alfredo Ross MD Primary Care Provider [phone] Reason for Visit * Reason Comments Med Refill Encounter Details Date Type Department Care Team (Late st Contact Info) Description 12/15/2022 Refill [facility] [address] [place] [phone] Gus Jimenez MD Social History Tobacco Use [...] on filedocumented in this encounter Care Teams Customs And Border Protection Officer Relationship Specialty Start Date End Date Jose Alfredo Ross MD [address] [place] [address] DR[address] [place] PCP - General Internal Medicine 08/19/23 documented as of this encounter
--- OUTSIDE RECORDS SUMMARY | 2024-06-09 11:12 | XMS_ITS | Patient Health Record ---
Author Organization [facility] Address [address] [place] [address] Care Team Providers Care Escrow Representative Name Role Phone Jose Alfredo Ross MD Primary Care Provider Gt Chavez Unavailable [phone] Allergies No Known Allergies Reason For Referral No Information Medications Medication SIG (Take, Route, Frequency, Duration) Notes [...] Calcium 20 MG Oral for 90 Active Immunizations Vaccine Route Administration Date Status Comme nts Influenza Unknown 11/30/2020 Administered Social History Alcohol Screen Question Answer Notes Did you have a drink containing alcohol in the p ast year? No Points 0 Interpretation Negative Section Notes: No smoking, denies sig. alco hol No smoking, denies sig. alco hol Problems Problem Type SNOMED Code ICD Code Onset Dates Problem Status W/U Status Risk Notes Problem Screening for malignant neoplasm of colon (822323341) Encounter for screening for malignant neoplasm of colon (Z12.11) Active confirmed Problem Identification of preoperative respiratory status (276511896) Encounter for preprocedural respiratory examination (Z01.811) Active confirmed Problem Dysphagia (42206398) Dysphagia (R13.10) Active confirmed Problem Diverticulosis of colon (362268661) Diverticulosis of colon (K57.30) Active confirmed Problem 229274219 Black stool (K92.1) Active confirmed Plan Of Treatment Pending Test Test Name Order Date ELECTROLYTES 04/23/2022 BUN 04/23/2022 CBC w DIFF 04/23/2022 Future Test Test Name Order Date COLONOSCOPY 04/15/2011 COLONOSCOPY 09/04/2021 Insurance Providers Payer Name Payer Address Payer Phone Subscriber Number Group Number Insured Name Patient Relationship to Insured Coverage Start Date Coverage End Date [facility] [address] [place] [address] [phone] [id number] PEGGY REYNOLDS Self - patient is the insured MEDICARE OF [place] [address] [facility] [place] [address] [id number] RODOLFOPEGGY Del Real Self - patient is the insured Medical (General) History Medical History History ICD Code HTN Gout Sleep apnea-uses a CPAP machine Denies [place],DM,CVA,Lung disease 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
--- OUTSIDE RECORDS SUMMARY | 2024-06-09 11:12 | XMS_ITS | Clinical Summary ---
Author Organization [facility] Address [address] [place] [address] Care Team Providers Care Mail Processing Equipment Mechanic Name Role Phone Jose Alfredo Ross MD Primary Care Provider [phone] Social History Tobacco Use Types Packs/Day Years [...] age to complete this topic Care Teams Mail Processing Equipment Mechanic Relationship Specialty Start Date End Date Jose Alfredo Ross MD [address] [place] [address] [place] [address] PCP - General 02/12/22
--- OUTSIDE RECORDS SUMMARY | 2024-06-09 11:12 | XMS_ITS | Encounter Summary ---
Author Organization [facility] Address [address] [facility] [address] [place] [address] Phone Care Team Providers Care Environmental Protection Forester Name Role Phone Jose Alfredo Ross MD Primary Care Provider [phone] Encounter Details Date Type Department Care Team (Late st Contact Info) Description 10/23/2021 Documentation Only [facility] [address] [place] [phone] Danii Samuel MD Social History Tobacco Use [...] on filedocumented in this encounter Care Teams Environmental Protection Forester Relationship Specialty Start Date End Date Jose Alfredo Ross MD [address] [facility] P[facility] - General Internal Medicine 08/19/23 documented as of this encounter
--- OUTSIDE RECORDS SUMMARY | 2024-06-09 11:12 | XMS_ITS | Clinical Summary ---
Author Organization [facility] Address [address] [place] [address] Phone Care Team Providers Care Manager Part Name Role Phone Jose Alfredo Ross MD Primary Care Provider [phone] Allergies No known active allergies Medications atorvastatin (LIPITOR) 20 MG tablet Active aspirin 81 MG chewable tablet Chew 81 mg 1 (one) time each day Active OXcarbazepine (TRILEPTAL) 600 MG tablet Take 1 tablet (600 mg total) by mouth 1 (one) time each day in the evening 90 tablet 3 3 Active magnesium oxide (MAG-OX) 400 MG tabletIndications: Other mcc current drug therapy TAKE 1 TABLET BY [...] 04/11/2020 04/12/2020 Morbid obesity 04/11/2020 10/21/2021 Immunizations Immunization Administration Dates Next Due Pfizer SARS-COV-2 08/10/2020,07/20/2020 [...] Due Date Last Done Comments Pneumococcal Vaccine: 50+ Years (2 of 2 - PPSV23 or [...] PM EST) Hemoglobin A1C 7.0(H) (4.0-5.6) % [facility] Comment: MONITORING: In known diabetic patients, hemoglobin A1c targets should be discussed with health care provider. DIAGNOSTIC USE: ??The [place] Diabetes Association (ADA) and the World Health [...] Supplement 1 Testing performed or reported by [facility], a Service of [facility], [address] [place] [address] Adrien Logan MD, Supervising Producer [facility]# [id number] Blood (Blood, Venous) 03/25/2023 12:02 PM EST 03/25/2023 12:04 PM EST Emeka Lundberg MD LAB BLOOD ORDERABLES Final Result [facility] from Last 3 Months or Most Recently Relevant to Health [place] [address] [facility] Medicare [employer] Medicare Care Teams Manager Part Relationship Specialty Start Date End Date Jose Alfredo Ross MD [address] [place] [address] DR[address] [place] PCP - General Internal Medicine 08/19/23
--- OUTSIDE RECORDS SUMMARY | 2024-06-09 11:12 | XMS_ITS | Encounter Summary ---
Author Organization [facility] Address [address] [facility] [address] [place] [address] Phone Care Team Providers Care Paper Pattern Folder Name Role Phone Jose Alfredo Ross MD Primary Care Provider [phone] Encounter Details Date Type Department Care Team (Late st Contact Info) Description 08/19/2023 Office Communication [facility] [address] [facility] [address] [place] [phone] Alex Ross MD [address] [facility] [address] [place] [address] Social History Tobacco Use Types [...] on filedocumented in this encounter Care Teams Paper Pattern Folder Relationship Specialty Start Date End Date Jose Alfredo Ross MD [address] [place] PCP - General Internal Medicine 6/19/24 documented as of this encounter
--- OUTSIDE RECORDS SUMMARY | 2024-06-09 11:12 | XMS_ITS | Encounter Summary ---
Author Organization [facility], Address [address] [address] Phone Care Team Providers Care Office Associate Name Role Phone Jose Alfredo Ross MD Primary Care Provider [phone] Reason for Visit * Reason Comments Med Refill Encounter Details Date Type Department Care Team (Late st Contact Info) Description 09/12/2021 Refill [facility] [address] [place] [address] Pasha Villalobos MD [address] [place] [address] Social History Tobacco Use Types [...] on filedocumented in this encounter Care Teams Office Associate Relationship Specialty Start Date End Date Jose Alfredo Ross MD [address] [place] PCP - General Internal Medicine 08/19/23 documented as of this encounter
--- OUTSIDE RECORDS SUMMARY | 2024-06-09 11:12 | XMS_ITS | Encounter Summary ---
Author Organization [facility] Address [address] [facility] [address] [place] [address] Phone Care Team Providers Care Truck Unloader Name Role Phone Jose Alfredo Ross MD Primary Care Provider [phone] Encounter Details Date Type Department Care Team (Late st Contact Info) Description 02/03/2022 Office Communication [facility] [address] [place] [phone] Rosa Augustine Social History Tobacco Use Types [...] on filedocumented in this encounter Care Teams Truck Unloader Relationship Specialty Start Date End Date Jose Alfredo Ross MD [address] [place] PCP - General Internal Medicine 08/19/23 documented as of this encounter
[2024-06-10 11:04] LABS: Tacrolimus Prograf 9.7 mcg/L
== END 2024-06-09 09:49 | disposition home or self-care (01) ==
LOC: HO.LAB 09:48
PROVIDERS: PCP Internal Medicine; Visit Provider Internal Medicine Nephrology
DX: Z94.0 Kidney transplant status (principal)
CPT/HCPCS: 36415; 80051; 80197; 82310; 82565; 83735; 84100; 84520; 85025

== ENCOUNTER 2024-06-10 10:30 | Outpatient (AMB) | payer MEDICARE, SELFPAY ==
[2024-06-10 10:36] VITALS: BP 115/76; PULSE 73; O2SAT 96; BMI 30.7
--- NOTE | 2024-06-10 10:36 | HO.NEPHOV ---
Vital Signs 06/10/24 10:36 Height 4 ft 11 in Weight 152 lb 4 oz BMI 30.7 BP 115/76 Blood Pressure Location Lt brachial Position Sitting Pulse 73 Pulse Source Pulse Oximeter Pulse Oximetry (%) 96 Oxygen Delivery Method Room Air Intake Visit Reasons: Renal transplant recipient-Conf Superintendent Transmission Required: No Accompanied by: Self / Same As Patient Allergies bee pollen [BEE STINGS] Allergy (Intermediate, Verified 06/10/24 10:39) LOCALIZED SWELLING ibuprofen [From ADVIL] Allergy (Unknown, Verified 06/10/24 10:39) KIDNEY DISEASE Medication List - Last Reconciled 06/10/24 by Gus Jimenez MD atorvastatin 1 tab PO DAILY blood sugar diagnostic (Recurrent Energy Ultra Test strips) 2x daily As directed cholecalciferol (vitamin D3) 25 mcg PO DAILY finasteride 5 mg PO DAILY lancets (streamOnceuch Delica Plus Lancet) twice As directed lorazepam mg PO magnesium oxide 400 mg PO BID metformin 1,000 mg PO BID multivitamin 1 tab PO DAILY mycophenolate sodium 360 mg PO BID tacrolimus XR (Envarsus XR) 2 mg (2 x 1 mg) PO QAM trazodone tabs PO Do you need a note to return to daycare/school/sports/work: No HPI Comments Details: Pankaj was seen for F/U of his transplant renal care. He had ESRD from hypertension and was never on HD. He was on Amlodipine which he stopped 4 days ago. 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 Induction was done using Methylprednisone and Thymoglobulin. He never had any rejection. His allograft biopsy 11/07/21 was negative for AMR and ACR. His Cf-DNA was 0.05 on 01/27/2023. His DSA has been negative on 01/27/23. His baseline serum creatinine has been around 0.9 to 1.1. He developed DM post transplant and has been on metformin. There was a concern for complex cystic lesion on the allograft but had MRI in August 2023 which did not show any concern. Radiologist had recommended GI consult as well as MRCP in summer ( pancreas). He is not on any ACEI. He is maintained on tacrolimus as well myfortic. He maintains good hydration and avoids NSAID's. His last HbA1c was 7. His urine output is good. He never had any CMV or BK virus infection. He has been having intermittent dizziness and URI. He is compliant with medications. He has been having dizzy spells. He has seen ocular care aide and wants to see Neurologist. He denies orthostatic drop in BP during any of these events. He denies syncope PFSH Medical History Diverticulitis Normal colonoscopy Concussion Sleep apnea with use of continuous positive airway pressure (CPAP) Gout HTN (hypertension) Surgical History Kidney transplant status H/O knee surgery Hx of resection of large bowel Social History Patient Tobacco Use Status: Never used Tobacco Review of Systems Const All systems reviewed & are unremarkable except as noted in HPI and below Physical Exam Vital Signs: Last Vital Signs Pulse 73 06/10/24 10:36 BP 115/76 06/10/24 10:36 Pulse Ox 96 06/10/24 10:36 Oxygen Delivery Method Room Air 06/10/24 10:36 BMI result Body Mass Index 30.7 Const General: comfortable and no acute distress Orientation/consciousness: patient oriented x3 HEENT Head: Yes normocephalic Mouth: Normal oral and palatal mucosa present Eyes EOM: EOMs intact bilaterally Neck Neck: Yes supple Resp Auscultation: clear to auscultation bilaterally Cardio Jugular venous distension: no JVD Rate: regular rate GI Palpation (GI): Soft to palpation Auscultation: normal bowel sounds General: Yes no CVA tenderness Back/Spine/Pelvis Back: no CVA tenderness Skin General skin exam: no rashes or lesions noted Neuro General: patient oriented x3 and moves all extremities Extrem General: Yes no pedal edema Results Reviewed Nephrology Results: Hgb 14.3 g/dl (14.0-18.0) 06/09/24 WBC 4.6 X10*3/uL (4.8-10.8) L 06/09/24 Plt Count 207 X10*3/uL (160-400) 06/09/24 Sodium 140 mmol/L (135-145) 06/09/24 Potassium 3.5 mmol/L (3.3-5.1) 06/09/24 Chloride 108 mmol/L (96-108) 06/09/24 Carbon Dioxide 22 mmol/L (22-29) 06/09/24 BUN 22 mg/dL (9-16) H 06/09/24 Creatinine 1.09 mg/dL (0.5-1.4) 06/09/24 Calcium 9.0 mg/dL (8.4-10.2) 06/09/24 Phosphorus 3.6 mg/dL (2.7-4.5) 06/09/24 PTH Intact 127.1 pg/mL (8.7-77.1) H 02/13/24 Urine Creatinine 286.02 mg/dL 02/13/24 Protein/Creatinin Ratio 0.06 (<0.2) 02/13/24 Assessment & Plan Assessment & Plan (1) Renal transplant recipient: Code(s): Z94.0 - Kidney transplant status Category: Surgical (2) Dizziness: Code(s): R42 - Dizziness and giddiness Category: Medical (3) Hypomagnesemia: Code(s): E83.42 - Hypomagnesemia Category: Medical Plan He had donor renal transplant on 07/18/2021. Induction was done using Methylprednisone and Thymoglobulin. He never had any rejection. His allograft biopsy 11/07/21 was negative for AMR and ACR. His Cf-DNA was 0.05 on 01/27/2023. His DSA has been negative on 01/27/23. His baseline serum creatinine has been around 0.9 to 1.1. He developed DM post transplant and has been on metformin. There was a concern for complex cystic lesion on the allograft but had MRI in August 2023 which did not show any concern. He is maintained on tacrolimus as well myfortic. He maintains good hydration and avoids NSAID's. His last HbA1c was 7. His urine output is good. He never had any CMV or BK virus infection. He needs to maintain good blood sugar control. I referred him to Neurology. All these have been discussed in detail. F/U given Orders: Orders Tacrolimus Prograf 3 Months Z94.0 - Kidney transplant status Magnesium 3 Months Z94.0 - Kidney transplant status Phosphorus 3 Months Z94.0 - Kidney transplant status Electrolytes 3 Months Z94.0 - Kidney transplant status Blood Urea Nitrogen 3 Months Z94.0 - Kidney transplant status Creatinine 3 Months Z94.0 - Kidney transplant status Alanine Aminotransferase 3 Months Z94.0 - Kidney transplant status Aspartate Amino Transferase 3 Months Z94.0 - Kidney transplant status Complete Blood Count Auto Diff 3 Months Z94.0 - Kidney transplant status Calcium 3 Months Z94.0 - Kidney transplant status Referrals Neurology Referral R42 - Dizziness and giddiness, Z94.0 - Kidney transplant status Medications: Changed From magnesium oxide 1,600 mg daily 400 mg PO BID To magnesium oxide 1,600 mg daily 800 mg (2 x 400 mg (241.3 mg magnesium)) PO BID 90 days 360 tabs 4RF Coding Level of Care Code Est Pt Level 4 (01295) Diagnoses Renal transplant recipient Z94.0 Dizziness R42 Hypomagnesemia E83.42
--- OUTSIDE RECORDS SUMMARY | 2024-06-10 11:21 | XMS_ITS | Encounter Summary ---
Author Organization [facility], Address [address] [address] Phone Care Team Providers Care Cardiac Monitor Technician Name Role Phone Jose Alfredo Ross MD Primary Care Provider [phone] Reason for Visit * Reason Comments Med Refill Encounter Details Date Type Department Care Team (Late st Contact Info) Description 09/12/2021 Refill [facility] [address] [place] [address] Pasha Villalobos MD [address] [place] [address] [place] [address] Social History Tobacco Use Types [...] on filedocumented in this encounter Care Teams Cardiac Monitor Technician Relationship Specialty Start Date End Date Jose Alfredo Ross MD [address] [place] PCP - General Internal Medicine 08/19/23 documented as of this encounter
--- OUTSIDE RECORDS SUMMARY | 2024-06-10 11:21 | XMS_ITS | Encounter Summary ---
Author Organization [facility] Address [address] [facility] [address] [address] [place] [address] Phone Care Team Providers Care Principal Software Engineer Name Role Phone Jose Alfredo Ross MD Primary Care Provider [phone] Encounter Details Date Type Department Care Team (Late st Contact Info) Description 10/23/2021 Documentation Only [facility] [address] [place] [phone] Danii Samuel MD Social History Tobacco Use [...] on filedocumented in this encounter Care Teams Principal Software Engineer Relationship Specialty Start Date End Date Jose Alfredo Ross MD [address] [facility] PCP - General Internal Medicine 08/19/23 documented as of this encounter
--- OUTSIDE RECORDS SUMMARY | 2024-06-10 11:21 | XMS_ITS | Encounter Summary ---
Author Organization [facility] Address [address] [facility] [address] [place] [address] Phone Care Team Providers Care Slubber Tender Name Role Phone Jose Alfredo Ross MD Primary Care Provider [phone] Encounter Details Date Type Department Care Team (Late st Contact Info) Description 08/19/2023 Office Communication [facility] [address] [facility] [address] [place] [phone] Alex Ross MD [address] [facility] [address] [place] [address] Social History Tobacco Use Types [...] on filedocumented in this encounter Care Teams Slubber Tender Relationship Specialty Start Date End Date Jose Alfredo Ross MD [address] [place] PCP - General Internal Medicine 6/19/24 documented as of this encounter
--- OUTSIDE RECORDS SUMMARY | 2024-06-10 11:21 | XMS_ITS | Patient Health Record ---
Author Organization [facility] Address [address] [place] [address] Care Team Providers Care Shell Molding Roller Blast Operator Name Role Phone Jose Alfredo Ross MD Primary Care Provider Gt Chavez Unavailable [phone] Allergies No Known Allergies Reason For Referral [...] Problem Screening for malignant neoplasm of colon (109413782) Encounter for screening for malignant neoplasm of colon (Z12.11) Active confirmed Problem Identification of preoperative respiratory status (185412358) Encounter for preprocedural respiratory examination (Z01.811) Active confirmed Problem Dysphagia (38892186) Dysphagia (R13.10) Active confirmed Problem Diverticulosis of colon (255655198) Diverticulosis of colon (K57.30) Active confirmed Problem 560899181 Black stool (K92.1) Active confirmed Plan Of Treatment Pending Test Test Name Order Date ELECTROLYTES 04/23/2022 BUN 04/23/2022 CBC w DIFF 04/23/2022 Future Test Test Name Order Date COLONOSCOPY 04/15/2011 COLONOSCOPY 09/04/2021 Insurance Providers Payer Name Payer Address Payer Phone Subscriber Number Group Number Insured Name Patient Relationship to Insured Coverage Start Date Coverage End Date [facility] [address] [place] [address] [id number] PEGGY REYNOLDS Self - patient is the insured MEDICARE OF [place] [address] [place] [address] [phone] [id number] RODOLFOPEGGY Del Real Self - patient is the insured Medical (General) History Medical History History ICD Code HTN Gout Sleep apnea-uses a CPAP machine Denies [place],DM,CVA,Lung disease 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
--- OUTSIDE RECORDS SUMMARY | 2024-06-10 11:21 | XMS_ITS | Clinical Summary ---
Author Organization [facility] Address [address] [place] [address] Phone Care Team Providers Care Bowling Ball Marker Name Role Phone Jose Alfredo Ross MD Primary Care Provider [phone] Allergies No known active allergies Medications atorvastatin (LIPITOR) 20 MG tablet Active aspirin 81 MG chewable tablet Chew 81 mg 1 (one) time each day Active OXcarbazepine (TRILEPTAL) 600 MG tablet Take 1 tablet (600 mg total) by mouth 1 (one) time each day in the evening 90 tablet 3 3 Active magnesium oxide (MAG-OX) 400 MG tabletIndications: [facility] [place] [facility] drug therapy TAKE 1 TABLET BY [...] PM EST) Hemoglobin A1C 7.0(H) (4.0-5.6) % [facility] Comment: MONITORING: In known diabetic patients, hemoglobin A1c targets should be discussed with health care provider. DIAGNOSTIC USE: ??The [place] Diabetes Association (ADA) and the World Health [...] Supplement 1 Testing performed or reported by [facility], a Service of [facility], [address] [place] [address] Adrien Logan MD, Pipe Jeeper [facility]# [id number] Blood (Blood, Venous) 03/25/2023 12:02 PM EST 03/25/2023 12:04 PM EST Emeka Lundberg MD LAB BLOOD ORDERABLES Final Result [facility] from Last 3 Months or Most Recently Relevant to Health Maintenance Insurance Medicare [facility] Medicare [facility] Medicare Care Teams Bowling Ball Marker Relationship Specialty Start Date End Date Jose Alfredo Ross MD [address] [place] [address] DR[address] [place] PCP - General Internal Medicine 08/19/23
--- OUTSIDE RECORDS SUMMARY | 2024-06-10 11:21 | XMS_ITS | Encounter Summary ---
Author Organization [facility] Address [address] [facility] [address] [address] [place] [address] Phone Care Team Providers Care Industrial Engineering Name Role Phone Jose Alfredo Ross MD Primary Care Provider [phone] Encounter Details Date Type Department Care Team (Late st Contact Info) Description 02/03/2022 Office Communication [facility] [address] [place] [phone] Rosa Augustine Social History Tobacco Use Types [...] on filedocumented in this encounter Care Teams Industrial Engineering Relationship Specialty Start Date End Date Jose Alfredo Ross MD [address] [place] PCP - General Internal Medicine 08/19/23 documented as of this encounter
--- OUTSIDE RECORDS SUMMARY | 2024-06-10 11:21 | XMS_ITS | Clinical Summary ---
Author Organization [facility] Address [address] [place] [address] Care Team Providers Care Auto Collision Repair Instructor Name Role Phone Jose Alfredo Ross MD Primary Care Provider [phone] Social History Tobacco Use Types Packs/Day Years [...] age to complete this topic Care Teams Auto Collision Repair Instructor Relationship Specialty Start Date End Date Jose Alfredo Ross MD [address] [place] [address] [place] [address] PCP - General 02/12/22
--- OUTSIDE RECORDS SUMMARY | 2024-06-10 11:21 | XMS_ITS | Encounter Summary ---
Author Organization [facility] Address [address] [facility] [address] [place] [address] Phone Care Team Providers Care Cotton Acreage Measurer Name Role Phone Jose Alfredo Ross MD Primary Care Provider [phone] Reason for Visit * Reason Comments Med Refill Encounter Details Date Type Department Care Team (Late st Contact Info) Description 12/15/2022 Refill [facility] [address] [place] [phone] Gus Jimenez MD Social History Tobacco Use [...] on filedocumented in this encounter Care Teams Cotton Acreage Measurer Relationship Specialty Start Date End Date Jose Alfredo Ross MD [address] [place] [address] [address] [place] PCP - General Internal Medicine 08/19/23 documented as of this encounter
== END 2024-06-10 11:24 | disposition home or self-care (01) ==
LOC: HO.HKA 10:31
PROVIDERS: PCP Internal Medicine; Visit Provider Internal Medicine Nephrology
DX: Z94.0 Kidney transplant status (principal); R42 Dizziness and giddiness; E83.42 Hypomagnesemia
CPT/HCPCS: 99214

== ENCOUNTER → 2024-06-10 10:30 | Outpatient (BNVA) | payer MEDICARE, SELFPAY | PROVIDERS: PCP Internal Medicine; Visit Provider Internal Medicine Nephrology | DX: I10 Essential (primary) hypertension (principal); R42 Dizziness and giddiness; E83.42 Hypomagnesemia; Z94.0 Kidney transplant status | CPT/HCPCS: 99212 ==

== ENCOUNTER 2024-07-07 14:22 | Outpatient (AMB) | payer MEDICARE, SELFPAY ==
[2024-07-07 13:33] VITALS: BP 122/80; PULSE 82; TEMP 36.4; O2SAT 96; BMI 30.1
--- NOTE | 2024-07-07 13:33 | MHC.PC.OV ---
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 Required: No Accompanied by: Self / Same As Patient Allergies bee pollen [BEE STINGS] Allergy (Intermediate, Verified 07/07/24 13:34) LOCALIZED SWELLING ibuprofen [From ADVIL] Allergy (Unknown, Verified 07/07/24 13:34) KIDNEY DISEASE Tobacco use date assessed: 07/07/24 Fall risk assessment: 1 Fall in past year Last assessed Fall Risk: 07/07/24 Dental Screening Dental Screen Date: 07/07/24 Did you have a dental visit in the last 12 months?: Yes Did you have a dental problem in the last 6 months where you did not have access to dental care?: No HPI HPI Comments History of Present Illness Details The patient is a 69 year old male with a past medical history of ESRD,NIDDM, htn,hyperlipidemia, seizure disorder, GERD, ADD, presenting for follow up. last seen by pcp apr 2024 A1C 7.3 end of May. On metformin 1000mg twice daily. CV: Seeing [facility] -seeing in 2-3 months. On ASA, lipitor. Repeated falls lightheaded, dizziness. sometimes with positional changes, somtimes without ESRD s/p renal transplant. following closely with nephrology.last nephrology note. There was a concern for complex cystic lesion on the allograft but had MRI in August 2023 which did not show any concern. Radiologist had recommended GI consult as well as MRCP in summer ( pancreas). GI referral placed ROS CONSTITUTIONAL: Denies weight loss, fever and chills. HEENT: Denies changes in vision and hearing. RESPIRATORY: Denies SOB and cough. CV: Denies palpitations and CP GI: Denies abdominal pain, nausea, vomiting and diarrhea. : Denies dysuria and urinary frequency. MSK: Denies new myalgia and joint pain. SKIN: Denies rash and pruritus. NEUROLOGICAL: Denies headache PSYCHIATRIC: Denies recent changes in mood. PHYSICAL EXAM: GENERAL: Alert and oriented x 3. NAD EYES: EOMI. Anicteric. HENT: Moist mucous membranes. No scleral icterus. No cervical lymphadenopathy. LUNGS: Clear to auscultation bilaterally. CARDIOVASCULAR: Regular rate and rhythm. No murmur. No JVD. ABDOMEN: Soft, non-tender +bs EXTREMITIES: No edema. Non-tender. SKIN: No rashes or lesions. Warm. NEUROLOGIC: No focal neurological deficits. CN II-XII grossly intact PSYCHIATRIC: Cooperative. Appropriate mood and affect [facility] Medical History Diverticulitis Normal colonoscopy Concussion Sleep apnea with use of continuous positive airway pressure (CPAP) Gout HTN (hypertension) Surgical History History of colonoscopy (~02/26/22) Kidney transplant status H/O knee surgery Hx of resection of large bowel Family History Mother No problems noted. Father No problems noted. Social History Housing: House Patient Tobacco Use Status: Never used Tobacco e-Cigarette/Vaping Use: Never Used service: No Current occupational status: retired Cognitive needs: No Hearing needs: No Vision needs: Yes (rx glasses) Questionnaire PHQ-9 Over the last 2 weeks, how often have you been bothered by any of the following problems? 1. Little interest or pleasure in doing things: not at all 2. Feeling down, depressed, or hopeless: not at all 3. Trouble falling or staying asleep, or sleeping too much: not at all 4. Feeling tired or having little energy: not at all 5. Poor appetite or overeating: not at all 6. Feeling bad about yourself - or that you are a failure or have let yourself or your family down: not at all 7. Trouble concentrating on things, such as reading the newspaper or watching television: not at all 8. Moving or speaking so slowly that other people could have noticed. Or the opposite - being so fidgety or restless that you have been moving around a lot more than usual: not at all 9. Thoughts that you would be better off or of hurting yourself in some way: not at all Total score: 0 Depression Screening Interpretation: Negative Depression Screening Done: Yes 50007 - PHQ-9 Billing: Yes Source: Developed by Drs. Gt Munoz, Faith Hubbard, Kenan Lnog and colleagues, with an educational hannah from [employer]. Thrive Questionnaire Date Thrive assessed: 07/07/24 I am a: Patient Within the past 12 months, did the food you bought not last and you didn't have the money to get more?: Never true Within the past 12 months, did you worry whether your food would run out before you got money to buy more?: Never true Do you have trouble paying for medicines?: No Do you have trouble getting transportation to medical appointments?: No Do you have trouble paying your heating and electricity bill?: No Do you have trouble taking care of your child, family member or friend?: No Do you have trouble with day-to-day activities such as bathing, preparing meals, shopping, managing finances, etc.?: No Are you currently unemployed and looking for a job?: No Are you interested in more education?: No THRIVE Score: 0 AUDIT C Alcohol Use Questionnaire (AUDIT-C) 1. How often do you have a drink containing alcohol?: Never 3. How often do you have six or more drinks on one occasion?: Never Total Score: 0 IAN-7 AMB Questionnaire IAN-7 Date IAN - 7 assessed: 07/07/24 Feeling nervous, anxious, or on edge: 0 = Not at all Not being able to stop or control worryin = Not at all Worrying too much about different things: 0 = Not at all Trouble relaxin = Not at all Being so restless that it is hard to sit still: 0 = Not at all Becoming easily annoyed or irritable: 0 = Not at all Feeling afraid as if something awful might happen: 0 = Not at all Total IAN-7 score (0-4 normal; 5-9 mild; 10-14 moderate; 15-21 severe): 0 Source: Developed by Drs. Gt Munoz, Kenan Johnson and colleagues, with an educational hannah from [employer]. Physical exam (Primary Care) Vital Signs: Last Vital Signs Temp 97.6 F 07/07/24 13:33 Pulse 82 07/07/24 13:33 BP 122/80 07/07/24 13:33 Pulse Ox 96 07/07/24 13:33 Oxygen Delivery Method Room Air 07/07/24 13:33 BMI result Body Mass Index 30.1 Tobacco/Smoking Status: Tobacco use Status Tobacco use date assessed 07/07/24 07/07/24 13:35 Patient Tobacco Use Status Never used Tobacco 07/07/24 13:35 e-Cigarette/Vaping Use Never Used 07/07/24 13:35 PHQ-9: PHQ-9 Score PHQ-9: Total score 0 07/07/24 14:58 Depression Screening Interpretation: Negative Thrive Assessment: Date of Thrive Assessment Date Thrive assessed 07/07/24 07/07/24 13:35 Coding Level of Care Code New Pt Level 4 (18345) Complex EM visit Add On G2211 Diagnoses Type 2 diabetes mellitus with hyperglycemia, without long-term current use of insulin E11.65 Diabetes mellitus type: type 2 Diabetes mellitus nude model insulin use: without care home use Diabetes mellitus complication status: with hyperglycemia Renal transplant recipient Z94.0 Additional Codes PHQ-9 - 66153 - PHQ-9 Billing: Yes ([id number]) Assessment & Plan Assessment & Plan (1) Diabetes: Code(s): E11.9 - Type 2 diabetes mellitus without complications Category: Medical Qualifiers: Diabetes mellitus type: type 2 Diabetes mellitus nude model insulin use: without care home use Diabetes mellitus complication status: with hyperglycemia Qualified Code(s): E11.65 - Type 2 diabetes mellitus with hyperglycemia (2) Renal transplant recipient: Code(s): Z94.0 - Kidney transplant status Category: Surgical Plan Diabetes-last A1C suboptimal. will continue current medications,increase if still elevated next A1C Repeat falls MRI ordered. vestibular therapy Hand pain-xrays ordered Labs ordered Orders: Orders Hemoglobin A1c 2 Months E11.9 - Type 2 diabetes mellitus without complications MR head/brain wo con 07/07/24 R29.6 - Repeated falls, R42 - Dizziness and giddiness XR hand RT 2V 07/07/24 M79.641 - Pain in right hand Lipid Panel 2 Months E11.9 - Type 2 diabetes mellitus without complications Rheumatoid Factor 07/07/24 M79.641 - Pain in right hand Erythrocyte Sedimentation Rate 07/07/24 M79.641 - Pain in right hand PT Evaluation and Treatment 07/07/24 H81.10 - Benign paroxysmal vertigo, unspecified ear Referrals Neurology Referral R42 - Dizziness and giddiness Gastroenterology Referral R93.5 - Abnormal findings on diagnostic imaging of other abdominal regions, including retroperitoneum Medications: New lorazepam 0.5 mg PO BID 60 tabs 3RF
--- OUTSIDE RECORDS SUMMARY | 2024-07-07 15:12 | XMS_ITS | Patient Health Record ---
Author Organization [facility] Address [address] [place] [address] Care Team Providers Care Pantograph Ii Engraver Name Role Phone Jose Alfredo Ross MD Primary Care Provider Gt Chavez Unavailable [phone] Allergies No Known Allergies Reason For Referral [...] Problem Screening for malignant neoplasm of colon (307175449) Encounter for screening for malignant neoplasm of colon (Z12.11) Active confirmed Problem Identification of preoperative respiratory status (299747073) Encounter for preprocedural respiratory examination (Z01.811) Active confirmed Problem Dysphagia (R13.10) Active confirmed Problem Diverticulosis of colon (284109349) Diverticulosis of colon (K57.30) Active confirmed Problem [id number] Black stool (K92.1) Active confirmed Plan Of Treatment Pending Test Test Name Order Date ELECTROLYTES 04/23/2022 BUN 04/23/2022 CBC w DIFF 04/23/2022 Future Test Test Name Order Date COLONOSCOPY 04/15/2011 COLONOSCOPY 09/04/2021 Insurance Providers Payer Name Payer Address Payer Phone Subscriber Number Group Number Insured Name Patient Relationship to Insured Coverage Start Date Coverage End Date [facility] [address] [place] [phone] [id number] RODOLFO, PEGGY Self - patient is the insured MEDICARE OF [place] [address] [place] [address] [id number] RODOLFO, PEGGY Self - patient is the insured Medical (General) History Medical History History ICD Code HTN Gout Sleep apnea-uses a CPAP machine Denies ME,DM,CVA,Lung disease 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
--- OUTSIDE RECORDS SUMMARY | 2024-07-07 15:12 | XMS_ITS | Clinical Summary ---
Author Organization [facility] Address [address] [place] [address] Care Team Providers Care Terrazzo Helper Name Role Phone Jose Alfredo Ross MD Primary Care Provider Social History Tobacco Use Types Packs/Day Years Used Date Smoking Tobacco: Never Assessed Sex and Gender Information Value Date Recorded Sex Assigned at Not on file Legal Sex Male 6:16 PM EST Gender Identity Not on file Sexual Orientation Not on file Plan of Treatment Health Maintenance Due Date Last Done Comments Hepatitis C Virus Screening 1955 DTaP/Tdap/Td Vaccines (1 - Tdap) 06/25/1975 Colonoscopy 2001 Pneumococcal Vaccines 50+ (1 of 1 - PCV) 2006 Zoster (Shingles) Vaccine (1 of 2) 2006 COVID-19 Vaccine ( - 2023-2 5 season) 2023 08/10/2020, 07/20/2020 Influenza Vaccine 09/30/2024 RSV Vaccine 60 years and older and Patients (1 - 1-dose 75+ series) 06/25/2031 Hepatitis B Vaccines Aged Out No long er eligible based on patient's age to complete this topic Insurance [facility] COMMERCIAL MEDICARE PART A & B [facility] MEDICARE Care Teams Terrazzo Helper Relationship Specialty Start Date End Date Jose Alfredo Ross MD [address] [place] [address] [place] [address] PCP - General 02/12/22
--- OUTSIDE RECORDS SUMMARY | 2024-07-07 15:12 | XMS_ITS | Encounter Summary ---
Author Organization [facility] Address [address] [facility] [address] [place] [address] Phone Care Team Providers Care Marketing Support Assistant Name Role Phone Jose Alfredo Ross MD Primary Care Provider [phone] Encounter Details Date Type Department Care Team (Late st Contact Info) Description 08/19/2023 Office Communication [facility] [address] [facility] [address] [place] [phone] Alex Ross MD [address] [facility] [address] [place] [address] Social History Tobacco Use Types [...] on filedocumented in this encounter Care Teams Marketing Support Assistant Relationship Specialty Start Date End Date Jose Alfredo Ross MD [address] [place] PCP - General Internal Medicine 6/19/24 documented as of this encounter
--- OUTSIDE RECORDS SUMMARY | 2024-07-07 15:12 | XMS_ITS | Encounter Summary ---
Author Organization [facility], Address [address] [address] Phone Care Team Providers Care Insurance Agency Manager Name Role Phone Jose Alfredo Ross MD Primary Care Provider [phone] Reason for Visit * Reason Comments Med Refill Encounter Details Date Type Department Care Team (Late st Contact Info) Description 09/12/2021 Refill [facility] [address] [place] [address] Pasha Villalobos MD [address] [place] [address] [place] [address] Social History Tobacco Use Types [...] on filedocumented in this encounter Care Teams Insurance Agency Manager Relationship Specialty Start Date End Date Jose Alfredo Ross MD [address] [place] PCP - General Internal Medicine 08/19/23 documented as of this encounter
--- OUTSIDE RECORDS SUMMARY | 2024-07-07 15:12 | XMS_ITS | Encounter Summary ---
Author Organization [facility] Address [address] [facility] [address] [place] [address] Phone Care Team Providers Care Foundation Stage Teacher Name Role Phone Jose Alfredo Ross MD Primary Care Provider [phone] Reason for Visit * Reason Comments Med Refill Encounter Details Date Type Department Care Team (Late st Contact Info) Description 12/15/2022 Refill [facility] [address] [place] [phone] Gus Jimenez MD Social History Tobacco Use [...] on filedocumented in this encounter Care Teams Foundation Stage Teacher Relationship Specialty Start Date End Date Jose Alfredo Ross MD [address] [place] [address] [address] [place] PCP - General Internal Medicine 08/19/23 documented as of this encounter
--- OUTSIDE RECORDS SUMMARY | 2024-07-07 15:12 | XMS_ITS | Clinical Summary ---
Author Organization [facility] Address [address] [address] Phone Care Team Providers Care Account Information Clerk Name Role Phone Jose Alfredo Ross MD Primary Care Provider [phone] Allergies No known active allergies Medications atorvastatin (LIPITOR) 20 MG tablet Active aspirin 81 MG chewable tablet Chew 81 mg 1 (one) time each day Active OXcarbazepine (TRILEPTAL) 600 MG tablet Take 1 tablet (600 mg total) by mouth 1 (one) time each day in the evening 90 tablet 3 3 Active magnesium oxide (MAG-OX) 400 MG tabletIndications: Other long-term current drug therapy TAKE 1 TABLET BY [...] Vaccine: 50+ Years (2 of 2 - PPSV23) 10/30/2016 09/04/2016 Colonoscopy (Post-Transplant Patient) 07/31/2021 Diabetes: Ophthalmology Exam 01/28/2023 Diabetes: Pedal Pulse Checked 01/28/2023 Diabetes: Sensory Foot Exam 01/28/2023 Diabetes: Visual Foot Exam 01/28/2023 Diabetes: Hemoglobin A1C 2023 024, 01/27/2023 Influenza Vaccine (Season Ended) 2024 Pneumococcal Vaccine: Peds ( 0 to 5 Years) and At-Risk Patients (6 to 49 Years) Discontinued 09/04/2016 Hepatitis B Vaccine Aged Out No longe [...] PM EST) Hemoglobin A1C 7.0(H) (4.0-5.6) % [facility] Comment: MONITORING: In known diabetic patients, hemoglobin A1c targets should be discussed with health care provider. DIAGNOSTIC USE: ??The [place] Diabetes Association (ADA) and the World Health [...] Supplement 1 Testing performed or reported by [facility], a Service of [facility], [address] [place] [address] Adrien Logan MD, Circular Knitter Helper [facility]# [id number] Blood (Blood, Venous) 03/25/2023 12:02 PM EST 03/25/2023 12:04 PM EST Emeka Lundberg MD LAB BLOOD ORDERABLES Final Result [facility] from Last 3 Months or Most Recently Relevant to Health Maintenance Insurance Medicare [facility] Medicare [facility] Medicare Care Teams Account Information Clerk Relationship Specialty Start Date End Date Jose Alfredo Ross MD [address] [place], [place] PCP - General Internal Medicine 08/19/23
--- OUTSIDE RECORDS SUMMARY | 2024-07-07 15:12 | XMS_ITS | Encounter Summary ---
Author Organization [facility] Address [address] [facility] [address] [place] [address] Phone Care Team Providers Care Thinner Sprayer Name Role Phone Jose Alfredo Ross MD Primary Care Provider [phone] Encounter Details Date Type Department Care Team (Late st Contact Info) Description 02/03/2022 Office Communication [facility] [address] [place] [phone] Rosa Augustine Social History Tobacco Use Types [...] on filedocumented in this encounter Care Teams Thinner Sprayer Relationship Specialty Start Date End Date Jose Alfredo Ross MD [address] [place] PCP - General Internal Medicine 08/19/23 documented as of this encounter
--- OUTSIDE RECORDS SUMMARY | 2024-07-07 15:12 | XMS_ITS | Encounter Summary ---
Author Organization [facility] Address [address] [facility] [address] [place] [address] Phone Care Team Providers Care Supervisor Refractory Products Name Role Phone Jose Alfredo Ross MD Primary Care Provider [phone] Encounter Details Date Type Department Care Team (Late st Contact Info) Description 10/23/2021 Documentation Only [facility] [address] [place] [phone] Danii Samuel MD Social History Tobacco Use [...] on filedocumented in this encounter Care Teams Supervisor Refractory Products Relationship Specialty Start Date End Date Jose Alfredo Ross MD [address] [facility] P[facility] - General Internal Medicine 08/19/23 documented as of this encounter
== END 2024-07-07 15:17 | disposition home or self-care (01) ==
LOC: HO.HMCHD 14:23
PROVIDERS: PCP Internal Medicine; Visit Provider Internal Medicine
DX: E11.65 Type 2 diabetes mellitus with hyperglycemia (principal); Z94.0 Kidney transplant status

== ENCOUNTER 2024-07-07 14:22 | Outpatient (REF) | payer MEDICARE, SELFPAY ==
--- NOTE | ~2024-07-07 | XR_ITS ---
EXAMINATION: XR HAND, RIGHT CLINICAL INFORMATION: M79.641 - Pain in right hand COMPARISON: March 20, 2016. TECHNIQUE: PA, lateral, and oblique views of the right hand. FINDINGS: Subsegmental narrowing of the distal phalanx, fourth digit. Trabeculated and mildly volar angulated deformity of the fifth metacarpal. Sclerosis and the articular surface of the epiphysis of the radius. No acute cortical disruption. No gross malalignment. Osteopenia versus osteoporosis. XR/XR hand RT 2V IMPRESSION: Old traumatic deformities, distal phalanx fourth digit and fifth metacarpal. Electronically signed by: Joss Stapleton MD 07/07/2024 03:48 PM EDT
--- OUTSIDE RECORDS SUMMARY | 2024-07-07 16:00 | XMS_ITS | Encounter Summary ---
Author Organization [facility] Address [address] [facility] [address] [place] [address] Phone Care Team Providers Care Plant Operations Coordinator Name Role Phone Jose Alfredo Ross MD Primary Care Provider [phone] Reason for Visit * Reason Comments Med Refill Encounter Details Date Type Department Care Team (Late st Contact Info) Description 12/15/2022 Refill [facility] [address] [place] [phone] Gus Jimenez MD Social History Tobacco Use [...] on filedocumented in this encounter Care Teams Plant Operations Coordinator Relationship Specialty Start Date End Date Jose Alfredo Ross MD [address] [place] [address] [address] [place] PCP - General Internal Medicine 08/19/23 documented as of this encounter
--- OUTSIDE RECORDS SUMMARY | 2024-07-07 16:00 | XMS_ITS | Encounter Summary ---
Author Organization [facility] Address 100 [facility] [address] [place] [address] Phone Care Team Providers Care Restaurant Manager Name Role Phone Jose Alfredo Ross MD Primary Care Provider [phone] Encounter Details Date Type Department Care Team (Late st Contact Info) Description 08/19/2023 Office Communication [facility] 200 [place] [phone] Alex Ross MD [address] [facility] [address] [place] [address] Social History Tobacco Use Types [...] on filedocumented in this encounter Care Teams Restaurant Manager Relationship Specialty Start Date End Date Jose Alfredo Ross MD [address] [place] PCP - General Internal Medicine 6/19/24 documented as of this encounter
--- OUTSIDE RECORDS SUMMARY | 2024-07-07 16:00 | XMS_ITS | Clinical Summary ---
Author Organization [facility]ly [facility] Address [address] [place] [address] Care Team Providers Care Land Economist Name Role Phone Jose Alfredo Ross MD Primary Care Provider [phone] Social History Tobacco Use Types Packs/Day Years [...] patient's age to complete this topic Insurance [facility] [place] PART A & B [facility] MEDICARE Care Teams Land Economist Relationship Specialty Start Date End Date Jose Alfredo Ross MD [address] [place] [address] [place] [address] PCP - General 02/12/22
--- OUTSIDE RECORDS SUMMARY | 2024-07-07 16:00 | XMS_ITS | Encounter Summary ---
Author Organization [facility] Address [address] [facility] [address] [place] [address] Phone Care Team Providers Care Chalk Tester Name Role Phone Jose Alfredo Ross MD Primary Care Provider [phone] Encounter Details Date Type Department Care Team (Late st Contact Info) Description 10/23/2021 Documentation Only [facility] [address] [place] [phone] Danii Samuel MD Social History Tobacco Use [...] on filedocumented in this encounter Care Teams Chalk Tester Relationship Specialty Start Date End Date Jose Alfredo Ross MD [address] [facility] PCP - General Internal Medicine 08/19/23 documented as of this encounter
--- OUTSIDE RECORDS SUMMARY | 2024-07-07 16:00 | XMS_ITS | Encounter Summary ---
Author Organization [facility], Address [address] [address] Phone Care Team Providers Care Coal Tower Operator Name Role Phone Jose Alfredo Ross MD Primary Care Provider [phone] Reason for Visit * Reason Comments Med Refill Encounter Details Date Type Department Care Team (Late st Contact Info) Description 09/12/2021 Refill [facility] [address] [place] [address] Pasha Villalobos MD [address] [place] [address] [place] [address] Social History Tobacco Use Types [...] on filedocumented in this encounter Care Teams Coal Tower Operator Relationship Specialty Start Date End Date Jose Alfredo Ross MD [address] [place] PCP - General Internal Medicine 08/19/23 documented as of this encounter
--- OUTSIDE RECORDS SUMMARY | 2024-07-07 16:00 | XMS_ITS | Encounter Summary ---
Author Organization [facility] Address [address] [facility] [address] [place] [address] Phone Care Team Providers Care Timber Management Technician Name Role Phone Jose Alfredo Ross MD Primary Care Provider [phone] Encounter Details Date Type Department Care Team (Late st Contact Info) Description 02/03/2022 Office Communication [facility] [address] [place] [phone] Rosa Augustine Social History Tobacco Use Types [...] on filedocumented in this encounter Care Teams Timber Management Technician Relationship Specialty Start Date End Date Jose Alfredo Ross MD [address] [place] PCP - General Internal Medicine 08/19/23 documented as of this encounter
--- OUTSIDE RECORDS SUMMARY | 2024-07-07 16:00 | XMS_ITS | Clinical Summary ---
Author Organization [facility] Address [address] [place] [address] Phone Care Team Providers Care Sweet Pickled Fruit Maker Name Role Phone Jose Alfredo Ross MD Primary Care Provider [phone] Allergies No known active allergies Medications atorvastatin (LIPITOR) 20 MG tablet Active aspirin 81 MG chewable tablet Chew 81 mg 1 (one) time each day Active OXcarbazepine (TRILEPTAL) 600 MG tablet Take 1 tablet (600 mg total) by mouth 1 (one) time each day in the evening 90 tablet 3 3 Active magnesium oxide (MAG-OX) 400 MG tabletIndications: Other mcfp current drug therapy TAKE 1 TABLET BY [...] PM EST) Hemoglobin A1C 7.0(H) (4.0-5.6) % [facility] Comment: MONITORING: In known diabetic patients, hemoglobin A1c targets should be discussed with health care provider. DIAGNOSTIC USE: ??The [place] Diabetes Association (ADA) and the World Health [...] Supplement 1 Testing performed or reported by [facility], a Service of [facility], [address] [place] [address] Adrien Logan MD, Tank Storage Supervisor [facility]# [id number] Blood (Blood, Venous) 03/25/2023 12:02 PM EST 03/25/2023 12:04 PM EST Emeka Lundberg MD LAB BLOOD ORDERABLES Final Result [facility] from Last 3 Months or Most Recently Relevant to Health Maintenance Insurance Medicare Pending Sale To [facility] Medicare [facility] Medicare Care Teams Sweet Pickled Fruit Maker Relationship Specialty Start Date End Date Jose Alfredo Ross MD [address] [place], [place] PCP - General Internal Medicine 08/19/23
== END 2024-07-07 14:23 | disposition home or self-care (01) ==
LOC: HO.XRAY 14:22
PROVIDERS: PCP Internal Medicine; Visit Provider Internal Medicine
DX: E11.65 Type 2 diabetes mellitus with hyperglycemia (principal); M79.641 Pain in right hand; Z94.0 Kidney transplant status
CPT/HCPCS: 73120; 96127; 99202

== ENCOUNTER → 2024-07-07 15:28 | Outpatient (BNV) | payer MEDICARE, SELFPAY | PROVIDERS: PCP Internal Medicine; Visit Provider Radiology Diagnostic Radiology | DX: M79.641 Pain in right hand (principal) | CPT/HCPCS: 73120 ==

== ENCOUNTER → 2024-07-15 16:26 | Outpatient (BNV) | payer MEDICARE, SELFPAY | PROVIDERS: PCP Internal Medicine; Visit Provider Radiology Diagnostic Radiology | DX: R42 Dizziness and giddiness (principal) | CPT/HCPCS: 70551 ==

== ENCOUNTER 2024-07-15 16:30 | Outpatient (REF) | payer MEDICARE, SELFPAY ==
--- NOTE | ~2024-07-15 | MR_ITS ---
EXAMINATION: MR BRAIN WITHOUT CONTRAST CLINICAL INFORMATION: Dizziness and giddiness. COMPARISON: August 02, 2019. TECHNIQUE: MRI of the brain was obtained using routine sequences without contrast. FINDINGS: No restricted diffusion. No acute intracranial hemorrhage, mass effect, midline shift, hydrocephalus or herniation. Focal susceptibility signal, right putamen and likely right basal ganglia. There are a few, scattered, subtle nonspecific subcortical deep white matter hyperintense T2 FLAIR signal in the frontal lobes. Prominence of the extra-axial CSF spaces cerebral sulci and the bifrontal bitemporal regions. CSF prominence, Meckel's caves bilaterally. Dolichoectatic left vertebral basilar arterial system. Sellar/suprasellar region demonstrated no gross masses or signal abnormality. Craniocervical junction demonstrates normal position of the cerebellar tonsils. No volume loss or signal abnormality in the hippocampi. Polypoid mucosal thickening, paranasal sinuses. MR/MR head/brain wo con IMPRESSION: No acute stroke/nonhemorrhagic ischemia. 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 Dolichoectatic: left vertebral basilar arterial system. There bifrontal bitemporal lobe atrophy. Meningoceles, Meckel's caves. Polypoid paranasal sinus disease. Electronically signed by: Joss Stapleton MD 07/18/2024 07:36 AM EDT
--- OUTSIDE RECORDS SUMMARY | 2024-07-15 16:34 | XMS_ITS | Encounter Summary ---
Author Organization [facility], Address [address] [address] Phone Care Team Providers Care Food Service Ambassador Name Role Phone Jose Alfredo Ross MD Primary Care Provider [phone] Reason for Visit * Reason Comments Med Refill Encounter Details Date Type Department Care Team (Late st Contact Info) Description 09/12/2021 Refill [facility] [address] [place] [address] Pasha Villalobos MD [address] [place] [address] Social History Tobacco Use Types [...] on filedocumented in this encounter Care Teams Food Service Ambassador Relationship Specialty Start Date End Date Jose Alfredo Ross MD [address] [place] PCP - General Internal Medicine 08/19/23 documented as of this encounter
--- OUTSIDE RECORDS SUMMARY | 2024-07-15 16:34 | XMS_ITS | Encounter Summary ---
Author Organization [facility] Address [address] [facility] [address] [place] [address] Phone Care Team Providers Care Cyber Defense Incident Responder Name Role Phone Jose Alfredo Ross MD Primary Care Provider [phone] Reason for Visit * Reason Comments Med Refill Encounter Details Date Type Department Care Team ([facility] st Contact Info) Description 12/15/2022 Refill [facility] [address] [place] [phone] Gus Jimenez MD Social History Tobacco Use [...] on filedocumented in this encounter Care Teams Cyber Defense Incident Responder Relationship Specialty Start Date End Date Jose Alfredo Ross MD [address] [place] [address] DR[address] [place] PCP - General Internal Medicine 08/19/23 documented as of this encounter
--- OUTSIDE RECORDS SUMMARY | 2024-07-15 16:34 | XMS_ITS | Clinical Summary ---
Author Organization [facility] Address [address] [place] [address] Care Team Providers Care Qa Intern Name Role Phone Jose Alfredo Ross MD Primary Care Provider [phone] Social History Tobacco Use Types Packs/Day Years [...] patient's age to complete this topic Insurance [facility] [place] PART A & B [facility] MEDICARE Care Teams Qa Intern Relationship Specialty Start Date End Date Jose Alfredo Ross MD [address] [place] [address] [place] [address] PCP - General 02/12/22
--- OUTSIDE RECORDS SUMMARY | 2024-07-15 16:34 | XMS_ITS | Encounter Summary ---
Author Organization [facility] Address 100 [facility] 200 [place] [address] Phone Care Team Providers Care Outsole Tacker Name Role Phone Jose Alfredo Ross MD Primary Care Provider [phone] Encounter Details Date Type Department Care Team (Late st Contact Info) Description 08/19/2023 Office Communication [facility] 100 [facility] 200 [place] [phone] Alex Ross MD [address] [facility] [address] [place] [address] Social History Tobacco Use Types [...] on filedocumented in this encounter Care Teams Outsole Tacker Relationship Specialty Start Date End Date Jose Alfredo Ross MD [address] [place] PCP - General Internal Medicine 6/19/24 documented as of this encounter
--- OUTSIDE RECORDS SUMMARY | 2024-07-15 16:34 | XMS_ITS | Clinical Summary ---
Author Organization [facility] Address [address] [place] [address] Phone Care Team Providers Care Pediatric Assistant Name Role Phone Jose Alfredo Ross MD Primary Care Provider [phone] Allergies No known active allergies Medications atorvastatin (LIPITOR) 20 MG tablet Active aspirin 81 MG chewable tablet Chew 81 mg 1 (one) time each day Active OXcarbazepine (TRILEPTAL) 600 MG tablet Take 1 tablet (600 mg total) by mouth 1 (one) time each day in the evening 90 tablet 3 3 Active magnesium oxide (MAG-OX) 400 MG tabletIndications: Other technician terminal and repeater current drug therapy TAKE 1 TABLET BY [...] PM EST) Hemoglobin A1C 7.0(H) (4.0-5.6) % [facility] Comment: MONITORING: In known diabetic patients, hemoglobin A1c targets should be discussed with health care provider. DIAGNOSTIC USE: ??The [place] Diabetes Association (ADA) and the World Health [...] Supplement 1 Testing performed or reported by [facility], a Service of [facility], [address] [place] [address] Adrien Logan MD, High Pressure Firer [facility]# [id number] Blood (Blood, Venous) 03/25/2023 12:02 PM EST 03/25/2023 12:04 PM EST Emeka Lundberg MD LAB BLOOD ORDERABLES Final Result [facility] from Last 3 Months or Most Recently Relevant to Health Maintenance Insurance Medicare [facility] Medicare [facility] Medicare Care Teams Pediatric Assistant Relationship Specialty Start Date End Date Jose Alfredo Ross MD [address] [place], [place] PCP - General Internal Medicine 08/19/23
--- OUTSIDE RECORDS SUMMARY | 2024-07-15 16:34 | XMS_ITS | Encounter Summary ---
Author Organization [facility] Address 100 [facility] [address] [place] [address] Phone Care Team Providers Care Tube Cutter Operator Name Role Phone Jose Alfredo Ross MD Primary Care Provider [phone] Encounter Details Date Type Department Care Team (Late st Contact Info) Description 02/03/2022 Office Communication [facility] [address] [place] [phone] Rosa Augustine Social History Tobacco Use Types [...] on filedocumented in this encounter Care Teams Tube Cutter Operator Relationship Specialty Start Date End Date Jose Alfredo Ross MD [address] [facility] [address] [address] [place] PCP - General Internal Medicine 08/19/23 documented as of this encounter
--- OUTSIDE RECORDS SUMMARY | 2024-07-15 16:34 | XMS_ITS | Patient Health Record ---
Author Organization [facility] Address [address] [place] [address] Care Team Providers Care Stage Set Up Worker Name Role Phone Jose Alfredo Ross MD Primary Care Provider Gt Chavez Unavailable [phone] Allergies No Known Allergies Reason For Referral [...] Problem Screening for malignant neoplasm of colon (027216527) Encounter for screening for malignant neoplasm of colon (Z12.11) Active confirmed Problem Identification of preoperative respiratory status (799336843) Encounter for preprocedural respiratory examination (Z01.811) Active confirmed Problem Dysphagia (70427004) Dysphagia (R13.10) Active confirmed Problem Diverticulosis of colon (185599428) Diverticulosis of colon (K57.30) Active confirmed Problem 361491293 Black stool (K92.1) Active confirmed Plan Of Treatment Pending Test Test Name Order Date ELECTROLYTES 04/23/2022 BUN 04/23/2022 CBC w DIFF 04/23/2022 Future Test Test Name Order Date COLONOSCOPY 04/15/2011 COLONOSCOPY 09/04/2021 Insurance Providers Payer Name Payer Address Payer Phone Subscriber Number Group Number Insured Name Patient Relationship to Insured Coverage Start Date Coverage End Date [facility] [address] [place] [phone] [id number] PEGGY REYNOLDS Self - patient is the insured MEDICARE OF [place] [address] [place] [address] [phone] [id number] RODOLFOPEGGY Del Real Self - patient is [...]
--- OUTSIDE RECORDS SUMMARY | 2024-07-15 16:34 | XMS_ITS | Encounter Summary ---
Author Organization [facility] Address [address] [facility] [address] [place] [address] Phone Care Team Providers Care Fitness And Wellness Director Name Role Phone Jose Alfredo Ross MD Primary Care Provider [phone] Encounter Details Date Type Department Care Team (Late st Contact Info) Description 10/23/2021 Documentation Only [facility] [address] [place] [phone] Danii Samuel MD Social History Tobacco Use [...] on filedocumented in this encounter Care Teams Fitness And Wellness Director Relationship Specialty Start Date End Date Jose Alfredo Ross MD [address] [facility] PCP - General Internal Medicine 08/19/23 documented as of this encounter
== END 2024-07-15 16:31 | disposition home or self-care (01) ==
LOC: HO.MRI 16:30
PROVIDERS: PCP Internal Medicine; Visit Provider Internal Medicine
DX: R42 Dizziness and giddiness (principal); R29.6 Repeated falls
CPT/HCPCS: 70551

== ENCOUNTER 2024-08-10 10:40 | Outpatient (RCR) | payer MEDICARE, SELFPAY ==
[2024-08-10 10:41] VITALS: BP 142/84; PULSE 54; O2SAT 94
--- NOTE | 2024-08-10 11:55 | MHC.PT.EP ---
[facility] [place] Office [place] Office [place] Office [address] Samantha Simms [address] [phone] F: [phone] F: [phone] F: [phone] F: [phone] Physical Therapy Plan of Care Date of Evaluation: 08/10/24 Date of Surgery: Diagnosis: This is a 69 yo male presenting to skilled PT with a script for vertigo, unspecified ear. Assessment: This is a 69 yo male presenting to skilled PT with a script for vertigo, unspecified ear. Patient reporting ongoing symptoms for many years on and off but in January 2024 he started to have symptoms every day coupled with SIDHU's. Lately, it has subsided and he gets symptoms maybe weekly now vs every day. Patient reports symptoms are described as he gets lightheaded, my head feels funny inside. Symptoms increase with sit<>stand, supine<>sit, bending down. Symptoms last about 30-45 sec. Headaches are sharp, located posteriorly and wrapping up to the top of his head, these are not every day either/mainly are now in the evening. He states that he had therapy for vertigo at [facility] a long time ago and this was not really helpful. Examination shows - oculomotor tests with saccades, (-) VBI B, and WFL cervical AROM. He was (-) for BPPV with cathi-hallpike B and with roll test B. Balance was normal as well with Meena SOPT and DGI. S/S are not consistent with BPPV at this time and I recommended he follow up with his PCP in regards to imaging and appropriate referrals. Frequency and Duration: The patient will be seen Short Term Goals: NA at this time Hot Worker Goals: NA at this time Treatment Plan: Modalities to reduce pain, spasms and effusion. Manual therapy to restore motion and function. Therapeutic exercise to improve strength and flexibility. Neuromuscular re-education for posture and balance. Therapeutic activities to return to functional activities of daily living. Electronically signed by: Kimberlee Wilkes PT Please sign and return to therapist. Thank you for your referral.
--- NOTE | 2024-09-07 09:00 | MHC.PT.DC ---
[facility] [place] [facility] [place] Office [place] Office [address] [place] [address] Dr Coreen Simms [address] [phone] F: [phone] F: [phone] F: [phone] F: [phone] Physical Therapy Discharge Report Diagnosis: This is a 69 yo male presenting to skilled PT with a script for vertigo, unspecified ear. Date of Surgery: Date of Evaluation: 08/10/24 Date of Discharge: 09/07/24 Treatments to Date: 1 Cancellations to Date: 0 No Shows to Date: 0 Discharge Status: Recommend MD Follow-up Discharge Summary: his is a 69 yo male presenting to skilled PT with a script for vertigo, unspecified ear. Patient reporting ongoing symptoms for many years on and off but in January 2024 he started to have symptoms every day coupled with SIDHU's. Lately, it has subsided and he gets symptoms maybe weekly now vs every day. Patient reports symptoms are described as he gets lightheaded, my head feels funny inside. Symptoms increase with sit<>stand, supine<>sit, bending down. Symptoms last about 30-45 sec. Headaches are sharp, located posteriorly and wrapping up to the top of his head, these are not every day either/mainly are now in the evening. He states that he [place] [facility] [place] and this was not really helpful. Examination shows - oculomotor tests with saccades, (-) VBI B, and WFL cervical AROM. He was (-) for BPPV with cathi-hallpike B and with roll test B. Balance was normal as well with Meena SOPT and DGI. S/S are not consistent with BPPV at this time and I recommended he follow up with his PCP in regards to imaging and appropriate referrals. Electronically signed by: Kimberlee Wilkes PT Please sign and return to therapist. Thank you for your referral.
== END 2024-09-07 09:00 | disposition home or self-care (01) ==
LOC: HO.PTCHIC 10:40
PROVIDERS: PCP Internal Medicine; Visit Provider Internal Medicine
DX: H81.10 Benign paroxysmal vertigo, unspecified ear (principal)
CPT/HCPCS: 97110; 97162

== ENCOUNTER 2024-09-05 14:29 | Outpatient (REF) | payer MEDICARE, SELFPAY ==
[2024-09-05 14:41] LABS: MANUAL DIFF FLAG NO
--- OUTSIDE RECORDS SUMMARY | 2024-09-05 15:03 | XMS_ITS | Clinical Summary ---
Author Organization [facility] Address [address] [place] [address] Care Team Providers Care Lime Plant Operator Name Role Phone Jose Alfredo Ross MD Primary Care Provider [phone] Social History Tobacco Use Types Packs/Day Years [...] patient's age to complete this topic Insurance [facility]ERCIAL MEDICARE PART A & B [facility] MEDICARE Care Teams Lime Plant Operator Relationship Specialty Start Date End Date Jose Alfredo Ross MD [address] [place] [address] [place] [address] PCP - General 02/12/22
--- OUTSIDE RECORDS SUMMARY | 2024-09-05 15:03 | XMS_ITS | Encounter Summary ---
Author Organization [facility] Address 100 [facility] [address] [address] [place] [address] Phone Care Team Providers Care Hospice Executive Director Name Role Phone Jose Alfredo Ross MD Primary Care Provider [phone] Reason for Visit * Reason Comments Med Refill Encounter Details Date Type Department Care Team (Late st Contact Info) Description 12/15/2022 Refill [facility] [address] [place] [phone] Gus Jimenez MD Social History Tobacco Use [...] on filedocumented in this encounter Care Teams Hospice Executive Director Relationship Specialty Start Date End Date Jose Alfredo Ross MD [address] [place] [address] DR[address] [place] PCP - General Internal Medicine 08/19/23 documented as of this encounter
--- OUTSIDE RECORDS SUMMARY | 2024-09-05 15:03 | XMS_ITS | Patient Health Record ---
Author Organization [facility] Address [address] [place] [address] Care Team Providers Care Electron Beam Operator Name Role Phone Jose Alfredo Ross MD Primary Care Provider Gt Chavez Unavailable [phone] Allergies No Known Allergies Reason For Referral [...] Problem Screening for malignant neoplasm of colon (152499764) Encounter for screening for malignant neoplasm of colon (Z12.11) Active confirmed Problem Identification of preoperative respiratory status (876123816) Encounter for preprocedural respiratory examination (Z01.811) Active confirmed Problem Dysphagia (R13.10) Active confirmed Problem Diverticulosis of colon (281607702) Diverticulosis of colon (K57.30) Active confirmed Problem 393818348 Black stool (K92.1) Active confirmed Plan Of Treatment Pending Test Test Name Order Date ELECTROLYTES 04/23/2022 BUN 04/23/2022 CBC w DIFF 04/23/2022 Future Test Test Name Order Date COLONOSCOPY 04/15/2011 COLONOSCOPY 09/04/2021 Insurance Providers Payer Name Payer Address Payer Phone Subscriber Number Group Number Insured Name Patient Relationship to Insured Coverage Start Date Coverage End Date [facility] [address] [place] [phone] [id number] RODOLFO, PEGGY Self - patient is the insured MEDICARE OF [place] [address] [facility] [address] [phone] [id number] RODOLFO, PEGGY Self - patient is the insured Medical (General) History Medical History History ICD Code HTN Gout Sleep apnea-uses a CPAP machine Denies [place],DM,CVA,Lung disease 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
--- OUTSIDE RECORDS SUMMARY | 2024-09-05 15:03 | XMS_ITS ---
Author Name [facility] Organization Unknown Problems Problem Status Onset Date Problem Type Date of Resoluti on Source Complication of transplanted kidney, unspecified complication active EncounterDiagnosisAct CCT Encounters Encounter Type Encounter Reason Primary Diagnosis Location Date Ambulatory Unspecified complication of kidney transplant Unspecified complication of kidney transplant [facility] 02/06/2023 Ambulatory Unspecified complication of kidney transplant [facility] 02/17/2022 Care Team Organization Name Specialty Phone Email Start Date End Da te [facility] JOSE ALFREDO MURRY Primary Care 02/06/2023 05/19/19 [facility] PCP,No Primary Care 02/17/2022 05/18/2024 [facility] NO PCP Primary Care 02/06/2022 02/06/2022 [facility] Jose Alfredo Murry Primary Care
[2024-09-05 15:35] LABS: Hemoglobin A1C 237.0345 umol/L; Total Hemoglobin (HGBA1C) 3912.9938 umol/L
[2024-09-05 15:37] LABS: Hematocrit 42.1 % (42.0-52.0); Hemoglobin 14.6 g/dl (14.0-18.0); Imm Gran Abs Auto 0.01 X10*3/uL (0.00-0.03); Imm Gran Pct Auto 0.2 % (0.0-0.4); Lymphocytes Absolute Auto 0.8 X10*3/uL (1.2-4.9); Mean Corpuscular HGB Conc 34.7 g/dl (31.0-36.0); Mean Corpuscular Hemoglobin 31.5 pg (27.0-33.0); Mean Corpuscular Volume 90.9 fL (80.0-98.0); NRBC Abs Auto 0.000 X10*3/uL (0.0-0.012); NRBC Pct Auto 0.0 /100WBC (0.0-0.2); Platelet Count 185 X10*3/uL (160-400); Red Blood Count 4.63 X10*6/uL (4.60-5.80); White Blood Count 5.1 X10*3/uL (4.8-10.8)
[2024-09-05 16:09] LABS: Alanine Aminotransferase 37 U/L (0-40); Anion Gap 13 (12-20); Aspartate Amino Transferase 29 U/L (5-37); Blood Urea Nitrogen 19 mg/dL (9-16); Calcium 9.1 mg/dL (8.4-10.2); Carbon Dioxide 28 mmol/L (22-29); Chloride 102 mmol/L (96-108); Cholesterol 87 mg/dL (<200); Estimated Glomerular Filt Rate 56; HDL Cholesterol 36 mg/dL (>40); Magnesium 1.5 mg/dL (1.6-2.6); Potassium 4.7 mmol/L (3.3-5.1); Sodium 138 mmol/L (135-145); Triglycerides 226 mg/dL (<150)
[2024-09-06 10:34] LABS: Tacrolimus Prograf 16.9 mcg/L
== END 2024-09-05 14:30 | disposition home or self-care (01) ==
LOC: HO.LAB 14:29
PROVIDERS: Absent Provider Internal Medicine Nephrology; PCP Internal Medicine; Visit Provider Internal Medicine
DX: E11.9 Type 2 diabetes mellitus without complications (principal); M79.641 Pain in right hand; Z94.0 Kidney transplant status
CPT/HCPCS: 36415; 80051; 80061; 80197; 82310; 82565; 83036; 83735; 84100; 84450; 84460; 84520; 85025; 85652; 86431

== ENCOUNTER 2024-09-09 13:46 | Outpatient (AMB) | payer MEDICARE, SELFPAY ==
--- NOTE | 2024-09-09 13:48 | HO.NEPHOV_ITS ---
Vital Signs 09/09/24 13:49 Height 4 ft 11 in Weight 147 lb 8 oz BMI 29.8 BP 90/70 Blood Pressure Location Lt brachial Position Sitting Pulse 92 Pulse Source Pulse Oximeter Pulse Oximetry (%) 93 Oxygen Delivery Method Room Air Intake Visit Reasons: follow-up Instruction Assistant Principal Required: No Accompanied by: Self / Same As Patient Allergies bee pollen (BEE STINGS) Allergy (Intermediate, Verified 09/09/24 13:49) LOCALIZED SWELLING ibuprofen (From ADVIL) Allergy (Unknown, Verified 09/09/24 13:49) KIDNEY DISEASE HPI Comments Details: Pankaj was seen for F/U of his transplant renal care. He had ESRD from hypertension and was never on HD. 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 Induction was done using Methylprednisone and Thymoglobulin. He never had any rejection. His allograft biopsy 11/07/21 was negative for AMR and ACR. His Cf-DNA was 0.05 on 01/27/2023. His DSA has been negative on 01/27/23. His baseline serum creatinine has been around 0.9 to 1.1. He developed DM post transplant and has been on metformin. There was a concern for complex cystic lesion on the allograft but had MRI in August 2023 which did not show any concern. Radiologist had recommended GI consult as well as MRCP in summer ( pancreas). He is not on any ACEI. He is maintained on tacrolimus as well myfortic. He maintains good hydration and avoids NSAID's. His last HbA1c was 7.7. His urine output is good. He never had any CMV or BK virus infection. He is compliant with medications. He had taken tacrolimus prior to his drug level [facility] Medical History Diverticulitis Normal colonoscopy Concussion Sleep apnea with use of continuous positive airway pressure (CPAP) Gout HTN (hypertension) Surgical History History of colonoscopy (~02/26/22) Kidney transplant status H/O knee surgery Hx of resection of large bowel Family History Mother No problems noted. Father No problems noted. Social History Housing: House Patient Tobacco Use Status: Never used Tobacco e-Cigarette/Vaping Use: Never Used service: No Current occupational status: retired Cognitive needs: No Hearing needs: No Vision needs: Yes (rx glasses) Review of Systems Const All systems reviewed & are unremarkable except as noted in HPI and below Physical Exam Vital Signs: Last Vital Signs Pulse 92 09/09/24 13:49 BP 90/70 09/09/24 13:49 Pulse Ox 93 09/09/24 13:49 Oxygen Delivery Method Room Air 09/09/24 13:49 BMI result Body Mass Index 29.8 Const General: comfortable and no acute distress Orientation/consciousness: patient oriented x3 HEENT Head: Yes normocephalic Mouth: Normal oral and palatal mucosa present Eyes EOM: EOMs intact bilaterally Neck Neck: Yes supple Resp Auscultation: clear to auscultation bilaterally Cardio Jugular venous distension: no JVD Rate: regular rate GI Palpation (GI): Soft to palpation Auscultation: normal bowel sounds General: Yes no CVA tenderness Back/Spine/Pelvis Back: no CVA tenderness Skin General skin exam: no rashes or lesions noted Neuro General: patient oriented x3 and moves all extremities Extrem General: Yes no pedal edema Results Reviewed Nephrology Results: Hgb, (14.0-18.0) 14.6 g/dl 09/05/24 WBC, (4.8-10.8) 5.1 X10*3/uL 09/05/24 Plt Count, (160-400) 185 X10*3/uL 09/05/24 Sodium, (135-145) 138 mmol/L 09/05/24 Potassium, (3.3-5.1) 4.7 mmol/L Δ 09/05/24 Chloride, (96-108) 102 mmol/L 09/05/24 Carbon Dioxide, (22-29) 28 mmol/L 09/05/24 BUN, (9-16) 19 mg/dL H 09/05/24 Creatinine, (0.5-1.4) 1.27 mg/dL 09/05/24 Calcium, (8.4-10.2) 9.1 mg/dL 09/05/24 Phosphorus, (2.7-4.5) 2.9 mg/dL 09/05/24 Assessment & Plan Assessment & Plan (1) Renal transplant recipient: Code(s): Z94.0 - Kidney transplant status Category: Surgical (2) Hypomagnesemia: Code(s): E83.42 - Hypomagnesemia Category: Medical Plan He had donor renal transplant on 07/18/2021. Induction was done using Methylprednisone and Thymoglobulin. He never had any rejection. His allograft biopsy 11/07/21 was negative for AMR and ACR. His Cf-DNA was 0.05 on 01/27/2023. His DSA has been negative on 01/27/23. His baseline serum creatinine has been around 0.9 to 1.1. He developed DM post transplant and has been on metformin. There was a concern for complex cystic lesion on the allograft but had MRI in August 2023 which did not show any concern. He is maintained on tacrolimus as well myfortic. He maintains good hydration and avoids NSAID's. His last HbA1c was 7.7. His urine output is good. He never had any CMV or BK virus infection. He needs to maintain good blood sugar control. All these have been discussed in detail. F/U given Orders: Orders Complete Blood Count Auto Diff 3 Months E83.42 - Hypomagnesemia, Z94.0 - Kidney transplant status Creatinine 3 Months E83.42 - Hypomagnesemia, Z94.0 - Kidney transplant status Blood Urea Nitrogen 3 Months E83.42 - Hypomagnesemia, Z94.0 - Kidney transplant status Electrolytes 3 Months E83.42 - Hypomagnesemia, Z94.0 - Kidney transplant status Calcium 3 Months E83.42 - Hypomagnesemia, Z94.0 - Kidney transplant status Phosphorus 3 Months E83.42 - Hypomagnesemia, Z94.0 - Kidney transplant status Tacrolimus Prograf 3 Months E83.42 - Hypomagnesemia, Z94.0 - Kidney transplant status Parathyroid Hormone Intact 3 Months E83.42 - Hypomagnesemia, Z94.0 - Kidney transplant status Tacrolimus Prograf 3 Days Z94.0 - Kidney transplant status Magnesium 3 Months E83.42 - Hypomagnesemia, Z94.0 - Kidney transplant status Vitamin D 25-OH Total 3 Months E83.42 - Hypomagnesemia, Z94.0 - Kidney transplant status Coding Level of Care Code Est Pt Level 4 (53233) Diagnoses Renal transplant recipient Z94.0 Hypomagnesemia E83.42
[2024-09-09 13:49] VITALS: BP 90/70; PULSE 92; O2SAT 93; BMI 29.8
--- OUTSIDE RECORDS SUMMARY | 2024-09-09 13:49 | XMS_ITS | Clinical Summary ---
Author Organization [facility] Address [address] [place] [address] Care Team Providers Care Mounter Saxophones Name Role Phone Jose Alfredo Ross MD Primary Care Provider [phone] Social History Tobacco Use Types Packs/Day Years [...] patient's age to complete this topic Insurance [facility] COMMERCIAL MEDICARE PART A & B [facility] MEDIC[facility] Care Teams Mounter Saxophones Relationship Specialty Start Date End Date Jose Alfredo Ross MD [address] [place] [address] [place] [address] PCP - General 02/12/22
--- OUTSIDE RECORDS SUMMARY | 2024-09-09 13:49 | XMS_ITS | Patient Health Record ---
Author Organization [facility] Address [address] [place] [address] Care Team Providers Care Clinical Trials Nurse Name Role Phone Jsoe Alfredo Ross MD Primary Care Provider Gt Chavez Unavailable [phone] Allergies No Known Allergies Reason For Referral [...] Problem Screening for malignant neoplasm of colon (709981678) Encounter for screening for malignant neoplasm of colon (Z12.11) Active confirmed Problem Identification of preoperative respiratory status (813753780) Encounter for preprocedural respiratory examination (Z01.811) Active confirmed Problem Dysphagia (80129362) Dysphagia (R13.10) Active confirmed Problem Diverticulosis of colon (784510465) Diverticulosis of colon (K57.30) Active confirmed Problem 965304429 Black stool (K92.1) Active confirmed Plan Of Treatment Pending Test Test Name Order Date ELECTROLYTES 04/23/2022 BUN 04/23/2022 CBC w DIFF 04/23/2022 Future Test Test Name Order Date COLONOSCOPY 04/15/2011 COLONOSCOPY 09/04/2021 Insurance Providers Payer Name Payer Address Payer Phone Subscriber Number Group Number Insured Name Patient Relationship to Insured Coverage Start Date Coverage End Date [facility] [address] [place] [phone] [id number] PEGGY REYNOLDS Self - patient is the insured MEDICARE OF [place] [address] 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
--- OUTSIDE RECORDS SUMMARY | 2024-09-09 13:49 | XMS_ITS | Encounter Summary ---
Author Organization [facility] Address [address] [facility] [address] [place] [address] Phone Care Team Providers Care Railway Yard Assistant Name Role Phone Jose Alfredo Ross MD Primary Care Provider [phone] Reason for Visit * Reason Comments Med Refill Encounter Details Date Type Department Care Team (Late st Contact Info) Description 12/15/2022 Refill [facility] [address] [place] [phone] Gus Jimenez MD Social History Tobacco Use [...] on filedocumented in this encounter Care Teams Railway Yard Assistant Relationship Specialty Start Date End Date Jose Alfredo Ross MD [address] [place] [address] [address] [place] PCP - General Internal Medicine 08/19/23 documented as of this encounter
== END 2024-09-09 14:06 | disposition home or self-care (01) ==
LOC: HO.HKA 13:46
PROVIDERS: PCP Internal Medicine; Visit Provider Internal Medicine Nephrology
DX: Z94.0 Kidney transplant status (principal); E83.42 Hypomagnesemia
CPT/HCPCS: 99214

== ENCOUNTER → 2024-09-09 13:46 | Outpatient (BNVA) | payer MEDICARE, SELFPAY | PROVIDERS: PCP Internal Medicine; Visit Provider Internal Medicine Nephrology | DX: E83.42 Hypomagnesemia (principal); Z94.0 Kidney transplant status | CPT/HCPCS: 99212 ==

== ENCOUNTER 2024-09-15 10:39 | Outpatient (REF) | payer MEDICARE, SELFPAY ==
--- OUTSIDE RECORDS SUMMARY | 2024-09-15 11:17 | XMS_ITS | Clinical Summary ---
Author Organization [facility] Address [address] [place] [address] Care Team Providers Care Vacuum Cooker Operator Name Role Phone Jose Alfredo Ross MD Primary Care Provider [phone] Social History Tobacco Use Types Packs/Day Years [...] patient's age to complete this topic Insurance [facility] [place]IC[place] PART A & B [facility] MEDICARE Care Teams Vacuum Cooker Operator Relationship Specialty Start Date End Date Jose Alfredo Ross MD [address] [place] [address] [place] [address] PCP - General 02/12/22
--- OUTSIDE RECORDS SUMMARY | 2024-09-15 11:17 | XMS_ITS | Encounter Summary ---
Author Organization [facility] Address [address] [address] [place] [address] Phone Care Team Providers Care Purchasing Analyst Name Role Phone Jose Alfredo Ross MD Primary Care Provider [phone] Reason for Visit * Reason Comments Med Refill Encounter Details Date Type Department Care Team (Late st Contact Info) Description 12/15/2022 Refill [facility] [address] [place] [phone] Gus Jimenez MD Social History Tobacco Use [...] on filedocumented in this encounter Care Teams Purchasing Analyst Relationship Specialty Start Date End Date Jose Alfredo Ross MD [address] [place] [address] [address] [place] PCP - General Internal Medicine 08/19/23 documented as of this encounter
--- OUTSIDE RECORDS SUMMARY | 2024-09-15 11:17 | XMS_ITS | Patient Health Record ---
Author Organization [facility] Address [address] [place] [address] Care Team Providers Care Fish Hatchery Manager Name Role Phone Cody (RETIRED) Jose Alfredo KERR Primary Care Provide r Unavailable Gt Mccullough Unavailable [phone] Allergies No Known Allergies Reason For Referral [...] Problem Screening for malignant neoplasm of colon (395646751) Encounter for screening for malignant neoplasm of colon (Z12.11) Active confirmed Problem Identification of preoperative respiratory status (920231030) Encounter for preprocedural respiratory examination (Z01.811) Active confirmed Problem Dysphagia (74774998) Dysphagia (R13.10) Active confirmed Problem Diverticulosis of colon (065459802) Diverticulosis of colon (K57.30) Active confirmed Problem 589087182 Black stool (K92.1) Active confirmed Plan Of Treatment Pending Test Test Name Order Date ELECTROLYTES 04/23/2022 BUN 04/23/2022 CBC w DIFF 04/23/2022 Future Test Test Name Order Date COLONOSCOPY 04/15/2011 COLONOSCOPY 09/04/2021 Insurance Providers Payer Name Payer Address Payer Phone Subscriber Number Group Number Insured Name Patient Relationship to Insured Coverage Start Date Coverage End Date [facility] [address] [place] [phone] [id number] PEGGY REYNOLDS Self - patient is the insured MEDICARE OF [place] [address] [facility] 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
[2024-09-16 10:23] LABS: Tacrolimus Prograf 13.7 mcg/L
== END 2024-09-15 10:40 | disposition home or self-care (01) ==
LOC: HO.LAB 10:39
PROVIDERS: PCP Internal Medicine; Visit Provider Internal Medicine Nephrology
DX: E11.65 Type 2 diabetes mellitus with hyperglycemia (principal); R93.5 Abnormal findings on diagnostic imaging of other abdominal regions, including retroperitoneum; Z94.0 Kidney transplant status; Z13.31 Encounter for screening for depression; Z13.39 Encounter for screening examination for other mental health and behavioral disorders
CPT/HCPCS: 36415; 80197; 96127; 99212

== ENCOUNTER 2024-09-15 13:41 | Outpatient (AMB) | payer MEDICARE, SELFPAY ==
--- NOTE | 2024-09-15 13:43 | A.OFFPC_ITS ---
Vital Signs 09/15/24 13:50 Height 4 ft 11 in Weight 147 lb BMI 29.7 BP 122/80 Blood Pressure Location Lt brachial Position Sitting Respiration 16 Pulse 82 Pulse Source Pulse Oximeter Temp 97.1 F Temp Source Temporal Artery Scan Pulse Oximetry (%) 97 Oxygen Delivery Method Room Air Intake Visit Reasons: Routine Program Checker Required: No Accompanied by: Self / Same As Patient Allergies bee pollen (BEE STINGS) Allergy (Intermediate, Verified 09/15/24 13:44) LOCALIZED SWELLING ibuprofen (From ADVIL) Allergy (Unknown, Verified 09/15/24 13:44) KIDNEY DISEASE Tobacco use date assessed: 07/07/24 Dental Screening Dental Screen Date: 07/07/24 HPI HPI Comments History of Present Illness Details The patient is a 69 year old male with a past medical history of ESRD,NIDDM, htn,hyperlipidemia, seizure disorder, GERD, ADD, presenting for follow up Diabetes-A1C 7.3 end of May, 7.7% august.. On metformin 1000mg twice daily. CV: Seeing [facility] -recent visit. On ASA, lipitor. Repeated falls lightheaded, dizziness. ESRD s/p renal transplant. following closely with nephrology.last nephrology note. There was a concern for complex cystic lesion on the allograft but had MRI in August 2023 which did not show any concern. Radiologist had recommended GI consult as well as MRCP in summer ( pancreas). GI referral previously placed-number provided to him today. He did not hear from them MSK: right hand pain-stable Old traumatic deformities, distal phalanx fourth digit and fifth metacarpal. Neuro: patient reported increased falls last visit. 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 There bifrontal bitemporal lobe atrophy.Meningoceles,Meckel's caves.Polypoid paranasal sinus disease.. He scheduled a neurology visit in [place]. Advised to get disc to bring to his visit. Difficulty sleeping. On trazodone 300mg daily ROS see HPI PHYSICAL EXAM: GENERAL: Alert and oriented x 3. NAD EYES: EOMI. Anicteric. HENT: Moist mucous membranes. No scleral icterus. No cervical lymphadenopathy. LUNGS: Clear to auscultation bilaterally. CARDIOVASCULAR: Regular rate and rhythm. No murmur. No JVD. ABDOMEN: Soft, non-tender +bs EXTREMITIES: No edema. Non-tender. SKIN: No rashes or lesions. Warm. NEUROLOGIC: No focal neurological deficits. CN II-XII grossly intact PSYCHIATRIC: Cooperative. Appropriate mood and affect [facility] Medical History Diverticulitis Normal colonoscopy Concussion Sleep apnea with use of continuous positive airway pressure (CPAP) Gout HTN (hypertension) Surgical History History of colonoscopy (~02/26/22) Kidney transplant status H/O knee surgery Hx of resection of large bowel Family History Mother No problems noted. Father No problems noted. Social History Housing: House Patient Tobacco Use Status: Never used Tobacco e-Cigarette/Vaping Use: Never Used service: No Current occupational status: retired Cognitive needs: No Hearing needs: No Vision needs: Yes (rx glasses) Questionnaire PHQ-9 Over the last 2 weeks, how often have you been bothered by any of the following problems? 1. Little interest or pleasure in doing things: not at all 2. Feeling down, depressed, or hopeless: not at all 3. Trouble falling or staying asleep, or sleeping too much: more than half the days 4. Feeling tired or having little energy: more than half the days 5. Poor appetite or overeating: not at all 6. Feeling bad about yourself - or that you are a failure or have let yourself or your family down: not at all 7. Trouble concentrating on things, such as reading the newspaper or watching television: not at all 8. Moving or speaking so slowly that other people could have noticed. Or the opposite - being so fidgety or restless that you have been moving around a lot more than usual: not at all 9. Thoughts that you would be better off or of hurting yourself in some way: not at all Total score: 4 Depression Screening Interpretation: Negative Depression Screening Done: Yes [id number] - PHQ-9 Billing: Yes Source: Developed by Drs. Faith Ying, Kenan Long and colleagues, with an educational hannah from [employer] Thrive Questionnaire Date Thrive assessed: 09/15/24 I am a: Patient What is your living situation today?: I have a steady place to live Within the past 12 months, did the food you bought not last and you didn't have the money to get more?: Never true Within the past 12 months, did you worry whether your food would run out before you got money to buy more?: Never true Do you have trouble paying for medicines?: No Do you have trouble getting transportation to medical appointments?: No Do you have trouble paying your heating and electricity bill?: No Do you have trouble taking care of your child, family member or friend?: No Do you have trouble with day-to-day activities such as bathing, preparing meals, shopping, managing finances, etc.?: No Are you currently unemployed and looking for a job?: No Are you interested in more education?: No THRIVE Score: 0 IAN-7 AMB Questionnaire IAN-7 Date IAN - 7 assessed: 09/15/24 Feeling nervous, anxious, or on edge: 0 = Not at all Not being able to stop or control worryin = Not at all Worrying too much about different things: 0 = Not at all Trouble relaxin = Not at all Being so restless that it is hard to sit still: 0 = Not at all Becoming easily annoyed or irritable: 0 = Not at all Feeling afraid as if something awful might happen: 0 = Not at all Total IAN-7 score (0-4 normal; 5-9 mild; 10-14 moderate; 15-21 severe): 0 Source: Developed by Drs. Gt Munoz, Faith Hubbard, eKnan Long and colleagues, with an educational hannah from [employer] Physical exam (Primary Care) Vital Signs: Last Vital Signs Temp 97.1 F 09/15/24 13:50 Pulse 82 09/15/24 13:50 Resp 16 09/15/24 13:50 BP 122/80 09/15/24 13:50 Pulse Ox 97 09/15/24 13:50 Oxygen Delivery Method Room Air 09/15/24 13:50 BMI result Body Mass Index 29.7 Tobacco/Smoking Status: Tobacco use Status Tobacco use date assessed 07/07/24 09/15/24 13:47 Patient Tobacco Use Status Never used Tobacco 09/15/24 13:47 e-Cigarette/Vaping Use Never Used 09/15/24 13:47 PHQ-9: PHQ-9 Score PHQ-9: Total score 4 09/18/24 20:56 Depression Screening Interpretation: Negative Thrive Assessment: Date of Thrive Assessment Date Thrive assessed 09/15/24 09/15/24 13:55 Coding Level of Care Code Est Pt Level 4 (47001) Diagnoses Type 2 diabetes mellitus with hyperglycemia, without long-term current use of insulin E11.65 Diabetes mellitus complication status: with hyperglycemia Diabetes mellitus fci insulin use: without fci use Diabetes mellitus type: type 2 Abnormal MRI of abdomen R93.5 Additional Codes PHQ-9 - 19393 - PHQ-9 Billing: Yes ([id number]) Assessment & Plan Assessment & Plan (1) Diabetes: Code(s): E11.9 - Type 2 diabetes mellitus without complications Category: Medical Qualifiers: Diabetes mellitus complication status: with hyperglycemia Diabetes mellitus fci insulin use: without fci use Diabetes mellitus type: type 2 Qualified Code(s): E11.65 - Type 2 diabetes mellitus with hyperglycemia (2) Abnormal MRI of abdomen: Code(s): R93.5 - Abnormal findings on diagnostic imaging of other abdominal regions, including retroperitoneum Category: Medical Plan 69 year old for follow up DM uncontrolled. start glipizide LE neuropathy, low back pain-ray ordered. refeirral to pain management Insomnia-failing trazodone at high dosage. zolpidem ordered. Orders: Orders Comprehensive Met. Panel 2 Months E11.65 - Type 2 diabetes mellitus with hyperglycemia XR lumbar spine 2-3V 09/15/24 M54.50 - Low back pain, unspecified Hemoglobin A1c 2 Months E11.65 - Type 2 diabetes mellitus with hyperglycemia Referrals Pain Management Referral M54.50 - Low back pain, unspecified Medications: New Contour Meter (blood-glucose meter) once daily 1 ea 3RF NS zolpidem (Ambien) 5 mg PO BEDTIME PRN 30 tabs 0RF sleep glipizide ER 5 mg PO BID 180 tabs 3RF
[2024-09-15 13:50] VITALS: BP 122/80; PULSE 82; RESP 16; TEMP 36.2; O2SAT 97; BMI 29.7
== END 2024-09-15 14:17 | disposition home or self-care (01) ==
LOC: HO.HMCHD 13:42
PROVIDERS: PCP Internal Medicine; Visit Provider Internal Medicine
DX: E11.65 Type 2 diabetes mellitus with hyperglycemia (principal); R93.5 Abnormal findings on diagnostic imaging of other abdominal regions, including retroperitoneum

== ENCOUNTER 2024-09-30 14:16 | Outpatient (AMB) | payer MEDICARE, SELFPAY ==
--- NOTE | 2024-09-30 14:18 | MHC.OFFVIS ---
Vital Signs 09/30/24 14:23 Height 4 ft 11 in Weight 146 lb 8 oz BMI 29.6 BP 138/75 Blood Pressure Location Rt brachial Position Sitting Pulse 61 Pulse Source Pulse Oximeter Pulse Oximetry (%) 97 Oxygen Delivery Method Room Air Intake Visit Reasons: Low back pain, unspecified Intake Note: Pain today 7 Family Sociologist Required: No Accompanied by: Self / Same As Patient Allergies bee pollen (BEE STINGS) Allergy (Intermediate, Verified 09/30/24 14:22) LOCALIZED SWELLING ibuprofen (From ADVIL) Allergy (Unknown, Verified 09/30/24 14:22) KIDNEY DISEASE HPI Comments Details: The patient is a 69-year-old male presenting with chronic lower back and right shoulder pain. The lower back pain began approximately 20 years ago following an incident where the patient twisted and fell off a truck. The pain is described as constant, throbbing, and aching, with a severity ranging from 7 to 9 out of 10 during the day, reducing to 3 out of 10 at night. The pain affects his sleep, preventing him from sleeping on his right side, and impacts his daily activities, including walking, standing, and performing house chores. He has undergone chiropractic manipulation therapy and used topical analgesics like Biofreeze with minimal relief. The patient also reports chronic right shoulder pain, which has been present for approximately 10 to 15 years. The shoulder pain is exacerbated by lifting and certain movements, and is associated with clicking sounds. He has not had recent imaging for the shoulder but has had chiropractic adjustments. The patient has a history of scoliosis and arthritis, as noted in a previous MRI conducted during a kidney evaluation. He has ESRD s/p kidney transplant in 2021 and is under the care of Dr. Barnes for Nephrology follow-up. The patient reports dizziness and double vision, which have been evaluated with a brain MRI showing fluid accumulation. He is awaiting a Neurology consultation in [place] due to long wait times locally. The patient has a history of diabetes mellitus with a recent A1C of 7.7 on 09/05/24, and he is scheduled for follow-up with Endocrinology. - Onset: 20 years ago for back pain, 10-15 years ago for shoulder pain - Quality: Constant, throbbing, aching, tight, radiating, tiring, pulsing - Severity: 7-9/10 during the day, 3/10 at night - Location: Lower back, right shoulder - Radiation: Pain radiates to the legs - Exacerbating factors: Movement, lifting, standing, walking - Relieving factors: Rest, lying down, Biofreeze - Interference: Affects sleep, daily activities, house chores - Affect: Pain impacts sleep and daily activities, causing fatigue - Analgesia: Uses Biofreeze with minimal relief, unable to take NSAIDs or acetaminophen (h/o renal transplant) - Adverse Effects: None reported from current pain management - Activities of Daily Living: Pain limits walking, standing, and house chores - Aberrant Drug Related Behaviors: None reported Oswestry Low Back Pain Disability Score=19 [facility] Medical History Diverticulitis Normal colonoscopy Concussion Sleep apnea with use of continuous positive airway pressure (CPAP) Gout HTN (hypertension) Surgical History History of colonoscopy (~02/26/22) Kidney transplant status H/O knee surgery Hx of resection of large bowel Family History Mother No problems noted. Father No problems noted. Social History Housing: House Patient Tobacco Use Status: Never used Tobacco e-Cigarette/Vaping Use: Never Used service: No Current occupational status: retired Cognitive needs: No Hearing needs: No Vision needs: Yes (rx glasses) Review of Systems Const Details: - Musculoskeletal: Reports chronic lower back and right shoulder pain - Neurological: Reports dizziness and double vision; denies bladder or bowel dysfunction or saddle anesthesia, weakness, foot drop - Endocrine: Reports diabetes mellitus with A1c of 7.7 - General: Denies recent falls, reports good balance All systems reviewed & are unremarkable except as noted in HPI and below Physical Exam Vital Signs: Last Vital Signs Pulse 61 09/30/24 14:23 BP 138/75 09/30/24 14:23 Pulse Ox 97 09/30/24 14:23 Oxygen Delivery Method Room Air 09/30/24 14:23 BMI result Body Mass Index 29.6 General: Appears afebrile. Alert and oriented. Mood and affect appropriate. Follows and participates in conversation appropriately. Respiratory effort is unlabored. No cough. Able to transition from sit to stand unassisted. Ambulates with bilaterally normal heel strike and toe off. General: Yes no CVA tenderness Back/Spine/Pelvis Other: Limited lumbar ROM due to pain. Lumbar extension reproduces mild to moderate pain, lumbar flexion and bending is intact, reproduces mild pain. Demonstrates 5/5 strength of quadriceps bilaterally as well as flexion/dorsiflexion of bilateral feet against resistance. 2+ pedal pulses bilaterally. Straight leg rise with dorsiflexion negative bilaterally. +2 patellar and +1 achilles reflexes bilaterally. Facet loading test positive bilaterally. Jaclyn sign, Conner?s and Stinchfield tests are negative bilaterally. No groin pain with I/E hip rotations. Valsalva maneuver negative. Back: no CVA tenderness Cervical Spine: cervical ROM normal, cervical muscular tenderness and No Cervical spine tenderness Thoracic/Lumbar Spine: thoracic and lumbar spine normal to inspection, No Thoracic/lumbar spine scar(s), Lasegue's sign negative, straight leg raise negative bilaterally, pain with thoraco-lumbar ROM, paraspinal muscle tenderness, thoraco-lumbar ROM limited, Thoracic/lumbar scoliosis, No thoracic spinal tenderness and lumbar spinal tenderness at L4 and at L5 Sacroiliac joints: bilaterally tender to palpation Extrem General: Yes capillary refill normal, Yes no clubbing, cyanosis or edema and Yes no calf tenderness Right upper extremity: shoulder/upper arm Details: normal to inspection, tenderness Location: of the A-C joint and over the subacromial bursa, normal ROM and crepitus; no swelling, no ecchymosis, no deformity and no unusual warmth Results Reviewed Results Reviewed: X-RAY LUMBAR SPINE 2-3 VIEWS 01/01/2018 HISTORY: Back pain, initial encounter. COMPARISON: None. TECHNIQUE: AP, lateral and coned down lateral views of the lumbar spine were obtained. FINDINGS: There is marked rotoscoliosis of the lumbar spine convex left. There is marked disc space narrowing and endplate degenerative spur formation at L2-3 and L3-4 and milder disc space narrowing and degenerative change at L4-5. There is marked degenerative facet arthropathy lower lumbar spine. There is moderate compression deformity of the T12 and L1 vertebral bodies probably old. There are surgical clips in the pelvis anteriorly. There is fecal material throughout the colon. IMPRESSION: 1. Marked rotoscoliosis of the lumbar spine convex left with extensive multilevel degenerative disc disease and degenerative facet arthropathy. 2. Moderate compression deformity of the T12 and the L1 vertebral body probably old. 3. Constipation. X-RAY THORACIC SPINE TWO VIEWS 01/01/2018 HISTORY: Mid back pain, initial encounter. COMPARISON: None. TECHNIQUE: AP and lateral views of the thoracic spine were obtained. FINDINGS: There is moderate thoracic scoliosis convex right. There is moderate compression deformity of the T11 and T12 vertebral bodies of indeterminate age. Discs are of normal height. There is mild endplate degenerative spur formation. Heart size is prominent but incompletely imaged. Aorta appears tortuous and ectatic. There is abnormal soft tissue density in the superior mediastinum bilaterally. Most likely this is related to tortuous ectatic vascular structures or perhaps a substernal thyroid. Less likely this represents a soft tissue mass. IMPRESSION: 1. Moderate thoracic scoliosis convex right. 2. Moderate compression deformity of the T11 and T12 vertebral bodies of indeterminate age. Recommend clinical correlation and further evaluation with MRI if indicated. 3. Tortuosity and ectasia of the thoracic aorta. There is also abnormal soft tissue density in the superior mediastinum which could be due to ectatic vascular structures or a substernal thyroid. However mass lesion is not excluded. Recommend contrast-enhanced CT scan of the chest to further assess. X-RAY CERVICAL SPINE 2-3 VIEWS 01/01/2018 HISTORY: Neck pain initial encounter COMPARISON: None. TECHNIQUE: AP, lateral and odontoid views of the cervical spine were obtained. FINDINGS: There is straightening and reversal of of the normal lordosis of the cervical spine. There is mild retrolisthesis with marked disc space narrowing and spur formation at C5-6 and mild disc space narrowing spur formation at C6-7. Prevertebral soft tissues appear normal. Of note is increased soft tissue prominence in the paramediastinal soft tissues. There is addressed on the thoracic spine report. IMPRESSION: 1. Cervical spondylosis with degenerative disc disease at the C5-6 and C6-7 levels. 2. Probable cervical muscle spasm. Assessment & Plan Assessment & Plan (1) Right shoulder pain: Code(s): M25.511 - Pain in right shoulder Category: Medical (2) Low back pain: Code(s): M54.50 - Low back pain, unspecified Category: Medical (3) Lumbar spondylosis: Code(s): M47.816 - Spondylosis without myelopathy or radiculopathy, lumbar region Category: Medical (4) Lumbar degenerative disc disease: Code(s): M51.369 - Other intervertebral disc degeneration, lumbar region without mention of lumbar back pain or lower extremity pain Category: Medical Plan The plan includes updating the patient's shoulder and back x-rays to assess the current status of degree of arthritis and degenerative changes. Physical therapy is recommended to improve strength and mobility, with the option to explore therapeutic injections if necessary. We discussed interventional treatments including diagnostic vs therapeutic injections for potential RFA, Sprint PNS trial or therapeutic injections. Informational pamphlets were provided to patient. Continue daily physical activity as tolerated, healthy well balanced diet, adequate hydration, good posture and weight optimization. All questions and concerns have been answered and patient agreed with the plan. Follow up after PT/xray results and sooner as needed. Patient was informed and verbally consented to the use of an ambient scribe for clinic note documentation during this visit. Orders: Orders XR shoulder RT min 2V Today M25.511 - Pain in right shoulder XR lumbar spine 4V min Today M47.816 - Spondylosis without myelopathy or radiculopathy, lumbar region, M51.369 - Other intervertebral disc degeneration, lumbar region without mention of lumbar back pain or lower extremity pain, M54.50 - Low back pain, unspecified PT Evaluation and Treatment Today M25.511 - Pain in right shoulder, M47.816 - Spondylosis without myelopathy or radiculopathy, lumbar region, M51.369 - Other intervertebral disc degeneration, lumbar region without mention of lumbar back pain or lower extremity pain, M54.50 - Low back pain, unspecified Coding Level of Care Code New Pt Level 4 (84458) Diagnoses Right shoulder pain M25.511 Low back pain M54.50 Lumbar spondylosis M47.816 Lumbar degenerative disc disease M51.369
--- OUTSIDE RECORDS SUMMARY | 2024-09-30 14:18 | XMS_ITS | Patient Health Record ---
Author Organization [facility] Address [address] [place] [address] Care Team Providers Care Program Admin Name Role Phone Vale Finney M.D. Primary Care Provider Unavail able Gt Mccullough Unavailable [phone] Allergies No Known Allergies Reason For Referral [...] Problem Screening for malignant neoplasm of colon (985180643) Encounter for screening for malignant neoplasm of colon (Z12.11) Active confirmed Problem Identification of preoperative respiratory status (478162729) Encounter for preprocedural respiratory examination (Z01.811) Active confirmed Problem Dysphagia (R13.10) Active confirmed Problem Diverticulosis of colon (953155787) Diverticulosis of colon (K57.30) Active confirmed Problem 009115160 Black stool (K92.1) Active confirmed Plan Of Treatment Pending Test Test Name Order Date ELECTROLYTES 04/23/2022 BUN 04/23/2022 CBC w DIFF 04/23/2022 Future Test Test Name Order Date COLONOSCOPY 04/15/2011 COLONOSCOPY 09/04/2021 Next Appt Details Provider Name:Gt Mccullough , 10/20/2024 11:00:00 AM, [address] [place] [address], [address], [place], [address], Insurance Providers Payer Name Payer Address Payer Phone Subscriber Number Group Number Insured Name Patient Relationship to Insured Coverage Start Date Coverage End Date [facility] [address] [address] [place] [address] [id number] PEGGY REYNOLDS Self - patient is the [...]
--- OUTSIDE RECORDS SUMMARY | 2024-09-30 14:18 | XMS_ITS | Clinical Summary ---
Author Organization [facility] Address [address] [place] [address] Care Team Providers Care Salon Assistant Name Role Phone Jose Alfredo Ross MD Primary Care Provider [phone] Social History Tobacco Use Types Packs/Day Years [...] patient's age to complete this topic Insurance [facility] A & B [facility] MEDIC[facility] Care Teams Salon Assistant Relationship Specialty Start Date End Date Jose Alfredo Ross MD [address] [place] [address] [place] [address] PCP - General 02/12/22
--- OUTSIDE RECORDS SUMMARY | 2024-09-30 14:18 | XMS_ITS | Encounter Summary ---
Author Organization [facility] Address [address] [facility] [address] [place] [address] Phone Care Team Providers Care Wood Tank Erector Name Role Phone Jose Alfredo Ross MD Primary Care Provider [phone] Reason for Visit * Reason Comments Med Refill Encounter Details Date Type Department Care Team (Late st Contact Info) Description 12/15/2022 Refill [facility] [address] [place] [id number] Gus Jimenez MD Social History Tobacco Use [...] on filedocumented in this encounter Care Teams Wood Tank Erector Relationship Specialty Start Date End Date Jose Alfredo Ross MD [address] [place] [address] [address] [place] PCP - General Internal Medicine 08/19/23 documented as of this encounter
[2024-09-30 14:23] VITALS: BP 138/75; PULSE 61; O2SAT 97; BMI 29.6
== END 2024-09-30 14:57 | disposition home or self-care (01) ==
LOC: HO.PMC 14:16
PROVIDERS: PCP Internal Medicine; Visit Provider Nurse Practitioner Family
DX: M25.511 Pain in right shoulder (principal); M54.50 Low back pain, unspecified; M47.816 Spondylosis without myelopathy or radiculopathy, lumbar region; M51.369 Other intervertebral disc degeneration, lumbar region without mention of lumbar back pain or lower extremity pain
CPT/HCPCS: 99204

== ENCOUNTER 2024-09-30 14:16 | Outpatient (REF) | payer MEDICARE, SELFPAY ==
--- NOTE | ~2024-09-30 | XR_ITS ---
EXAMINATION: XR SHOULDER, RIGHT CLINICAL INFORMATION: M25.511 - Pain in right shoulder COMPARISON: None available. TECHNIQUE: AP external rotation, Grashey, scapular Y, and axillary views of the right shoulder. FINDINGS: Normal bone mineralization. No fracture, dislocation, or suspicious bone lesion. Normal alignment. The glenohumeral joint demonstrates mild degenerative arthritis. The AC joint demonstrates mild degenerative spurring. There is a type II acromion. No undersurface spurring. The subacromial space is preserved. Remainder of the soft tissue and bony structures appear normal. XR/XR shoulder RT min 2V IMPRESSION: 1. No acute bony abnormalities of the right shoulder. 2. Mild degenerative arthritis in the glenohumeral joint and AC joint. Electronically signed by: Anselmo Flynn MD 09/30/2024 03:46 PM EDT
--- NOTE | ~2024-09-30 | XR_ITS ---
EXAMINATION: XR LUMBOSACRAL SPINE CLINICAL INFORMATION: M54.50 - Low back pain, unspecified COMPARISON: 07/18/2013. TECHNIQUE: 5 views of the lumbar spine, inclusive of bilateral oblique views, were obtained. FINDINGS: There is a mild levoconvex scoliosis, apex at L2-3. There is straightening of the normal lordosis. There is chronic mild wedging of T12 and L1 . No acute fractures are evident. No subluxations are present. Severe disc degeneration present at L2-L5, worst at L2-3 and L3-4. Sclerosis of the endplates at L2-3 and L3-4. Disc vacuum phenomenon at L3-4. Facets are normally aligned. There are no pars defects. There are degenerative facet changes present most notable L3-S1. There are vascular calcifications in the soft tissues. There are surgical clips in the pelvis. XR/XR lumbar spine 4V min IMPRESSION: 1. No acute bony abnormalities. 2. Mild levoconvex scoliosis and advanced multilevel lumbar spondylosis. 3. Chronic wedging of T12 and L1 vertebral bodies. Electronically signed by: Anselmo Flynn MD 09/30/2024 03:50 PM EDT
== END 2024-09-30 14:17 | disposition home or self-care (01) ==
LOC: HO.XRAY 14:16
PROVIDERS: PCP Internal Medicine; Visit Provider Nurse Practitioner Family
DX: M51.362 Other intervertebral disc degeneration, lumbar region with discogenic back pain and lower extremity pain (principal); M47.816 Spondylosis without myelopathy or radiculopathy, lumbar region; G89.29 Other chronic pain; M25.511 Pain in right shoulder; M54.50 Low back pain, unspecified
CPT/HCPCS: 72110; 73030; 99202

== ENCOUNTER → 2024-09-30 15:05 | Outpatient (BNV) | payer MEDICARE, SELFPAY | PROVIDERS: PCP Internal Medicine; Visit Provider Radiology Diagnostic Radiology | DX: M54.50 Low back pain, unspecified (principal); M19.011 Primary osteoarthritis, right shoulder | CPT/HCPCS: 72110; 73030 ==

== ENCOUNTER 2024-10-17 11:10 | Outpatient (REF) | payer MEDICARE, SELFPAY ==
--- OUTSIDE RECORDS SUMMARY | 2024-10-17 12:24 | XMS_ITS | Encounter Summary ---
Author Organization [facility] Address [address] [facility] [address] [place] [address] Phone Care Team Providers Care Private Branch Exchange Service Adviser Name Role Phone Jose Alfredo Ross MD Primary Care Provider [phone] Reason for Visit * Reason Comments Med Refill Encounter Details Date Type Department Care Team (Late st Contact Info) Description 12/15/2022 Refill [facility] [address] [place] [phone] Gus Jimenez MD Social History Tobacco Use [...] on filedocumented in this encounter Care Teams Private Branch Exchange Service Adviser Relationship Specialty Start Date End Date Jose Alfredo Ross MD [address] [place] [address] [address] [place] PCP - General Internal Medicine 08/19/23 documented as of this encounter
--- OUTSIDE RECORDS SUMMARY | 2024-10-17 12:24 | XMS_ITS | Patient Health Record ---
Author Organization [facility] Address [address] [place] [address] Care Team Providers Care Senior Electrical Controls Engineer Name Role Phone Vale Finney M.D. Primary Care Provider Unavail able Gt Mccullough Unavailable [phone] Allergies No Known Allergies Reason For Referral [...] Problem Screening for malignant neoplasm of colon (000796278) Encounter for screening for malignant neoplasm of colon (Z12.11) Active confirmed Problem Identification of preoperative respiratory status (493422006) Encounter for preprocedural respiratory examination (Z01.811) Active confirmed Problem Dysphagia (02848190) Dysphagia (R13.10) Active confirmed Problem Diverticulosis o f colon (K57.30) Active confirmed Problem 725491424 Black stool (K92.1) Active confirmed Plan Of Treatment Pending Test Test Name Order Date ELECTROLYTES 04/23/2022 BUN 04/23/2022 CBC w DIFF 04/23/2022 Future Test Test Name Order Date COLONOSCOPY 04/15/2011 COLONOSCOPY 09/04/2021 Next Appt Details Provider Name:Gt Mccullough , 10/20/2024 11:00:00 AM, [address] [place] [address], [address], [place], [address], Insurance Providers Payer Name Payer Address Payer Phone Subscriber Number Group Number Insured Name Patient Relationship to Insured Coverage Start Date Coverage End Date [facility] [address] [address] [place] [address] [id number] PEGGY REYNOLDS Self - patient is the insured Medical (General) History Medical History History ICD Code HTN Gout Sleep apnea-uses a CPAP machine Denies [place],DM,CVA,Lung disease 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
--- OUTSIDE RECORDS SUMMARY | 2024-10-17 12:24 | XMS_ITS | Clinical Summary ---
Author Organization [facility] Address [address] [place] [address] Care Team Providers Care Rivet Thrower Name Role Phone Jose Alfredo Ross MD Primary Care Provider [phone] Social History Tobacco Use Types Packs/Day Years [...] patient's age to complete this topic Insurance [facility] [place] [facility] [place] A & B [facility] MED[facility] Care Teams Rivet Thrower Relationship Specialty Start Date End Date Jose Alfredo Ross MD [address] [place] [address] [place] [address] PCP - General 02/12/22
--- OUTSIDE RECORDS SUMMARY | 2024-10-17 12:24 | XMS_ITS | Encounter Summary ---
Author Organization [facility] Address [address] [facility] [address] [place] [address] Phone Care Team Providers Care Day Care Assistant Name Role Phone Jose Alfredo Ross MD Primary Care Provider Vale Simons MD Primary Care Provider [phone] Encounter Details Date Type Department Care Team (Late st Contact Info) Description 11/12/2017 Procedure Pass [facility] [address] [place] [address] Social History Tobacco Use Types Packs/Day Years Used Date Smoking Tobacco: Never Assessed Sex and Gender Information Value Date Recorded Sex Assigned at Male 07/21/2024 3:39 PM EDT Legal Sex Male 9:34 AM EST Gender Identity Male 07/21/2024 3:39 PM EDT Sexual Orientation Straight 07/21/2024 3: 39 PM EDT documented as of this encounter Plan of Treatment Upcoming Encounters Date Type Department Care Team (Late st Contact Info) Description 01/30/2025 3:00 PM EST Office Visit [facility] Neurology at [place] [id number] [address] Shana Woods PA-C [address] [place] [address] [email or web address] documented as of this encounter Visit Diagnoses Not on filedocumented in this encounter Care Teams Day Care Assistant Relationship Specialty Start Date End Date Jose Alfredo Ross MD [address] [place] [address] [place] [address] PCP - General Internal Medicine 04/29/17 07/20/24 Vale Simons MD [address] [place] [address] Dr [place], [place] [address] PCP - General Internal Medicine 07/21/24 documented as of this encounter Additional Source Comments The information contained in this document represents components of the legal health record. It is not the complete legal health record.[facility]
[2024-10-18 13:08] LABS: Tacrolimus Prograf 7.6 mcg/L
== END 2024-10-17 11:11 | disposition home or self-care (01) ==
LOC: HO.LAB 11:10
PROVIDERS: Visit Provider Internal Medicine Nephrology
DX: Z94.0 Kidney transplant status (principal)
CPT/HCPCS: 36415; 80197

== ENCOUNTER 2024-12-13 11:21 | Outpatient (REF) | payer MEDICARE, SELFPAY ==
--- OUTSIDE RECORDS SUMMARY | 2024-10-20 07:00 | XMS_ITS ---
Author Organization [facility] Address [address] [place] [address] Care Team Providers Care Shearer Screen Measurer And Trimmer Name Role Phone Vale Finney M.D. Primary Care Provider Unavail able Gt Mccullough Unavailable [phone] Allergies No Known Allergies REASON FOR VISIT [...] Problem History of adenomatous polyp of colon (189390381) History of adenomatous polyp of colon (Z86.0101) Active confirmed Problem Cyst and pseudocyst of pancreas (573848692) Pancreas cyst (K86.2) Active confirmed Problem Neoplasm of digestive system (675596122) IPMN (intraductal papillary mucinous neoplasm) (D49.0) Active confirmed Vital Signs Blood pressure systolic 111 mm Hg 10/21/19 25 Blood pressure diastolic 77 mm Hg 025 Height 60.50 in 10/20/2024 Weight 150 lbs 10/20/2024 BMI 28.81 kg/m2 10/20/2024 Encounters Encounter Location Date Provider Diagnosis [facility] [address] [place] [address] 10/20/2024 Gt Mccullough Encounter for screening for [...] Notes * PEGGY REYNOLDSDOB:1955 (69 yo M)Acc No.[id number]:10/20/2024 Progress Notes Patient: PEGGY HUSAIN Provider: Gt Mccullough MD :1955 A ge:69 Y S ex:Male Date:10/20/2024 Address:[address] [place], [place] [id number] Pcp:Vale Finney M.D. Subjective: * Chief Complaints: * 1 . Patient presents today for ? pt needs MRCP of the Pancreas. * Medical History: H [place], Gout, Sleep apnea-uses a CPAP machine, Denies GA,DM,CVA,Lung disease, CRF due to HTN with a [...] M arital status: . Occupation: Works at [employer]/ retired. N o smoking, denies sig. alcohol. [...] Follow-up G iving encouragement to exercise, B GA management provided Y dianne. Screenings: F all [...] 0 10/20/2024 Generated for Prashanth hamm/Karin/Charlyitting on: 01:49 PM EDT
[2024-12-13 11:41] LABS: MANUAL DIFF FLAG NO
[2024-12-13 12:12] LABS: Hematocrit 44.9 % (42.0-52.0); Hemoglobin 14.5 g/dl (14.0-18.0); Imm Gran Abs Auto 0.01 X10*3/uL (0.00-0.03); Imm Gran Pct Auto 0.2 % (0.0-0.4); Lymphocytes Absolute Auto 0.6 X10*3/uL (1.2-4.9); Mean Corpuscular HGB Conc 32.3 g/dl (31.0-36.0); Mean Corpuscular Hemoglobin 31.7 pg (27.0-33.0); Mean Corpuscular Volume 98.0 fL (80.0-98.0); NRBC Abs Auto 0.000 X10*3/uL (0.0-0.012); NRBC Pct Auto 0.0 /100WBC (0.0-0.2); Platelet Count 133 X10*3/uL (160-400); Red Blood Count 4.58 X10*6/uL (4.60-5.80); White Blood Count 4.0 X10*3/uL (4.8-10.8)
[2024-12-13 12:45] LABS: Parathyroid Hormone Intact 159.2 pg/mL (8.7-77.1)
[2024-12-13 12:47] LABS: Anion Gap 13 (12-20); Blood Urea Nitrogen 10 mg/dL (9-16); Calcium 8.5 mg/dL (8.4-10.2); Carbon Dioxide 25 mmol/L (22-29); Chloride 112 mmol/L (96-108); Estimated Glomerular Filt Rate 60; Magnesium 2.0 mg/dL (1.6-2.6); Potassium 5.0 mmol/L (3.3-5.1); Sodium 145 mmol/L (135-145)
--- OUTSIDE RECORDS SUMMARY | 2024-12-13 13:49 | XMS_ITS | Clinical Summary ---
Author Organization [facility] Address [address] [place] [address] Care Team Providers Care Manager Strategic Marketing Name Role Phone Jose Alfredo Ross MD Primary Care Provider [phone] Social History Tobacco Use Types Packs/Day Years Used Date Smoking Tobacco: Never Assessed Sex and Gender Information Value Date Recorded Sex Assigned at Not on file Legal Sex Male 6:16 PM EST Gender Identity Not on file Sexual Orientation Not on file Plan of Treatment Health Maintenance Due Date Last Done Comments Advance Care Planning 1955 Hepatitis C Virus Screening 1955 DTaP/Tdap/Td Vaccines (1 - Tdap) 06/25/1975 Colonoscopy 2001 Pneumococcal Vaccines 50+ (1 of 1 - PCV) 2006 Zoster (Shingles) Vaccine (1 of 2) 2006 Influenza Vaccine 09/30/2024 COVID-19 Vaccine (3 - 2024-2 6 season) 2024 08/10/2020, 07/20/2020 RSV Vaccine 60 years and older and Patients (1 - 1-dose 75+ series) 06/25/2031 Hepatitis B Vaccines Aged Out No long er eligible based on patient's age to complete this topic Insurance [facility] PART A & B [facility] MEDICARE Care Teams Manager Strategic Marketing Relationship Specialty Start Date End Date Jose Alfredo Ross MD [address] [place] [address] [place] [address] PCP - General 02/12/22
--- OUTSIDE RECORDS SUMMARY | 2024-12-13 13:49 | XMS_ITS | Patient Health Record ---
Author Organization [facility] Address [address] [place] [address] Care Team Providers Care Manager Truck Name Role Phone Vale Finney M.D. Primary Care Provider Unavail able Gt Mccullough Unavailable [phone] Allergies No Known Allergies Reason For Referral No Information Medications Medication SIG (Take, Route, Frequency, Duration) Notes Start Date End Date Status metFORMIN HCl 500 MG 2 tablets Orally tw ice a day Active LORazepam Active traZODone HCl 300 MG Oral; Duration: 90 Active Atorvastatin Calcium 20 MG Oral; Duration: 90 Active Mycophenolate Mofetil Active Magnesium 300 MG 1 capsule with a narinder l Orally Once a day; Duration: 30 day(s) Active Envarsus XR 1 MG Oral; Duration: 30 Tacrolimus Active Immunizations Vaccine Route Administration Date Status Comme nts Influenza Unknown 11/30/2020 Administered Social History Alcohol Screen Question Answer Notes Did you have a drink containing alcohol in the p ast year? No Points 0 Interpretation Negative Section Notes: No smoking, denies sig. alco hol No smoking, denies sig. alco hol No smoking, denies sig. 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) Active confirmed Problem Hematochezia (089890631) Black stool (K92.1) Active confirmed Problem History of adenomatous polyp of colon (208937471) History of adenomatous polyp of colon (Z86.0101) Active confirmed Vital Signs Blood pressure diastolic 77 mm Hg 10/20/2024 Height 60.50 in 10/20/2024 Blood pressure systolic 111 mm Hg 10/20/2024 Weight 150 lbs 10/20/2024 BMI 28.81 kg/m2 10/20/2024 Encounters Encounter Location Date Provider Diagnosis [facility] [address] [place] [address] 10/20/2024 Gt Mccullough Encounter for screening for malignant neoplasm of colon Z12.11 ; History of adenomatous polyp of colon Z86.0101 ; Pancreas cyst K86.2 and IPMN (intraductal papillary mucinous neoplasm) D49.0 [facility] [address] [place] [address] 11/28/2024 Gt Mccullough [facility] [address] [place] [phone] 11/30/2024 Gt Mccullough Assessments Encounter Date Diagnosis (ICD Code) Assessment [...] advised of his progress. Plan Of Treatment Pending Test Test Name Order Date ELECTROLYTES 04/23/2022 BUN 10/20/2024 BUN 04/23/2022 CBC w DIFF 04/23/2022 CA 19-9 10/20/2024 MRI ABD W&WO CONTRAST 10/20/2024 Creatinine 10/20/2024 Amylase 10/20/2024 Lipase 10/20/2024 Future Test Test Name Order Date COLONOSCOPY 04/15/2011 COLONOSCOPY 09/04/2021 Insurance Providers Payer Name Payer Address Payer Phone Subscriber Number Group Number Insured Name Patient Relationship to Insured Coverage Start Date Coverage End Date [facility] [address] [address] [place] [address] [id number] PEGGY REYNOLDS Self - patient is the insured Medical (General) History Medical History History ICD Code HTN Gout Sleep apnea-uses a CPAP machine Denies [place],DM,CVA,Lung disease 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
--- OUTSIDE RECORDS SUMMARY | 2024-12-13 13:49 | XMS_ITS | Encounter Summary ---
Author Organization [facility] Address [address] [place] [address] Phone Care Team Providers Care Brimming Machine Operator Name Role Phone Jose Alfredo Ross MD Primary Care Provider Vale Simons MD Primary Care Provider [phone] Encounter Details Date Type Department Care Team (Late st Contact Info) Description 12/10/2023 Telephone [facility] Urology [address] [facility] [place] [address] Reid Wilcox MD [address] [facility] [address] [place] [address] [email or web address] Social History Tobacco Use Types Packs/Day Years Used Date Smoking Tobacco: Never Smokeless Tobacco: Never Education Answer Date Recorded Are you interested in more education? Not on therese e 06/27/2022 Are you concerned about learning? Not on file 06/27/2022 No 06/27/2022 No 06/27/2022 Digital Access Answer Date Recorded No 07/26/2022 No 07/26/2022 No 07/26/2022 Reliable internet access at home? Not on file 07/26/2022 Device with a working camera? Not on file Sex and Gender Information Value Date Recorded Sex Assigned at Male 07/21/2024 3:39 PM EDT Legal Sex Male 9:34 AM EST Gender Identity Male 07/21/2024 3:39 PM EDT Sexual Orientation Straight 07/21/2024 3: 39 PM EDT documented as of this encounter Plan of Treatment Upcoming Encounters Date Type Department Care Team (Late st Contact Info) Description 01/30/2025 3:00 PM EST Office Visit [facility] Neurology at [place] [address] [place] [address] Shana Woods PA-C [address] [place] [address] [email or web address] documented as of this encounter Visit Diagnoses Not on filedocumented in this encounter Care Teams Brimming Machine Operator Relationship Specialty Start Date End Date Jose Alfredo Ross MD [address] [place] [address] [place] [address] PCP - General Internal Medicine 04/29/17 07/20/24 Vale Simons MD [address] [place] [address] [place] [address] PCP - General Internal Medicine 07/21/24 documented as of this encounter Additional Source Comments The information contained in this document represents components of the legal health record. It is not the complete legal health record.[facility]
--- OUTSIDE RECORDS SUMMARY | 2024-12-13 13:49 | XMS_ITS | Clinical Summary ---
Author Organization [facility] [facility] Address [address] [place] [address] Phone Care Team Providers Care Screwhead Polisher Name Role Phone Vale Simons MD Primary Care Provider Allergies No known active allergies Medications hydrALAZINE (APRESOLINE) 50 MG tablet Take 50 mg by mouth 3 (three) times a day. Active enalapril (VASOTEC) 20 MG tablet Take 20 mg by mouth daily. Active ALPRAZolam (XANAX) 0.25 MG tablet Take 0.25 mg by mouth nightly as needed for sleep. Active allopurinol (ZYLOPRIM) 100 MG tablet Take 100 mg by mouth daily. Take 1.5 tablets (150mg total) daily Active amLODIPine (NORVASC) 10 MG tablet Take 10 mg by mouth daily. Active traZODone (DESYREL) 100 MG tablet Take 100 mg by mouth nightly. Take 4 tablets (400 mg total) nightly Active levETIRAcetam (KEPPRA) 500 MG tablet Take 500 mg by mouth nightly. Take 3 tablets (1500mg total) nightly Active OXcarbazepine (TRILEPTAL) 600 MG tablet Take 600 mg by mouth 2 (two) times a day. Active tamsulosin (FLOMAX) 0.4 mg Cap Take 0.4 mg by mouth nightly. Active cloNIDine (AQIPHLHB-MYQ-4) 0.1 mg/[address] 1 patch onto the skin once a week. Active bumetanide (BUMEX) 0.5 MG tablet Take 0.5 mg by mouth daily. Active finasteride (PROSCAR) 5 mg tablet Take 5 mg by mouth daily. Active calcitriol (ROCALTROL) 0.25 MCG capsule Take 0.25 mcg by mouth every other day. Active aspirin [address] 325 mg rectally every 6 (six) hours as needed for fever. Active omega 2-gsy-fcp-fish oil 1,000 mg (120 mg-180 mg) Cap Take 1 capsule by mouth daily. Active MULTIVITAMIN ORAL Take by mouth. Active cholecalciferol (VITAMIN D3) 1,000 unit tablet Take 1,000 Units by mouth daily. Active cyanocobalamin (VIT B-12) 1000 MCG tablet Take 100 mcg by mouth daily. Active ascorbic acid, vitamin C, (VITAMIN C) 250 MG tablet Take 250 mg by mouth daily. Active cloNIDine HCl (CATAPRES) 0.1 MG tablet Take 0.1 mg by mouth nightly. Active Social History Tobacco Use Types Packs/Day Years [...] Orientation Straight 07/21/2024 3: 39 PM EDT Last Filed Vital Signs Vital Sign Reading Time Taken Comments Blood Pressure 144/75 02/01/2018 12:54 PM EST Pulse 58 02/01/2018 12:54 PM EST Temperature 36.7 C (98.1 F) 02/01/2018 12:54 PM EST Respiratory Rate - - Oxygen Saturation 96% 02/01/2018 12:54 PM EST Inhaled Oxygen Concentration - - Weight 74.6 kg (164 lb 6.4 oz) 02/01/2018 12:54 PM EST Height 150.5 cm (4' 11.25 ) 02/01/2018 12:54 PM EST Body Mass Index 32.93 02/01/2018 12:54 PM EST Plan of Treatment Upcoming Encounters Date Type Department Care Team (Late st Contact Info) Description 01/30/2025 3:00 PM EST Office Visit [facility] Neurology at [place] [address] [facility] [address] [place] [address] Shana Woods PA-C [address] [place] [address] [email or web address] Health Maintenance Due Date Last Done Comments LIPID PANEL 1956 DEPRESSION SCREENING 1968 HEPATITIS C SCREENING 1974 COLOGUARD 2001 COLONOSCOPY 2001 COLORECTAL CANCER SCREENING 2001 FIT TEST 2001 FOBT 2001 SIGMOIDOSCOPY 2001 VIRTUAL COLONOSCOPY 2001 PNEUMOCOCCAL VACCINES (50+ years) (1 of 1 - PCV) 2006 ZOSTER VACCINES (1 of 2) 2006 CREATININE LEVEL 11/04/2018 11/04/2017 POTASSIUM LEVEL 11/04/2018 11/04/2017 INFLUENZA VACCINE (#1) 2024 COVID-19 VACCINE (2024-2 6 season) 2024 11/23/2020, 08/10/2020, 07/20/2020 Adult Td,Tdap Booster 09/24/2028 09/24/2018 RSV VACCINE (1 - 1-dose 75+ series) 06/25/2031 SMOKING STATUS SCREENING (On ce After 26 Yrs) Completed 02/01/2018 HEPATITIS A VACCINES Aged Out No long er eligible based on patient's age to complete this topic HIB VACCINES Aged Out No longer eligi ble based on patient's age to complete this topic MENINGOCOCCAL VACCINES (ACWY) Aged Out No longer eligible based on patient's age to complete this topic MENINGOCOCCAL VACCINES (B) Aged Out N o longer eligible based on patient's age to complete this topic Medical Devices Not on file Procedures Procedure Name Priority Date/Time Associated Diagnosis Comments COMPREHENSIVE METABOLIC PANEL Routine 11/04/2017 9:50 AM EDT Cognitive and behavioral changes from Last 3 Months or Most Recently Relevant to Health Maintenance Results * (ABNORMAL) Comprehensive metabolic panel (11/04/2017 9:50 AM EDT) SODIUM 139 135 - 145 mmol/L [facility] POTASSIUM 3.9 3.4 - 5.0 mmol/L [facility] CHLORIDE 102 98 - 108 mmol/L [facility] CO2 24 23 - 32 mmol/L [facility] BUN 35(H) 8 - 25 mg/dL [facility] CREATININE 2.74(H) 0.60 - 1.50 mg/dL [facility] GLUCOSE 126(H) 70 - 110 mg/dL [facility] ALBUMIN 4.0 3.3 - 5.0 g/dL [facility] TOTAL PROTEIN 6.9 6.0 - 8.3 g/dL [facility] CALCIUM 8.7 8.5 - 10.5 mg/dL [facility] ALKALINE PHOSPHATASE 84 45 - 115 U/L [facility] TOTAL BILIRUBIN 0.2 0.0 - 1.0 mg/dL [facility] AST 22 10 - 40 U/L [facility] ALT 25 10 - 55 U/L [facility] GLOBULIN 2.9 1.9 - 4.1 g/dL [facility] EGFR 24(L) >59 mL/min/1. 73m2 [facility] Comment:If patient is black, multiply result by 1.159. Estimated glomerular filtration rate calculated using the CKD-EPI equation. ANION GAP 13 3 - 17 mmol/L [facility] 11/04/2017 9:50 AM EDT 11/04/2017 1:11 PM EDT us Ed Lua MD LAB BLOOD ORDERABLES Fin al Result [facility] [address] [place] [address] from Last 3 Months or Most Recently Relevant to Health Maintenance Insurance [address] [place] [address] [address] [place] [address] [address] [place] [place] [address] MEDICARE REPLACEMENT Care Teams Screwhead Polisher Relationship Specialty Start Date End Date Vale Simons MD [address] [place] [address] [place] [address] PCP - General Internal Medicine 07/21/24 Additional Source Comments The information contained in this document represents components of the legal health record. It is not the complete legal health record.[facility]
--- OUTSIDE RECORDS SUMMARY | 2024-12-13 13:50 | XMS_ITS | Encounter Summary ---
Author Organization [facility] Address [address] [facility] [address] [place] [address] Phone Care Team Providers Care Linoleum Floor Layer Name Role Phone Jose Alfredo Ross MD Primary Care Provider Vale Simons MD Primary Care Provider + [phone] Encounter Details Date Type Department Care Team (Late st Contact Info) Description 11/12/2017 Procedure Pass [facility] Imaging [address] [place] [address] Social History Tobacco Use Types Packs/Day Years [...] Description 01/30/2025 3:00 PM EST Office Visit [facility] Neurology at [place] [id number] [address] Shana Woods PA-C [address] [place] [address] [email or web address] documented as of this encounter Visit Diagnoses Not on filedocumented in this encounter Care Teams Linoleum Floor Layer Relationship Specialty Start Date End Date Jose Alfredo Ross MD [address] [place] [address] [place] [address] PCP - General Internal Medicine 04/29/17 07/20/24 Vale Simons MD [address] [place] [address] Dr [place]REPO, [place]OD[place] [address] PCP - General Internal Medicine 07/21/24 documented as of this encounter Additional Source Comments The information contained in this document represents components of the legal health record. It is not the complete legal health record.[facility]
--- OUTSIDE RECORDS SUMMARY | 2024-12-13 13:50 | XMS_ITS | Encounter Summary ---
Author Organization [facility] Address [address] [facility] [address] [place] [address] Phone Care Team Providers Care Spikemaking Supervisor Name Role Phone Jose Alfredo Ross MD Primary Care Provider Vale Simons MD Primary Care Provider + [phone] Encounter Details Date Type Department Care Team (Late st Contact Info) Description 11/12/2017 Procedure Pass [facility] Imaging [address] [place] [address] Social History Tobacco Use Types Packs/Day Years [...] Description 01/30/2025 3:00 PM EST Office Visit [facility] Neurology at [place] [address] [address] Shana Woods PA-C [address] [place] [address] [email or web address] documented as of this encounter Visit Diagnoses Not on filedocumented in this encounter Care Teams Spikemaking Supervisor Relationship Specialty Start Date End Date Jose Alfredo Ross MD [address] [place] [address] [place] [address] PCP - General Internal Medicine 04/29/17 07/20/24 Vale Simons MD [address] [place] [address] Dr RESTREPO, [place] [address] PCP - General Internal Medicine 07/21/24 documented as of this encounter Additional Source Comments The information contained in this document represents components of the legal health record. It is not the complete legal health record.[facility]
--- OUTSIDE RECORDS SUMMARY | 2024-12-13 13:50 | XMS_ITS | Encounter Summary ---
Author Organization [facility] Address [address] [facility] [address] [place] [address] Phone Care Team Providers Care Orientation And Mobility Specialist Name Role Phone Jose Alfredo Ross MD Primary Care Provider Vale Simons MD Primary Care Provider + [phone] Encounter Details Date Type Department Care Team (Late st Contact Info) Description 11/12/2017 Procedure Pass [facility] Imaging [address] [place] [address] Social History Tobacco Use Types Packs/Day Years [...] Description 01/30/2025 3:00 PM EST Office Visit [facility] Neurology at [place] [address] [address] Shana Woods PA-C [address] [place] [address] [email or web address] documented as of this encounter Visit Diagnoses Not on filedocumented in this encounter Care Teams Orientation And Mobility Specialist Relationship Specialty Start Date End Date Jose Alfredo Ross MD [address] [place] [address] [place] [address] PCP - General Internal Medicine 04/29/17 07/20/24 Vale Simons MD [address] [place] [address] Dr RESTREPO, CODIE [address] PCP - General Internal Medicine 07/21/24 documented as of this encounter Additional Source Comments The information contained in this document represents components of the legal health record. It is not the complete legal health record.[facility]
--- OUTSIDE RECORDS SUMMARY | 2024-12-13 13:51 | XMS_ITS | Encounter Summary ---
Author Organization [facility] Address [address] [facility] [address] [place] [address] Phone Care Team Providers Care Fuel Cell Builder Name Role Phone Jose Alfredo Ross MD Primary Care Provider Vale Simons MD Primary Care Provider + [phone] Encounter Details Date Type Department Care Team (Late Contact Info) Description 04/29/2018 Telephone [facility] [address] [place] [address] Marci Coon, PhD [address] [place] [id number] [email or web address] Social History Tobacco Use Types Packs/Day Years Used Date Smoking Tobacco: Never Smokeless Tobacco: Never Sex and Gender Information Value Date Recorded Sex Assigned at Male 07/21/2024 3:39 PM EDT Legal Sex Male 9:34 AM EST Gender Identity Male 07/21/2024 3:39 PM EDT Sexual Orientation Straight 07/21/2024 3: 39 PM EDT documented as of this encounter Plan of Treatment Upcoming Encounters Date Type Department Care Team (Late Contact Info) Description 01/30/2025 3:00 PM EST Office Visit [facility] Neurology at [address] [address] Shana Woods PA-C [address] [place] [address] [email or web address] documented as of this encounter Visit Diagnoses Not on filedocumented in this encounter Care Teams Fuel Cell Builder Relationship Specialty Start Date End Date Jose Alfredo Ross MD [address] [place] [address] [place] [address] PCP - General Internal Medicine 04/29/17 07/20/24 Vale Simons MD [address] [place] [address] [place] [address] PCP - General Internal Medicine 07/21/24 documented as of this encounter Additional Source Comments The information contained in this document represents components of the legal health record. It is not the complete legal health record.[facility]
--- OUTSIDE RECORDS SUMMARY | 2024-12-13 13:51 | XMS_ITS | Encounter Summary ---
Author Organization [facility] Address [address] [facility] [address] [place] [address] Phone Care Team Providers Care Land Clearer Name Role Phone Jose Alfredo Ross MD Primary Care Provider Vale Simons MD Primary Care Provider + [phone] Encounter Details Date Type Department Care Team (Late Contact Info) Description 12/28/2019 Ancillary [facility] [address] [place] [address] Parker Martinez DO [address] [address] [email or web address] Bradycardia Social History Tobacco Use Types Packs/Day Years [...] Description 01/30/2025 3:00 PM EST Office Visit [facility] Neurology at [address] [address] Shana Woods, PAFabio [address] [place] [address] [email or web address] documented as of this encounter Results * Holter Monitor 48 Hours (12/28/2019 8:54 AM EDT) Anatomical Region Laterality Modality Heart Other Narrative 12/28/2019 12:47 PM EDT 48-hour monitor: The baseline rhythm is sinus with a minimum heart rate of 41, maximum 118, average 61 bpm. There are no long pauses present. Rare PACs and PVCs are present. There is no diary submitted. There are no patient event markers. Impression: Normal 48-hour monitor. No diary submitted. No patient event markers. Procedure Note Parker Henry MD - 12/28/2019 48-hour monitor: The baseline rhythm is sinus with a minimum heart rate of41, maximum 118, average 61 bpm. There are no long pauses present. RarePACs and PVCs are present. There is no diary submitted. There are nopatient event markers. Impression: Normal 48-hour monitor. No diary submitted. No patient eventmarkers. Parker Martinez DO CV C[facility]IAC SERVICES ORDERABLE S Final Result documented in this encounter Visit Diagnoses Diagnosis Bradycardia Other specified cardiac dysrhythmias Bradycardia Other specified cardiac dysrhythmias documented in this encounter Care Teams Land Clearer Relationship Specialty Start Date End Date Jose Alfredo Ross MD [address] [place] [address] [place] [address] PCP - General Internal Medicine 04/29/17 07/20/24 Vale Simons MD [address] [place] [address] [place] [address] PCP - General Internal Medicine 07/21/24 documented as of this encounter Additional Source Comments The information contained in this document represents components of the legal health record. It is not the complete legal health record.[facility]
--- OUTSIDE RECORDS SUMMARY | 2024-12-13 13:51 | XMS_ITS | Encounter Summary ---
Author Organization [facility] Address [address] [place] [address] Phone Care Team Providers Care Shift Lab Technician Name Role Phone Jose Alfredo Ross MD Primary Care Provider Vale Simons MD Primary Care Provider + [phone] Reason for Referral * Consultation (Elective) - Closed Specialty Diagnoses / Procedures Referred By Contjenelle ashley Referred To Contact Neurology Diagnoses Encounter for consultation System, Provider Not In, PhD [id number] [place] [phone] Phone: tel: Referral ID Status Reason Start Date Expiration Date Visits Re quested Visits Authorized [id number] Closed 11/04/2017 11/04/[phone] Encounter Details Date Type Department Care Team (Latest Contact Info) Description 06/05/2017 Transcribe Orders [facility] Department of Neurology [address] [place] [address], 8[address] Floor, [address] [place], [place] [id number] Unknown, Unknown, Encounter for consultation (Primary Dx) Social History Tobacco Use Types Packs/Day Years [...] Description 01/30/2025 3:00 PM EST Office Visit [facility] Neurology at [place] [address] [place] [address] Shana Woods PA-C [address] [place] [address] [email or web address] Scheduled Referrals Name Type Priority Associated Diagnoses Orde r Schedule Ambulatory referral to [facility] Neurology Outpatient Referral Routine Encounter for consultation Ordered: 06/08/2017 documented as of this encounter Visit Diagnoses Diagnosis Encounter for consultation- Primary documented in this encounter Care Teams Shift Lab Technician Relationship Specialty Start Date End Date Jose Alfredo Ross MD [address] [place] [address] [place] [address] PCP - General Internal Medicine 04/29/17 07/20/24 Vale Simons MD [address] [place] [address] [place] [address] PCP - General Internal Medicine 07/21/24 documented as of this encounter Additional Source Comments The information contained in this document represents components of the legal health record. It is not the complete legal health record.[facility]
--- OUTSIDE RECORDS SUMMARY | 2024-12-13 13:51 | XMS_ITS | Encounter Summary ---
Author Organization [facility] Address [address] [facility] [address] [place] [address] Phone Care Team Providers Care Tin Tie Machine Operator Automatic Name Role Phone Jose Alfredo Ross MD Primary Care Provider Vale Simons MD Primary Care Provider + [phone] Encounter Details Date Type Department Care Team (Late st Contact Info) Description 12/28/2019 Procedure [facility] [address] [place] [address] [place] [address] Social History Tobacco Use Types Packs/Day Years [...] Description 01/30/2025 3:00 PM EST Office Visit [facility] Neurology at [place] [id number] [address] Shana Woods PA-C 60 [place] [address] [email or web address] documented as of this encounter Visit Diagnoses Not on filedocumented in this encounter Care Teams Tin Tie Machine Operator Automatic Relationship Specialty Start Date End Date Jose Alfredo Ross MD [address] [place] [address] [place] [address] PCP - General Internal Medicine 04/29/17 07/20/24 Vale Simons MD [address] [place] [address] [place] [address] PCP - General Internal Medicine 07/21/24 documented as of this encounter Additional Source Comments The information contained in this document represents components of the legal health record. It is not the complete legal health record.[facility]
[2024-12-14 10:44] LABS: Tacrolimus Prograf 6.6 mcg/L
== END 2024-12-13 11:22 | disposition home or self-care (01) ==
LOC: HO.LAB 11:21
PROVIDERS: PCP Internal Medicine; Visit Provider Internal Medicine Nephrology
DX: E83.42 Hypomagnesemia (principal); Z13.21 Encounter for screening for nutritional disorder; Z94.0 Kidney transplant status
CPT/HCPCS: 36415; 80051; 80197; 82306; 82310; 82565; 83735; 83970; 84100; 84520; 85025

== ENCOUNTER 2024-12-15 15:51 | Outpatient (AMB) | payer MEDICARE, SELFPAY ==
--- OUTSIDE RECORDS SUMMARY | 2024-10-20 07:00 | XMS_ITS ---
Author Organization [facility] Address [address] [place] [address] Care Team Providers Care Food Service Technician Name Role Phone Vale Finney M.D. Primary Care Provider Unavail able Gt Mccullough Unavailable [phone] Allergies No Known Allergies REASON FOR VISIT [...] Problem History of adenomatous polyp of colon (458586308) History of adenomatous polyp of colon (Z86.0101) Active confirmed Problem Cyst and pseudocyst of pancreas (696940623) Pancreas cyst (K86.2) Active confirmed Problem Neoplasm of digestive system (799978874) IPMN (intraductal papillary mucinous neoplasm) (D49.0) Active confirmed Vital Signs Blood pressure systolic 111 mm Hg 10/21/19 25 Blood pressure diastolic 77 mm Hg 025 Height 60.50 in 10/20/2024 Weight 150 lbs 10/20/2024 BMI 28.81 kg/m2 10/20/2024 Encounters Encounter Location Date Provider Diagnosis [facility] [address] [place] [address] 10/20/2024 Gt Mccullough Encounter for screening for [...] Notes * PEGGY REYNOLDSDOB:1955 (69 yo M)Acc No.[id number]:10/20/2024 Progress Notes Patient: PEGGY HUSAIN Provider: Gt Mccullough MD :1955 A ge:69 Y S ex:Male Date:10/20/2024 Address:[address] [place], [place] [phone] Pcp:Vale Finney M.D. Subjective: * Chief Complaints: * 1 . Patient presents today for ? pt needs MRCP of the Pancreas. * Medical History: H [place], Gout, Sleep apnea-uses a CPAP machine, Denies [place],DM,CVA,Lung disease, CRF due to HTN with a [...] M arital status: . Occupation: Works at [employer]/ retired. N o smoking, denies sig. alcohol. [...] Follow-up G iving encouragement to exercise, B [place] management provided Y dianne. Screenings: F all [...] 0 10/20/2024 Generated for Prashanth hamm/Karin/Charlyitting on: 07:32 PM EDT
[2024-12-15 15:52] VITALS: BP 132/90; PULSE 87; O2SAT 98; BMI 29.9
--- NOTE | 2024-12-15 15:52 | HO.NEPHOV ---
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 Diabetes mellitus: Post transplant, on metformin and glipizide PFSH Medical History Diverticulitis Normal colonoscopy Concussion Sleep apnea with use of continuous positive airway pressure (CPAP) Gout HTN (hypertension) Surgical History History of colonoscopy (~02/26/22) Kidney transplant status H/O knee surgery Hx of resection of large bowel Family History Mother No problems noted. Father No problems noted. Social History Housing: House Patient Tobacco Use Status: Never used Tobacco e-Cigarette/Vaping Use: Never Used service: No Current occupational status: retired Cognitive needs: No Hearing needs: No Vision needs: Yes (rx glasses) Review of Systems Const Details: Const : no body aches, no chills, no excessive sweating and no fatigue Eyes: no blurry vision and no change in vision ENT: no bleeding gums and no change in voice, no dizziness Card: no chest pain, no shortness of breath, no orthopnea, no PND Resp: no cough, no excessive phlegm production, no SOB GI: no abdominal pain and no nausea, no vomiting : no hematuria, no urinary frequency and no difficulty voiding Musc: no abnormal gait, no bone pain Neuro: no abnormal movements, no weakness Psych: no behavioral changes and no change in appetite Endo: no change in body appearance, no cold intolerance Physical Exam Vital Signs: BMI result Body Mass Index 29.9 General: Not in any acute distress, comfortable sitting in the chair Nutritional Appearance: well nourished and overweight Eyes: appearance normal, both eyes and all related structures; Alignment and Position: alignment normal and position normal Neck: No lymphadenopathy, no thyromegaly Resp: bilateral air entry equal, no added sounds present Cardio: Regular rate, regular rhythm; Heart sounds: S1 normal heart sound present and S2 normal heart sound present GI: soft, nontender, no guarding, no hepatosplenomegaly : bladder normal to inspection, bladder normal to palpation, no renal angle tenderness Skin: no rashes or lesions noted and elasticity normal Neuro: oriented to person, oriented to place, oriented to time and moves all extremities Results Reviewed Nephrology Results: Hgb, (14.0-18.0) 14.5 g/dl 12/13/24 WBC, (4.8-10.8) 4.0 X10*3/uL L 12/13/24 Plt Count, (160-400) 133 X10*3/uL L Δ 12/13/24 Sodium, (135-145) 145 mmol/L 12/13/24 Potassium, (3.3-5.1) 5.0 mmol/L 12/13/24 Chloride, (96-108) 112 mmol/L H 12/13/24 Carbon Dioxide, (22-29) 25 mmol/L 12/13/24 BUN, (9-16) 10 mg/dL 12/13/24 Creatinine, (0.5-1.4) 1.21 mg/dL 12/13/24 Calcium, (8.4-10.2) 8.5 mg/dL Δ 12/13/24 Phosphorus, (2.7-4.5) 2.6 mg/dL L 12/13/24 PTH Intact, (8.7-77.1) 159.2 pg/mL H 12/13/24 Assessment & Plan Assessment & Plan (1) Diabetes: Code(s): E11.9 - Type 2 diabetes mellitus without complications Category: Medical Qualifiers: Diabetes mellitus type: type 2 Diabetes mellitus [facility] insulin use: without intermediate project manager use Diabetes mellitus complication status: with hyperglycemia Qualified Code(s): E11.65 - Type 2 diabetes mellitus with hyperglycemia (2) Renal transplant recipient: Code(s): Z94.0 - Kidney transplant status Category: Surgical (3) Hypomagnesemia: Code(s): E83.42 - Hypomagnesemia Category: Medical Plan This patient is status post disease donor kidney transplant in 06/2021 Primary disease: Hypertension, atherosclerotic renovascular disease Graft function: stable/improving/worsening 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 Immunosuppression: Patient is currently on- tacrolimus XR 1mg daily, most recent tacrolimus level: 6.6 (tacrolimus goal 4-6ng/ml); CellCept: 360mg BID Infections: no new infections Prophylaxis: Will check BK/CMV next visit and since he is a low risk will monitoring every 6 months. Vaccinations due: Pneumococcal Shingrix Hepatitis B COVID 19 will check for lipid panel, hemoglobin A1c with next set of labs Hypertension: Blood pressure well-controlled not on any meds Diabets mellitus: continue metformin [id number], glipizide ER 5mg. Reinforced the importance of medication adherence, infection precautions and hand hygiene. Reviewed signs of rejection/infection Advised to avoid NSAIDs, monitor blood pressure and weight closely Follow-up in Orders: Orders UA and rflx microscopic Today Z94.0 - Kidney transplant status Basic Metabolic Panel 3 Months E11.65 - Type 2 diabetes mellitus with hyperglycemia, E83.42 - Hypomagnesemia, Z94.0 - Kidney transplant status Phosphorus 3 Months E11.65 - Type 2 diabetes mellitus with hyperglycemia, E83.42 - Hypomagnesemia, Z94.0 - Kidney transplant status Vitamin D 25-OH Total 3 Months E11.65 - Type 2 diabetes mellitus with hyperglycemia, E83.42 - Hypomagnesemia, Z94.0 - Kidney transplant status Parathyroid Hormone Intact 3 Months E11.65 - Type 2 diabetes mellitus with hyperglycemia, E83.42 - Hypomagnesemia, Z94.0 - Kidney transplant status Microalbumin, Random (w Creat) 3 Months E11.65 - Type 2 diabetes mellitus with hyperglycemia, E83.42 - Hypomagnesemia, Z94.0 - Kidney transplant status UA and rflx microscopic 3 Months E11.65 - Type 2 diabetes mellitus with hyperglycemia, E83.42 - Hypomagnesemia, Z94.0 - Kidney transplant status Total Protein Urine Random 3 Months E11.65 - Type 2 diabetes mellitus with hyperglycemia, E83.42 - Hypomagnesemia, Z94.0 - Kidney transplant status Magnesium, Random Urine 3 Months E11.65 - Type 2 diabetes mellitus with hyperglycemia, E83.42 - Hypomagnesemia, Z94.0 - Kidney transplant status BK Virus DNA QL Urine 3 Months E83.42 - Hypomagnesemia, Z94.0 - Kidney transplant status Lipid Panel 3 Months E11.65 - Type 2 diabetes mellitus with hyperglycemia, E83.42 - Hypomagnesemia, Z94.0 - Kidney transplant status Microalbumin, Random (w Creat) Today Z94.0 - Kidney transplant status Creatinine Urine Today Z94.0 - Kidney transplant status Magnesium 3 Months E11.65 - Type 2 diabetes mellitus with hyperglycemia, E83.42 - Hypomagnesemia, Z94.0 - Kidney transplant status Calcium, Random Urine 3 Months E11.65 - Type 2 diabetes mellitus with hyperglycemia, E83.42 - Hypomagnesemia, Z94.0 - Kidney transplant status Potassium Urine Random 3 Months E11.65 - Type 2 diabetes mellitus with hyperglycemia, E83.42 - Hypomagnesemia, Z94.0 - Kidney transplant status Tacrolimus Prograf 3 Months E11.65 - Type 2 diabetes mellitus with hyperglycemia, E83.42 - Hypomagnesemia, Z94.0 - Kidney transplant status CMV DNA PCR Qn 3 Months E83.42 - Hypomagnesemia, Z94.0 - Kidney transplant status BK Virus DNA QL Plasma 3 Months E83.42 - Hypomagnesemia, Z94.0 - Kidney transplant status Hemoglobin A1c 3 Months E11.65 - Type 2 diabetes mellitus with hyperglycemia, E83.42 - Hypomagnesemia, Z94.0 - Kidney transplant status Coding Level of Care Code Est Pt Level 4 (02183) Diagnoses Type 2 diabetes mellitus with hyperglycemia, without long-term current use of insulin E11. Diabetes mellitus type: type 2 Diabetes mellitus [facility] insulin use: without [facility] use Diabetes mellitus complication status: with hyperglycemia Renal transplant recipient Z94.0 Hypomagnesemia E83.42
--- OUTSIDE RECORDS SUMMARY | 2024-12-15 19:33 | XMS_ITS | Encounter Summary ---
Author Organization [facility] Address [address] [facility] [address] [place] [address] Phone Care Team Providers Care Technical Solutions Consultant Name Role Phone Jose Alfredo Ross MD Primary Care Provider Vale Simons MD Primary Care Provider + [phone] Encounter Details Date Type Department Care Team (Late st Contact Info) Description 11/12/2017 Procedure Pass [facility] Imaging [address] [place] [address] Social History Tobacco Use Types Packs/Day Years [...] Description 01/30/2025 3:00 PM EST Office Visit [facility] Neurology at [place] [address] [address] Shana Woods PA-C 60 [place] [address] [email or web address] documented as of this encounter Visit Diagnoses Not on filedocumented in this encounter Care Teams Technical Solutions Consultant Relationship Specialty Start Date End Date Jose Alfredo Ross MD [address] [place] [address] [place] [address] PCP - General Internal Medicine 04/29/17 07/20/24 Vale Simnos MD [address] [place] [address] Dr [place], CODIE [address] PCP - General Internal Medicine 07/21/24 documented as of this encounter Additional Source Comments The information contained in this document represents components of the legal health record. It is not the complete legal health record.[facility]
--- OUTSIDE RECORDS SUMMARY | 2024-12-15 19:33 | XMS_ITS | Encounter Summary ---
Author Organization [facility] Address [address] [facility] [address] [place] [address] Phone Care Team Providers Care Silk Blocker Name Role Phone Jose Alfredo Ross MD Primary Care Provider Vale Simons MD Primary Care Provider + [phone] Encounter Details Date Type Department Care Team (Late Contact Info) Description 04/29/2018 Telephone [facility] [address] [place] [address] Marci Coon, PhD [address] [place] [address] [email or web address] Social History Tobacco Use Types Packs/Day [...] Description 01/30/2025 3:00 PM EST Office Visit [facility] Neurology at [address] [address] Shana Woods PA-C [address] [place] [address] [email or web address] documented as of this encounter Visit Diagnoses Not on filedocumented in this encounter Care Teams Silk Blocker Relationship Specialty Start Date End Date Jose Alfredo Ross MD [address] [place] [address] [place] [address] PCP - General Internal Medicine 04/29/17 07/20/24 Vale Simons MD [address] [place] [address] [place] [address] PCP - General Internal Medicine 07/21/24 documented as of this encounter Additional Source Comments The information contained in this document represents components of the legal health record. It is not the complete legal health record.[facility]
--- OUTSIDE RECORDS SUMMARY | 2024-12-15 19:33 | XMS_ITS | Clinical Summary ---
Author Organization [facility] Address [address] [place] [address] Phone Care Team Providers Care Supply Coordinator Name Role Phone Vale Simons MD Primary [...] 0.4 mg by mouth nightly. Active cloNIDine ([id number]) 0.1 mg/[address] 1 patch onto [...] hours as needed for fever. Active omega 4-smr-lgq-fish oil 1,000 mg (120 mg-180 mg) Cap [...] Description 01/30/2025 3:00 PM EST Office Visit [facility] Neurology at [place] [address] [facility] [address] [place] [address] Shana Woods PA-C [address] [place] [address] [email or web address] Health Maintenance Due Date Last Done [...] EDT) SODIUM 139 135 - 145 mmol/L [facility] POTASSIUM 3.9 3.4 - 5.0 mmol/L [facility] CHLORIDE 102 98 - 108 mmol/L [facility] CO2 24 23 - 32 mmol/L [facility] BUN 35(H) 8 - 25 mg/dL [facility] CREATININE 2.74(H) 0.60 - 1.50 mg/dL [facility] GLUCOSE 126(H) 70 - 110 mg/dL [facility] ALBUMIN 4.0 3.3 - 5.0 g/dL [facility] TOTAL PROTEIN 6.9 6.0 - 8.3 g/dL [facility] CALCIUM 8.7 8.5 - 10.5 mg/dL [facility] ALKALINE PHOSPHATASE 84 45 - 115 U/L [facility] TOTAL BILIRUBIN 0.2 0.0 - 1.0 mg/dL [facility] AST 22 10 - 40 U/L [facility] ALT 25 10 - 55 U/L [facility] GLOBULIN 2.9 1.9 - 4.1 g/dL [facility] EGFR 24(L) >59 mL/min/1. 73m2 [facility] Comment:If patient is black, multiply result by 1.159. Estimated glomerular filtration rate calculated using the CKD-EPI equation. ANION GAP 13 3 - 17 mmol/L [facility] 11/04/2017 9:50 AM EDT 11/04/2017 1:11 PM EDT us Ed Lua MD LAB BLOOD ORDERABLES Fin al Result [facility] [address] [place] [address] from Last 3 Months or Most Recently Relevant to Health Maintenance [place] [address] [place] [address] [place] [address] [place] [address] MEDICARE REPLACEMENT Care Teams Supply Coordinator Relationship Specialty Start Date End Date Vale Simons MD [address] [place] [address] [place] [address] PCP - General Internal Medicine 07/21/24 Additional Source Comments The information contained in this document represents components of the legal health record. It is not the complete legal health record.[facility]
--- OUTSIDE RECORDS SUMMARY | 2024-12-15 19:33 | XMS_ITS | Encounter Summary ---
Author Organization [facility] Address [address] [facility] [address] [place] [address] Phone Care Team Providers Care Indigo Mixer Name Role Phone Jose Alfredo Ross MD Primary Care Provider Vale Simons MD Primary Care Provider + [phone] Encounter Details Date Type Department Care Team (Late st Contact Info) Description 11/12/2017 Procedure Pass [facility] Imaging [address] [place] [address] Social History Tobacco Use Types Packs/Day Years [...] Description 01/30/2025 3:00 PM EST Office Visit [facility] Neurology at [place] [address] [address] Shana Woods PA-C [address] [place] [address] [email or web address] documented as of this encounter Visit Diagnoses Not on filedocumented in this encounter Care Teams Indigo Mixer Relationship Specialty Start Date End Date Jose Alfredo Ross MD [address] [place] [address] [place] [address] PCP - General Internal Medicine 04/29/17 07/20/24 Vale Simons MD [address] [place] [address] Dr [place]REPO, CODIE [address] PCP - General Internal Medicine 07/21/24 documented as of this encounter Additional Source Comments The information contained in this document represents components of the legal health record. It is not the complete legal health record.[facility]
--- OUTSIDE RECORDS SUMMARY | 2024-12-15 19:33 | XMS_ITS | Patient Health Record ---
Author Organization [facility] Address [address] [place] [phone] Care Team Providers Care Hose Builder Name Role Phone Vale Finney M.D. 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) Active confirmed Problem Hematochezia (041798940) Black stool (K92.1) Active confirmed Problem History of adenomatous polyp of colon (465870899) History of adenomatous polyp of colon (Z86.0101) Active confirmed Vital Signs Blood pressure diastolic 77 mm Hg 10/20/2024 Height 60.50 in 10/20/2024 Blood pressure systolic 111 mm Hg 10/20/2024 Weight 150 lbs 10/20/2024 BMI 28.81 kg/m2 10/20/2024 Encounters Encounter Location Date Provider Diagnosis [facility] [address] [place] [phone] 10/20/2024 Gt Mccullough Encounter for screening for malignant neoplasm of colon Z12.11 ; History of adenomatous polyp of colon Z86.0101 ; Pancreas cyst K86.2 and IPMN (intraductal papillary mucinous neoplasm) D49.0 [facility] [address] [place] [phone] 11/28/2024 Gt Mccullough [facility] [address] [place] [phone] 11/30/2024 Gt Mccullough Assessments Encounter Date Diagnosis [...] Insured Coverage Start Date Coverage End Date [facility] [address] [address] [place] [address] [id number] PEGGY REYNOLDS Self - patient is the insured Medical (General) History Medical History History ICD Code HTN Gout Sleep apnea-uses a CPAP machine Denies NM,DM,CVA,Lung disease CRF due to HTN with a [...]
--- OUTSIDE RECORDS SUMMARY | 2024-12-15 19:33 | XMS_ITS | Encounter Summary ---
Author Organization [facility] Address [address] [facility] [address] [place] [address] Phone Care Team Providers Care Asphalt Spreader Name Role Phone Jose Alfredo Ross MD Primary Care Provider Vale Simons MD Primary Care Provider [phone] Encounter Details Date Type Department Care Team (Late st Contact Info) Description 12/28/2019 Procedure [facility] [address] [place] [address] [place] [address] Social History Tobacco Use Types Packs/Day Years [...] Description 01/30/2025 3:00 PM EST Office Visit [facility] Neurology at [place] [address] [address] Shana Woods PA-C 60 [place] [address] [email or web address] documented as of this encounter Visit Diagnoses Not on filedocumented in this encounter Care Teams Asphalt Spreader Relationship Specialty Start Date End Date Jose Alfredo Ross MD [address] [place] [address] [place] [address] PCP - General Internal Medicine 04/29/17 07/20/24 Vale Simons MD [address] [place] [address] [place] [address] PCP - General Internal Medicine 07/21/24 documented as of this encounter Additional Source Comments The information contained in this document represents components of the legal health record. It is not the complete legal health record.[facility]
--- OUTSIDE RECORDS SUMMARY | 2024-12-15 19:33 | XMS_ITS | Clinical Summary ---
Author Organization [facility] Address [address] [place] [address] Care Team Providers Care Large Animal Veterinarian Name Role Phone Jose Alfredo Ross MD Primary Care Provider [phone] Social History Tobacco Use Types Packs/Day Years [...] 6 season) 2024 08/10/2020, 07/20/2020 RSV Vaccine 50 years and older and Patients (1 - 1-dose 75+ series) 06/25/2031 Hepatitis B Vaccines Aged Out No long er eligible based on patient's age to complete this topic Insurance [facility] COMMERCIAL MEDICARE PART A & B [facility] MEDICARE Care Teams Large Animal Veterinarian Relationship Specialty Start Date End Date Jose Alfredo Ross MD [address] [place] [address] [place] [address] PCP - General 02/12/22
--- OUTSIDE RECORDS SUMMARY | 2024-12-15 19:33 | XMS_ITS | Encounter Summary ---
Author Organization [facility] Address [address] [employer] [address] [place] [address] Phone Care Team Providers Care Mill Operator Helper Name Role Phone Jose Alfredo Ross MD Primary Care Provider Vale Simons MD Primary Care Provider [phone] Encounter Details Date Type Department Care Team (Late st Contact Info) Description 12/10/2023 Telephone [facility] Urology [address] [facility] [place] [address] Reid Wilcox MD [address] [facility] [address] [place] [address] [email or web address] Social History Tobacco Use Types [...] Description 01/30/2025 3:00 PM EST Office Visit [facility] Neurology at [place] [address] [place] [address] Shana Woods PA-C 60 [place] [address] [email or web address] documented as of this encounter Visit Diagnoses Not on filedocumented in this encounter Care Teams Mill Operator Helper Relationship Specialty Start Date End Date Jose Alfredo Ross MD [address] [place] [address] [place] [address] PCP - General Internal Medicine 04/29/17 07/20/24 Vale Simons MD [address] [place] [address] [place] [address] PCP - General Internal Medicine 07/21/24 documented as of this encounter Additional Source Comments The information contained in this document represents components of the legal health record. It is not the complete legal health record.[facility]
--- OUTSIDE RECORDS SUMMARY | 2024-12-15 19:33 | XMS_ITS | Encounter Summary ---
Author Organization [facility] Address [address] [facility] [address] [place] [address] Phone Care Team Providers Care Director Of Coding Name Role Phone Jose Alfredo Ross MD Primary Care Provider Vale Simons MD Primary Care Provider [phone] Encounter Details Date Type Department Care Team (Late st Contact Info) Description 11/12/2017 Procedure [facility] [address] [place] [address] Social History Tobacco Use Types Packs/Day Years [...] EST Office Visit [facility] Neurology at [place] [address] [address] Shana Woods PA-C 60 [place] [address] [email or web address] documented as of this encounter Visit Diagnoses Not on filedocumented in this encounter Care Teams Director Of Coding Relationship Specialty Start Date End Date Jose Alfredo Ross MD [address] [place] [address] [place] [address] PCP - General Internal Medicine 04/29/17 07/20/24 Vale Simons MD [address] [place] [address] Dr [place], [place] [address] PCP - General Internal Medicine 07/21/24 documented as of this encounter Additional Source Comments The information contained in this document represents components of the legal health record. It is not the complete legal health record.[facility]
--- OUTSIDE RECORDS SUMMARY | 2024-12-15 19:33 | XMS_ITS | Encounter Summary ---
Author Organization [facility] Address [address] [facility] [address] [place] [address] Phone Care Team Providers Care Church Official Name Role Phone Jose Alfredo Ross MD Primary Care Provider Vale Simons MD Primary Care Provider [phone] Encounter Details Date Type Department Care Team (Late Contact Info) Description 12/28/2019 Ancillary [facility] 22 [place] [address] Parker Martinez DO [address] [address] [email or web address] Bradycardia Social History Tobacco Use Types Packs/Day [...] 01/30/2025 3:00 PM EST Office Visit [facility] Neurology at [address] [address] Shana Woods, PAFabio 60 [place] [address] [email or web address] documented as of this encounter Results [...] dysrhythmias documented in this encounter Care Teams Church Official Relationship Specialty Start Date End Date Jose Alfredo Ross MD [address] [place] [address] [place] [address] PCP - General Internal Medicine 04/29/17 07/20/24 Vale Simons MD [address] [place] [address] [place] [address] PCP - General Internal Medicine 07/21/24 documented as of this encounter Additional Source Comments The information contained in this document represents components of the legal health record. It is not the complete legal health record.[facility]
--- OUTSIDE RECORDS SUMMARY | 2024-12-15 19:33 | XMS_ITS | Encounter Summary ---
Author Organization [facility] Address [address] [place] [address] Phone Care Team Providers Care Administration Professional Name Role Phone Jose Alfredo Ross MD Primary Care Provider Vale Simons MD Primary Care Provider [phone] Reason for Referral * Consultation (Elective) - Closed Specialty Diagnoses / Procedures Referred By Contjenelle ashley Referred To Contact Neurology Diagnoses Encounter for consultation System, Provider Not In, PhD [address] [place] [address] Phone: tel: Referral ID Status Reason Start Date Expiration Date Visits Re quested Visits Authorized [id number] Closed 11/04/2017 11/04/2018 99 [phone] Encounter Details Date Type Department Care Team (Latest Contact Info) Description 06/05/[address] [facility] Department of Neurology [address] [place] [address], 8th Floor, [address] [place], [place] [id number] Unknown, Unknown, Encounter for consultation (Primary Dx) [...] Description 01/30/2025 3:00 PM EST Office Visit [facility] Neurology at [place] [address] [place] [address] Shana Woods PA-C 60 [place] [address] [email or web address] Scheduled Referrals Name Type Priority Associated Diagnoses Orde r Schedule Ambulatory referral to [facility] Neurology Outpatient Referral Routine Encounter for consultation Ordered: 06/08/2017 documented as of this encounter Visit Diagnoses Diagnosis Encounter for consultation- Primary documented in this encounter Care Teams Administration Professional Relationship Specialty Start Date End Date Jose Alfredo Ross MD [address] [place] [address] [place] [address] PCP - General Internal Medicine 04/29/17 07/20/24 Vale Simons MD [address] [place] [address] [place] [address] PCP - General Internal Medicine 07/21/24 documented as of this encounter Additional Source Comments The information contained in this document represents components of the legal health record. It is not the complete legal health record.[facility]
== END 2024-12-15 16:18 | disposition home or self-care (01) ==
LOC: HO.HKA 15:52
PROVIDERS: PCP Internal Medicine; Visit Provider Internal Medicine Critical Care Medicine
DX: E11.65 Type 2 diabetes mellitus with hyperglycemia (principal); Z94.0 Kidney transplant status; E83.42 Hypomagnesemia
CPT/HCPCS: 99214

== ENCOUNTER 2024-12-15 15:51 | Outpatient (REF) | payer MEDICARE, SELFPAY ==
[2024-12-15 17:51] LABS: Appearance Urine Clear; Glucose Urine UA Negative (Negative); PH 5.5 (5.0-9.0); Specific Gravity - Urine >= 1.030 (1.005-1.025); UMIC TRIGGER UA YES
[2024-12-15 18:07] LABS: Microalbum/Creatinine Ratio Ur 6.1 ug/mg cr (<30)
--- OUTSIDE RECORDS SUMMARY | 2024-12-15 19:44 | XMS_ITS | Clinical Summary ---
Author Organization [facility] [place] Address [address] [place] [address] Phone Care Team Providers Care Laborer Plumbing Name Role Phone Jose Alfredo Ross MD Primary Care Provider [phone] Allergies No known active allergies Medications atorvastatin (LIPITOR) 20 MG tablet Active aspirin 81 MG chewable tablet Chew 81 mg 1 (one) time each day Active OXcarbazepine (TRILEPTAL) 600 MG tablet Take 1 tablet (600 mg total) by mouth 1 (one) time each day in the evening 90 tablet 3 3 Active magnesium oxide (MAG-OX) 400 MG tabletIndicati ons:Other terminal worker current drug therapy TAKE 1 TABLET BY MOUTH EVERY DAY IN THE MORNING AND EVENING 180 tablet 3 3 Active metFORMIN XR (GLUCOPHAGE-XR ) 500 MG 24 hr tablet Take 2 tablets (1,000 mg total) by mouth in the morning and 2 tablets (1,000 mg total) in the evening. 360 tablet 3 4 Active LORazepam (Ativan) 0.5 MG tabletIndicati ons:Mood disorder, not otherwise specified (HCC) Take 1 tablet (0.5 mg total) by mouth in the morning and 1 tablet (0.5 mg total) in the evening. 60 tablet 5 4 Active traZODone (DESYREL) 300 MG tablet Take 1 tablet (300 mg total) by mouth every night 30 tablet 11 4 Active Mycophenolate Sodium (Mycophenolic Acid) 180 MG tablet delayed-releas e TAKE 2 TABLETS (360 MG TOTAL) BY MOUTH IN THE MORNING AND 2 TABLETS (360 MG TOTAL) IN THE EVENING. 360 tablet 3 5 Active mycophenolate (Myfortic) 180 MG EC tablet Take 2 tablets (360 mg total) by mouth in the morning and 2 tablets (360 mg total) in the evening. 360 tablet 3 4 11/28/19 25 Discontinued Active Problems Problem Noted Date Diagnosed Date [...] 3 04/11/2020 04/12/2020 Morbid obesity 04/11/2020 10/21/2021 Encounters Date Type Department Care Team Description 11/27/2024 Refill [facility] [address] [address] Alex Ross MD 11/13/2024 Office Communication [facility] [address] [address] Alex Ross MD 11/13/2024 Refill [facility] [address] [address] Alex Ross MD from Last 3 Months Immunizations Immunization Administration Dates Next Due Pfizer [...] Vaccine: 50+ Years (2 of 2 - PPSV23, PCV20, or PCV21) 10/30/2016 09/04/2016 Colonoscopy (Post-Transplant Patient) 07/31/2021 Diabetes: Ophthalmology Exam 01/28/2023 Diabetes: Pedal Pulse Checked 01/28/2023 Diabetes: Sensory Foot Exam 01/28/2023 Diabetes: Visual Foot Exam 01/28/2023 Diabetes: Hemoglobin A1C 2023 024, 01/27/2023 Influenza Vaccine (#1) 2024 Pneumococcal Vaccine: Peds ( 0 to [...] PM EST) Hemoglobin A1C 7.0(H) (4.0-5.6) % [facility] Comment: MONITORING: In known diabetic patients, hemoglobin A1c targets should be discussed with health care provider. DIAGNOSTIC USE: The [place] Diabetes Association (ADA) and the World Health [...] Supplement 1 Testing performed or reported by [facility], a Service of [facility], [address] [place] [address] Adrien Logan MD, Education Courses Sales Representative [facility]# [id number] Blood specimen (specimen) Venous blood / Unknown 03/25/2023 12:02 PM EST 03/25/2023 12:04 PM EST Emeka Lundberg MD LAB BLOOD ORDERABLES Final Result [facility] from Last 3 Months or Most Recently Relevant to Health Maintenance Insurance [facility] Medicare [facility] Member Subscriber Plan / Payer (Ef fective 2018-Present) Name:Mark Pankaj Relation to Subscriber:Self Name:Pankaj Flores Payer ID:Not on file Type:Not on file Address: [address] [id number] Medicare [facility] Medicare Care Teams Laborer Plumbing Relationship Specialty Start Date End Date Jose Alfredo Ross MD [address] [place] [address] [address] [place], [place] PCP - General Internal Medicine 08/19/23
--- OUTSIDE RECORDS SUMMARY | 2024-12-15 19:44 | XMS_ITS | Encounter Summary ---
Author Organization [facility] Address [address] [facility] 200 [place] [address] Phone Care Team Providers Care Bill Peddler Name Role Phone Jose Alfredo Ross MD Primary Care Provider [phone] Encounter Details Date Type Department Care Team (Late st Contact Info) Description 08/19/2023 Office Communication [facility] 200 [place] [phone] Alex Ross MD [address] [facility] [address] [place] [address] Social History Tobacco Use Types [...] on filedocumented in this encounter Care Teams Bill Peddler Relationship Specialty Start Date End Date Jose Alfredo Ross MD [address] [facility] [address] [place] PCP - General Internal Medicine 6/19/24 documented as of this encounter
--- OUTSIDE RECORDS SUMMARY | 2024-12-15 19:44 | XMS_ITS | Encounter Summary ---
Author Organization [facility] Address [address] [place] [address] Phone Care Team Providers Care Algebra Teacher Name Role Phone Jose Alfredo Ross MD Primary Care Provider [phone] Reason for Visit * Reason Comments Med Refill Encounter Details Date Type Department Care Team ([facility] st Contact Info) Description 11/13/2024 Refill [facility] [address] [address] Alex Ross MD [address] [address] Social History Tobacco Use Types [...] on filedocumented in this encounter Care Teams Algebra Teacher Relationship Specialty Start Date End Date Jose Alfredo Ross MD [address] [facility] [facility] [address] [place] PCP - General Internal Medicine 08/19/23 documented as of this encounter
--- OUTSIDE RECORDS SUMMARY | 2024-12-15 19:44 | XMS_ITS | Encounter Summary ---
Author Organization [facility] Address [address] [address] Phone Care Team Providers Care Conductor And Engineer Name Role Phone Jose Alfredo Ross MD Primary Care Provider Reason for Visit * Reason Comments Med Refill Encounter Details Date Type Department Care Team (Late st Contact Info) Description 09/12/2021 Refill [facility] [address] [place] [address] Pasha Villalobos MD [address] [place] [address] [place] [address] Social History Tobacco Use Types [...] on filedocumented in this encounter Care Teams Conductor And Engineer Relationship Specialty Start Date End Date Jose Alfredo Ross MD [address] [place] PCP - General Internal Medicine 08/19/23 documented as of this encounter
--- OUTSIDE RECORDS SUMMARY | 2024-12-15 19:44 | XMS_ITS | Encounter Summary ---
Author Organization [facility] Address [address] [facility] [address] [address] [place] [address] Phone Care Team Providers Care Head Of Conservation Name Role Phone Jose Alfredo Ross MD Primary Care Provider [phone] Encounter Details Date Type Department Care Team (Late st Contact Info) Description 10/23/2021 Documentation Only [facility] [address] [place] [phone] Danii Samuel MD Social History Tobacco Use [...] on filedocumented in this encounter Care Teams Head Of Conservation Relationship Specialty Start Date End Date Jose Alfredo Ross MD [address] [place] [place] PCP - General Internal Medicine 08/19/23 documented as of this encounter
--- OUTSIDE RECORDS SUMMARY | 2024-12-15 19:44 | XMS_ITS | Encounter Summary ---
Author Organization [facility] Address [address] [facility] [address] [place] [address] Phone Care Team Providers Care Steam Power Plant Operator Name Role Phone Jose Alfredo Ross MD Primary Care Provider [phone] Reason for Visit * Reason Comments Med Refill Encounter Details Date Type Department Care Team ([facility] st Contact Info) Description 12/15/2022 Refill [facility] [address] [place] [phone] Gus Jimenez MD Social History Tobacco Use [...] on filedocumented in this encounter Care Teams Steam Power Plant Operator Relationship Specialty Start Date End Date Jose Alfredo Ross MD [address] [place] [address] [address] [place] PCP - General Internal Medicine 08/19/23 documented as of this encounter
--- OUTSIDE RECORDS SUMMARY | 2024-12-15 19:45 | XMS_ITS | Encounter Summary ---
Author Organization [facility] Address [address] [place] [phone] Phone Care Team Providers Care Administrative Personal Assistant Name Role Phone Jose Alfredo Ross MD Primary Care Provider [phone] Encounter Details Date Type Department Care Team (Late st Contact Info) Description 11/13/2024 Office Communication [facility] [address] [address] Alex Ross MD [address] [address] Social History Tobacco Use Types [...] Telephone Encounter - Alex Ross MD - 11/13/2024 10:07 AM EDT Needs appt in next 4-6 weeks documented in this encounter Plan of Treatment Not on file documented as of this encounter Visit Diagnoses Not on filedocumented in this encounter Care Teams Administrative Personal Assistant Relationship Specialty Start Date End Date Jose Alfredo Ross MD [address] [place] PCP - General Internal Medicine 08/19/23 documented as of this encounter
--- OUTSIDE RECORDS SUMMARY | 2024-12-15 19:45 | XMS_ITS | Encounter Summary ---
Author Organization [facility] Address [address] [facility] [address] [place] [address] Phone Care Team Providers Care Financial Investigator Name Role Phone Jose Alfredo Ross MD Primary Care Provider [phone] Encounter Details Date Type Department Care Team (Late st Contact Info) Description 02/03/2022 Office Communication [facility] [address] [place] [phone] Rosa Augustine Social History Tobacco Use Types [...] on filedocumented in this encounter Care Teams Financial Investigator Relationship Specialty Start Date End Date Jose Alfredo Ross MD [address] [place] PCP - General Internal Medicine 08/19/23 documented as of this encounter
== END 2024-12-15 15:52 | disposition home or self-care (01) ==
LOC: HO.LAB 15:51
PROVIDERS: PCP Internal Medicine; Visit Provider Internal Medicine Critical Care Medicine
DX: E11.65 Type 2 diabetes mellitus with hyperglycemia (principal); E83.42 Hypomagnesemia; Z79.84 Long term (current) use of oral hypoglycemic drugs; Z79.621 Long term (current) use of calcineurin inhibitor; Z79.899 Other long term (current) drug therapy; Z94.0 Kidney transplant status
CPT/HCPCS: 81001; 82043; 82570; 99212

== ENCOUNTER 2024-12-22 15:47 | Outpatient (AMB) | payer MEDICARE, SELFPAY ==
--- OUTSIDE RECORDS SUMMARY | 2024-10-20 07:00 | XMS_ITS ---
Author Organization [facility] Address [address] [place] [address] Care Team Providers Care Drone Pilot Name Role Phone Vale Finney M.D. Primary Care Provider Unavail able Gt Mccullough Unavailable [phone] Allergies No Known Allergies REASON FOR VISIT [...] Problem History of adenomatous polyp of colon (408923788) History of adenomatous polyp of colon (Z86.0101) Active confirmed Problem Cyst and pseudocyst of pancreas (460726096) Pancreas cyst (K86.2) Active confirmed Problem Neoplasm of digestive system (723416192) IPMN (intraductal papillary mucinous neoplasm) (D49.0) Active confirmed Vital Signs Blood pressure systolic 111 mm Hg 10/21/19 25 Blood pressure diastolic 77 mm Hg 025 Height 60.50 in 10/20/2024 Weight 150 lbs 10/20/2024 BMI 28.81 kg/m2 10/20/2024 Encounters Encounter Location Date Provider Diagnosis [facility] [address] [place] [address] 10/20/2024 Gt Mccullough Encounter for screening for [...] Notes * PEGGY REYNOLDSDOB:1955 (69 yo M)Acc No.[id number]:10/20/2024 Progress Notes Patient: PEGGY HUSAIN Provider: Gt Mccullough MD :1955 A ge:69 Y S ex:Male Date:10/20/2024 Address:[address] [place], [place] [id number] Pcp:Vale Finney M.D. Subjective: * Chief Complaints: * 1 . Patient presents today for ? pt needs MRCP of the Pancreas. * Medical History: H [place], Gout, Sleep apnea-uses a CPAP machine, Denies NV,DM,CVA,Lung disease, CRF due to HTN with a [...] M arital status: . Occupation: Works at [employer]/ retired. N o smoking, denies sig. alcohol. [...] Follow-up G iving encouragement to exercise, B NV management provided Y dianne. Screenings: F all [...] 0 10/20/2024 Generated for Prashanth hamm/Karin/Charlyitting on: 07:17 PM EDT
[2024-12-22 15:21] VITALS: BP 130/80; PULSE 93; TEMP 36.3; O2SAT 99; BMI 30.5
--- NOTE | 2024-12-22 15:21 | A.OFFPC_ITS ---
Vital Signs 12/22/24 15:21 Height 4 ft 11 in Weight 151 lb BMI 30.5 BP 130/80 Blood Pressure Location Rt brachial Position Sitting Pulse 93 Pulse Source Pulse Oximeter Temp 97.3 F Temp Source Temporal Artery Scan Pulse Oximetry (%) 99 Oxygen Delivery Method Room Air Intake Visit Reasons: 3 mo/fu Uat Tester Required: No Accompanied by: Self / Same As Patient Allergies bee pollen (BEE STINGS) Allergy (Intermediate, Verified 12/22/24 15:21) LOCALIZED SWELLING ibuprofen (From ADVIL) Allergy (Unknown, Verified 12/22/24 15:21) KIDNEY DISEASE Medication List - Last Reconciled 01/08/25 by KAY Kebede aspirin 81 mg PO DAILY atorvastatin 1 tab PO DAILY blood sugar diagnostic (Accu-Chek Guide test strips) once daily blood sugar diagnostic (OneTouch Ultra Test strips) 2x daily As directed blood-glucose meter (Accu-Chek Guide Glucose Meter) USE DIRECTED EVERY DAY cholecalciferol (vitamin D3) 25 mcg PO DAILY Contour Meter (blood-glucose meter) once daily NS finasteride 5 mg PO DAILY glipizide ER 5 mg PO BID lancets (OneTouch Delica Plus Lancet) twice As directed lorazepam 1 mg PO BID PRN magnesium oxide 800 mg (2 x 400 mg (241.3 mg magnesium)) PO BID 90 days metformin ER 1,000 mg (2 x 500 mg) PO BID multivitamin 1 tab PO DAILY mycophenolate sodium 360 mg PO BID tacrolimus XR (Envarsus XR) 2 mg (2 x 1 mg) PO QAM trazodone 300 mg PO DAILY zolpidem 10 mg PO BEDTIME Tobacco use date assessed: 12/22/24 Fall risk assessment: No Falls in past year Last assessed Fall Risk: 12/22/24 Dental Screening Dental Screen Date: 12/22/24 Did you have a dental visit in the last 12 months?: Yes Did you have a dental problem in the last 6 months where you did not have access to dental care?: No HPI HPI Comments History of Present Illness Details The patient is a 69-year-old male with DM, HTN, LBP, history of renal transplant, Anxiety, insomnia and obesity presenting to [facility] and for management of Type 2 Diabetes Mellitus. He has been on glipizide and metformin, with the last recorded HbA1c being 7.7% in August. The patient forgot to get his recent blood work done, which includes an HbA1c test. The patient also presents with Hyperlipidemia, for which he is taking atorvastatin and aspirin. He is under the care of a biodiesel division manager, Dr. Holloway, for kidney-related issues, with recent lab results showing a GFR of 60 and magnesium level of 2.2. The patient reports experiencing anxiety, for which he takes lorazepam daily. He has not been on any other medication for anxiety and expresses a desire to increase the dosage due to persistent symptoms. The patient suffers from insomnia, taking trazodone and zolpidem at night. Despite medication, he reports difficulty falling asleep and maintaining sleep, often staying awake until pole cutter hours. The patient has a history of tinnitus, attributed to prolonged exposure to loud noises during his career. He reports that it rarely bothers him, except on some days. A pancreatic cyst has been under observation, with an MRI conducted approximately a month ago, though results have not been communicated yet. He will be due for Colonoscopy 02/25 Medical History: - Type 2 Diabetes Mellitus - Hyperlipidemia - Anxiety Disorder - Insomnia - Tinnitus - Pancreatic Cyst Medications: - Glipizide for Type 2 Diabetes Mellitus - Metformin for Type 2 Diabetes Mellitus - Atorvastatin for Hyperlipidemia - Aspirin for cardiovascular protection - Lorazepam for Anxiety Disorder - Trazodone for Insomnia - Zolpidem for Insomnia Patient was informed and verbally consented to the use of an ambient scribe for clinic note documentation during this visit. [facility] Medical History (Updated 01/08/25 @ 14:21 by KAY Kebede) Anxiety Concussion Diverticulitis Gout HTN (hypertension) Hyperlipidemia Insomnia Normal colonoscopy Pancreatic cyst Sleep apnea with use of continuous positive airway pressure (CPAP) Surgical History H/O knee surgery History of colonoscopy (~02/26/22) Hx of resection of large bowel Kidney transplant status Family History (Updated 12/22/24 @ 16:04 by Helen Khanna MA) Mother No problems noted. Father No problems noted. Social History Housing: House Patient Tobacco Use Status: Never used Tobacco e-Cigarette/Vaping Use: Never Used service: No Current occupational status: retired Cognitive needs: No Hearing needs: No Vision needs: Yes (rx glasses) Questionnaire PHQ-9 Over the last 2 weeks, how often have you been bothered by any of the following problems? 1. Little interest or pleasure in doing things: not at all 2. Feeling down, depressed, or hopeless: several days (some anxiety) 3. Trouble falling or staying asleep, or sleeping too much: not at all 4. Feeling tired or having little energy: not at all 5. Poor appetite or overeating: not at all 6. Feeling bad about yourself - or that you are a failure or have let yourself or your family down: not at all 7. Trouble concentrating on things, such as reading the newspaper or watching television: not at all 8. Moving or speaking so slowly that other people could have noticed. Or the opposite - being so fidgety or restless that you have been moving around a lot more than usual: not at all 9. Thoughts that you would be better off or of hurting yourself in some way: not at all Total score: 1 Depression Screening Interpretation: Negative Depression Screening Done: Yes 61299 - PHQ-9 Billing: Yes Source: Developed by Drs. Gt Munoz, Faith Hubbard, Kenan Long and colleagues, with an educational hannah from [employer]. Thrive Questionnaire Date Thrive assessed: 12/22/24 I am a: Patient Within the past 12 months, did the food you bought not last and you didn't have the money to get more?: Never true Within the past 12 months, did you worry whether your food would run out before you got money to buy more?: Never true Do you have trouble paying for medicines?: No Do you have trouble getting transportation to medical appointments?: No Do you have trouble paying your heating and electricity bill?: No Do you have trouble taking care of your child, family member or friend?: No Do you have trouble with day-to-day activities such as bathing, preparing meals, shopping, managing finances, etc.?: No Are you currently unemployed and looking for a job?: No Are you interested in more education?: No THRIVE Score: 0 AUDIT C Alcohol Use Questionnaire (AUDIT-C) 1. How often do you have a drink containing alcohol?: Never 3. How often do you have six or more drinks on one occasion?: Never Total Score: 0 IAN-7 AMB Questionnaire IAN-7 Date IAN - 7 assessed: 12/22/24 Feeling nervous, anxious, or on edge: 0 = Not at all Not being able to stop or control worryin = Not at all Worrying too much about different things: 0 = Not at all Trouble relaxin = Not at all Being so restless that it is hard to sit still: 0 = Not at all Becoming easily annoyed or irritable: 0 = Not at all Feeling afraid as if something awful might happen: 0 = Not at all Total IAN-7 score (0-4 normal; 5-9 mild; 10-14 moderate; 15-21 severe): 0 Source: Developed by Drs. Gt Munoz, Faith Hubbard, Kenan Long and colleagues, with an educational hannah from [employer]. Review of Systems Narrative - Endocrine: Reports Type 2 Diabetes Mellitus - Cardiovascular: Denies chest pain or palpitations - Neurological: Reports tinnitus, denies headaches - Psychiatric: Reports anxiety and insomnia Physical exam (Primary Care) Vital Signs: Last Vital Signs Temp 97.3 F 12/22/24 15:21 Pulse 93 12/22/24 15:21 BP 130/80 12/22/24 15:21 Pulse Ox 99 12/22/24 15:21 Oxygen Delivery Method Room Air 12/22/24 15:21 BMI result Body Mass Index 30.5 GENERAL Well developed, obese, in no apparent distress HEENT Head-Normocephalic Eyes- PERRLA, EOMI, Conjuctiva clear, lids WNL Ears- Canals clear, TMs WNL Mouth/Throat-No lesions, no erythema, no exudate Neck- Supple, No lymphadenopathy, thyroid WNL RESPIRATORY Normal I:E, Clear to auscultation CARDIOVASCULAR Regular, rate and rhythm, No murmurs or rubs GASTROINTESTINAL Soft, nontender, normal bowel sounds, no masses MUSCULOSKELETAL Back-Decreased ROM, Tender in Lumbar with muscle tightness, Tender with motion, Straight leg raise negative, DTR 2+ symmetrical, Gait normal Joints- no swelling or deformity NEUROLOGICAL Gait normal PSYCHIATRIC Oriented to person, place and time Mood and affect Anxious Appearance WNL Speech WNL Thought processes WNL Tobacco/Smoking Status: Tobacco use Status Tobacco use date assessed 12/22/24 12/22/24 15:22 Patient Tobacco Use Status Never used Tobacco 12/22/24 15:22 e-Cigarette/Vaping Use Never Used 12/22/24 15:22 PHQ-9: PHQ-9 Score PHQ-9: Total score 1 12/22/24 16:04 Depression Screening Interpretation: Negative Thrive Assessment: Date of Thrive Assessment Date Thrive assessed 12/22/24 12/22/24 15:22 Coding Level of Care Code Established Pt Est Pt Level 4 (19771) Established Pt Complex EM visit Add On G2211 Patient Type Established Diagnoses Type 2 diabetes mellitus with hyperglycemia, without long-term current use of insulin E11.65 Diabetes mellitus type: type 2 Diabetes mellitus cotton inspector insulin use: without senior care use Diabetes mellitus complication status: with hyperglycemia Renal transplant recipient Z94.0 Hyperlipidemia E78.5 Anxiety F41.9 Psychophysiological insomnia F51.04 Insomnia type: psychophysiologic Pancreatic cyst K86.2 Additional Codes PHQ-9 - 46348 - PHQ-9 Billing: Yes ([id number]) Time Spent (min) 35 Comment Time spent on chart review, medication reconciliation, H&P, patient education and orders. Assessment & Plan Assessment & Plan (1) Diabetes: Comment: A1C in August 7.7% Code(s): E11.9 - Type 2 diabetes mellitus without complications Category: Medical Qualifiers: Diabetes mellitus type: type 2 Diabetes mellitus senior care insulin use: without cotton inspector use Diabetes mellitus complication status: with hyperglycemia Qualified Code(s): E11.65 - Type 2 diabetes mellitus with hyperglycemia Plan: The patient's Type 2 Diabetes Mellitus is currently managed with glipizide and metformin. The last HbA1c was 7.7% in August, and a follow-up test is planned. Patient will continue current medications. Will monitor. Patient will follow up in 3 months. (2) Renal transplant recipient: Code(s): Z94.0 - Kidney transplant status Category: Surgical Plan: Patient to continue to follow up with Nephrology (3) Hyperlipidemia: Code(s): E78.5 - Hyperlipidemia, unspecified Category: Medical Plan: Hyperlipidemia is managed with atorvastatin and aspirin. Patient will get labs. Patient will continue current medications. Will monitor. Patient will follow up in 3 months. (4) Anxiety: Code(s): F41.9 - Anxiety disorder, unspecified Category: Medical Plan: The patient is on lorazepam for anxiety, with a request to increase the dosage due to persistent symptoms. Will take BID. Patient to follow up in 3 months or sooner if symptoms persist or worsen. (5) Insomnia: Code(s): G47.00 - Insomnia, unspecified Category: Medical Qualifiers: Insomnia type: psychophysiologic Qualified Code(s): F51.04 - Psychophysiologic insomnia Plan: Insomnia is managed with trazodone and zolpidem, though the patient reports ongoing sleep difficulties. Reviewed Sleep Hygine. Patient to follow up in 3 months or sooner if symptoms persist or worsen. (6) Pancreatic cyst: Code(s): K86.2 - Cyst of pancreas Category: Medical Plan: A pancreatic cyst is under observation, with an MRI conducted recently, though results are pending. Plan I discussed with the patient the importance of managing his Type 2 Diabetes Mellitus and Hyperlipidemia through medication adherence and regular follow-ups. We reviewed his current medications and the need for potential adjustments in his anxiety and insomnia management. I emphasized the significance of sleep hygiene and reducing screen time before bed to improve sleep quality. The patient was informed about the pending results of his pancreatic MRI and the need for follow-up once results are available. Medications: New zolpidem 10 mg PO BEDTIME 30 tabs 2RF for sleep lorazepam 1 mg PO BID PRN 60 tabs 2RF anxiety Changed From metformin ER 1,000 mg PO BID To metformin ER 1,000 mg (2 x 500 mg) PO BID 180 tabs 0RF Discontinued lorazepam Discontinued Reason: Doctor's Order 0.5 mg PO BID PRN 60 tabs 1RF anxiety zolpidem Discontinued Reason: Doctor's Order 5 mg PO BEDTIME 30 tabs 0RF Patient Instructions: - Continue taking prescribed medications as directed. - Schedule and complete blood work, including HbA1c test. - Practice sleep hygiene by maintaining a consistent sleep schedule and reducing screen time before bed. - Follow up with the biodiesel division manager and roasterman as scheduled. - Await results of pancreatic MRI and follow up accordingly.
--- OUTSIDE RECORDS SUMMARY | 2024-12-22 19:17 | XMS_ITS | Encounter Summary ---
Author Organization [facility] Address [address] [address] Phone Care Team Providers Care Talent Acquisition Director Name Role Phone Jose Alfredo Ross MD Primary Care Provider Vale Simons MD Primary Care Provider [phone] Encounter Details Date Type Department Care Team (Late st Contact Info) Description 12/10/2023 Telephone [facility] Urology [address] [facility] [place] [address] Reid Wilcox MD [address] [facility] [address] [place] [address] [email or web address] Social History Tobacco Use Types Packs/Day Years [...] Description 01/30/2025 3:00 PM EST Office Visit [facility] Neurology at [place] [address] [place] [address] Shana Woods PA-C [address] [place] [address] [email or web address] documented as of this encounter Visit Diagnoses Not on filedocumented in this encounter Care Teams Talent Acquisition Director Relationship Specialty Start Date End Date Jose Alfredo Ross MD [address] [place] [address] [place] [address] PCP - General Internal Medicine 04/29/17 07/20/24 Vale Simons MD [address] [place] [address] [place] [address] PCP - General Internal Medicine 07/21/24 documented as of this encounter Additional Source Comments The information contained in this document represents components of the legal health record. It is not the complete legal health record.[facility]
--- OUTSIDE RECORDS SUMMARY | 2024-12-22 19:17 | XMS_ITS | Encounter Summary ---
Author Organization [facility] Address [address] [facility] [address] [place] [address] Phone Care Team Providers Care It Desktop Support Specialist Name Role Phone Jose Alfredo Ross MD Primary Care Provider [phone] Encounter Details Date Type Department Care Team (Late st Contact Info) Description 08/19/2023 Office Communication [facility] [address] [facility] [address] [place] [phone] Alex Ross MD [address] [facility] [address] [place] [address] Social History Tobacco Use Types [...] on filedocumented in this encounter Care Teams It Desktop Support Specialist Relationship Specialty Start Date End Date Jose Alfredo Ross MD [address] [place] PCP - General Internal Medicine 6/19/24 documented as of this encounter
--- OUTSIDE RECORDS SUMMARY | 2024-12-22 19:17 | XMS_ITS | Encounter Summary ---
Author Organization [facility] Address [address] [place] [address] Phone Care Team Providers Care Atlassian Administrator Name Role Phone Jose Alfredo Ross MD Primary Care Provider [phone] Encounter Details Date Type Department Care Team (Late st Contact Info) Description 11/13/2024 Office Communication [facility] [address] [address] Alex Ross MD [address] [address] Social History Tobacco Use Types [...] on filedocumented in this encounter Care Teams Atlassian Administrator Relationship Specialty Start Date End Date Jose Alfredo Ross MD [address] [place] PCP - General Internal Medicine 08/19/23 documented as of this encounter
--- OUTSIDE RECORDS SUMMARY | 2024-12-22 19:17 | XMS_ITS | Clinical Summary ---
Author Organization [facility] Address [address] [place] [place] [address] Phone Care Team Providers Care Vision Therapist Name Role Phone Jose Alfredo Ross MD Primary Care Provider [phone] Allergies No known active allergies Medications atorvastatin (LIPITOR) 20 MG tablet Active aspirin 81 MG chewable tablet Chew 81 mg 1 (one) time each day Active OXcarbazepine (TRILEPTAL) 600 MG tablet Take 1 tablet (600 mg total) by mouth 1 (one) time each day in the evening 90 tablet 3 3 Active magnesium oxide (MAG-OX) 400 MG tabletIndicati ons:Other lead assembler current drug therapy TAKE 1 TABLET BY [...] 11/27/2024 Refill [facility] [address] [address] Alex Ross MD 11/13/2024 Office Communication [facility] [address] [address] Alex Ross MD 11/13/2024 Refill [facility] [address] [address] Alex Ross MD from Last 3 Months [...] PM EST) Hemoglobin A1C 7.0(H) (4.0-5.6) % [facility] Comment: MONITORING: In known diabetic patients, hemoglobin A1c targets should be discussed with health care provider. DIAGNOSTIC USE: The [place] Diabetes [employer] (ADA) and the World Health [...] Supplement 1 Testing performed or reported by [facility], a Service of [facility], [address] [place] [address] Adrien Logan MD, Child Care Lead Teacher [facility]# [id number] Blood specimen (specimen) Venous blood / Unknown 03/25/2023 12:02 PM EST 03/25/2023 12:04 PM EST Emeka Lundberg MD LAB BLOOD ORDERABLES Final Result [facility] from Last 3 Months or Most Recently Relevant to Health Maintenance Insurance [facility] Medicare [facility] Member Subscriber Plan / Payer (Ef fective 2018-Present) Name:Mrak Pankaj Relation to Subscriber:Self Name:Pankaj Flores Payer ID:Not on file Type:Not on file Address: [address] [id number] Medicare [facility] Medicare Care Teams Vision Therapist Relationship Specialty Start Date End Date Jose Alfredo Ross MD [address] [place] [address] DR[address] [place], [place] PCP - General Internal Medicine 08/19/23
--- OUTSIDE RECORDS SUMMARY | 2024-12-22 19:17 | XMS_ITS | Encounter Summary ---
Author Organization [employer] [facility] Address [address] [facility] [address] [place] [address] Phone Care Team Providers Care Commercial Roofer Name Role Phone Jose Alfredo Ross MD Primary Care Provider Vale Simons MD Primary Care Provider [phone] Encounter Details Date Type Department Care Team (Late st Contact Info) Description 11/12/[address] [facility] Imaging [address] [place] [address] Social History Tobacco Use Types Packs/Day Years [...] Description 01/30/2025 3:00 PM EST Office Visit [facility] Neurology at [place] [address] [address] Shana Woods PA-C [address] [place] [address] [email or web address] documented as of this encounter Visit Diagnoses Not on filedocumented in this encounter Care Teams Commercial Roofer Relationship Specialty Start Date End Date Jose Alfredo Ross MD [address] [place] [address] [place] [address] PCP - General Internal Medicine 04/29/17 07/20/24 Vale Simons MD [address] [place] [address] Dr [place], [place] [address] PCP - General Internal Medicine 07/21/24 documented as of this encounter Additional Source Comments The information contained in this document represents components of the legal health record. It is not the complete legal health record.[facility]
--- OUTSIDE RECORDS SUMMARY | 2024-12-22 19:17 | XMS_ITS | Encounter Summary ---
Author Organization [facility] Address [address] [facility] [address] [place] [address] Phone Care Team Providers Care Graphics Editor Name Role Phone Jose Alfredo Ross MD Primary Care Provider Vale Simons MD Primary Care Provider [phone] Encounter Details Date Type Department Care Team (Late st Contact Info) Description 11/12/2017 Procedure Pass [facility] Imaging [address] [place] [address] Social History Tobacco Use Types Packs/Day Years [...] Description 01/30/2025 3:00 PM EST Office Visit [facility] Neurology at [place] [address] [address] Shana Woods PA-C [address] [place] [address] [email or web address] documented as of this encounter Visit Diagnoses Not on filedocumented in this encounter Care Teams Graphics Editor Relationship Specialty Start Date End Date Jose Alfredo Ross MD [address] [place] [address] [place] [address] PCP - General Internal Medicine 04/29/17 07/20/24 Vale Simons MD [address] [place] [address] Dr [place], [place] [address] PCP - General Internal Medicine 07/21/24 documented as of this encounter Additional Source Comments The information contained in this document represents components of the legal health record. It is not the complete legal health record.[facility]
--- OUTSIDE RECORDS SUMMARY | 2024-12-22 19:17 | XMS_ITS | Patient Health Record ---
Author Organization [facility] Address [address] [place] [address] Care Team Providers Care Party Plan Sales Director Name Role Phone Vale Finney M.D. 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) Active confirmed Problem Hematochezia (195871270) Black stool (K92.1) Active confirmed Problem History of adenomatous polyp of colon (428412996) History of adenomatous polyp of colon (Z86.0101) Active confirmed Vital Signs Blood pressure diastolic 77 mm Hg 10/20/2024 Height 60.50 in 10/20/2024 Blood pressure systolic 111 mm Hg 10/20/2024 Weight 150 lbs 10/20/2024 BMI 28.81 kg/m2 10/20/2024 Encounters Encounter Location Date Provider Diagnosis [facility] [address] [place] [phone] 10/20/2024 Gt Mccullough Encounter for screening for malignant neoplasm of colon Z12.11 ; History of adenomatous polyp of colon Z86.0101 ; Pancreas cyst K86.2 and IPMN (intraductal papillary mucinous neoplasm) D49.0 [facility] [address] [place] [phone] 11/28/2024 Gt Mccullough [facility] [address] [place] [phone] 11/30/2024 Gt Mccullough Assessments Encounter Date Diagnosis [...] be of assistance with in the interim. Pegyg was comfortable with this plan. Thank you again for allowing me to persuade in Peggy's care. I shall continue to keep you advised of his progress. 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
--- OUTSIDE RECORDS SUMMARY | 2024-12-22 19:17 | XMS_ITS | Clinical Summary ---
Author Organization [facility] Address [address] [place] [address] Phone Care Team Providers Care Direct Support Staff Member Name Role Phone Vale Simons MD Primary [...] 0.4 mg by mouth nightly. Active cloNIDine (AQNETEZX-LRC-4) 0.1 mg/[address] 1 patch onto [...] hours as needed for fever. Active omega 0-qnr-rmf-fish oil 1,000 mg (120 mg-180 mg) Cap [...] Description 01/30/2025 3:00 PM EST Office Visit [facility] Neurology at [place] [address] [facility] [address] [place] [address] Shana Woods PA-C [address] [place] [address] [email or web address] Health Maintenance Due Date Last Done [...] EDT) SODIUM 139 135 - 145 mmol/L [facility] POTASSIUM 3.9 3.4 - 5.0 mmol/L [facility] CHLORIDE 102 98 - 108 mmol/L [facility] CO2 24 23 - 32 mmol/L [facility] BUN 35(H) 8 - 25 mg/dL [facility] CREATININE 2.74(H) 0.60 - 1.50 mg/dL [facility] GLUCOSE 126(H) 70 - 110 mg/dL [facility] ALBUMIN 4.0 3.3 - 5.0 g/dL [facility] TOTAL PROTEIN 6.9 6.0 - 8.3 g/dL [facility] CALCIUM 8.7 8.5 - 10.5 mg/dL [facility] ALKALINE PHOSPHATASE 84 45 - 115 U/L [facility] TOTAL BILIRUBIN 0.2 0.0 - 1.0 mg/dL [facility] AST 22 10 - 40 U/L [facility] ALT 25 10 - 55 U/L [facility] GLOBULIN 2.9 1.9 - 4.1 g/dL [facility] EGFR 24(L) >59 mL/min/1. 73m2 [facility] Comment:If patient is black, multiply result by 1.159. Estimated glomerular filtration rate calculated using the CKD-EPI equation. ANION GAP 13 3 - 17 mmol/L [facility] 11/04/2017 9:50 AM EDT 11/04/2017 1:11 PM EDT us Ed Lua MD LAB BLOOD ORDERABLES Fin al Result [facility] [address] [place] [address] from Last 3 Months or Most Recently Relevant to Health Maintenance Insurance [address] [place] [address] [address] [place] [address] MEDICARE REPLACEMENT Care Teams Direct Support Staff Member Relationship Specialty Start Date End Date Vale Simons MD [address] [place] [address] [place] [address] PCP - General Internal Medicine 07/21/24 Additional Source Comments The information contained in this document represents components of the legal health record. It is not the complete legal health record.[facility]
--- OUTSIDE RECORDS SUMMARY | 2024-12-22 19:17 | XMS_ITS | Encounter Summary ---
Author Organization [facility] Address [address] [address] [facility] [address] [place] [address] Phone Care Team Providers Care Geology Professor Name Role Phone Jose Alfredo Ross MD Primary Care Provider [phone] Reason for Visit * Reason Comments Med Refill Encounter Details Date Type Department Care Team (Late st Contact Info) Description 12/15/2022 Refill [facility] [address] [place] [phone] Gus Jimenez MD Social History Tobacco Use [...] on filedocumented in this encounter Care Teams Geology Professor Relationship Specialty Start Date End Date Jose Alfredo Ross MD [address] [place] [address] DR[address] [place] PCP - General Internal Medicine 08/19/23 documented as of this encounter
--- OUTSIDE RECORDS SUMMARY | 2024-12-22 19:17 | XMS_ITS | Encounter Summary ---
Author Organization [facility] Address [address] [address] [address] [place] [address] Phone Care Team Providers Care Space Systems Operations Superintendent Name Role Phone Jose Alfredo Ross MD Primary Care Provider [phone] Encounter Details Date Type Department Care Team (Late st Contact Info) Description 02/03/2022 Office Communication [facility] [address] [place] [phone] Rosa Augustine Social History Tobacco Use Types [...] on filedocumented in this encounter Care Teams Space Systems Operations Superintendent Relationship Specialty Start Date End Date Jose Alfredo Ross MD [address] [place] PCP - General Internal Medicine 08/19/23 documented as of this encounter
--- OUTSIDE RECORDS SUMMARY | 2024-12-22 19:17 | XMS_ITS | Clinical Summary ---
Author Organization [facility] Address [address] [place] [address] Care Team Providers Care Hydraulic Specialist Name Role Phone Jose Alfredo Ross MD Primary Care Provider [phone] Social History Tobacco Use Types Packs/Day Years [...] age to complete this topic Insurance [facility] PART A & B [facility] Care Teams Hydraulic Specialist Relationship Specialty Start Date End Date Jose Alfredo Ross MD [address] [place] [address] [place] [address] PCP - General 02/12/22
--- OUTSIDE RECORDS SUMMARY | 2024-12-22 19:17 | XMS_ITS | Encounter Summary ---
Author Organization [facility] Address [address] [place] [address] Phone Care Team Providers Care Fleet Assistant Name Role Phone Jose Alfredo Ross MD Primary Care Provider [phone] Encounter Details Date Type Department Care Team (Late st Contact Info) Description 10/23/2021 Documentation Only [facility] [address] [place] [phone] Danii Samuel MD Social History Tobacco Use [...] on filedocumented in this encounter Care Teams Fleet Assistant Relationship Specialty Start Date End Date Jose Alfredo Ross MD [address] [facility] PCP - General Internal Medicine 08/19/23 documented as of this encounter
--- OUTSIDE RECORDS SUMMARY | 2024-12-22 19:17 | XMS_ITS | Encounter Summary ---
Author Organization [facility] Address [address] [place] [address] Phone Care Team Providers Care Music Education Director Name Role Phone Jose Alfredo Ross MD Primary Care Provider Vale Simons MD Primary Care Provider + [phone] Reason for Referral * Consultation (Elective) - Closed Specialty Diagnoses / Procedures Referred By Contjenelle ashley Referred To Contact Neurology Diagnoses Encounter for consultation System, Provider Not In, PhD [address] [place] [phone] Phone: tel: Referral ID Status Reason Start Date Expiration Date Visits Re quested Visits Authorized [id number] Closed 11/04/2017 11/04/2018 99 [phone] Encounter Details Date Type Department Care Team (Latest Contact Info) Description 06/05/2017 Transcribe Orders [facility] Department [place] [address] [place] [address], [address]th Floor, [address] [place], [place] [id number] Unknown, Unknown, Encounter for consultation (Primary Dx) [...] Description 01/30/2025 3:00 PM EST Office Visit [facility] Neurology at [place] [address] [place] [address] Shana Woods PA-C [address] [place] [address] [email or web address] Scheduled Referrals Name Type Priority Associated Diagnoses Orde r Schedule Ambulatory referral to [facility] [place] Outpatient Referral Routine Encounter for consultation Ordered: 06/08/2017 documented as of this encounter Visit Diagnoses Diagnosis Encounter for consultation- Primary documented in this encounter Care Teams Music Education Director Relationship Specialty Start Date End Date Jose Alfredo Ross MD [address] [place] [address] [place] [address] PCP - General Internal Medicine 04/29/17 07/20/24 Vale Simons MD [address] [place] [address] [place] [address] PCP - General Internal Medicine 07/21/24 documented as of this encounter Additional Source Comments The information contained in this document represents components of the legal health record. It is not the complete legal health record.[facility]
--- OUTSIDE RECORDS SUMMARY | 2024-12-22 19:17 | XMS_ITS | Encounter Summary ---
Author Organization [facility] Address [address] [address] Phone Care Team Providers Care Geothermal System Installer Name Role Phone Jose Alfredo Ross MD Primary Care Provider [phone] Reason for Visit * Reason Comments Med Refill Encounter Details Date Type Department Care Team (Late st Contact Info) Description 09/12/2021 Refill [facility] [address] [place] [address] Pasha Villalobos MD [address] [place] [address] [place] [address] Social History Tobacco Use Types [...] on filedocumented in this encounter Care Teams Geothermal System Installer Relationship Specialty Start Date End Date Jose Alfredo Ross MD [address] [place] PCP - General Internal Medicine 08/19/23 documented as of this encounter
--- OUTSIDE RECORDS SUMMARY | 2024-12-22 19:17 | XMS_ITS | Encounter Summary ---
Author Organization [facility] Address [address] [facility] [address] [place] [address] Phone Care Team Providers Care Supervisor Drying And Winding Name Role Phone Jose Alfredo Ross MD Primary Care Provider Vale Simons MD Primary Care Provider + [phone] Encounter Details Date Type Department Care Team (Late st Contact Info) Description 11/12/2017 Procedure Pass [facility] [address] [place] [address] Social History Tobacco Use Types Packs/Day Years [...] Description 01/30/2025 3:00 PM EST Office Visit [facility] Neurology at [place] [address] [address] Shana Woods PA-C [address] [place] [address] [email or web address] U documented as of this encounter Visit Diagnoses Not on filedocumented in this encounter Care Teams Supervisor Drying And Winding Relationship Specialty Start Date End Date Jose Alfredo Ross MD [address] [place] [address] [place] [address] PCP - General Internal Medicine 04/29/17 07/20/24 Vale Simons MD [address] [place] [address] Dr [place], [place] [address] PCP - General Internal Medicine 07/21/24 documented as of this encounter Additional Source Comments The information contained in this document represents components of the legal health record. It is not the complete legal health record.[facility]
--- OUTSIDE RECORDS SUMMARY | 2024-12-22 19:18 | XMS_ITS | Encounter Summary ---
Author Organization [facility] Address [address] [facility] [address] [place] [address] Phone Care Team Providers Care Printed Circuit Boards Laminator Name Role Phone Jose Alfredo Ross MD Primary Care Provider Vale Simons MD Primary Care Provider + [phone] Encounter Details Date Type Department Care Team (Late Contact Info) Description 04/29/2018 Telephone [facility] [address] [place] [address] Marci Coon, PhD [address] [place] [phone] [email or web address] Social History Tobacco Use Types Packs/Day Years [...] Description 01/30/2025 3:00 PM EST Office Visit [facility] Neurology at [address] [address] Shana Woods PA-C [address] [place] [address] [email or web address] documented as of this encounter Visit Diagnoses Not on filedocumented in this encounter Care Teams Printed Circuit Boards Laminator Relationship Specialty Start Date End Date Jose Alfredo Ross MD [address] [place] [address] [place] [address] PCP - General Internal Medicine 04/29/17 07/20/24 Vale Simons MD [address] [place] [address] [place] [address] PCP - General Internal Medicine 07/21/24 documented as of this encounter Additional Source Comments The information contained in this document represents components of the legal health record. It is not the complete legal health record.[facility]
--- OUTSIDE RECORDS SUMMARY | 2024-12-22 19:18 | XMS_ITS | Encounter Summary ---
Author Organization [facility] Address [address] [facility] [address] [place] [address] Phone Care Team Providers Care Circulation Man Name Role Phone Jose Alfredo Ross MD Primary Care Provider Vale Simons MD Primary Care Provider + [phone] Encounter Details Date Type Department Care Team (Late Contact Info) Description 12/28/2019 Ancillary [facility] [address] [place] [address] Parker Martinez DO [address] [address] [email or web address] Bradycardia Social History Tobacco Use Types Packs/Day [...] Description 01/30/2025 3:00 PM EST Office Visit [facility] Neurology at [address] [address] Shana Woods, PAFabio [address] [place] [address] [email or web address] U documented as of this encounter Results [...] dysrhythmias documented in this encounter Care Teams Circulation Man Relationship Specialty Start Date End Date Jose Alfredo Ross MD [address] [place] [address] [place] [address] PCP - General Internal Medicine 04/29/17 07/20/24 Vale Simons MD [address] [place] [address] [place] [address] PCP - General Internal Medicine 07/21/24 documented as of this encounter Additional Source Comments The information contained in this document represents components of the legal health record. It is not the complete legal health record.[facility]
--- OUTSIDE RECORDS SUMMARY | 2024-12-22 19:18 | XMS_ITS | Encounter Summary ---
Author Organization [facility] Address [address] [facility] [address] [place] [address] Phone Care Team Providers Care Banking Center Manager Name Role Phone Jose Alfredo Ross MD Primary Care Provider Vale Simons MD Primary Care Provider + [phone] Encounter Details Date Type Department Care Team (Late st Contact Info) Description 12/28/2019 Procedure [facility] [address] [place] [address] [place] [address] Social History Tobacco Use Types Packs/Day Years [...] Description 01/30/2025 3:00 PM EST Office Visit [facility] Neurology at [place] [address] [address] Shana Woods PA-C [address] [place] [address] [email or web address] documented as of this encounter Visit Diagnoses Not on filedocumented in this encounter Care Teams Banking Center Manager Relationship Specialty Start Date End Date Jose Alfredo Ross MD [address] [place] [address] [place] [address] PCP - General Internal Medicine 04/29/17 07/20/24 Vale Simons MD [address] [place] [address] [place] [address] PCP - General Internal Medicine 07/21/24 documented as of this encounter Additional Source Comments The information contained in this document represents components of the legal health record. It is not the complete legal health record.[facility]
== END 2024-12-22 16:42 | disposition home or self-care (01) ==
LOC: HO.HMCHD 15:48
PROVIDERS: PCP Internal Medicine; Visit Provider Physician Assistant Medical
DX: E11.65 Type 2 diabetes mellitus with hyperglycemia (principal); Z94.0 Kidney transplant status; E78.5 Hyperlipidemia, unspecified; F41.9 Anxiety disorder, unspecified; F51.04 Psychophysiologic insomnia; K86.2 Cyst of pancreas

== ENCOUNTER → 2024-12-22 15:47 | Outpatient (BNVA) | payer MEDICARE, SELFPAY | PROVIDERS: PCP Internal Medicine; Visit Provider Physician Assistant Medical | DX: E11.65 Type 2 diabetes mellitus with hyperglycemia (principal); E78.5 Hyperlipidemia, unspecified; F41.9 Anxiety disorder, unspecified; F51.04 Psychophysiologic insomnia; K86.2 Cyst of pancreas; H93.19 Tinnitus, unspecified ear; Z79.82 Long term (current) use of aspirin; Z79.84 Long term (current) use of oral hypoglycemic drugs; Z79.899 Other long term (current) drug therapy; Z94.0 Kidney transplant status; Z13.31 Encounter for screening for depression; Z13.39 Encounter for screening examination for other mental health and behavioral disorders | CPT/HCPCS: 96127; 99212 ==

== ENCOUNTER 2025-01-07 10:28 | Outpatient (REF) | payer MEDICARE, SELFPAY ==
--- OUTSIDE RECORDS SUMMARY | 2024-10-20 06:00 | XMS_ITS ---
Author Organization [facility] Address [address] [place] [address] Care Team Providers Care Bead Wire Taper Name Role Phone Vale Finney M.D. Primary Care Provider Unavail able Gt Mccullough Unavailable [phone] Allergies No Known Allergies REASON FOR VISIT Patient presents today for ? pt needs MRCP of the Pancreas Medications Medication SIG (Take, Route, Frequency, Duration) Notes Start Date End Date Status LORazepam Active traZODone HCl 300 MG Oral; Duration: 90 Active Atorvastatin Calcium 20 MG Oral; Duration: 90 Active Mycophenolate Mofetil Active Magnesium 300 MG 1 capsule with a narinder l Orally Once a day; Duration: 30 day(s) Active metFORMIN HCl 500 MG 2 tablets Orally tw ice a day Active Envarsus XR 1 MG Oral; Duration: 30 Tacrolimus Active Social History Alcohol Screen Question Answer Notes Did you have a drink containing alcohol in the p ast year? No Points 0 Interpretation Negative Section Notes: No smoking, denies sig. alco hol Problems Problem Type SNOMED Code ICD Code Onset Dates Problem Status W/U Status Risk Notes Problem History of adenomatous polyp of colon (864680537) History of adenomatous polyp of colon (Z86.0101) Active confirmed Problem Cyst and pseudocyst of pancreas (331391500) Pancreas cyst (K86.2) Active confirmed Problem Neoplasm of digestive system (735812650) IPMN (intraductal papillary mucinous neoplasm) (D49.0) Active confirmed Vital Signs Blood pressure systolic 111 mm Hg 10/21/19 25 Blood pressure diastolic 77 mm Hg 025 Height 60.50 in 10/20/2024 Weight 150 lbs 10/20/2024 BMI 28.81 kg/m2 10/20/2024 Encounters Encounter Location Date Provider Diagnosis [facility] [address] [place] [address] 10/20/2024 Gt Mccullough Encounter for screening for malignant neoplasm of colon Z12.11 ; History of adenomatous polyp of colon Z86.0101 ; Pancreas cyst K86.2 and IPMN (intraductal papillary mucinous neoplasm) D49.0 Assessments Encounter Date Diagnosis (ICD Code) Assessment Notes Treatment Notes Treatment Clinical Notes Section Notes 10/20/2024 Encounter for screening for malignant neoplasm of colon (ICD-10 - Z12.11) Repeat colonoscopy in 2026 Overall, Peggy appears quite well and is not having any new or worrisome GI complaints. We did review the findings on his 2021 colonoscopy and I advised him of the need for a follow-up colonoscopy in 2026 in regard to the tubular adenomas removed in 2021.. In regard to the report of the pancreatic cyst this does seem consistent with a benign IPMN. I do not have the report but based on what I can see in the medical record it sounds like he needs a follow-up MRI for a 1 year follow-up. I shall arrange that for him along with some laboratories including a CA 19-9 level. I shall also obtain a copy of the 2023 MRI report. I advised Peggy that if this upcoming MRI and lab work do not show any worrisome changes or findings I would then recommend another MRI in 2 years. At that point he would be due for a follow-up colonoscopy and we will see him in the office to arrange both of those studies. I advised him to contact me prior to 2026 if he has any problems or questions I can be of assistance with in the interim. Peggy was comfortable with this plan. Thank you again for allowing me to persuade in Peggy's care. I shall continue to keep you advised of his progress. 10/20/2024 History of adenomatous polyp of colon (ICD-10 - Z86.0101) Overall, Peggy appears quite well and is not having any new or worrisome GI complaints. We did review the findings on his 2021 colonoscopy and I advised him of the need for a follow-up colonoscopy in 2026 in regard to the tubular adenomas removed in 2021.. In regard to the report of the pancreatic cyst this does seem consistent with a benign IPMN. I do not have the report but based on what I can see in the medical record it sounds like he needs a follow-up MRI for a 1 year follow-up. I shall arrange that for him along with some laboratories including a CA 19-9 level. I shall also obtain a copy of the 2023 MRI report. I advised Peggy that if this upcoming MRI and lab work do not show any worrisome changes or findings I would then recommend another MRI in 2 years. At that point he would be due for a follow-up colonoscopy and we will see him in the office to arrange both of those studies. I advised him to contact me prior to 2026 if he has any problems or questions I can be of assistance with in the interim. Peggy was comfortable with this plan. Thank you again for allowing me to persuade in Peggy's care. I shall continue to keep you advised of his progress. 10/20/2024 Pancreas cyst (ICD-10 - K86.2) Overall, Peggy appears quite well and is not having any new or worrisome GI complaints. We did review the findings on his 2021 colonoscopy and I advised him of the need for a follow-up colonoscopy in 2026 in regard to the tubular adenomas removed in 2021.. In regard to the report of the pancreatic cyst this does seem consistent with a benign IPMN. I do not have the report but based on what I can see in the medical record it sounds like he needs a follow-up MRI for a 1 year follow-up. I shall arrange that for him along with some laboratories including a CA 19-9 level. I shall also obtain a copy of the 2023 MRI report. I advised Peggy that if this upcoming MRI and lab work do not show any worrisome changes or findings I would then recommend another MRI in 2 years. At that point he would be due for a follow-up colonoscopy and we will see him in the office to arrange both of those studies. I advised him to contact me prior to 2026 if he has any problems or questions I can be of assistance with in the interim. Peggy was comfortable with this plan. Thank you again for allowing me to persuade in Peggy's care. I shall continue to keep you advised of his progress. 10/20/2024 IPMN (intraductal papillary mucinous neoplasm) (ICD-10 - D49.0) Overall, Peggy appears quite well and is not having any new or worrisome GI complaints. We did review the findings on his 2021 colonoscopy and I advised him of the need for a follow-up colonoscopy in 2026 in regard to the tubular adenomas removed in 2021.. In regard to the report of the pancreatic cyst this does seem consistent with a benign IPMN. I do not have the report but based on what I can see in the medical record it sounds like he needs a follow-up MRI for a 1 year follow-up. I shall arrange that for him along with some laboratories including a CA 19-9 level. I shall also obtain a copy of the 2023 MRI report. I advised Peggy that if this upcoming MRI and lab work do not show any worrisome changes or findings I would then recommend another MRI in 2 years. At that point he would be due for a follow-up colonoscopy and we will see him in the office to arrange both of those studies. I advised him to contact me prior to 2026 if he has any problems or questions I can be of assistance with in the interim. Peggy was comfortable with this plan. Thank you again for allowing me to persuade in Peggy's care. I shall continue to keep you advised of his progress. Plan Of Treatment Treatment Notes Assessment Notes Encounter for screening for malignant ne oplasm of colon Repeat colonoscopy in 2026 Pending Test Test Name Order Date BUN 10/20/2024 CA 19-9 10/20/2024 MRI ABD W&WO CONTRAST 10/20/2024 Creatinine 10/20/2024 Amylase 10/20/2024 Lipase 10/20/2024 Next Appt Details Follow Up: prn, Reason: Progress Notes * PEGGY REYNOLDSDOB:1955 (69 yo M)Acc No.[id number]:10/20/2024 Progress Notes Patient: PEGGY HUSAIN Provider: Gt Mccullough MD :1955 A ge:69 Y S ex:Male Date:10/20/2024 Address:[address] [place], [place] [id number] Pcp:Vale Finney M.D. Subjective: * Chief Complaints: * 1 . Patient presents today for ? pt needs MRCP of the Pancreas. * Medical History: H [place], Gout, Sleep apnea-uses a CPAP machine, Denies MT,DM,CVA,Lung disease, CRF due to HTN with a kidney transplant 06/2021, Concussion, Negative colonoscopy in 06/2011, Negative colonoscopy in 2000, Diverticulitis 2003 and 2005, NIDDM, Colonoscopy 01/2022 with 2 tubular adenomas removed, IPMN on MRI in 2023, Upper endoscopy in January 2022 was negative for any significant esophagitis, Velarde's esophagus, or eosinophilic esophagitis. * Surgical History: D iverticulitis as above--sigmoid resection in 2005 , Knee-bilateral , Kidney transplant 07/18/2021. * Family History: F ather: . M other: . No known hx of colon cancer. * Social History: T obacco Use: T obacco Use/Smoking A re you a: nonsmoker. D rugs/Alcohol: A lcohol Screen D id you have a drink containing alcohol in the past year? N o, P oints 0 , I nterpretation N egative. M iscellaneous: M arital status: . Occupation: Works at [employer]/ retired. N o smoking, denies sig. alcohol. * Medications: T aking metFORMIN HCl 500 MG Tablet 2 tablets Orally twice a day , Taking LORazepam , Taking Mycophenolate Mofetil , Taking Magnesium 300 MG Capsule 1 capsule with a meal Orally Once a day , Taking traZODone HCl 300 MG Tablet Oral , Taking Atorvastatin Calcium 20 MG Tablet Oral , Taking Envarsus XR 1 MG Tablet Extended Release 24 Hour Oral , Notes to Pharmacist: Tacrolimus, Discontinued levETIRAcetam 500 MG Tablet Oral , Notes to Pharmacist: Marlon-for sleep, Discontinued valGANciclovir HCl 450 MG Tablet Oral , Notes to Pharmacist: For CMV, Discontinued Clotrimazole 10 MG Purnima Mouth/Throat , Discontinued Sulfamethoxazole-Trimethoprim 400-80 MG Tablet Oral , Discontinued Docusate Sodium 100 MG Capsule Oral , Discontinued Enalapril Maleate 10 MG Tablet Oral , Medication List reviewed and reconciled with the patient * Allergies: N .K.D.A. Objective: * Vitals: W t:150lbs, Ht: 60.50 in, BMI:28.81Index, BP:111/77mm Hg, Wt-k.04. Assessment: * Assessment: 1. E ncounter for screening for malignant neoplasm of colon - Z12.11 (Primary) 2 . H istory of adenomatous polyp of colon - Z86.0101 3 . P ancreas cyst - K86.2 4 . I PMN (intraductal papillary mucinous neoplasm) - D49.0 ? Overall, Peggy appears quite well and is not having any new or worrisome GI complaints. We did review the findings on his 2021 colonoscopy and I advised him of the need for a follow-up colonoscopy in 2026 in regard to the tubular adenomas removed in 2021.. In regard to the report of the pancreatic cyst this does seem consistent with a benign IPMN. I do not have the report but based on what I can see in the medical record it sounds like he needs a follow-up MRI for a 1 year follow-up. I shall arrange that for him along with some laboratories including a CA 19-9 level. I shall also obtain a copy of the 2023 MRI report. I advised Peggy that if this upcoming MRI and lab work do not show any worrisome changes or findings I would then recommend another MRI in 2 years. At that point he would be due for a follow-up colonoscopy and we will see him in the office to arrange both of those studies. I advised him to contact me prior to 2026 if he has any problems or questions I can be of assistance with in the interim. Peggy was comfortable with this plan. Thank you again for allowing me to persuade in Peggy's care. I shall continue to keep you advised of his progress. Plan: * Treatment: 2. P ancreas cyst L AB: BUN L AB: CA 19-9 L AB: Creatinine L AB: Amylase L AB: Lipase I maging: MRI ABD W&WO CONTRAST * 3.?IPMN (intraductal papillary mucinous neoplasm)?LAB: BUN ?LAB: CA 19-9 ?LAB: Creatinine ?LAB: Amylase ?LAB: Lipase ?Imaging: MRI ABD W&WO CONTRAST* 10/20/24 no pa req for cpt 74 183 ref # [id number] Linda 10/20/2024 12:14:44 PM EDT > order faxed vidhi bishop/ Mark Leslie, they will call pt with appt date * * Preventive Medicine: Counseling: C are goal follow-up plan: A stalin Normal BMI Follow-up G iving encouragement to exercise, B MT management provided Y dianne. Screenings: F all Risk Screening F all Risk Assessment: N o falls in the past year, S creening: N o falls in the past year, P kwasi of Care: N ot documented, no reason specified. * Follow Up: p rn * * The named appointment provid er may or may not be the originator of this progress note, and it is not deemed complete until electronically signed by the appointment provider. Sign off status: Pending * Provider: Gt Mccullough MD Date: 0 10/20/2024 Generated for Prashanth hamm/Karin/Charlyitting on: 03/09/2024 10:31 AM EST
--- OUTSIDE RECORDS SUMMARY | 2025-01-07 10:31 | XMS_ITS | Encounter Summary ---
Author Organization [facility] Address [address] [address] [address] [place] [address] Phone Care Team Providers Care Supervisor Claims Name Role Phone Jose Alfredo Ross MD Primary Care Provider [phone] Encounter Details Date Type Department Care Team (Late st Contact Info) Description 10/23/2021 Documentation Only [facility] [address] [place] [phone] Danii Samuel MD Social History Tobacco Use [...] filedocumented in this encounter Care Teams Supervisor Claims Relationship Specialty Start Date End Date Jose Alfredo Ross MD [address] [facility] PCP - General Internal Medicine 08/19/23 documented as of this encounter
--- OUTSIDE RECORDS SUMMARY | 2025-01-07 10:31 | XMS_ITS | Encounter Summary ---
Author Organization [facility] Address [address] [facility] [address] [place] [address] Phone Care Team Providers Care Tinsmith Helper Name Role Phone Jose Alfredo Ross MD Primary Care Provider Vale Simons MD Primary Care Provider + [phone] Encounter Details Date Type Department Care Team (Late Contact Info) Description 04/29/2018 Telephone [facility] [address] [place] [address] Marci Coon, PhD [address] [place] [phone] [email or web address] Social History Tobacco Use Types Packs/Day [...] Description 01/30/2025 3:00 PM EST Office Visit [facility] Neurology at [address] [address] Shana Woods PA-C [address] [place] [address] [email or web address] documented as of this encounter Visit Diagnoses Not on filedocumented in this encounter Care Teams Tinsmith Helper Relationship Specialty Start Date End Date Jose Alfrdeo Ross MD [address] [place] [address] [place] [address] PCP - General Internal Medicine 04/29/17 07/20/24 Vale Simons MD [address] [place] [address] [place] [address] PCP - General Internal Medicine 07/21/24 documented as of this encounter Additional Source Comments The information contained in this document represents components of the legal health record. It is not the complete legal health record.[facility]
--- OUTSIDE RECORDS SUMMARY | 2025-01-07 10:31 | XMS_ITS | Encounter Summary ---
Author Organization [facility] Address [address] [facility] [address] [place] [address] Phone Care Team Providers Care Soap Inspector Name Role Phone Jose Alfredo Ross MD Primary Care Provider Vale Simons MD Primary Care Provider + [phone] Encounter Details Date Type Department Care Team (Late st Contact Info) Description 11/12/2017 Procedure Pass [facility] [address] [place] [address] Social History Tobacco Use Types Packs/Day Years [...] 3:00 PM EST Office Visit [facility] Neurology at [place] [address] [address] Shana Woods PA-C [address] [place] [address] [email or web address] U documented as of this encounter Visit Diagnoses Not on filedocumented in this encounter Care Teams Soap Inspector Relationship Specialty Start Date End Date Jose Alfredo Ross MD [address] [place] [address] [place] [address] PCP - General Internal Medicine 04/29/17 07/20/24 Vale Simons MD [address] [place] [address] Dr [place], [place] [address] PCP - General Internal Medicine 07/21/24 documented as of this encounter Additional Source Comments The information contained in this document represents components of the legal health record. It is not the complete legal health record.[facility]
--- OUTSIDE RECORDS SUMMARY | 2025-01-07 10:31 | XMS_ITS | Encounter Summary ---
Author Organization [facility] Address [address] [place] [address] Phone Care Team Providers Care Chronometer Assembler Name Role Phone Jose Alfredo Ross MD Primary Care Provider Vale Simons MD Primary Care Provider [phone] Reason for Referral * Consultation (Elective) - Closed Specialty Diagnoses / Procedures Referred By Contjenelle ashley Referred To Contact Neurology Diagnoses Encounter for consultation System, Provider Not In, PhD [address] [place] [address] Phone: tel: Referral ID Status Reason Start Date Expiration Date Visits Re quested Visits Authorized [id number] Closed 11/04/2017 11/04/2018 99 99 Encounter Details Date Type Department Care Team (Latest Contact Info) Description 06/05/2017 Transcribe Orders [facility] Department of Neurology [address] [place] [address], 8th Floor, [address] [place], [place] [id number] Unknown, Unknown, Encounter for consultation (Primary Dx) [...] Description 01/30/2025 3:00 PM EST Office Visit [facility] Neurology at [place] [address] [place] [address] Shana Woods PA-C [address] [place] [address] [email or web address] Scheduled Referrals Name Type Priority Associated Diagnoses Orde r Schedule Ambulatory referral to [facility] Neurology Outpatient Referral Routine Encounter for consultation Ordered: 06/08/2017 documented as of this encounter Visit Diagnoses Diagnosis Encounter for consultation- Primary documented in this encounter Care Teams Chronometer Assembler Relationship Specialty Start Date End Date Jose Alfredo Ross MD [address] [place] [address] [place] [address] PCP - General Internal Medicine 04/29/17 07/20/24 Vale Simons MD [address] [place] [address] [place] [address] PCP - General Internal Medicine 07/21/24 documented as of this encounter Additional Source Comments The information contained in this document represents components of the legal health record. It is not the complete legal health record.[facility]
--- OUTSIDE RECORDS SUMMARY | 2025-01-07 10:31 | XMS_ITS | Clinical Summary ---
Author Organization [facility] Address [address] [place] [address] [place] [address] Phone Care Team Providers Care Licensing Specialist Name Role Phone Jose Alfredo Ross MD Primary Care Provider [phone] Allergies No known active allergies Medications atorvastatin (LIPITOR) 20 MG tablet Active aspirin 81 MG chewable tablet Chew 81 mg 1 (one) time each day Active OXcarbazepine (TRILEPTAL) 600 MG tablet Take 1 tablet (600 mg total) by mouth 1 (one) time each day in the evening 90 tablet 3 3 Active magnesium oxide (MAG-OX) 400 MG tabletIndicati ons:Other continuous churn buttermaker current drug therapy TAKE 1 TABLET BY [...] the evening. 60 tablet 5 4 Active Mycophenolate Sodium (Mycophenolic Acid) 180 MG tablet delayed-releas e TAKE 2 TABLETS (360 MG TOTAL) BY MOUTH IN THE MORNING AND 2 TABLETS (360 MG TOTAL) IN THE EVENING. 360 tablet 3 5 Active traZODone (DESYREL) 300 MG tablet TAKE 1 TABLET BY MOUTH EVERY NIGHT. 90 tablet 3 5 Active traZODone (DESYREL) 300 MG tablet Take 1 tablet (300 mg total) by mouth every night 30 tablet 11 4 01/03/20 25 Discontinued Active Problems Problem Noted Date [...] Encounters Date Type Department Care Team Description 12/31/2024 Refill [facility] [address] [address] Alex Ross MD 11/27/2024 [facility] [address] [address] Alex Ross MD 11/13/2024 Refill [facility] [address] [address] Alex Ross MD from Last 3 Months [...] PM EST) Hemoglobin A1C 7.0(H) (4.0-5.6) % [facility] Comment: MONITORING: In known diabetic patients, [...] Supplement 1 Testing performed or reported by [facility], a Service of [facility], [address] [place] [address] Adrien Logan MD, Marketing Automation Manager [facility]# [id number] Blood specimen (specimen) Venous blood / Unknown 03/25/2023 12:02 PM EST 03/25/2023 12:04 PM EST Emeka Lundberg MD LAB BLOOD ORDERABLES Final Result [facility] from Last 3 Months or Most Recently Relevant to Health Maintenance Insurance [facility] Medicare [facility] Medicare [facility] Medicare Care Teams Licensing Specialist Relationship Specialty Start Date End Date Jose Alfredo Ross MD [address] [place] PCP - General Internal Medicine 08/19/23
--- OUTSIDE RECORDS SUMMARY | 2025-01-07 10:31 | XMS_ITS | Patient Health Record ---
Author Organization [facility] Address [address] [place] [address] Care Team Providers Care Yardage Estimator Name Role Phone Vale Finney M.D. 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) Active confirmed Problem Hematochezia (192910847) Black stool (K92.1) Active confirmed Problem History of adenomatous polyp of colon (466753105) History of adenomatous polyp of colon (Z86.0101) Active confirmed Vital Signs Blood pressure diastolic 77 mm Hg 10/20/2024 Height 60.50 in 10/20/2024 Blood pressure systolic 111 mm Hg 10/20/2024 Weight 150 lbs 10/20/2024 BMI 28.81 kg/m2 10/20/2024 Encounters Encounter Location Date Provider Diagnosis [facility] [address] [place] [phone] 10/20/2024 Gt Mccullough Encounter for screening for malignant neoplasm of colon Z12.11 ; History of adenomatous polyp of colon Z86.0101 ; Pancreas cyst K86.2 and IPMN (intraductal papillary mucinous neoplasm) D49.0 [facility] [address] [place] [address] 11/28/2024 Gt Mccullough [facility] [address] [place] [phone] 11/30/2024 Gt Mccullough Assessments Encounter Date Diagnosis [...] Insured Coverage Start Date Coverage End Date [facility] [address] [address] [place] [id number] PEGGY REYNOLDS Self - patient is the [...]
--- OUTSIDE RECORDS SUMMARY | 2025-01-07 10:31 | XMS_ITS | Encounter Summary ---
Author Organization [facility], Address [address] [address] Phone Care Team Providers Care Building Architectural Designer Name Role Phone Jose Alfredo Ross MD Primary Care Provider [phone] Reason for Visit * Reason Comments Med Refill Encounter Details Date Type Department Care Team (Late st Contact Info) Description 09/12/2021 Refill [facility] [address] [place] [address] Pasha Villalobos MD [address] [place] [address] [place] [address] Social History Tobacco Use Types [...] on filedocumented in this encounter Care Teams Building Architectural Designer Relationship Specialty Start Date End Date Jose Alfredo Ross MD [address] [place] PCP - General Internal Medicine 08/19/23 documented as of this encounter
--- OUTSIDE RECORDS SUMMARY | 2025-01-07 10:31 | XMS_ITS | Clinical Summary ---
Author Organization [facility] Address [address] [place] [address] Phone Care Team Providers Care Foundry Technician Name Role Phone Vale Simons MD Primary Care Provider [phone] Allergies No known active allergies Medications hydrALAZINE [...] 0.4 mg by mouth nightly. Active cloNIDine (VBPCIIRP-JHS-3) 0.1 mg/[address] 1 patch onto [...] hours as needed for fever. Active omega 9-qkh-dbs-fish oil 1,000 mg (120 mg-180 mg) Cap [...] Description 01/30/2025 3:00 PM EST Office Visit [facility] Neurology at [place] [address] [facility] [address] [place] [address] Shana Woods PA-C [address] [place] [address] [email or web address] Health Maintenance Due Date [...] Date/Time Associated Diagnosis Comments COMPREHENSIVE METABOLIC PANEL (CMP) Routine 11/04/2017 9:50 AM EDT Cognitive and behavioral changes from Last 3 Months or Most Recently Relevant to Health Maintenance Results * (ABNORMAL) Comprehensive metabolic panel (11/04/2017 9:50 AM EDT) SODIUM 139 135 - 145 mmol/L [facility] POTASSIUM 3.9 3.4 - 5.0 mmol/L [facility] CHLORIDE 102 98 - 108 mmol/L [facility] CO2 24 23 - 32 mmol/L [facility] BUN 35(H) 8 - 25 mg/dL [facility] CREATININE 2.74(H) 0.60 - 1.50 mg/dL [facility] GLUCOSE 126(H) 70 - 110 mg/dL [facility] ALBUMIN 4.0 3.3 - 5.0 g/dL [facility] TOTAL PROTEIN 6.9 6.0 - 8.3 g/dL [facility] CALCIUM 8.7 8.5 - 10.5 mg/dL [facility] ALKALINE PHOSPHATASE 84 45 - 115 U/L [facility] TOTAL BILIRUBIN 0.2 0.0 - 1.0 mg/dL [facility] AST 22 10 - 40 U/L [facility] ALT 25 10 - 55 U/L [facility] GLOBULIN 2.9 1.9 - 4.1 g/dL [facility] EGFR 24(L) >59 mL/min/1. 73m2 [facility] Comment:If patient is black, multiply result by 1.159. Estimated glomerular filtration rate calculated using the CKD-EPI equation. ANION GAP 13 3 - 17 mmol/L [facility] 11/04/2017 9:50 AM EDT 11/04/2017 1:11 PM EDT us Ed Lua MD LAB BLOOD BKR ORDERABLES Final Result [facility] [address] [place] [address] from Last 3 Months or Most Recently Relevant to Health Maintenance Insurance MEDICARE REPLACEMENT MEDICARE REPLACEMENT Care Teams Foundry Technician Relationship Specialty Start Date End Date Vale Simons MD [address] [place] [address] [place] [address] PCP - General Internal Medicine 07/21/24 Additional Source Comments The information contained in this document represents components of the legal health record. It is not the complete legal health record.[facility]
--- OUTSIDE RECORDS SUMMARY | 2025-01-07 10:31 | XMS_ITS | Encounter Summary ---
Author Organization [facility] Address [address] [facility] [address] [place] [address] Phone Care Team Providers Care Software Developer Mid Level Name Role Phone Jose Alfredo Ross MD Primary Care Provider Vale Simons MD Primary Care Provider [phone] Encounter Details Date Type Department Care Team (Late Contact Info) Description 12/28/2019 Ancillary [facility] [address] [place] [address] Parker Martinez DO [address] [address] [email or web address] Bradycardia Social History Tobacco Use Types Packs/Day [...] Description 01/30/2025 3:00 PM EST Office Visit [facility] Neurology at [address] [address] Shana Woods, PAFabio [address] [place] [address] [email or web address] documented as of this encounter Results [...] dysrhythmias documented in this encounter Care Teams Software Developer Mid Level Relationship Specialty Start Date End Date Jose Alfredo Ross MD [address] [place] [address] [place] [address] PCP - General Internal Medicine 04/29/17 07/20/24 Vale Simons MD [address] [place] [address] [place] [address] PCP - General Internal Medicine 07/21/24 documented as of this encounter Additional Source Comments The information contained in this document represents components of the legal health record. It is not the complete legal health record.[facility]
--- OUTSIDE RECORDS SUMMARY | 2025-01-07 10:31 | XMS_ITS | Encounter Summary ---
Author Organization [employer] [facility] Address [address] [facility] [address] [place] [address] Phone Care Team Providers Care Electrical Engineering Technician Name Role Phone Jose Alfredo Ross MD Primary Care Provider Vale Simons MD Primary Care Provider [phone] Encounter Details Date Type Department Care Team (Late st Contact Info) Description 11/12/2017 Procedure Pass [facility] [address] [place] [address] Social History Tobacco Use Types Packs/Day Years [...] 3:00 PM EST Office Visit [facility] Neurology at [place] [id number] [address] Shana Woods PA-C [address] [place] [address] [email or web address] documented as of this encounter Visit Diagnoses Not on filedocumented in this encounter Care Teams Electrical Engineering Technician Relationship Specialty Start Date End Date Jose Alfredo Ross MD [address] [place] [address] [place] [address] PCP - General Internal Medicine 04/29/17 07/20/24 Vale Simons MD [address] [place] [address] Dr [place], [place] [address] PCP - General Internal Medicine 07/21/24 documented as of this encounter Additional Source Comments The information contained in this document represents components of the legal health record. It is not the complete legal health record.[facility]
--- OUTSIDE RECORDS SUMMARY | 2025-01-07 10:31 | XMS_ITS | Encounter Summary ---
Author Organization [facility] Address [address] [place] [address] Phone Care Team Providers Care Sorter Upholstery Parts Name Role Phone Jose Alfredo Ross MD Primary Care Provider Vale Simons MD Primary Care Provider [phone] Encounter Details Date Type Department Care Team (Late st Contact Info) Description 12/10/2023 Telephone [facility] Urology [address] [place] [address] Reid Wilcox MD [address] [facility] [address] [place] [address] [email or web address] Social History Tobacco Use Types Packs/Day [...] Office Visit [facility] Neurology at [place] [address] [place] [address] Shana Woods PA-C [address] [place] [address] [email or web address] documented as of this encounter Visit Diagnoses Not on filedocumented in this encounter Care Teams Sorter Upholstery Parts Relationship Specialty Start Date End Date Jose Alfredo Ross MD [address] [place] [address] [place] [address] PCP - General Internal Medicine 04/29/17 07/20/24 Vale Simons MD [address] [place] [address] [place] [address] PCP - General Internal Medicine 07/21/24 documented as of this encounter Additional Source Comments The information contained in this document represents components of the legal health record. It is not the complete legal health record.[facility]
--- OUTSIDE RECORDS SUMMARY | 2025-01-07 10:31 | XMS_ITS | Encounter Summary ---
Author Organization [facility] Address [address] [facility] [address] [place] [address] Phone Care Team Providers Care Clam Digger Name Role Phone Jose Alfredo Ross MD Primary Care Provider [phone] Reason for Visit * Reason Comments Med Refill Encounter Details Date Type Department Care Team (Late st Contact Info) Description 12/15/2022 Refill [facility] [address] [place] [phone] Gus Jimenez MD Social History Tobacco Use [...] on filedocumented in this encounter Care Teams Clam Digger Relationship Specialty Start Date End Date Jose Alfredo Ross MD [address] [place] [address] [address] [place] PCP - General Internal Medicine 08/19/23 documented as of this encounter
--- OUTSIDE RECORDS SUMMARY | 2025-01-07 10:31 | XMS_ITS | Encounter Summary ---
Author Organization [facility] Address [address] [facility] [address] [place] [address] Phone Care Team Providers Care Tenter Name Role Phone Jose Alfredo Ross MD Primary Care Provider Vale Simons MD Primary Care Provider [phone] Encounter Details Date Type Department Care Team (Late st Contact Info) Description 11/12/2017 Procedure Pass [facility] [address] [place] [address] Social History Tobacco Use Types Packs/Day Years [...] [facility] Neurology at [place] [address] [address] Shana Woods PA-C 60 [place] [address] [email or web address] documented as of this encounter Visit Diagnoses Not on filedocumented in this encounter Care Teams Tenter Relationship Specialty Start Date End Date Jose Alfredo Ross MD [address] [place] [address] [place] [address] PCP - General Internal Medicine 04/29/17 07/20/24 Vale Simons MD [address] [place] [address] Dr [place], [place] [address] PCP - General Internal Medicine 07/21/24 documented as of this encounter Additional Source Comments The information contained in this document represents components of the legal health record. It is not the complete legal health record.[facility]
--- OUTSIDE RECORDS SUMMARY | 2025-01-07 10:31 | XMS_ITS | Encounter Summary ---
Author Organization [facility] Address [address] [facility] [address] [place] [address] Phone Care Team Providers Care Surgery Manager Name Role Phone Jose Alfredo Ross MD Primary Care Provider Vale Simons MD Primary Care Provider [phone] Encounter Details Date Type Department Care Team (Late st Contact Info) Description 12/28/2019 Procedure [facility] [address] [place] [address] [place] [address] Social History Tobacco Use Types Packs/Day Years [...] Description 01/30/2025 3:00 PM EST Office Visit [facility] Neurology at [place] [address] [address] Shana Woods PA-C [address] [place] [address] [email or web address] documented as of this encounter Visit Diagnoses Not on filedocumented in this encounter Care Teams Surgery Manager Relationship Specialty Start Date End Date Jose Alfredo Ross MD [address] [place] [address] [place] [address] PCP - General Internal Medicine 04/29/17 07/20/24 Vale Simons MD [address] [place] [address] [place] [address] PCP - General Internal Medicine 07/21/24 documented as of this encounter Additional Source Comments The information contained in this document represents components of the legal health record. It is not the complete legal health record.[facility]
--- OUTSIDE RECORDS SUMMARY | 2025-01-07 10:31 | XMS_ITS | Encounter Summary ---
Author Organization [facility] Address [address] [address] Phone Care Team Providers Care Bill Cutter Name Role Phone Jose Alfredo Ross MD Primary Care Provider [phone] Reason for Visit * Reason Comments Med Refill Encounter Details Date Type Department Care Team ([facility] st Contact Info) Description 12/31/2024 Refill [facility] [address] [address] Alex Ross MD [address] [address] Social History Tobacco Use Types [...] filedocumented in this encounter Care Teams Bill Cutter Relationship Specialty Start Date End Date Jose Alfredo Ross MD [address] [place] PCP - General Internal Medicine 08/19/23 documented as of this encounter
--- OUTSIDE RECORDS SUMMARY | 2025-01-07 10:31 | XMS_ITS | Clinical Summary ---
Author Organization [facility] Address [address] [place] [address] Care Team Providers Care Litigation Specialist Name Role Phone Jose Alfredo Ross MD Primary Care Provider [phone] Social History Tobacco Use Types Packs/Day Years [...] [employer] MEDICARE PART A & B [facility] MEDICARE Care Teams Litigation Specialist Relationship Specialty Start Date End Date Jose Alfredo Ross MD [address] [place] [address] [place] [address] PCP - General 02/12/22
[2025-01-07 12:16] LABS: Alanine Aminotransferase 27 U/L (0-40); Albumin Level 4.4 g/dL (3.5-5.0); Alkaline Phosphatase 69 U/L (39-117); Anion Gap 14 (12-20); Aspartate Amino Transferase 27 U/L (5-37); Blood Urea Nitrogen 15 mg/dL (9-16); Calcium 9.3 mg/dL (8.4-10.2); Carbon Dioxide 26 mmol/L (22-29); Chloride 109 mmol/L (96-108); Estimated Glomerular Filt Rate 53; Potassium 4.6 mmol/L (3.3-5.1); Sodium 144 mmol/L (135-145); Total Protein 6.7 g/dL (6.5-8.0)
== END 2025-01-07 10:29 | disposition home or self-care (01) ==
LOC: HO.LAB 10:28
PROVIDERS: PCP Physician Assistant Medical; Visit Provider Internal Medicine
DX: E11.65 Type 2 diabetes mellitus with hyperglycemia (principal)
CPT/HCPCS: 36415; 80053; 83036

== ENCOUNTER 2025-01-18 15:10 | Outpatient (AMB) | payer MEDICARE, SELFPAY ==
--- OUTSIDE RECORDS SUMMARY | 2024-10-20 06:00 | XMS_ITS ---
Author Organization [facility] Address [address] [place] [address] Care Team Providers Care Habilitation Specialist Name Role Phone Vale Finney M.D. Primary Care Provider Unavail luc Gt Mccullough Unavailable [phone] Allergies No Known Allergies REASON FOR VISIT Patient presents today for ? pt needs MRCP of the Pancreas Medications Medication SIG (Take, Route, Frequency, Duration) Notes Start Date End Date Status LORazepam Active traZODone HCl 300 MG Tablet Oral; Duration: 90 Active Atorvastatin Calcium 20 MG Tablet Oral; Duration: 90 Active Mycophenolate Mofetil Active Magnesium 300 MG Capsule 1 capsule with a meal Orally Once a day; Duration: 30 day(s) Active metFORMIN HCl 500 MG Tablet 2 tablets Orally twice a day Active Envarsus XR 1 MG Tablet Extended Release 24 Hour Oral; Duration: 30 Tacrolimus Active Social History Social History Drugs/Alcohol: Social Info Question Answer Notes Alcohol Screen Did you have a drink containing alcohol in the past year? No Points 0 Interpretation Negative Additional Details Category Social Info Options Details Miscellaneous: Marital status: Occupation: Works at [employer]/ retired Section Notes: No smoking, denies sig. alco hol Problems Problem Type SNOMED Code ICD Code Onset Dates Problem Status W/U Status Risk Notes Problem History of adenomatous polyp of colon (417582669) History of adenomatous polyp of colon (Z86.0101) Active confirmed Problem Cyst and pseudocyst of pancreas (346845765) Pancreas cyst (K86.2) Active confirmed Problem Neoplasm of digestive system (096577493) IPMN (intraductal papillary mucinous neoplasm) (D49.0) Active confirmed Vital Signs Blood pressure systolic 111 mm Hg 10/21/19 25 Blood pressure diastolic 77 mm Hg 025 Height 60.50 in 10/20/2024 Weight 150 lbs 10/20/2024 BMI 28.81 kg/m2 10/20/2024 Encounters Encounter Location Date Provider Diagnosis [facility] [address] [place] [address] 10/20/2024 Gt Mccullough Encounter for screening for [...] Notes * PEGGY REYNOLDSDOB:1955 (69 yo M)Acc No.[id number]:10/20/2024 Progress Notes Patient: PEGGY HUSAIN Provider: Gt Mccullough MD :1955 A ge:69 Y S ex:Male Date:10/20/2024 Address:[address] [place], [place] [phone] Pcp:Vale Finney M.D. Subjective: * Chief Complaints: * P atient presents today for ? pt needs MRCP of the Pancreas * Medical History: HTN Gout Sleep apnea-uses a CPAP machine Denies CA,DM,CVA,Lung disease CRF due to HTN with a kidney transplant 06/2021 Concussion Negative colonoscopy in 06/2011 Negative colonoscopy in 2000 Diverticulitis 2003 and 2005 NIDDM Colonoscopy 01/2022 with 2 tubular adenomas removed IPMN on MRI in 2023 Upper endoscopy in January 2022 was negative for any significant esophagitis, Velarde's esophagus, or eosinophilic esophagitis Medical History Verified * Surgical History: Diverticulitis as above--sigmoid resection in 2005 Knee-bilateral Kidney transplant 07/18/2021 Surgical History verified. * Hospitalization/Major Diagno stic Procedure: No Hospitalization Documented. Hospitalization Verified. * Family History: F ather: . M other: . F amily History Verified.. No known hx of colon cancer. * Social History: T obacco Use: T obacco Use/Smoking A re you a: nonsmoker. D rugs/Alcohol: A lcohol Screen D id you have a drink containing alcohol in the past year? N o, P oints 0 , I nterpretation N egative. M iscellaneous: M arital status: . Occupation: Works at [employer]/ retired. Social History Verified. N o smoking, denies sig. alcohol. * Medications: T akingmetFORMIN HCl 500 MG Tablet 2 tablets Orally twice a day LORazepam Mycophenolate Mofetil Magnesium 300 MG Capsule 1 capsule with a meal Orally Once a day traZODone HCl 300 MG Tablet Oral Atorvastatin Calcium 20 MG Tablet Oral Envarsus XR 1 MG Tablet Extended Release 24 Hour Oral , Notes to Pharmacist: TacrolimusTaking metFORMIN HCl 500 MG Tablet 2 tablets Orally twice a day Taking LORazepam Taking Mycophenolate Mofetil Taking Magnesium 300 MG Capsule 1 capsule with a meal Orally Once a day Taking traZODone HCl 300 MG Tablet Oral Taking Atorvastatin Calcium 20 MG Tablet Oral Taking Envarsus XR 1 MG Tablet Extended Release 24 Hour Oral , Notes to Pharmacist: TacrolimusDiscontinuedlevETIRAcetam 500 MG Tablet Oral , Notes to Pharmacist: Keppra-for sleepvalGANciclovir HCl 450 MG Tablet Oral , Notes to Pharmacist: For CMVClotrimazole 10 MG Purnima Mouth/Throat Sulfamethoxazole-Trimethoprim 400-80 MG Tablet Oral Docusate Sodium 100 MG Capsule Oral Enalapril Maleate 10 MG Tablet Oral Medication List reviewed and reconciled with the patientDiscontinued levETIRAcetam 500 MG Tablet Oral , Notes to Pharmacist: Keppra-for sleepDiscontinued valGANciclovir HCl 450 MG Tablet Oral , Notes to Pharmacist: For CMVDiscontinued Clotrimazole 10 MG Purnima Mouth/Throat Discontinued Sulfamethoxazole-Trimethoprim 400-80 MG Tablet Oral Discontinued Docusate Sodium 100 MG Capsule Oral Discontinued Enalapril Maleate 10 MG Tablet Oral Medication List reviewed and reconciled with the patient * Allergies: N .K.D.A.yesAllergies Verified. Objective: * Vitals: W t:150lbs, Ht: 60.50 in, BMI:28.81Index, BP:111/77mm Hg, Wt-k.04 kg. Assessment: * Assessment: 1. E ncounter for [...] req for cpt 74 183 ref # [id number] 10/20/2024 12:14:44 PM EDT > order faxed vidhi bishop/ Mark Leslie, they will call pt with appt date * * Preventive Medicine: Counseling: C are goal follow-up plan: A stalin Normal BMI Follow-up G iving encouragement to exercise, B CA management provided Y es. Screenings: F all Risk Screening F all Risk Assessment: N o falls in the past year, S creening: N o falls in the past year, P kwasi of Care: N ot documented, no reason specified. * Follow Up: p rn Billing Information: * Procedure Codes: * The named appointment provid er may or may not be the originator of this progress note, and it is not deemed complete until electronically signed by the appointment provider. Sign off status: Pending * Provider: Gt Mccullough MD Date: 0 10/20/2024 Generated for Prashanth hamm/Karin/Anasmitting on: 03/21/2024 03:44 AM EST
--- NOTE | 2025-01-18 15:09 | A.OFFPC_ITS ---
Intake Visit Reasons: Flu VAX Allergies bee pollen (BEE STINGS) Allergy (Intermediate, Verified 12/22/24 15:21) LOCALIZED SWELLING ibuprofen (From ADVIL) Allergy (Unknown, Verified 12/22/24 15:21) KIDNEY DISEASE Tobacco use date assessed: 07/07/24 Dental Screening Dental Screen Date: 07/07/24 [facility] Medical History (Updated 01/08/25 @ 14:21 by KAY Keebde) Pancreatic cyst Insomnia Anxiety Hyperlipidemia Diverticulitis Normal colonoscopy Concussion Sleep apnea with use of continuous positive airway pressure (CPAP) Gout HTN (hypertension) Surgical History History of colonoscopy (~02/26/22) Kidney transplant status H/O knee surgery Hx of resection of large bowel Family History (Updated 12/22/24 @ 16:04 by Helen Khanna MA) Mother No problems noted. Father No problems noted. Social History Housing: House Patient Tobacco Use Status: Never used Tobacco e-Cigarette/Vaping Use: Never Used service: No Current occupational status: retired Cognitive needs: No Hearing needs: No Vision needs: Yes (rx glasses) Questionnaire Thrive Questionnaire Date Thrive assessed: 09/15/24 IAN-7 AMB Questionnaire IAN-7 Date IAN - 7 assessed: 09/15/24 Source: Developed by Drs. Gt Munoz, Faith Hubbard, Kenan Long and colleagues, with an educational hannah from [employer]. Physical exam (Primary Care) Tobacco/Smoking Status: Tobacco use Status Tobacco use date assessed 12/22/24 12/22/24 15:22 Patient Tobacco Use Status Never used Tobacco 12/22/24 15:22 e-Cigarette/Vaping Use Never Used 12/22/24 15:22 Thrive Assessment: Date of Thrive Assessment Date Thrive assessed 12/22/24 12/22/24 15:22 Coding
--- NOTE | 2025-01-18 15:46 | AM.OFFVISNUR ---
Intake Visit Reasons: Flu VAX Allergies bee pollen (BEE STINGS) Allergy (Intermediate, Verified 12/22/24 15:21) LOCALIZED SWELLING ibuprofen (From ADVIL) Allergy (Unknown, Verified 12/22/24 15:21) KIDNEY DISEASE Office Procedures Flu Questionnaire Does the patient have a severe egg allergy?: No Does the patient have severe life threatening allergies?: No Does the patient have a fever or illness today?: No Has the patient ever had Guillain-Pageland Syndrome?: No Has the patient ever had any past reaction to a flu shot?: No Immunizations Fluzone High-Dose (PF) 180 mcg/0.5 mL intramuscular syringe Performing Provider: KAY Kebede Performing Location: [facility] Adult Primary Care-10 HD Administered by: Taylor Hubbard LPN on 01/18/25 15:47 Dose Route Admin Location Dispensed Lot Number Expiration Date PRC Feed Research Technician 0.5 mL IM Left Deltoid 0.5 mL [id number] 08/29/25 91710-695-56 [employer] Total Dispensed Waste 0.5 mL 0 % VIS Given Date VIS Provided VIS Publication Date 01/18/25 Single Vaccine 24 Eligibility Eligibility Date Funding Source Not [facility] Eligible 01/18/25 Private Assessment & Plan Assessment & Plan Orders: Orders Influenza [id number] High Dose Immunization Today Z23 - Encounter for immunization Coding
--- OUTSIDE RECORDS SUMMARY | 2025-01-19 03:44 | XMS_ITS | Encounter Summary ---
Author Organization [facility] Address [address] [place] [address] Phone Care Team Providers Care Sales Enablement Consultant Name Role Phone Jose Alfredo Ross MD Primary Care Provider Vale Simons MD Primary Care Provider + [phone] Reason for Referral * Consultation (Elective) - Closed Specialty Diagnoses / Procedures Referred By Contjenelle ashley Referred To Contact Neurology Diagnoses Encounter for consultation System, Provider Not In, PhD [address] [place] [phone] Phone: tel: Referral ID Status Reason Start Date Expiration Date Visits Re quested Visits Authorized [id number] Closed 11/04/2017 11/04/2018 99 [phone] Encounter Details Date Type Department Care Team (Latest Contact Info) Description 06/05/2017 Transcribe Orders [facility] Department of Neurology [address] [place] [address], 8th Floor, [address] [place], [place] [id number] Unknown, Unknown, Encounter for consultation (Primary Dx) [...] Description 01/30/2025 3:00 PM EST Office Visit [facility] Neurology at [place] [address] [place] [address] Shana Woods PA-C [address] [place] [address] [email or web address] Scheduled Referrals Name Type Priority Associated Diagnoses Orde r Schedule Ambulatory referral to [facility] Neurology Outpatient Referral Routine Encounter for consultation Ordered: 06/08/2017 documented as of this encounter Visit Diagnoses Diagnosis Encounter for consultation- Primary documented in this encounter Care Teams Sales Enablement Consultant Relationship Specialty Start Date End Date Jose Alfredo Ross MD [address] [place] [address] [place] [address] PCP - General Internal Medicine 04/29/17 07/20/24 Vale Simons MD [address] [place] [address] [place] [address] PCP - General Internal Medicine 07/21/24 documented as of this encounter Additional Source Comments The information contained in this document represents components of the legal health record. It is not the complete legal health record.[facility]
--- OUTSIDE RECORDS SUMMARY | 2025-01-19 03:44 | XMS_ITS | Encounter Summary ---
Author Organization [facility] Address [address] [place] [address] Phone Care Team Providers Care Food Processing Plant Manager Name Role Phone Jose Alfredo Ross MD Primary Care Provider [phone] Reason for Visit * Reason Comments Med Refill Encounter Details Date Type Department Care Team (Late st Contact Info) Description 12/15/2022 Refill [facility] [address] [place] [phone] Gus Jimenez MD [address] [place] [address] Social History Tobacco Use Types Packs/Day Years [...] filedocumented in this encounter Care Teams Food Processing Plant Manager Relationship Specialty Start Date End Date Jose Alfredo Ross MD [address] [place] [address] [address] [place], [place] PCP - General Internal Medicine 08/19/23 documented as of this encounter
--- OUTSIDE RECORDS SUMMARY | 2025-01-19 03:44 | XMS_ITS | Encounter Summary ---
Author Organization [facility] Address [address] [place] [address] Phone Care Team Providers Care Deli/Bakery Associate Name Role Phone Jose Alfredo Ross MD Primary Care Provider Vale Simons MD Primary Care Provider + [phone] Encounter Details Date Type Department Care Team (Late st Contact Info) Description 11/12/2017 Procedure Pass [facility] Imaging [address] [place] [address] Social History Tobacco Use Types Packs/Day Years [...] Description 01/30/2025 3:00 PM EST Office Visit [facility] Neurology at [place] [id number] [address] Shana Woods PA-C [address] [place] [address] [email or web address] documented as of this encounter Visit Diagnoses Not on filedocumented in this encounter Care Teams Deli/Bakery Associate Relationship Specialty Start Date End Date Jose Alfredo Ross MD [address] [place] [address] [place] [address] PCP - General Internal Medicine 04/29/17 07/20/24 Vale Simons MD [address] [place] [address] Dr [place], [place] [address] PCP - General Internal Medicine 07/21/24 documented as of this encounter Additional Source Comments The information contained in this document represents components of the legal health record. It is not the complete legal health record.[facility]
--- OUTSIDE RECORDS SUMMARY | 2025-01-19 03:44 | XMS_ITS | Clinical Summary ---
Author Organization [facility] Address [address] [place] [address] Phone Care Team Providers Care Mlt Name Role Phone Jose Alfredo Ross MD Primary Care Provider [phone] Allergies No known active allergies Medications atorvastatin (LIPITOR) 20 MG tablet Active aspirin 81 MG chewable tablet Chew 81 mg 1 (one) time each day Active OXcarbazepine (TRILEPTAL) 600 MG tablet Take 1 tablet (600 mg total) by mouth 1 (one) time each day in the evening 90 tablet 3 3 Active magnesium oxide (MAG-OX) 400 MG tabletIndicati ons:Other intermediate teacher current drug therapy TAKE 1 TABLET BY [...] 12/31/2024 Refill [facility] [address] [address] Alex Ross MD 11/27/2024 [facility] [address] [address] Alex Ross MD 11/13/2024 Refill [facility] [address] [address] Alex Ross MD from Last 3 Months [...] PM EST) Hemoglobin A1C 7.0(H) (4.0-5.6) % [facility] Comment: MONITORING: In known diabetic patients, hemoglobin A1c targets should be discussed with health care provider. DIAGNOSTIC USE: The [place] Diabetes Association (ADA) and the World Health [...] Supplement 1 Testing performed or reported by [facility], a Service of [facility], [address] [place] [address] Adrien Logan MD, Hairspring Cutter [facility]# [id number] Blood specimen (specimen) Venous blood / Unknown 03/25/2023 12:02 PM EST 03/25/2023 12:04 PM EST Emeka Lundberg MD LAB BLOOD ORDERABLES Final Result [facility] from Last 3 Months or Most Recently Relevant to Health Maintenance Insurance [facility] Medicare [facility] Medicare [facility] Medicare Care Teams Mlt Relationship Specialty Start Date End Date Jose Alfredo Ross MD [address] [place] PCP - General Internal Medicine 08/19/23
--- OUTSIDE RECORDS SUMMARY | 2025-01-19 03:44 | XMS_ITS | Encounter Summary ---
Author Organization [facility] Address [address] [place] [address] Phone Care Team Providers Care Finisher Accordion Name Role Phone Jose Alfredo Ross MD Primary Care Provider Vale Simons MD Primary Care Provider + [phone] Encounter Details Date Type Department Care Team (Late st Contact Info) Description 11/12/2017 Procedure Pass [facility] Imaging [address] [place] [address] Social History Tobacco Use Types Packs/Day Years [...] Description 01/30/2025 3:00 PM EST Office Visit [facility] Neurology at [place] [address] [address] Shana Woods PA-C 60 [place] [address] [email or web address] U documented as of this encounter Visit Diagnoses Not on filedocumented in this encounter Care Teams Finisher Accordion Relationship Specialty Start Date End Date Jose Alfredo Ross MD [address] [place] [address] [place] [address] PCP - General Internal Medicine 04/29/17 07/20/24 Vale Simons MD [address] [place] [address] Dr [place], [place] [address] PCP - General Internal Medicine 07/21/24 documented as of this encounter Additional Source Comments The information contained in this document represents components of the legal health record. It is not the complete legal health record.[facility]
--- OUTSIDE RECORDS SUMMARY | 2025-01-19 03:44 | XMS_ITS | Encounter Summary ---
Author Organization [facility] Address [address] [facility] [place] [address] Phone Care Team Providers Care Manager Pipeline Name Role Phone Jose Alfredo Ross MD Primary Care Provider Vale Simons MD Primary Care Provider + [phone] Encounter Details Date Type Department Care Team (Late st Contact Info) Description 11/12/2017 Procedure Pass [facility] Imaging [address] [place] [address] Social History Tobacco Use Types Packs/Day Years [...] Description 01/30/2025 3:00 PM EST Office Visit [facility] Neurology at [place] [id number] [address] Shana Woods PA-C 60 [place] [address] [email or web address] documented as of this encounter Visit Diagnoses Not on filedocumented in this encounter Care Teams Manager Pipeline Relationship Specialty Start Date End Date Jose Alfredo Ross MD [address] [place] [address] [place] [address] PCP - General Internal Medicine 04/29/17 07/20/24 Vale Simons MD [address] [place] [address] Dr [place], [place] [address] PCP - General Internal Medicine 07/21/24 documented as of this encounter Additional Source Comments The information contained in this document represents components of the legal health record. It is not the complete legal health record.[facility]
--- OUTSIDE RECORDS SUMMARY | 2025-01-19 03:45 | XMS_ITS | Encounter Summary ---
Author Organization [facility], Address [address] [address] Phone Care Team Providers Care Station Chief Name Role Phone Jose Alfredo Ross MD Primary Care Provider [phone] Reason for Visit * Reason Comments Med Refill Encounter Details Date Type Department Care Team (Late st Contact Info) Description 09/12/2021 Refill [facility] [address] [place] [address] Pasha Villalobos MD [address] [place] [address] Social History Tobacco Use Types [...] on filedocumented in this encounter Care Teams Station Chief Relationship Specialty Start Date End Date Jose Alfredo Ross MD [address] [place] PCP - General Internal Medicine 08/19/23 documented as of this encounter
--- OUTSIDE RECORDS SUMMARY | 2025-01-19 03:45 | XMS_ITS | Encounter Summary ---
Author Organization [facility] Address [address] [address] [place] [address] Phone Care Team Providers Care Rough And Truing Machine Operator Name Role Phone Jose Alfredo Ross MD Primary Care Provider [phone] Encounter Details Date Type Department Care Team (Late st Contact Info) Description 10/23/2021 Documentation Only [facility] [address] [place] [phone] Danii Samuel MD Social History Tobacco Use [...] on filedocumented in this encounter Care Teams Rough And Truing Machine Operator Relationship Specialty Start Date End Date Jose Alfredo Ross MD [address] [facility] PCP - General Internal Medicine 08/19/23 documented as of this encounter
--- OUTSIDE RECORDS SUMMARY | 2025-01-19 03:45 | XMS_ITS | Encounter Summary ---
Author Organization [facility] Address [address] [place] [address] Phone Care Team Providers Care Compression Molding Machine Tender Name Role Phone Jose Alfredo Ross MD Primary Care Provider Vlae Simons MD Primary Care Provider [phone] Encounter Details Date Type Department Care Team (Late st Contact Info) Description 12/10/2023 Telephone [facility] Urology [address] [facility] [place] [address] Reid Wilcox MD [address] [facility] [place] [address] [email or web address] Social History Tobacco Use Types Packs/Day [...] Description 01/30/2025 3:00 PM EST Office Visit [facility] Neurology at [place] [address] [place] [address] Shana Woods PA-C [address] [place] [address] [email or web address] documented as of this encounter Visit Diagnoses Not on filedocumented in this encounter Care Teams Compression Molding Machine Tender Relationship Specialty Start Date End Date Jose Alfredo Ross MD [address] [place] [address] [place] [address] PCP - General Internal Medicine 04/29/17 07/20/24 Vale Simons MD [address] [place] [address] [place] [address] PCP - General Internal Medicine 07/21/24 documented as of this encounter Additional Source Comments The information contained in this document represents components of the legal health record. It is not the complete legal health record.[facility]
--- OUTSIDE RECORDS SUMMARY | 2025-01-19 03:45 | XMS_ITS | Encounter Summary ---
Author Organization [facility] Address [address] [facility] [address] [place] [address] Phone Care Team Providers Care Tailor Apprentice Name Role Phone Jose Alfredo Ross MD Primary Care Provider Vale Simons MD Primary Care Provider [phone] Encounter Details Date Type Department Care Team (Late Contact Info) Description 12/28/2019 Ancillary [facility] [address] [place] [address] Parker Martinez DO [address] [address] [email or web address] Bradycardia Social History Tobacco [...] Description 01/30/2025 3:00 PM EST Office Visit [facility] Neurology at [address] [address] Shana Woods, PAFabio [address] [place] [address] [email or web address] documented as of this encounter Results [...] dysrhythmias documented in this encounter Care Teams Tailor Apprentice Relationship Specialty Start Date End Date Jose Alfredo Ross MD [address] [place] [address] [place] [address] PCP - General Internal Medicine 04/29/17 07/20/24 Vale Simons MD [address] [place] [address] [place] [address] PCP - General Internal Medicine 07/21/24 documented as of this encounter Additional Source Comments The information contained in this document represents components of the legal health record. It is not the complete legal health record.[facility]
--- OUTSIDE RECORDS SUMMARY | 2025-01-19 03:45 | XMS_ITS | Encounter Summary ---
Author Organization [facility] Address [address] [place] [address] Phone Care Team Providers Care Mosaic Floor Layer Name Role Phone Jose Alfredo Ross MD Primary Care Provider Vale Simons MD Primary Care Provider + [phone] Encounter Details Date Type Department Care Team (Late Contact Info) Description 04/29/2018 Telephone [facility] [address] [place] [address] Marci Coon, PhD [address] [place] [address] [email or web address] Social History Tobacco Use Types Packs/Day [...] Description 01/30/2025 3:00 PM EST Office [facility] Neurology at [address] [address] Shana Woods PA-C [address] [place] [address] [email or web address]. U documented as of this encounter Visit Diagnoses Not on filedocumented in this encounter Care Teams Mosaic Floor Layer Relationship Specialty Start Date End Date Jose Alfredo Ross MD [address] [place] [address] [place] [address] PCP - General Internal Medicine 04/29/17 07/20/24 Vale Simons MD [address] [place] [address] [place] [address] PCP - General Internal Medicine 07/21/24 documented as of this encounter Additional Source Comments The information contained in this document represents components of the legal health record. It is not the complete legal health record.[facility]
--- OUTSIDE RECORDS SUMMARY | 2025-01-19 03:45 | XMS_ITS | Clinical Summary ---
Author Organization [facility] Address [address] [place] [address] Care Team Providers Care Sewer Separation Designer Name Role Phone Jose Alfredo Ross MD Primary Care Provider [phone] Social History Tobacco Use Types Packs/Day Years [...] [place] [employer] MEDICARE PART A & B [facility] MEDICARE Care Teams Sewer Separation Designer Relationship Specialty Start Date End Date Jose Alfredo Ross MD [address] [place] [address] [place] [address] PCP - General 02/12/22
--- OUTSIDE RECORDS SUMMARY | 2025-01-19 03:45 | XMS_ITS | Patient Health Record ---
Author Organization [facility] Address [address] [place] [address] Care Team Providers Care Bar Supervisor Name Role Phone Vale Finney M.D. Primary Care Provider Unavail able Gt Mccullough Unavailable [phone] Allergies No Known Allergies Reason For Referral No Information Medications Medication SIG (Take, Route, Frequency, Duration) Notes Start Date End Date Status metFORMIN HCl 500 MG Tablet 2 tablets Orally twice a day Active LORazepam Active traZODone HCl 300 MG Tablet Oral; Duration: 90 Active Atorvastatin Calcium 20 MG Tablet Oral; Duration: 90 Active Mycophenolate Mofetil Active Magnesium 300 MG Capsule 1 capsule with a meal Orally Once a day; Duration: 30 day(s) Active Envarsus XR 1 MG Tablet Extended Release 24 Hour Oral; Duration: 30 Tacrolimus Active Immunizations Vaccine Route Administration Date Status Comme nts Influenza Unknown 11/30/2020 Administered Social History Social History Drugs/Alcohol: Social Info Question Answer Notes Alcohol Screen Did you have a drink containing alcohol in the past year? No Points 0 Interpretation Negative Additional Details Category Social Info Options Details Miscellaneous: Marital status: Occupation: Works at [employer]/ retired [place] Notes: No smoking, denies sig. alco hol No smoking, denies sig. alco hol No smoking, denies sig. 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) Active confirmed Problem Hematochezia (575325279) Black stool (K92.1) Active confirmed Problem History of adenomatous polyp of colon (277786300) History of adenomatous polyp of colon (Z86.0101) Active confirmed Vital Signs Blood pressure diastolic 77 mm Hg 10/20/2024 Height 60.50 in 10/20/2024 Blood pressure systolic 111 mm Hg 10/20/2024 Weight 150 lbs 10/20/2024 BMI 28.81 kg/m2 10/20/2024 Encounters Encounter Location Date Provider Diagnosis [facility] [address] [place] [address] 10/20/2024 Gt Mccullough Encounter for screening for malignant neoplasm of colon Z12.11 ; History of adenomatous polyp of colon Z86.0101 ; Pancreas cyst K86.2 and IPMN (intraductal papillary mucinous neoplasm) D49.0 [facility] [address] [place] [address] 11/28/2024 Gt Mccullough [facility] [address] [place] [phone] 11/30/2024 Gt Mccullough Assessments Encounter Date Diagnosis [...] Insured Coverage Start Date Coverage End Date [facility] [address] [address] [place] [address] [id number] PEGGY REYNOLDS Self - patient is the insured Medical (General) History Medical History History ICD Code HTN Gout Sleep apnea-uses a CPAP machine Denies IA,DM,CVA,Lung disease 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
--- OUTSIDE RECORDS SUMMARY | 2025-01-19 03:45 | XMS_ITS | Clinical Summary ---
Author Organization [employer] [facility] Address [address] [place] [address] Phone Care Team Providers Care Bathroom Tiling Professional Name Role Phone Vale Simons MD Primary Care Provider [phone] Allergies No known active allergies Medications hydrALAZINE [...] 0.4 mg by mouth nightly. Active cloNIDine ([id number]-6) 0.1 mg/[address] 1 patch onto [...] hours as needed for fever. Active omega 5-plg-eff-fish oil 1,000 mg (120 mg-180 mg) Cap [...] Description 01/30/2025 3:00 PM EST Office Visit [facility] Neurology at [place] [address] [employer] [address] [place] [address] Shana Woods PA-C [address] [place] [address] [email or web address] Health Maintenance Due Date Last [...] EDT) SODIUM 139 135 - 145 mmol/L [facility] POTASSIUM 3.9 3.4 - 5.0 mmol/L [facility] CHLORIDE 102 98 - 108 mmol/L [facility] CO2 24 23 - 32 mmol/L [facility] BUN 35(H) 8 - 25 mg/dL [facility] CREATININE 2.74(H) 0.60 - 1.50 mg/dL [facility] GLUCOSE 126(H) 70 - 110 mg/dL [facility] ALBUMIN 4.0 3.3 - 5.0 g/dL [facility] TOTAL PROTEIN 6.9 6.0 - 8.3 g/dL [facility] CALCIUM 8.7 8.5 - 10.5 mg/dL [facility] ALKALINE PHOSPHATASE 84 45 - 115 U/L [facility] TOTAL BILIRUBIN 0.2 0.0 - 1.0 mg/dL [facility] AST 22 10 - 40 U/L [facility] ALT 25 10 - 55 U/L [facility] GLOBULIN 2.9 1.9 - 4.1 g/dL [facility] EGFR 24(L) >59 mL/min/1. 73m2 [facility] Comment:If patient is black, multiply result by 1.159. Estimated glomerular filtration rate calculated using the CKD-EPI equation. ANION GAP 13 3 - 17 mmol/L [facility] 11/04/2017 9:50 AM EDT 11/04/2017 1:11 PM EDT us Ed Lua MD LAB BLOOD BKR ORDERABLES Final Result [facility] [address] [place] [address] from Last 3 Months or Most Recently Relevant to Health Maintenance Insurance MEDICARE REPLACEMENT MEDICARE REPLACEMENT Care Teams Bathroom Tiling Professional Relationship Specialty Start Date End Date Vale Simons MD [address] [place] [address] [place] [address] PCP - General Internal Medicine 07/21/24 Additional Source Comments The information contained in this document represents components of the legal health record. It is not the complete legal health record.[facility]
--- OUTSIDE RECORDS SUMMARY | 2025-01-19 03:45 | XMS_ITS | Encounter Summary ---
Author Organization [facility] Address [address] [facility] [address] [place] [address] Phone Care Team Providers Care Viscose Cellar Charge Hand Name Role Phone Jose Alfredo Ross MD Primary Care Provider Vale Simons MD Primary Care Provider + [phone] Encounter Details Date Type Department Care Team (Late st Contact Info) Description 12/28/2019 Procedure [facility] [address] [place] [address] [place] [address] Social History Tobacco Use Types Packs/Day Years [...] Description 01/30/2025 3:00 PM EST Office Visit [facility] Neurology at [place] [id number] [address] Shana Woods PA-C [address] [place] [address] [email or web address] documented as of this encounter Visit Diagnoses Not on filedocumented in this encounter Care Teams Viscose Cellar Charge Hand Relationship Specialty Start Date End Date Jose Alfredo Ross MD [address] [place] [address] [place] [id number] PCP - General Internal Medicine 04/29/17 07/20/24 Vale Simons MD [address] [place] [address] [place] [address] PCP - General Internal Medicine 07/21/24 documented as of this encounter Additional Source Comments The information contained in this document represents components of the legal health record. It is not the complete legal health record.[facility]
== END 2025-01-18 15:50 | disposition home or self-care (01) ==
LOC: HO.HMCHD 15:10
PROVIDERS: PCP Physician Assistant Medical; Visit Provider Physician Assistant Medical
DX: Z23 Encounter for immunization (principal)

== ENCOUNTER → 2025-01-18 15:10 | Outpatient (BNVA) | payer MEDICARE, SELFPAY | PROVIDERS: PCP Physician Assistant Medical; Visit Provider Physician Assistant Medical | DX: Z23 Encounter for immunization (principal) | CPT/HCPCS: 90471; 90662 ==